=== PATIENT | female | born 1945 | race Caucasian/White ===

== ENCOUNTER 2024-08-15 11:44 | Inpatient (IN) ==
--- NOTE | 2024-08-15 12:00 | Emergency Department Note ---
Impression & Plan Acute confusion, Leukocytosis, Acute UTI ED Provider Note NAME: CORNELIO PABON AGE: 79 SEX: F : 1945 ARRIVES VIA: Ambulance INFORMANT: [Patient][ems] ED PROVIDER(S): [Rasta Kirby MD] CHIEF COMPLAINT: Confusion HISTORY OF PRESENT ILLNESS: The patient is an 79-year-old female who presents to the ER with about a week of confusion, some increased bilateral leg pain, weakness, some burning on urination, foul-smelling urine, and a reported episode of nausea and vomiting. The patient denies cough or congestion or shortness of breath. She denies any abdominal pain. She denies any recent fall. PMHx/PSHx/Social Hx: See Below PHYSICAL EXAM: GENERAL: Patient is in no acute distress. HEENT: No acute trauma, normocephalic atraumatic, mucous membranes somewhat dry, no nasal congestion. NECK: No stridor, no adenopathy, no meningismus, trachea is midline. LUNGS: Clear to auscultation bilaterally, no wheeze, no rhonchi, breath sounds equal. HEART: Without murmurs gallops or rubs, regular rate and rhythm. Heart tones are a bit distant. ABDOMEN: Soft, nontender, no peritonitis. EXTREMITIES: No cyanosis, full range of motion of all the joints without pain or difficulty. There is an older abrasion that is healing across the left anterior knee. No pain to move the left knee joint. NEUROLOGIC: Does move all extremities, is awake, seems confused. SKIN: No jaundice, no diaphoresis. DIFFERENTIAL DIAGNOSIS: UTI, intracranial bleeding, stroke, electrolyte imbalance, bacteremia or sepsis, among others. EMERGENCY DEPARTMENT PROCEDURES: MEDICAL DECISION MAKING: There was a significant leukocytosis at 19,000, this would be consistent with infection. There was a normal hemoglobin and platelet count. No renal failure or significant electrolyte abnormality. Lactic acid level was not elevated making severe sepsis less likely. There was no concerning liver enzyme elevation. Ammonia level was not elevated. Patient appeared to be in a euthyroid state. ECG shows a sinus rhythm, no ischemia. Cardiac enzyme testing x 1 is not consistent with acute cardiac injury. Urinalysis does show findings of infection. Respiratory bio fire was negative. Chest x-ray did not show any obvious pneumonia although the radiologist questioned a subtle lower lung infiltrate. Of note, the patient has no respiratory complaints. Brain CT was done, there was no acute bleed or mass effect. On exam, the patient was confused but there were no focal neurologic findings. Patient received IV saline, 1.5 L. She was given IV ceftriaxone as antibiotic therapy. The patient is in need of a hospital stay. She is confused, likely from the UTI. She will require further IV hydration and further IV antibiotic therapy. I did speak with the patient and her family, I spoke with case management. The on-call hospitalist was consulted. Prior/Outside records/notes reviewed: Today's EMS notes describing her presentation and transport to this hospital. ECG per my interpretation: Indication was confusion. The ECG shows a normal sinus rhythm with a rate of 93. There is no ST elevation, no PVCs. The QTc is 430. Continuous Cardiac Monitoring per my interpretation: An order was placed for continuous cardiac monitoring. The monitor shows a rate of 94 with normal sinus rhythm. Imaging/x-ray results per my interpretation: Chest x-ray does not show an obvious pneumonia or CHF. Chronic Medical/Social conditions affecting care: Advanced age. Care/Management discussed with: Case management, the on-call hospitalist. Level of care consideration(s): After review of the information above and other included data: --I believe the patient requires escalation of care to admission DISPOSITION: Admission Past Med/Surg History Problem List (Updated 08/15/24 @ 19:39 by Rasta Kirby MD) Acute UTI (Acute) Leukocytosis (Acute) Acute confusion (Acute) Generalized weakness UTI (urinary tract infection) Acute metabolic encephalopathy Medical History Tobacco use disorder Periodic limb movement disorder (PLMD) MCI (mild cognitive impairment) with memory loss Expressive aphasia IBS (irritable bowel syndrome) Dyslipidemia DM (diabetes mellitus), type 2 Lumbar stenosis Surgical History Hx of tonsillectomy Hx of appendectomy H/O: hysterectomy S/P lumbar spinal fusion Family History Other Alzheimer disease Cancer Social History Smoking Status: Current every day smoker Tobacco Type: Cigarettes Second Hand Exposure: No; Do You Dip or Chew Tobacco: No; Tobacco Cessation Education Requested by Patient: No Hx Alcohol Use: No Hx Substance Use: No Preferred Language: Czech Cold Meat Cook Required: No Beliefs That Will Affect Care: None Current Living Situation: Spouse Other Information That Helps Us Care for You: No Feels Safe at Home: Yes Safety Concerns: Feels Safe At This Time Assistive Devices: Cane, Denture - Upper, Denture - Lower, Glasses and Walker Assistive Devices Comment: Cane and Walker not at bedside Allergies Allergies Allergy/AdvReac Type Severity Reaction Status Date / Time No Known Drug Allergies Allergy Unknown NKDA Verified 06/13/16 09:23 pollen extracts Allergy Unknown HAYFEVER Verified 06/13/16 09:23 Dust Allergy Unknown HAYFEVER Uncoded 06/13/16 09:23 Home Meds Home Medications Medication Instructions Recorded Confirmed aspirin 81 mg capsule 81 mg PO DAILY 08/15/24 08/15/24 atorvastatin 40 mg tablet 40 mg PO DAILY 08/15/24 08/15/24 donepezil 10 mg tablet 10 mg PO DAILY 08/15/24 08/15/24 duloxetine 30 mg capsule,delayed 30 mg PO BID 08/15/24 08/15/24 release fexofenadine 180 mg tablet 180 mg PO DAILY 08/15/24 08/15/24 fluticasone propionate 50 2 spray intranasal HS 08/15/24 08/15/24 mcg/actuation nasal spray,suspension gabapentin 300 mg capsule 300 mg PO TID 08/15/24 08/15/24 meclizine 25 mg tablet 25 mg PO TID PRN Dizziness 08/15/24 08/15/24 multivitamin 1 tab PO DAILY 08/15/24 08/15/24 vitamin B complex 1 tab PO DAILY 08/15/24 08/15/24 Results & Data (ED) Vital Signs Vital Signs - 24 hr 08/15/24 12:02 08/15/24 12:02 08/15/24 12:02 Temperature 37 C Temperature Source Oral Pulse Rate 93 H Pulse Rate [Apical] Respiratory Rate 22 24 Respiratory Depth Normal Blood Pressure 137/68 Blood Pressure [Right Arm] Blood Pressure Mean 91 Blood Pressure Mean [Right Arm] Pulse Oximetry 92 Oxygen Delivery Method Room Air Room Air Sepsis Recent Fever Within 48 Hours No Sepsis New/Unexplained Change in Mental Status No Sepsis Action Taken by Nursing No Action Required 08/15/24 12:02 08/15/24 12:08 08/15/24 14:00 Temperature Temperature Source Pulse Rate 94 H Pulse Rate [Apical] 84 Respiratory Rate 18 Respiratory Depth Normal Blood Pressure Blood Pressure [Right Arm] 117/61 Blood Pressure Mean Blood Pressure Mean [Right Arm] 79 Pulse Oximetry Oxygen Delivery Method Room Air Sepsis Recent Fever Within 48 Hours Sepsis New/Unexplained Change in Mental Status Sepsis Action Taken by Nursing 08/15/24 15:12 Temperature 37.6 C H Temperature Source Axillary Pulse Rate Pulse Rate [Apical] Respiratory Rate Respiratory Depth Blood Pressure Blood Pressure [Right Arm] Blood Pressure Mean Blood Pressure Mean [Right Arm] Pulse Oximetry Oxygen Delivery Method Sepsis Recent Fever Within 48 Hours Sepsis New/Unexplained Change in Mental Status Sepsis Action Taken by [facility] Medications Current Medication List: was personally reviewed by me Laboratory Data Attestation: I reviewed the patient's lab results. 08/15/24 12:05 08/15/24 12:05 Lab Results 08/15/24 08/15/24 08/15/24 Range/Units 12:05 12:07 12:18 WBC 19.11 H (4.8-10.8) K/ul RBC 4.56 (4.20-5.40) M/uL Hgb 14.2 (12.0-16.0) g/dl Hct 42.1 (37.0-47.0) % MCV 92.3 (80.0-100.0) fL MCH 31.1 (25.0-34.0) pg MCHC 33.7 (32.0-36.0) g/dL RDW Std Deviation 42.2 (36.4-46.3) fL RDW Coeff of Sherif 12.3 (11.5-14.5) % Plt Count 258 (130-400) K/uL MPV 9.8 (9.4-12.4) fL Immature Gran % (Auto) 0.5 % Neut % (Auto) 81.7 % Lymph % (Auto) 10.8 % [place] % (Auto) 6.6 % Eos % (Auto) 0.1 % Baso % (Auto) 0.3 % Neut # (Auto) 15.61 H (1.40-6.50) K/uL Lymph # (Auto) 2.07 (1.20-3.40) K/uL [place] # (Auto) 1.27 H (0.11-0.59) K/uL Eos # (Auto) 0.02 (0.00-0.50) K/uL Baso # (Auto) 0.05 (0.00-0.20) K/uL Immature Gran # (Auto) 0.09 (0.01-0.20) K/uL Sodium 134 L (136-145) mmol/L Potassium 3.9 (3.5-5.1) mmol/L Chloride 102 (98-107) mmol/L Carbon Dioxide 23 (21-32) mmol/L Anion Gap 9 (3-11) BUN 14 (6-23) mg/dl Creatinine 0.77 (0.6-1.2) mg/dl Est Cr Clr Drug Dosing 69.7 ml/min eGFR 77.45 BUN/Creatinine Ratio 18.2 (10-20) Glucose 181 H (70-99(Fasting)) mg/dl Lactate 1.8 (0.4-2.0) mmol/L Calcium 10.0 (8.6-10.3) mg/dl Magnesium 1.8 (1.7-2.4) mg/dl Total Bilirubin 0.6 (0.2-1.0) mg/dl AST 14 (13-39) U/L ALT 13 (7-52) U/L Alkaline Phosphatase 75 (34-104) U/L Ammonia 24.0 (18-72) umol/L Troponin I High Sens 7.5 (0-14) pg/ml Total Protein 7.1 (6.0-8.3) gm/dl Albumin 4.3 (3.4-5.0) gm/dl Globulin 2.8 (2.5-4.0) gm/dl Albumin/Globulin Ratio 1.5 (0.9-2) Procalcitonin 0.06 (0-0.5) ng/ml TSH 0.942 (0.300-4.500) uIu/ml Urine Color Dark Yellow Urine Appearance Clear (Clear) Urine pH 6.0 (4.5-7.5) Ur Specific [place] 1.017 (1.000-1.030) Urine Protein Negative (Negative) Urine Glucose (UA) Negative (Negative) Urine Ketones Negative (Negative) Urine Blood Negative (Negative) Urine Nitrite Positive A (Negative) Urine Bilirubin Negative (Negative) Urine Urobilinogen Negative (Negative) Ur Leukocyte Esterase Trace H (Negative) Urine WBC (Auto) 0-5 (0-5) /hpf Urine RBC (Auto) 0-2 (0-2) /hpf U Hyaline Cast (Auto) 0-2 (0-2) /lpf U Epithel Cells (Auto) 0-2 (0-2) /hpf Urine Bacteria (Auto) 4+ H (None Seen) Administered Medications Insulin Aspart (Insulin Aspart Per Unit Charge) 0 units SC ACHS JUHI Stop: 09/14/24 17:40 Last Admin: 08/15/24 18:37 Dose: 2 units Documented By: HOLLIE Co-signed By: KS Discontinued Medications Acetaminophen (Acetaminophen 500 Mg Tab) 1,000 mg PO NOW STA Stop: 08/15/24 16:07 Last Admin: 08/15/24 16:16 Dose: 1,000 mg Documented By: ALIX Sodium Chloride (Nss) 500 mls @ 999 mls/hr IV .Q31M ONE Stop: 08/15/24 12:24 Last Infusion: 08/15/24 13:22 Dose: Infused Documented By: Admin: 08/15/24 12:34 Dose: 999 mls/hr Documented By: ALIX Ceftriaxone Sodium (Rocephin) 2,000 mg in 50 mls @ 100 mls/hr IV NOW STA Stop: 08/15/24 13:26 Last Infusion: 08/15/24 14:36 Dose: Infused Documented By: Admin: 08/15/24 13:39 Dose: 100 mls/hr Documented By: ALIX Sodium Chloride (Nss) 1,000 mls @ 999 mls/hr IV .Q1H1M ONE Stop: 08/15/24 15:37 Last Infusion: 08/15/24 18:33 Dose: Infused Documented By: Admin: 08/15/24 15:13 Dose: 999 mls/hr Documented By: ALIX Imaging Data Radiologist's Impression: Chest X-Ray 08/15/24 11:55 XR chest 1V portable CLINICAL HISTORY: weakness COMPARISON STUDY: Chest radiograph June 07, 2016. FINDINGS: There is no pneumothorax or pleural effusion. Mild right lower lung opacity is present. There is no evidence for pulmonary edema. Left lung is clear. The heart is mildly enlarged. No evidence for pulmonary edema. IMPRESSION: Mild right lower lung opacity suggestive of pneumonia. Radiographic follow-up to ensure resolution is recommended. ACT 112: Negative or not required by law. Electronically signed by: Jarrod Montelongo M.D. 08/15/2024 12:[address] 08/15/24 11:55 CT OF THE HEAD WITHOUT CONTRAST CLINICAL HISTORY: Confusion. COMPARISON STUDY: MRI of the brain November 19, 2018. CT DOSE: 625.8 mGy.cm TECHNIQUE: Helical axial images of the head were obtained without IV contrast. Automated exposure control was utilized for the study. A dose lowering technique was utilized adhering to the principles of ALARA. FINDINGS: No acute intracranial hemorrhage, midline shift or mass effect is present. White matter hypodensities are suggestive of small vessel disease. The ventricular system is unremarkable. The basal cisterns are patent. No extra- axial collections are present. There are no findings to suggest acute dural sinus thrombosis or acute territorial infarct. No significant calvarial abnormalities are present. Visualized portions of the sinuses and mastoid air cells are clear. IMPRESSION: No acute intracranial findings. ACT 112: Negative or not required by law. Electronically signed by: Jarrod Montelongo M.D. 08/15/2024 12:57 PM Discharge Plan Visit Data Chief Complaint: Confusion ED Provider: Rasta Kirby Discharge Problem: Acute confusion, Leukocytosis, Acute UTI Patient Disposition: Admitted As Inpatient Condition: Fair Discharge Instructions Interventions: ED Discharge Assessment Last Done: 08/15/24 16:37 Discharge Problem: Leukocytosis Qualifiers: Leukocytosis type: unspecified Qualified Code(s): D72.829 - Elevated white blood cell count, unspecified
[2024-08-15] MEDS: SODIUM CHLORIDE 0.9% 500 ML IV ONE (12:34)
[2024-08-15 12:46] LABS: Basophils # (auto) 0.05 K/uL (0.00-0.20); Basophils % (auto) 0.3 %; Eosinophils # (auto) 0.02 K/uL (0.00-0.50); Eosinophils % (auto) 0.1 %; Hematocrit (blood only) 42.1 % (37.0-47.0); Hemoglobin 14.2 g/dl (12.0-16.0); Immature Granulocytes # (auto) 0.09 K/uL (0.01-0.20); Immature Granulocytes % (auto) 0.5 %; Lymphocytes # (auto) 2.07 K/uL (1.20-3.40); Lymphocytes % (auto) 10.8 %; Mean Corpuscular Hemoglobin 31.1 pg (25.0-34.0); Mean Corpuscular Hgb Conc 33.7 g/dL (32.0-36.0); Mean Corpuscular Volume 92.3 fL (80.0-100.0); Mean Platelet Volume 9.8 fL (9.4-12.4); Monocytes # (auto) 1.27 K/uL (0.11-0.59); Monocytes % (auto) 6.6 %; Neutrophils # (auto) 15.61 K/uL (1.40-6.50); Neutrophils % (auto) 81.7 %; Platelet Count 258 K/uL (130-400); RDW Coefficient of Variation 12.3 % (11.5-14.5); RDW Standard Deviation 42.2 fL (36.4-46.3); Red Blood Count 4.56 M/uL (4.20-5.40); White Blood Count 19.11 K/ul (4.8-10.8)
--- NOTE | 2024-08-15 12:46 | XRay Report ---
XR chest 1V portable CLINICAL HISTORY: weakness COMPARISON STUDY: Chest radiograph June 07, 2016. FINDINGS: There is no pneumothorax or pleural effusion. Mild right lower lung opacity is present. The re is no evidence for pulmonary edema. Left lung is clear. The heart is mildly enlarged. No evidence for pulmonary edema. IMPRESSION: Mild right lower lung opacity suggestive of pneumonia. Radiographic follow-up to ensure resolution is recommended. ACT 112: Negative or not required by law. Electronically signed by: Jarrod Montelongo M.D. 08/15/2024 12:45 PM
[2024-08-15 12:58] LABS: Albumin Globulin Ratio 1.5 (0.9-2); Albumin Level 4.3 gm/dl (3.4-5.0); BUN Creatinine Ratio 18.2 (10-20); Bilirubin,Total 0.6 mg/dl (0.2-1.0); Creatinine Clr Calc Pharmacy 69.7 ml/min; Globulin 2.8 gm/dl (2.5-4.0); Magnesium 1.8 mg/dl (1.7-2.4); Potassium 3.9 mmol/L (3.5-5.1); Total Protein 7.1 gm/dl (6.0-8.3)
--- NOTE | 2024-08-15 12:58 | CT Scan Report ---
CT OF THE HEAD WITHOUT CONTRAST CLINICAL HISTORY: Confusion. COMPARISON STUDY: MRI of the brain November 19, 2018. CT DOSE: 625.8 mGy.cm TECHNIQUE: Helical axial images of the head were obtained without IV contrast. Automated exposure con trol was utilized for the study. A dose lowering technique was utilized adhering to the principles o f ALARA. FINDINGS: No acute intracranial hemorrhage, midline shift or mass effect is present. White matter hyp odensities are suggestive of small vessel disease. The ventricular system is unremarkable. The basal cisterns are patent. No extra-axial collections are present. There are no findings to suggest acute d ural sinus thrombosis or acute territorial infarct. No significant calvarial abnormalities are presen t. Visualized portions of the sinuses and mastoid air cells are clear. IMPRESSION: No acute intracranial findings. ACT 112: Negative or not required by law. Electronically signed by: Jarrod Montelongo M.D. 08/15/2024 12:57 PM
[2024-08-15 13:04] LABS: Troponin I High Sensitivity 7.5 pg/ml (0-14)
[2024-08-15 13:11] LABS: Thyroid Stimulating Hormone 0.942 uIu/ml (0.300-4.500)
[2024-08-15] MEDS: cefTRIAXone SODIUM 2,000 MG/50 ML BAG IV STA (13:39)
[2024-08-15 13:42] LABS: Appearance Urine Clear (Clear); Bacteria Urine Automated 4+ (None Seen); Bilirubin Urine Negative (Negative); Blood Urine Negative (Negative); Cast Urine Automated 0-2 /lpf (0-2); Color Urine Dark Yellow; Epithelial Cell Urine Auto 0-2 /hpf (0-2); Glucose Urine UA Negative (Negative); Ketones Urine Negative (Negative); Leukocyte Esterase Urine Trace (Negative); Nitrite Urine Positive (Negative); Protein Urine Negative (Negative); RBC Urine Automated 0-2 /hpf (0-2); Specific Gravity Urine 1.017 (1.000-1.030); Urobilinogen Urine Negative (Negative); WBC Urine Automated 0-5 /hpf (0-5)
[2024-08-15 14:43] LABS: Adenovirus PCR Not Detected (NotDetected); Bordetella parapertussis PCR Not Detected (NotDetected); Bordetella pertussis PCR Not Detected (NotDetected); Chlamydia pneumoniae PCR Not Detected (NotDetected); Coronavirus 229E PCR Not Detected (NotDetected); Coronavirus CoV-2 (COVID19)PCR Not Detected (NotDetected); Coronavirus HKU1 PCR Not Detected (NotDetected); Coronavirus NL63 PCR Not Detected (NotDetected); Coronavirus OC43PCR Not Detected (NotDetected); Human Metapneumovirus PCR Not Detected (NotDetected); Influenza A PCR Not Detected (NotDetected); Influenza B PCR Not Detected (NotDetected); Mycoplasma pneumoniae PCR Not Detected (NotDetected); Parainfluenza Virus 1 PCR Not Detected (NotDetected); Parainfluenza Virus 2 PCR Not Detected (NotDetected); Parainfluenza Virus 3 PCR Not Detected (NotDetected); Parainfluenza Virus 4 PCR Not Detected (NotDetected); Respiratory Syncytial VirusPCR Not Detected (NotDetected); Rhinovirus/Enterovirus PCR Not Detected (NotDetected)
--- NOTE | 2024-08-15 14:59 | History & Physical Report ---
Date of Service August 15, 2024 Assessment & Plan (1) Acute metabolic encephalopathy: (2) UTI (urinary tract infection): (3) Generalized weakness: (4) DM (diabetes mellitus), type 2: (5) Tobacco use disorder: (6) MCI (mild cognitive impairment) with memory loss: (7) Expressive aphasia: (8) IBS (irritable bowel syndrome): (9) Dyslipidemia: Plan This is an 79yo F with PMH of DM II, expressive aphasia, mild cognitive impairment, tobacco use, periodic limb movement disorder, IBS and other medical problems listed below who presents via EMS with confusion and was found to have acute metabolic encephalopathy 2/2 UTI and possible CAP. Acute metabolic encephalopathy Acute UTI Generalized weakness AMS likely 2/2 infection - CT head without intracranial abnormality, does have baseline dementia but is usually able to complete ADLs more independently Urinary sx x 1 week, WBC 19k, abnormal UA consistent with UTI Continue empiric Rocephin PT/OT evals, fall precautions Possible CAP Afebrile, leukocytosis as above, resp viral panel negative CXR with mild right lower lung opacity suggestive of pneumonia. Radiographic follow-up to ensure resolution is recommended Covering with Rocephin above, add doxycycline for atypical coverage Incentive spirometry, PRN Nebs DM II Stable, diet controlled A1c 6.6 in Jul 2024 Loose correctional SSI while admitted 2/2 age BSG AC HS Tobacco use disorder Smoking 0.5 ppd Declined nicotine patch Smoking cessation Asymptomatic carotid stenosis HLD Continue aspirin, statin Dementia Expressive aphasia at baseline Oriented to person and place, not to time or situation Lives at home with , ambulates independently Continue donepezil IBS Chronic constipation Bowel regimen with daily Miralax DVT Ppx: SQ lovenox Code status: FULL PCP: Dalia Dispo:Admitted to med/surg Patient seen in collaboration with Dr. Magdaleno. Please see addendum. I spent a total of 75 minutes coordinating, documenting, and providing care for this patient excluding time spent in the performance of separately billed services or time spent by another provider/QHP. History of Present Illness Chief Complaint: confusion Primary Care Provider: Clayton Gómez, This is an 79yo F with PMH of DM II, expressive aphasia, mild cognitive impairment, tobacco use, periodic limb movement disorder, IBS and other medical problems listed below who presents via EMS with confusion and urinary symptoms. Family is at bedside who help augment history with her baseline dementia. Patien t endorses dysuria, increased frequency and incomplete voiding over the past week. Denies any fever or chills at home. No N/V or abdominal pain. + Generalized weakness noted over past few days but no falls. Also has noted increased cough over the past week. Has baseline dementia but was more confused today, requiring help to take medications and needing multiple reminders to complete tasks. Is typically able to ambulate independently at home, where she lives with . Was brought to ED for further evaluation. No lightheadedness, headche, CP, SOB, diarrhea or constipation. Allergies Allergy/AdvReac Type Severity Reaction Status Date / Time No Known Drug Allergies Allergy Unknown NKDA Verified 06/13/16 09:23 pollen extracts Allergy Unknown HAYFEVER Verified 06/13/16:23 Dust Allergy Unknown HAYFEVER Uncoded 06/13/16:23 Home Medications Medication Instructions Recorded Confirmed Type aspirin 81 mg capsule 81 mg PO DAILY 08/15/24 08/15/24 History atorvastatin 40 mg tablet 40 mg PO DAILY 08/15/24 08/15/24 History donepezil 10 mg tablet 10 mg PO DAILY 08/15/24 08/15/24 History duloxetine 30 mg capsule,delayed 30 mg PO BID 08/15/24 08/15/24 History release fexofenadine 180 mg tablet 180 mg PO DAILY 08/15/24 08/15/24 History fluticasone propionate 50 2 spray intranasal HS 08/15/24 08/15/24 History mcg/actuation nasal spray,suspension gabapentin 300 mg capsule 300 mg PO TID 08/15/24 08/15/24 History meclizine 25 mg tablet 25 mg PO TID PRN Dizziness 08/15/24 08/15/24 History multivitamin 1 tab PO DAILY 08/15/24 08/15/24 History vitamin B complex 1 tab PO DAILY 08/15/24 08/15/24 History Past Med/Surg History Problem List Generalized weakness UTI (urinary tract infection) Acute metabolic encephalopathy Medical History Tobacco use disorder Periodic limb movement disorder (PLMD) MCI (mild cognitive impairment) with memory loss Expressive aphasia IBS (irritable bowel syndrome) Dyslipidemia DM (diabetes mellitus), type 2 Lumbar stenosis Surgical History Hx of tonsillectomy Hx of appendectomy H/O: hysterectomy S/P lumbar spinal fusion Family History Other Alzheimer disease Cancer Social History Smoking Status: Never smoker Preferred Language: Burmese Feels Safe at Home: Yes Review of Systems Review of Systems: At least ten systems reviewed and negative except as noted in the HPI. Physical Exam Physical Exam: General Appearance: WD/WN, vitals as above, NAD, sitting up in bed, pleasantly confused, appears comfortable, mild expressive aphasia (baseline) Head: normocephalic, atraumatic Eyes: normal inspection, PERRL, conjunctivae normal, anicteric sclerae ENT: external ear and nose normal, oropharynx normal Neck: normal visual inspection, trachea midline, no thyromegaly Respiratory: normal respiratory effort, diffuse rhonchi. No accessory muscle use Cardiovascular: regular rate, rhythm, normal peripheral pulses, trace BLE edema. Vessels: no JVD Chest: normal inspection of chest Abdomen/GI: normal bowel sounds, soft, nontender, no hepatosplenomegaly Extremities/Musculoskeletal: no cyanosis or clubbing, extremities motor strength 5/5 Neurologic: PERRL, EOMI, accommodation nl, no face palsy, no dysarthria, CN's II-XI intact bilaterally and moves all extremities Psychiatric: A+Ox person and place, not time or situation Skin: no rashes, normal color, warm/dry Results & Data Results & Data Vital Signs (Past 12 Hours) Vital Signs Temp Pulse Pulse Resp BP BP Pulse Ox 08/15/24 14:00 84 18 117/61 08/15/24 12:08 94 H 08/15/24 12:02 08/15/24 12:02 08/15/24 12:02 24 08/15/24 12:02 37 C 93 H 22 137/68 92 O2 Del Method 08/15/24 14:00 08/15/24 12:08 08/15/24 12:02 Room Air 08/15/24 12:02 Room Air 08/15/24 12:02 08/15/24 12:02 Room Air Laboratory Results Short CBC 08/15/24 Range/Units 12:05 WBC 19.11 H (4.8-10.8) K/ul Hgb 14.2 (12.0-16.0) g/dl Hct 42.1 (37.0-47.0) % Plt Count 258 (130-400) K/uL BMP 08/15/24 12:05 Sodium 134 L Potassium 3.9 Chloride 102 Carbon Dioxide 23 BUN 14 Creatinine 0.77 Glucose 181 H Calcium 10.0 Liver Function 08/15/24 Range/Units 12:05 Total Bilirubin 0.6 (0.2-1.0) mg/dl AST 14 (13-39) U/L ALT 13 (7-52) U/L Alkaline Phosphatase 75 (34-104) U/L Albumin 4.3 (3.4-5.0) gm/dl Urine 08/15/24 Range/Units 12:18 Urine Color Dark Yellow Urine Appearance Clear (Clear) Urine pH 6.0 (4.5-7.5) Ur Specific [place] 1.017 (1.000-1.030) Urine Protein Negative (Negative) Urine Glucose (UA) Negative (Negative) Diagnostic Findings Chest X-Ray 08/15/24 11:55 XR chest 1V portable CLINICAL HISTORY: weakness COMPARISON STUDY: Chest radiograph June 07, 2016. FINDINGS: There is no pneumothorax or pleural effusion. Mild right lower lung opacity is present. There is no evidence for pulmonary edema. Left lung is clear. The heart is mildly enlarged. No evidence for pulmonary edema. IMPRESSION: Mild right lower lung opacity suggestive of pneumonia. Radiographic follow-up to ensure resolution is recommended. ACT 112: Negative or not required by law. Electronically signed by: Jarrod Montelongo M.D. 08/15/2024 12:[address] 08/15/24 11:55 CT OF THE HEAD WITHOUT CONTRAST CLINICAL HISTORY: Confusion. COMPARISON STUDY: MRI of the brain November 19, 2018. CT DOSE: 625.8 mGy.cm TECHNIQUE: Helical axial images of the head were obtained without IV contrast. Automated exposure control was utilized for the study. A dose lowering technique was utilized adhering to the principles of ALARA. FINDINGS: No acute intracranial hemorrhage, midline shift or mass effect is present. White matter hypodensities are suggestive of small vessel disease. The ventricular system is unremarkable. The basal cisterns are patent. No extra- axial collections are present. There are no findings to suggest acute dural sinus thrombosis or acute territorial infarct. No significant calvarial abnormalities are present. Visualized portions of the sinuses and mastoid air cells are clear. IMPRESSION: No acute intracranial findings. ACT 112: Negative or not required by law. Electronically signed by: Jarrod Montelongo M.D. 08/15/2024 12:57 PM Supervising Physician Co-Signing Physician Notes 79-year-old female with PMH of T2DM, expressive aphasia, mild cognitive impairment, tobacco use, periodic limb disorder, IBS presented to the ED with complaint of urinary symptoms and confusion for about a week. patient's daughter at bedside patient also noted to have cough since last 1 week. Patient has baseline dementia. Labs reviewed, WBC elevated at 19.11K, sodium at 134, rest of the renal function fairly WNL, LFT WNL, ammonia normal. Urinalysis positive for UTI. Respiratory pathogen panel negative. CXR with RLL pneumonia. CT head with no acute finding. Acute UTI, acute metabolic encephalopathy, generalized weakness and possible pneumonia: Continue with Rocephin and doxycycline, follow blood and urine culture. Repeat chest x-ray in 2 to 3 months to document resolution of pneumonia. PT/OT eval. Exam: GENERAL: Alert and awake. NAD, on RA. Appears ill/weak/frail. HEENT: No pallor, no icterus. Pupils equal, round and reactive to light. Oral mucosa moist. NECK: No JVD, no neck masses. HEART: S1 and S2 heard. Regular rate and rhythm. No murmur, no gallop. RESPIRATORY SYSTEM: Normal AP diameter. No accessory muscle use. No wheezing, RLL crackles. ABDOMEN: Soft, bowel sounds present, nontender, no distention. CENTRAL NERVOUS SYSTEM: No facial droop. Speech is clear. Obeys simple commands. Moves extremities. EXTREMITIES: No edema, no erythema seen. I have seen and examined the patient and have discussed the case with the provider above. I agree with the assessment and plan as stated. Time spent: 25 min.
[2024-08-15] MEDS: SODIUM CHLORIDE 0.9% 1,000 ML IV ONE (15:13)
--- NOTE | 2024-08-15 15:30 | Electrocardiogram Report ---
Test Reason : Blood Pressure : */* mmHG Vent. Rate : 93 BPM Atrial Rate : 93 BPM P-R Int : 172 ms QRS Dur : 72 ms QT Int : 346 ms P-R-T Axes : 47 59 68 degrees QTcB Int : 430 ms Normal sinus rhythm Normal ECG When compared with ECG of 07-Jun-2016 09:06, No significant change was found Confirmed by Solitario Frederick ([id number]) on 08/15/2024 3:30:27 PM Referred By: Confirmed By: Solitario Frederick
[2024-08-15] MEDS: ACETAMINOPHEN 500 MG TAB PO STA (16:16)
[2024-08-15] MEDS ORDERED: ALBUT/IPRATROP 3MG/0.5MG NEB 3 ML VIAL NEB PRN (16:47)
--- OUTSIDE RECORDS SUMMARY | 2024-08-15 17:05 | External Medical Summary ---
Author Name Unknown Address Unknown Organization [id number]:[facility] [place] - [address] [place] [address] Laboratory Report Ordering Provider Test Date Status EDNA STORMMELI 08/13/2024 12:33:57 Final Observation Date Value Abnormality Reference (Units ) Status Erythrocyte sedimentation rate by Photometric method 08/13/2024 12:33:57 20 <30 (mm/hour) Final Performing Location [facility] - [address] [place] [id number]
--- OUTSIDE RECORDS SUMMARY | 2024-08-15 17:05 | External Medical Summary ---
Author Name Unknown Address Unknown Organization [id number]:[facility] [place] [address] Laboratory Report Ordering Provider Test Date Status SARI STORM 08/13/2024 12:33:57 Final Observation Date Value Abnormality Reference (Units ) Status BUN 08/13/2024 12:33:57 20 6-20 (mg/dL) Final Creatinine 08/13/2024 12:33:57 0.7 0.5-1.0 (mg/dL) Final Glomerular filtration rate/1.73 sq M.predicted [Volume Rate/Area] in Serum, Plasma or Blood by Creatinine-based formula (CKD-EPI) 08/13/2024 12:33:57 88 >=60 (mL/min) Final eGFR is calculated based on the CKD-EPI 2020 equation. Sodium 08/13/2024 12:33:57 141 135-146 (m mol/L) Final Potassium 08/13/2024 12:33:57 4.7 3.5-5.1 (m mol/L) Final Cl 08/13/2024 12:33:57 105 98-107 (mm ol/L) Final CO2 08/13/2024 12:33:57 23 22-32 (mmo l/L) Final Anion gap 08/13/2024 12:33:57 13 7-15 (mmol /L) Final Glucose 08/13/2024 12:33:57 114 70-120 (mg /dL) Final Albumin 08/13/2024 12:33:57 4.8 3.8-5.0 (g /dL) Final AST (Aspartate aminotransferase) 08/13/2024 12:33:57 19 10-35 (U/L) Fin al Alk Phos 08/13/2024 12:33:57 94 35-130 (U/ L) Final Bilirubin, Total 08/13/2024 12:33:57 0.2 <=1 .2 (mg/dL) Final Calcium 08/13/2024 12:33:57 10.6 Above high normal 8. 4-10.2 (mg/dL) Final Protein 08/13/2024 12:33:57 7.2 6.0-8.3 (g /dL) Final ALT (Alanine aminotransferase) 08/13/2024 12:33:57 17 10-35 (U/L) Maldonado beaulieu Performing Location [facility] [address] [place] [address]
--- OUTSIDE RECORDS SUMMARY | 2024-08-15 17:05 | External Medical Summary ---
Author Name Unknown Address Unknown Organization K01:[facility] [place] - [address] [place] [id number] Laboratory Report Ordering Provider Test Date Status DOTTYSARI 08/13/2024 12:33:57 Final Observation Date Value Abnormality Reference (Units ) Status Vitamin B12 08/13/2024 12:33:57 [phone] (pg/mL) Final Performing Location [facility] [place] - [address] [place] [address]
--- OUTSIDE RECORDS SUMMARY | 2024-08-15 17:05 | External Medical Summary | Summary of Care ---
Author Name Unknown Organization [facility] Address [address] [place] [address] Phone [phone] Care Team Providers Care Choir Accompanist Name Role Phone Clayton Gómez DO Primary Care Provider Reason for Visit * Reason Onset Date Comments Test Results 08/09/202408/09 Encounter Details Date Type Department Care Team (Late st Contact Info) Description 08/09/2024 Telephone Family Practice [address] [facility] [place] [address] [place] [address] Clayton Gómez DO [address] [place] [address] Test Results (08/09) Allergies Active Allergy Reactions Criticality Noted Date Comments Environmental 07/15/2003 pollen documented as of this encounter (statuses as of 08/13/2024) Medications ASPIRIN 81 MG PO TABSIndications :Screening for malignant neoplasm of breast one tab by mouth daily 90 5 8 Active B-COMPLEX W/C & IRON PO CAPSIndications :Menopause daily 90 6 8 Active Acetaminophen ER 650 MG Oral Tablet Extended Release every 8 hours as needed. Active fluticasone (FLONASE) 50 MCG/ACT nasal sprayIndication s:at bedtime SQUIRT 2 SPRAYS INTO EACH NOSTRIL ONCE A DAY. Indications: at bedtime 48 g 2 5 Active Fexofenadine HCl 180 MG Oral Tablet One pill by mouth once a day for allergies 30 Tab 11 5 Active Multiple Vitamins-Minera ls (OCUVITE ADULT 50+) Capsule Take 1 Capsule by mouth in the morning. Active DULoxetine HCl 30 MG Oral Capsule Delayed Release Particles (Cymbalta)Indic ations:Heredita ry and idiopathic peripheral neuropathy TAKE ONE CAPSULE BY MOUTH TWICE A DAY 200 Capsule 3 08/01/2024 2:54 PM EST 4 11/14/19 25 Active Atorvastatin Calcium 40 MG Oral Tablet (Lipitor)Indica tions:Dyslipide dallin, goal LDL below 160 TAKE ONE TABLET BY MOUTH EVERY DAY 90 Tablet 3 08/10/2024 8:14 AM EST 4 11/15/19 25 Active Gabapentin 300 MG Oral Capsule (Neurontin)Amaris cations:S/P lumbar spinal fusion Take 1 Capsule by mouth in the morning and 1 Capsule at noon and 1 Capsule before bedtime. 300 Capsule 5 07/06/2024 1:33 PM EST 4 Active Meclizine HCl 25 MG Oral Tablet (Antivert)Indic ations:Vertigo TAKE ONE TABLET BY MOUTH THREE TIMES A DAY NEEDED FOR DIZZINESS 270 Tablet 1 08/10/2024 8:14 AM EST 4 05/10/20 25 Active Donepezil HCl 10 MG Oral Tablet (Aricept) Take 1 Tablet by mouth in the morning. 90 Tablet 3 08/02/2024 4:38 PM EST 5 Active documented as of this encounter (statuses as of 08/13/2024) Active Problems Problem Noted Date Diagnosed Date DM type 2, goal HbA1c < 8% 04/02/2024 Expressive aphasia 07/15/2022 MCI (mild cognitive impairment) with memory loss 07/15/2022 Asymptomatic stenosis of right carotid artery Chronic constipation 02/27/2020 Hiatal hernia 10/09/2019 S/P lumbar spinal fusion 08/25/2016 History of melanoma in situ 08/13/2015 Allergic rhinitis 12/09/2014 Dyslipidemia, goal LDL below 70 09/13/2010 IDIO PERIPH NEURPTHY NOS(aka NEUROPATHY) 003 Irritable bowel syndrome 06/30/2003 Periodic limb movement disorder (PLMD) 3 Tobacco use disorder 06/30/2003 documented as of this encounter (statuses as of 08/13/2024) Resolved Problems Problem Noted Date Diagnosed Date Resolved Date Unspecified dementia, mild, without behavioral disturbance, psychotic disturbance, mood disturbance, and anxiety 11/14/2022 11/14/2022 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 Dyslipidemia, goal to be determined 06/30/2003 09/13/2010 BENIGN NEOPLASM LG BOWEL 06/30/200301/2019 Overview (06/16/2006): Colonoscopy 06/07: Impression: - One 3 mm polyp in the cecum. Resected and retrieved. - The examination was otherwise normal. Recommendation: - Await pathology results. - Discontinue NSAIDS for 10 days. - Repeat colonoscopy in 3 years for surveillance given the prep quality. Other voice and resonance disorders 06/30/2003 02/23/2017 Overview (06/22/2005): Direct Laryngosocopy 10/04: Mrs. Andino consented to the laryngoscopic exam. We subsequently sprayed the back of the throat with two sprays of Lidocaine with good success. We cannulated her nose without any significant difficulty and then visualized her vocal cords. There was no obvious lesions. No significant erythema or other mucosal interruptions. Her vocal cords did not have any polyps or other lesions noted. There was no subglottic narrowing or other tracheal abnormalities noted. Her swallowing was intact and appropriate. The vocal cords moved symmetrically and appropriately with voice and inhalation. SCREEN FOR COND NEC 06/30/200302/23 CARDIOVAS SYS SYMP NEC 06/30/200302/23 documented as of this encounter (statuses as of 08/13/2024) Immunizations Name Administration Dates Next Due COVID-19 mRNA, LNP-s, No Pre serve, 2-Dose Series ([employer]) 09/22/2020,09/01/2020 COVID-19, LNP-s, No Preserve , Chad-sucrose, Ages 12+ ([employer]) 12/28/2021 COVID-19, MRNA-LNP, PF, 30 M CG/0.3 mL, 12 YRS AND ABOVE, IM ([facility]) 04/01/2024 Covid-19, Mrna, Lnp-s, Pf, B ivalent, 30 Mcg, IM, 12 yrs and above ([employer]) 07/19/2022 Pneumococcal Conjugate Vacc, 13 Valent (Prevnar) 12/09/2014 Pneumococcal Conjugate Vacci ne, 20-valent ([id number]) 04/01/2024 Pneumococcal Polysaccharide PPV23 (Pneumovax) 03/21/2008 RSV Vac., Bivalent, Perfusio n F, Pf,0.5 Ml (Abrysvo) 04/01/2024 Season Influenza, Quad, PF, Adjuvanted, 65+ Yrs, IM (FLUAD) 04/23/2020 Seasonal Influenza Vac., MDV , IM, 0.5 mL (Fluzone) 05/05/2014,04/17/2013,04/16/2012,03/04,04/21/2010,03/12/2009,05/06/20 08,04/19/2007,05/23/2006 03/31/2012 Seasonal Influenza, High Dos e, Trivalent, PF, IM (Fluzone HD) 04/01/2024 Seasonal Influenza, PF, 6 M & above, IM , (FluLaval or Fluzone) 03/14/2018,06/02/2017 Seasonal Influenza, Quadriva lent Hd (Fluzone Hd) 03/22/2023,05/13/2022,05/03/2021 Seasonal Influenza, Quadriva lent, No Preserve, IM 05/09/2016,05/07/2015 Seasonal Influenza, Trivalen t, Adjuvanted, 65+ YRS, PF, (Fluad) 03/25/2019 TDAP (age 10 and older)(Boostrix) 10/11/2022, Varicella Zoster Vaccine (Adult) 04/16/2012 Zoster Vaccine Recombinant (Shingrix) 12/27/2021 ,08/26/2021 documented as of this encounter Social History Tobacco Use Types Packs/Day Years Used Date Smoking Tobacco: Every Day Cigarettes 0.5 60 Passive Smoke Exposure: Current Smokeless Tobacco: Never Alcohol Use Standard Drinks/Week Comments Not Currently 0 (1 standard drink = 0.6 oz pur e alcohol) AUDIT-C Answer Date Recorded Frequency of Alcohol Consumption Not on file 02/18/2019 Average Number of Drinks Not on file 019 Frequency of Binge Drinking Less than monthly PHQ-2 Answer Date Recorded PHQ Adult Total Score 0 10/17/2023 Hunger Vital Sign Answer Date Recorded Within the past 12 months, y ou worried that your food would run out before you got the money to buy more. Never true 07/24/19 24 Within the past 12 months, t he food you bought just didn't last and you didn't have money to get more. Never true 07/24/2023 Childcare Answer Date Recorded Do you feel overwhelmed with taking care of a child, family member or friend? No 07/24/2023 Does your family need help f inding childcare? (Household - for ages 0-17 years) Not on file 07/24/2023 Clothing Answer Date Recorded Have you been unable to get clothing when it was really needed? No 07/24/2023 Is your family able to get c lothes or diapers when needed? (Household - for ages 0-17 years) Not on file 07/24/2023 Personal Safety Answer Date Recorded Do you feel unsafe or have concerns for your saf ety? No 07/24/2023 Do you have concerns for you r family's safety? (Household - for ages 0-17 years) Not on file 07/24/2023 Utilities Answer Date Recorded Do you have trouble paying y our heating, water, or electric bill? No 07/24/2023 Is your family able to pay t he heat, water, or electric bill? (Household - for ages 0-17 years) Not on file 07/24/2023 Does your family have access to good internet? (Household - for ages 0-17 years) Not on file 07/24/2023 Employment Status Answer Date Recorded Are you unemployed or without regular income? No 07/24/2023 Does the household have a re gular source of income? (Household - for ages 0-17 years) Not on file 07/24/2023 Social Connections Answer Date Recorded How often do you feel lonely or isolated from th ose around you? Never 07/24/2023 Financial Resource Strain Answer Date R ecorded Do you have any trouble payi ng for your medications, or do you think you might in the future? No 07/24/2023 Does your family have troubl e paying for medicine? (Household - for ages 0-17 years) Not on file 07/24/2023 Transportation Needs Answer Date Record ed READ ONLY Do you have troubl e getting a ride to medical visits or work? Never True 07/24/2023 Does your family have a hard time getting a ride to doctors visits? (Household - for ages 0-17 years) Not on file 07/24/2023 Has lack of transportation k ept you from medical appointments, meetings, work, or from getting things needed for daily living? Check all that apply. (Adult - for ages 18 years and over) Not on file 07/24/2023 Do you (or your family) have trouble finding or paying for a ride (transportation)? (Household - for ages 0-17 years) Not on file 07/24/2023 Housing Stability Answer Date Recorded Do you currently live in a s helter or have no steady place to sleep at night? No 07/24/2023 READ ONLY Do you think you a re at risk of becoming homeless? No 07/24/2023 Does your family worry about paying for your home or becoming homeless? (Household - for ages 0-17 years) Not on file 0 07/24/2023 Are you homeless or worried that you might be in the future? (Adult - for ages 18 years and over) Not on file Are you (or your family) armin eless or worried that you might be in the future? (Household - for ages 0-17 years) Not on file Food Insecurity Answer Date Recorded Do you need food for this week? No 07/24/2023 Are you able to get enough f ood for your family? (Household - for ages 0-17 years) Not on file 07/24/2023 Does your family need food t his week? (Household - for ages 0-17 years) Not on file 07/24/2023 Do you always have enough fo od for your family? (Household - for ages 0-17 years) Not on file 07/24/2023 Comments No Sex and Gender Information Value Date Recorded Sex Assigned at Female 11/07/2018 10:12 AM EDT Legal Sex Female 6:05 AM EST Gender Identity Female 11/07/2018 10:12 AM EDT Sexual Orientation Straight 11/07/2018 10 :12 AM EDT Occupation Industry Job Start Date Job End Date retired Not on file Not on file Not on file documented as of this encounter Miscellaneous Notes * Telephone Encounter - Rachel Ortega OSA - 08/13/2024 9:01 AM EST Appt scheduled for 08/01/25 at 10am * Telephone Encounter - Ambar Curiel LPN - 08/09/2024 10:46 AM EST Call placed to patient and relayed information from Dr. Gómez. Pt acknowledged understanding. Agreeable to repeat Carotid Doppler in 1 year. Order pended manager service desk - please assist with scheduling after order is signed. * Telephone Encounter - Ambar Curiel LPN - 08/09/2024 10:41 AM EST ----- Message from Clayton Gómez DO sent at 08/09/2024 10:34 AM EST ----- Carotid doppler is stable Repeat Carotid doppler in 1 year documented in this encounter Plan of Treatment Upcoming Encounters Date Type Department Care Team (Late st Contact Info) Description 08/13/2024 11:20 AM EST Office Visit Neurology [facility] [address] [place] [address] Jaymie King MD [address] [place] [address] 08/21/2024 10:00 AM EST Nutrition Services Nutrition Services [address] [facility] [address] [place] [address] Nikole Frank RDN [address] [place] [address] 11/29/2024 9:20 AM EDT Office Visit Family Practice [address] [facility] [address] [place] [address] Clayton Gómez DO [address] [place] [address] 01/21/2025 10:40 AM EDT Office Visit Dermatology [facility] [address] [place] [address] Candace Washington PA-C [address] [place] [address] 08/01/2025 10:15 AM EST Imaging Radiology, [place] [address] [place] [id number] Scheduled Orders Name Type Priority Associated Diagnoses Orde r Schedule VASC DUPLEX CAROTID BILAT Medical Imaging Routine Asymptomatic stenosis of right carotid artery Expected: 08/01/2025 (Approximate), Expires: 09/06/2025 Health Maintenance Due Date Last Done Comments DISCUSS TOBACCO CESSATION (REFER TO SMARTSET #8031) 1945 Adult Wellness Visit 10/16/2024 10/17/2023, 10/12/19 23 Depression Screening 10/16/2024 10/17/2023 HbA1c 01/29/2025 08/01/2024, 03/05, 11/29/2023, Additional history exists Albumin/Creatinine Ratio 04/17/2025 04/17/2024 Diabetic Eye Exam 04/17/2025 04/17/2024, 10/31/2012 Diabetic Foot Exam 04/17/2025 04/17/2024 GFR 08/01/2025 08/01/2024, 07/04, 06/20/2022, Additional history exists DXA Scan 09/28/2026 09/28/2021, 09/01, 08/31/2016, Additional history exists DTap/Tdap Vaccines (3 - Td or Tdap) 10/11/2032 10/11/2022, 08/28/2012, 09/23/2004 Zoster Vaccines Completed 12/27/2021, 08/04, 04/16/2012 COVID-19 Vaccine Completed 04/01/2024, , 12/28/2021, Additional history exists Influenza Vaccine (FLU shot) Completed , 03/22/2023, 05/13/2022, Additional history exists Pneumococcal Vaccine: 50+ Years Completed 04/01/2024, 12/09/2014, 03/21/2008 HPV (Gardasil) Vaccine Aged Out No lo nger eligible based on patient's age to complete this topic Hepatitis B Vaccine Aged Out No longe r eligible based on patient's age to complete this topic MENINGOCOCCAL (MENACTRA/MENVEO) Aged Out No longer eligible based on patient's age to complete this topic documented as of this encounter Medical Devices Implanted Type Area Lieutenant General Device Identifier Shelf Expiration Date Model / Serial / Lot Clip Quick 2.8mm 230cm - [id number] Implanted:Qty: 3 on 01/02/2020 by Mike Beasley MD at ENDOSCOPY [facility] 06/01/2022 [id number]-[id number] / [id number] Description:Quick clip pro x 3 placed at rectal polypectomy site documented as of this encounter Visit Diagnoses Diagnosis Asymptomatic stenosis of right carotid artery- Primary documented in this encounter Care Teams Choir Accompanist Relationship Specialty Start Date End Date Clayton Gómez DO [address] [place] [address] PCP - General Internal Medicine 04/01/24 documented as of this encounter
--- OUTSIDE RECORDS SUMMARY | 2024-08-15 17:05 | External Medical Summary ---
Author Name Unknown Address Unknown Organization K01:[facility] [place] [address] [facility] [address] Laboratory Report Ordering Provider Test Date Status SARI STORM 08/13/2024 12:33:57 Final Observation Date Value Abnormality Reference (Units ) Status Nuclear IgG Ab [Ratio] in Serum by Immunoassay 08/13/2024 12:33:57 Negative Negative Final DNA double strand Ab [Presence] in Serum 08/13/2024 12:33:57 Negative Negative Final DOUBLE STRANDED DNA VALUE - [facility] 08/13/2024 12:33:57 <0.6 <20 (IU/mL) Final Extractable nuclear Ab [Presence] in Serum 08/13/2024 12:33:57 Negative Negative Final Nuclear IgG Ab [Ratio] in Serum by Immunoassay 08/13/2024 12:33:57 0.2 <0.7 (Ratio) Final Screening is based on detect ion of the following antibodies: dsDNA, U1-PATTERN PAINTER (RNP70, A, C), SS-A/Ro, SS-B / La, Asia-1, Scl-70, Centromere B proteins and Sm proteins. In conjunction with clinical findings, this can aid in the diagnosis of systemic lupus erythematosous (SLE), mixed connective tissue disease (MCTD), Sjogren's syndrome, scleroderma and polymyositis/dermatomyositis.
However, a negative result does not rule out systemic rheumatic or other autoimmune disease. If clinically suspected, further evaluation and testing may be necessary. Please consult with Rheumatology Department.
Methodology: Fluorescent Enzyme Immunoassay. Performing Location [facility] [place] [address] [facility] [address]
--- OUTSIDE RECORDS SUMMARY | 2024-08-15 17:05 | External Medical Summary ---
Author Name Unknown Address Unknown Organization [id number]:[facility] - [address] [place] [address] Laboratory Report Ordering Provider Test Date Status EDNA STORMMELI 08/13/2024 12:33:57 Final Observation Date Value Abnormality Reference (Units ) Status TSH 08/13/2024 12:33:57 1.16 0.27-4.20 (uIU/mL) Final Performing Location [facility] - [address] [place] [address]
--- OUTSIDE RECORDS SUMMARY | 2024-08-15 17:05 | External Medical Summary | Summary of Care ---
Author Name Unknown Organization [facility] Address [address] [facility] [place] [address] Phone [phone] Care Team Providers Care Chief Investment Officer Name Role Phone Clayton Gómez DO Primary Care Provider [phone] Reason for Visit * Reason Comments Outpatient Testing Encounter Details Date Type Department Care Team (Late st Contact Info) Description 08/13/2024 12:40 PM EST Laboratory Laboratory [facility] [address] [place] [id number] [facility] [address] [place] [address] Arrived Allergies Active Allergy Reactions Criticality Noted Date [...] mRNA, LNP-s, No Pre serve, 2-Dose Series ([employer]) 09/22/2020,09/01/2020 COVID-19, LNP-s, No Preserve , Chad-sucrose, Ages 12+ ([employer]) 12/28/2021 COVID-19, MRNA-LNP, PF, 30 M CG/0.3 mL, 12 YRS AND ABOVE, IM ([facility]) 04/01/2024 Covid-19, Mrna, Lnp-s, Pf, B ivalent, 30 Mcg, IM, 12 yrs and above ([employer]) 07/19/2022 Pneumococcal Conjugate Vacc, 13 Valent (Prevnar) 12/09/2014 Pneumococcal Conjugate Vacci ne, 20-valent ([id number]) 04/01/2024 Pneumococcal Polysaccharide PPV23 (Pneumovax) 03/21/2008 RSV [...] ages 0-17 years) Not on file 07/24/2023 Education Answer Date Recorded What is the highest level of school you have completed or the highest degree you have received? 12th grade 08/13/2024 Comments No Sex and Gender Information Value Date Recorded Sex Assigned at Female 11/07/2018 10:12 AM EDT Legal Sex Female 6:05 AM EST Gender Identity Female 11/07/2018 10:12 AM EDT Sexual Orientation Straight 11/07/2018 10 :12 AM EDT Occupation Industry Job Start Date Job End Date retired Not on file Not on file Not on file documented as of this encounter Plan of Treatment Upcoming Encounters Date Type Department Care Team (Late st Contact Info) Description 08/21/2024 10:00 AM EST Nutrition Services Nutrition Services [address] [facility] [address] [place] [address] Nikole Frank RDN [address] [place] [address] 08/22/2024 10:30 AM EST NeuroDiagnostic Study Neurophysiology [facility] [address] [place] [address] Sp, Neurophys Tech [address] [place] [address] 09/12/2024 11:15 AM EDT Imaging Radiology [facility] [address] [facility] [address] [place] [phone] 11/29/2024 9:20 AM EDT Office Visit Family Practice [address] [facility] [address] [place] [address] Clayton Gómez, DO [address] [place] [address] 01/21/2025 10:40 AM EDT Office Visit Dermatology [facility] [place] [address] [place] [address] Candace Washington PA-C [address] [place] [address] 08/01/2025 10:15 AM EST Imaging Radiology, [place] [address] [place] [address] Health Maintenance Due Date Last Done Comments DISCUSS TOBACCO CESSATION (REFER TO SMARTSET #9963) 1945 Adult Wellness Visit 10/16/2024 10/17/2023, 10/12/19 23 Depression Screening 10/16/2024 10/17/2023 HbA1c 01/29/2025 08/01/2024, 03/05, 11/29/2023, Additional history exists Albumin/Creatinine Ratio 04/17/2025 04/17/2024 Diabetic Eye Exam 04/17/2025 04/17/2024, 10/31/2012 Diabetic Foot Exam 04/17/2025 04/17/2024 GFR 08/13/2025 08/13/2024, 07/05, 07/24/2023, Additional history exists DXA Scan 09/28/2026 09/28/2021, [...] this encounter Medical Devices Implanted Type Area Admissions Dean Device Identifier Shelf Expiration Date Model / Serial / Lot Clip Quick 2.8mm 230cm - [id number] Implanted:Qty: 3 on 01/02/2020 by Mike Beasley MD at ENDOSCOPY [facility] [employer] 06/01/2022 [id number] Description:Quick clip pro x 3 placed at rectal polypectomy site documented as of this encounter Care Teams Chief Investment Officer Relationship Specialty Start Date End Date Clayton Gómez DO [address] [place] [address] PCP - General Internal Medicine 04/01/24 documented as of this encounter
--- OUTSIDE RECORDS SUMMARY | 2024-08-15 17:05 | External Medical Summary | Summary of Care ---
Author Name Unknown Organization [facility] Address [address] [facility] [place] [address] Phone [phone] Care Team Providers Care Produce Team Member Name Role Phone Clayton Gómez DO Primary Care Provider [phone] Reason for Referral * Precert (Within 10 days (routine)) - Authorized Specialty Diagnoses / Procedures Referred By Alyssa t Referred To Contact Radiology Diagnoses MCI (mild cognitive impairment) Expressive aphasia Procedures MRI BRAIN W WO CONTRAST Jayime King MD [address] [place] [address] Phone: tel: fax: Referral ID Status Reason Start Date Expiration Date V isits Requested Visits Authorized [id number] Authorized 08/13/2024 999 999 Reason for Visit * Reason Comments NEW PATIENT Memory Loss New patient referral from Dr Clayton Gómez for memory loss cognitive impairment Carotiod Duplex done 08/08/24 * Evaluate & Treat - Unlimited Visits (Within 10 days (routine)) - Authorized Specialty Diagnoses / Procedures Referred By Contsonia t Referred To Contact Neurology Diagnoses MCI (mild cognitive impairment) with memory loss Clayton Gómez DO [address] [place] [address] Phone: tel: fax: Referral ID Status Reason Start Date Expiration Date Visits Requested Visits Authorized [id number] Authorized Specialty Services Required 08/01/2024 999 [id number] Encounter Details Date Type Department Care Team (Late st Contact Info) Description 08/13/2024 11:20 AM EST Office Visit Neurology Tatyana Jewell [place] [address] [facility] [place] [address] Jaymie King MD [address] [facility] [place] [address] MCI (mild cognitive impairment)*; Expressive aphasia Allergies Active Allergy Reactions Criticality Noted Date [...] mRNA, LNP-s, No Pre serve, 2-Dose Series (Operatix) 09/22/2020,09/01/2020 COVID-19, LNP-s, No Preserve , Chad-sucrose, Ages 12+ (Operatix) 12/28/2021 COVID-19, MRNA-LNP, PF, 30 M CG/0.3 mL, 12 YRS AND ABOVE, IM (Action Engine-Comirnat) 04/01/2024 Covid-19, Mrna, Lnp-s, Pf, B ivalent, 30 Mcg, IM, 12 yrs and above (Operatix) 07/19/2022 Pneumococcal Conjugate Vacc, 13 Valent (Prevnar) 12/09/2014 Pneumococcal Conjugate Vacci ne, 20-valent ([id number]) 04/01/2024 Pneumococcal Polysaccharide PPV23 (Pneumovax) 03/21/2008 RSV [...] Passive Smoke Exposure: Current Smokeless Tobacco: Never Tobacco Cessation:Ready to Q uit: No; Counseling Given: No Alcohol Use Standard Drinks/Week Comments Not Currently [...] on file documented as of this encounter Last Filed Vital Signs Vital Sign Reading Time Taken Comments Blood Pressure 120/72 08/13/2024 11:41 AM EST Pulse 83 08/13/2024 11:41 AM EST Temperature 37.1 C (98.7 F) 08/13/2024 11:[address] Respiratory Rate 18 08/13/2024 11:41 AM EST Oxygen Saturation 96% 08/13/2024 11:41 AM EST Inhaled Oxygen Concentration - - Weight 88.9 kg (196 lb) 08/13/2024 11:41 AM EST Height - - Body Mass Index 32.87 08/01/2024 8:51 AM EST documented in this encounter Progress Notes * Jaymie King MD - 08/13/2024 11:55 AM EST HISTORY AND PHYSICAL EXAM[place] [address] NAME: Sheila Andino Date of : 1945 Date of Visit: 08/13/24 Chief Complaint: Chief Complaint Patient presents with NEW PATIENT Memory Loss New patient referral from Dr Clayton Gómez for memory loss cognitive impairment Carotiod Duplex done08/08/24 HPI: Sheila Andino is a 79 year old female presenting with memory loss. Duration has been for at least a year and location is obviously intracranial. This is now being modified by the use of donepezil. There was a distinct of aphasic flare to this as reported in previous chart notes. At present this is rare rated [id number]. HOME MEDICATIONS : Current Outpatient Medications Medication Sig Dispense Refill ASPIRIN 81 MG PO TABS one tab by mouth daily 90 5 B-COMPLEX W/C & IRON PO CAPS daily 90 6 Acetaminophen ER 650 MG Oral Tablet Extended Release every 8 hours as needed. fluticasone (FLONASE) 50 MCG/ACT nasal spray SQUIRT 2 SPRAYS INTO EACH NOSTRIL ONCE A DAY. Indications: at bedtime 48 g 2 Fexofenadine HCl 180 MG Oral Tablet One pill by mouth once a day for allergies 30 Tab 11 Multiple Vitamins-Minerals (OCUVITE ADULT 50+) Capsule Take 1 Capsule by mouth in the morning. DULoxetine HCl 30 MG Oral Capsule Delayed Release Particles (Cymbalta) TAKE ONE CAPSULE BY MOUTH TWICE A DAY 200 Capsule 3 Atorvastatin Calcium 40 MG Oral Tablet (Lipitor) TAKE ONE TABLET BY MOUTH EVERY DAY 90 Tablet 3 Gabapentin 300 MG Oral Capsule (Neurontin) Take 1 Capsule by mouth in the morning and 1 Capsule at noon and 1 Capsule before bedtime. 300 Capsule 5 Meclizine HCl 25 MG Oral Tablet (Antivert) TAKE ONE TABLET BY MOUTH THREE TIMES A DAY NEEDED FORDIZZINESS 270 Tablet 1 Donepezil HCl 10 MG Oral Tablet (Aricept) Take 1 Tablet by mouth in the morning. 90 Tablet 3 No current facility-administered medications for this visit. Review of patient's allergies indicates: Allergen Reactions Environmental pollen Past Medical History: Diagnosis Date Alzheimer disease (HCC) Amyloidosis (HCC) On colon bx 2019 BENIGN NEOPLASM LG BOWEL 06/30/2003 Colonoscopy 06/07: Impression: - One 3 mm polyp in the cecum. Resected and retrieved. - The examination was otherwise normal. Recommendation: - Await pathology results. - Discontinue NSAIDS for 10 days. - Repeat colonoscopy in 3 years for surveillance given the prep quality. 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 COLONOSCOPY, GI REFERRAL OP 06/16/2006 adenomatous polyps--repeat 3 years EGD, FLEXIBLE, DIAGNOSTIC 04/09/2019 Tortuous esophagus, hiatal hernia/ESOPHAGOGASTRODUODENOSCOPY (EGD), FLEXIBLE, TRANSORAL, DIAGNOSTICperformed by Mike Beasley MD at ENDOSCOPY [facility] INFORMATION Thoracic oulet with bial rib removals REMOVAL OF APPENDIX Appendectomy REMOVAL OF OVARY/OVIDUCT(S) Ovary/Tube(S) Removal R removed due to tubal REMOVE TONSILS & ADENOIDS, UNDER 12 Tonsillectomy/Adenoids,<12 Y/O SPINAL FUSION, LUMBAR, COMBINED N/A 06/13/2016 Dr. Lynch TOTAL HYSTERECTOMY LAY (Total Abdominal Hysterectomy) Family History Problem Relation Name Age of Onset Cancer Mother Breast Cancer Heart Disorder Father ascvd, chf Memory Loss Father Cancer Sister Breast- age 48 Cancer Brother lung cancer Cancer Brother colon cancer Social History Socioeconomic History Marital status: Spouse name: Not on file Number of children: Not on file Years of education: Not on file Highest education level: Not on file Occupational History Occupation: retired Tobacco Use Smoking status: Every Day Current packs/day: 0.50 Average packs/day: 0.5 packs/day for 60.0 years (30.0 ttl pk-yrs) Types: Cigarettes Passive exposure: Current Smokeless tobacco: Never Vaping Use Vaping status: Never Used Substance and Sexual Activity Alcohol use: Not Currently Drug use: No Sexual activity: Not Currently Partners: Male control/protection: Surgical Comment: LAY Other Topics Concern Service Not Asked Blood Transfusions Not Asked Caffeine Concern Not Asked Occupational Exposure Not Asked Hobby Hazards Not Asked Sleep Concern Not Asked Stress Concern Not Asked Weight Concern Not Asked Special Diet Not Asked Back Care Not Asked Exercise Not Asked Bike Helmet Not Asked Seat Belt Not Asked Self-Exams Not Asked Social History Narrative Not on file Social Needs Financial Resource Strain: Low Risk (07/24/2023) Financial Resource Strain Do you have any trouble paying for your medications, or do you think you might in the future? (Adult - for ages 18 years and over): No Does your family have trouble paying for medicine? (Household - for ages 0-17 years): Not on file Food Insecurity: No Food Insecurity (07/24/2023) Food Insecurity Do you need food for this week? (Adult - for ages 18 years and over): No Are you able to get enough food for your family? (Household - for ages 0-17 years): Not on file Does your family need food this week? (Household - for ages 0-17 years): Not on file Do you always have enough food for your family? (Household - for ages 0-17 years): Not on file Transportation Needs: No Transportation Needs (07/24/2023) Transportation Needs Do you have trouble getting a ride to medical visits or work? (Adult - for ages 18 years and over):Never True Does your family have a hard time getting a ride to doctors visits? (Household - for ages 0-17 years): Not on file Has lack of transportation kept you from medical appointments, meetings, work, or from getting things needed for daily living? Check all that apply. (Adult - for ages 18 years and over): Not on file Do you (or your family) have trouble finding or paying for a ride (transportation)? (Household - for ages 0-17 years): Not on file Social Connections: Socially Integrated (07/24/2023) Social Connections How often do you feel lonely or isolated from those around you? (Adult - for ages 18 years and over): Never Housing Stability: Low Risk (07/24/2023) Housing Stability Do you currently live in a fdc or have no steady place to sleep at night? (Adult - for ages 18 years and over): No Do you think you are at risk of becoming homeless? (Adult - for ages 18 years and over): No Does your family worry about paying for your home or becoming homeless? (Household - for ages 0-17 years): Not on file Are you homeless or worried that you might be in the future? (Adult - for ages 18 years and over): Not on file Are you (or your family) homeless or worried that you might be in the future? (Household - for ages0-17 years): Not on file ROS: Review of Systems Constitutional: Negative. HENT: Negative. Eyes: Negative. Respiratory: Negative. Cardiovascular: Negative. Gastrointestinal: Negative. Endocrine: Negative. Genitourinary: Negative. Musculoskeletal: Negative. Allergic/Immunologic: Negative. Neurological: Negative. Hematological: Negative. Psychiatric/Behavioral: Negative. All other systems reviewed and are negative. PHYSICAL EXAMINATION: Vital Signs: BP 120/72 | Pulse 83 | Temp 37.1 C (98.7 F) (Tympanic) | Resp 18 | Wt 88.9 kg (196 lb) | SpO2 96% | BMI 32.87 kg/m | BSA 2.02 m EXAM: Constitutional: appearance normally developed, with no deformities Heart sounds are normal Examination of the peripheral vascular system by observation does not reveal varicosity or edema. Palpation reveals normal pulses and temperature Carotid arteries reveal no bruit. NEUROLOGIC EXAMINATION: Appearance: no acute distress Opthalmoscopic: disc flat, normal fundus The patient has obviously intact higher integrative to attention to the examiner. 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 She is unable to remember 3 words at 10 seconds, but unable to say bed instead of paper. Her fund of knowledge is that she could describe the president but not name him, can tell me some of the details of Princess Medina's and JFKs assassination but could not remember the name maureen or his assassination name.She does abstract concretely. Speech: no dysarthria Cranial Nerves: CN 2 - no visual defect on confrontation. CN 3, 4, 6 - extra-ocular movements intact and no nystagmus; with round pupils appropriately reactive to light and accomodation CN 5 - facial sensation intact CN 7 - no facial asymmetry CN 8 - intact hearing CN 9, 10 - palate symmetric CN 11 - good shoulder shrug CN 12 - tongue midline Gait and station: uses a cane Coordination: normal finger to nose testing and rapid alternating movements of the lower extremities. No tremor is seen. Sensory: intact to light touch and pain; could not remove stockings Muscle Tone: normal Muscle exam:Nl in all extremities without pronator drift. Reflexes: Absent with downgoing toes IMPRESSION / PLAN: I am not certain if this patient has a primarily aphasia or Alzheimer's disease with a significant aphasic component. I am tending towards the former but this remains to be seen intesting in follow-up. I am proceeding with MRI of the brain EEG and blood studies for medical disorders that can produce memory loss. I will see her back in follow-up. I did inform her, in lay terms, that the polycythemia is indicating that the cigarette smoking is affecting her body and she should stop smoking. She should continue the present dose of donepezil. Depending on the above workup and her follow-up I may be adding Namenda as well. Jaymie King MD documented in this encounter Nursing Notes * Feli Escobedo LPN - 08/13/2024 11:30 AM EST Patient verified identity by spelling of last name and date. Chief Complaint Patient presents with NEW PATIENT Memory Loss New patient referral from Dr Clayton Gómez for memory loss cognitive impairment Carotiod Duplex done08/08/24 documented in this encounter Plan of Treatment Upcoming Encounters Date Type Department Care Team (Late st Contact Info) Description 08/21/2024 10:00 AM EST Nutrition Services Nutrition Services [address] [place] [address] [address] [place] [address] Nikole Frank RDN [address] [place] [address] 08/22/2024 10:30 AM EST NeuroDiagnostic Study Neurophysiology [facility] [address] [place] [address] Sp, Neurophys Tech [address] [place] [address] 09/12/2024 11:15 AM EDT Imaging Radiology [address] [place] [id number] 11/29/2024 9:20 AM EDT Office Visit Family Practice [address] [facility] [address] [place] [address] Clayton Gómez, [address] [place] [address] 01/21/2025 10:40 AM EDT Office Visit Dermatology [facility] [place] [address] [facility] [place] [address] Candace Washington PA-C [address] [facility] [place] [address] 08/01/2025 10:15 AM EST Imaging Radiology, [place] [address] [place] [address] Pending Results Name Type Priority Associated Diagnoses Date /Time TSH Lab Routine MCI (mild cognitive impairment) Expressive aphasia 08/13/2024 12:33 PM EST VITAMIN B12 Lab Routine MCI (mild cognitive impairment) Expressive aphasia 08/13/2024 12:33 PM EST ERYTHROCYTE SEDIMENTATION RATE (ESR) Lab Routine MCI (mild cognitive impairment) Expressive aphasia 08/13/2024 12:33 PM EST ANTINUCLEAR ANTIBODY (JULIET) EIA SCREEN WITH REFLEX AB QUANT Lab Routine MCI (mild cognitive impairment) Expressive aphasia 08/13/2024 12:33 PM EST LYME DISEASE ANTIBODY SCREEN WITH REFLEX TO CONFIRMATION Lab Routine MCI (mild cognitive impairment) Expressive aphasia 08/13/2024 12:33 PM EST ANTINUCLEAR ANTIBODY (JULIET) SCREEN, LOUISA Lab Routine MCI (mild cognitive impairment) Expressive aphasia 08/13/2024 12:33 PM EST LYME DISEASE ANTIBODY SCREEN Lab Routine MCI (mild cognitive impairment) Expressive aphasia 08/13/2024 12:33 PM EST Scheduled Orders Name Type Priority Associated Diagnoses Orde r Schedule MRI BRAIN W WO CONTRAST Medical Imaging Routine MCI (mild cognitive impairment) Expressive aphasia Expected: 08/13/2024, Expires: 09/10/2025 EEG ROUTINE Procedures Routine MCI (mild cognitive impairment) Expressive aphasia Ordered: 08/13/2024 Health Maintenance Due Date Last Done Comments DISCUSS TOBACCO CESSATION (REFER TO SMARTSET #[id number]) 1945 Adult Wellness Visit 10/16/2024 10/17/2023, 10/12/19 [...] this encounter Medical Devices Implanted Type Area Web Methods Developer Device Identifier Shelf Expiration Date Model / Serial / Lot Clip Quick 2.8mm 230cm - [id number] Implanted:Qty: 3 on 01/02/2020 by Mike Beasley MD at ENDOSCOPY [facility] MTX Connect [facility] 06/01/2022 [id number] / [id number] Description:Quick clip pro x 3 placed at rectal polypectomy site documented as of this encounter Procedures Procedure Name Priority Date/Time Associated Diagnosis Comments COMPREHENSIVE METABOLIC PANEL Routine 08/13/2024 12:33 PM EST MCI (mild cognitive impairment) Expressive aphasia documented in this encounter Results * (ABNORMAL) COMPREHENSIVE METABOLIC PANEL (08/13/2024 12:33 PM EST) BUN 20 6 - 20 mg/dL 08/13/2024 2:15 PM EST [facility]02 CREATININE 0.7 0.5 - 1.0 mg/dL 08/13/2024 2:15 PM EST [facility]02 EGFR 88 >=60 mL/min 08/13/2024 2:15 PM EST [facility] Comment:eGFR is calculated b ased on the CKD-EPI 2020 equation. SODIUM 141 135 - 146 mmol/L 08/13/2024 2:15 PM EST [facility]-02 POTASSIUM 4.7 3.5 - 5.1 mmol/L 08/13/2024 2:15 PM [facility] 56- CHLORIDE 105 98 - 107 mmol/L 08/13/2024 2:15 PM [facility] 56- CO2 23 22 - 32 mmol/L 08/13/2024 2:15 PM [facility] 56-02 ANION GAP 13 7 - 15 mmol/L 08/13/2024 2:15 PM [facility] 56-02 GLUCOSE 114 70 - 120 mg/dL 08/13/2024 2:15 PM [facility] 56-02 Albumin 4.8 3.8 - 5.0 g/dL 08/13/2024 2:15 PM [facility] 56- AST 19 10 - 35 U/L 08/13/2024 2:15 PM [facility] 56-02 Alkaline Phosphatase 94 35 - 130 U/L 08/13/2024 2:15 PM [facility] 56- Bilirubin, Total 0.2 <=1.2 mg/dL 08/13/2024 2:15 PM [facility] 56- CALCIUM 10.6(H) 8.4 - 10.2 mg/dL 08/13/2024 2:15 PM [facility] 56- Protein 7.2 6.0 - 8.3 g/dL 08/13/2024 2:15 PM [facility] 56-02 ALT 17 10 - 35 U/L 08/13/2024 2:15 PM [facility] 56-02 Blood Venous blood specimen / Unknown Venipuncture / Unknown 08/13/2024 12:33 PM EST 08/13/2024 12:34 PM EST us Jaymie King MD LAB BLOOD ORDERABLES Fi nal Result [facility] [address]- [address] [place] [address] documented in this encounter Visit Diagnoses Diagnosis MCI (mild cognitive impairment)- Primary Mild cognitive impairment, so stated Expressive aphasia Aphasia documented in this encounter Care Teams Produce Team Member Relationship Specialty Start Date End Date Clayton Gómez DO [address] [facility] [address] PCP - General Internal Medicine 04/01/24 documented as of this encounter"
--- OUTSIDE RECORDS SUMMARY | 2024-08-15 17:05 | External Medical Summary ---
Author Name Unknown Address Unknown Organization [id number][place] [place] [facility] [address] [address] Laboratory Report Ordering Provider Test Date Status SARI STORM 08/13/2024 12:33:57 Final Observation Date Value Abnormality Reference (Units ) Status Borrelia burgdorferi IgG and IgM [Interpretation] in Serum by Immunoassay 08/13/2024 12:33:57 Negative Negative Final Performing Location [facility] [place] [address] [place] [address]
--- OUTSIDE RECORDS SUMMARY | 2024-08-15 17:06 | External Medical Summary ---
Author Name Unknown Address Unknown Organization [id number]:[facility] [place] [address] [place] [id number] Laboratory Report Ordering Provider Test Date Status VANESA CHAPMAN 08/01/2024 09:46:34 Final Observation Date Value Abnormality Reference (Units ) Status BUN 08/01/2024 09:46:34 15 6-20 (mg/dL) Final Creatinine 08/01/2024 09:46:34 0.7 0.5-1.0 (mg/dL) Final Glomerular filtration rate/1.73 sq M.predicted [Volume Rate/Area] in Serum, Plasma or Blood by Creatinine-based formula (CKD-EPI) 08/01/2024 09:46:34 84 >=60 (mL/min) Final eGFR is calculated based on the CKD-EPI 2020 equation. Sodium 08/01/2024 09:46:34 143 135-146 (m mol/L) Final Potassium 08/01/2024 09:46:34 4.7 3.5-5.1 (m mol/L) Final Cl 08/01/2024 09:46:34 105 98-107 (mm ol/L) Final CO2 08/01/2024 09:46:34 28 22-32 (mmo l/L) Final Anion gap 08/01/2024 09:46:34 10 7-15 (mmol /L) Final Glucose 08/01/2024 09:46:34 133 Above high normal 70 -120 (mg/dL) Final Albumin 08/01/2024 09:46:34 4.6 3.8-5.0 (g /dL) Final AST (Aspartate aminotransferase) 08/01/2024 09:46:34 26 10-35 (U/L) Fin al Alk Phos 08/01/2024 09:46:34 83 35-130 (U/ L) Final Bilirubin, Total 08/01/2024 09:46:34 0.3 <=1 .2 (mg/dL) Final Calcium 08/01/2024 09:46:34 10.3 Above high normal 8. 4-10.2 (mg/dL) Final Protein 08/01/2024 09:46:34 6.9 6.0-8.3 (g /dL) Final ALT (Alanine aminotransferase) 08/01/2024 09:46:34 27 10-35 (U/L) Maldonado beaulieu Performing Location [facility] [place] [address] [facility] [address]
--- OUTSIDE RECORDS SUMMARY | 2024-08-15 17:06 | External Medical Summary ---
Author Name Unknown Address Unknown Organization [id number]:[facility] [place] [address] [place] [address] Laboratory Report Ordering Provider Test Date Status VANESA CHAPMAN 08/01/2024 09:46:34 Final Observation Date Value Abnormality Reference (Units ) Status WBC, Total 08/01/2024 09:46:34 8.91 4.00-10.80 (K/uL) Final RBC 08/01/2024 09:46:34 4.96 3.85-5.15 (M/uL) Final Hemoglobin 08/01/2024 09:46:34 15.6 Above high normal 12.0-15.3 (g/dL) Final HCT 08/01/2024 09:46:34 48.6 Above high normal 36.0-45.2 (%) Final MCV 08/01/2024 09:46:34 98.0 81.5-97.5 (fL) Final MCH 08/01/2024 09:46:34 31.5 27.0-34.0 (pg) Final MCHC 08/01/2024 09:46:34 32.1 32.0-36.0 (g/dL) Final RDW 08/01/2024 09:46:34 12.5 11.5-15.5 (%) Final Platelets 08/01/2024 09:46:34 291 140-400 (K/uL) Final MPV 08/01/2024 09:46:34 11.3 6.6-11.1 (fL) Final Nucleated erythrocytes/100 leukocytes [Ratio] in Blood by Automated count 08/01/2024 09:46:34 0 <=0 (/100 WBCs) Final Performing Location [facility] [place] - [address] [place] [address]
--- OUTSIDE RECORDS SUMMARY | 2024-08-15 17:06 | External Medical Summary ---
Author Name Unknown Address Unknown Organization [id number]:[facility] [place] - [place] [address] [facility] [address] Laboratory Report Ordering Provider Test Date Status ADELAVANSEA 08/01/2024 09:46:34 Final Observation Date Value Abnormality Reference (Units ) Status HbA1C 08/01/2024 09:46:34 6.6 Above high normal 4. 0-5.6 (%) Final The use of HbA1c to monitor glycemic status is based on normal hemoglobin and HbA composition. This test should not be used in patients with abnormal hemoglobin that affects the half life of the red blood cell or the in vivo glycation rates. Glucose, estimated average 08/01/2024 09:46:34 143 Above high normal <126 (mg/dL) Fin al Performing Location [facility] [place] - [address] [facility] [address]
--- OUTSIDE RECORDS SUMMARY | 2024-08-15 17:06 | External Medical Summary | Summary of Care ---
Author Name Unknown Organization [facility] Address [address] [facility] [place] [address] Phone [phone] Care Team Providers Care Poultry Scalder Name Role Phone Clayton Gómez DO Primary Care Provider [phone] Encounter Details Date Type Department Care Team (Late st Contact Info) Description 07/25/2024 Population Health External Data Unspecified Department Allergies Active Allergy Reactions Criticality Noted Date Comments Environmental 07/15/2003 pollen documented as of this encounter (statuses as of 07/25/2024) Medications ASPIRIN 81 MG PO TABSIndications :Screening [...] Capsule by mouth in the morning. Active Donepezil HCl 10 MG Oral Tablet (Aricept) TAKE ONE TABLET EVERYDAY WITH BREAKFAST. 90 Tablet 3 04/29/2024 9:33 AM EDT 4 08/06/19 25 Active DULoxetine HCl 30 MG Oral Capsule Delayed Release Particles (Cymbalta)Indic ations:Heredita ry and idiopathic peripheral neuropathy TAKE ONE CAPSULE BY MOUTH TWICE A DAY 200 Capsule 3 04/23/2024 6:39 PM EDT 4 10/06/19 25 Active Atorvastatin Calcium 40 MG Oral Tablet (Lipitor)Indica tions:Dyslipide dallin, goal LDL below 160 TAKE ONE TABLET BY MOUTH EVERY DAY 90 Tablet 3 05/14/2024 6:23 AM EST 4 11/15/19 25 Active Gabapentin [...] DAY NEEDED FOR DIZZINESS 270 Tablet 1 05/14/2024 6:23 AM EST 4 05/10/20 25 Active documented as of this encounter (statuses as of 07/25/2024) Active Problems Problem Noted Date Diagnosed Date [...] as of this encounter (statuses as of 07/25/2024) Resolved Problems Problem Noted Date Diagnosed Date [...] as of this encounter (statuses as of 07/25/2024) Immunizations Name Administration Dates Next Due COVID-19 mRNA, LNP-s, No Pre serve, 2-Dose Series (FlexGen) 09/22/2020,09/01/2020 COVID-19, LNP-s, No Preserve , Chad-sucrose, Ages 12+ (Pfizer) 12/28/2021 COVID-19, MRNA-LNP, PF, 30 M CG/0.3 mL, 12 YRS AND ABOVE, IM ([facility]) 04/01/2024 Covid-19, Mrna, Lnp-s, Pf, B ivalent, 30 Mcg, IM, 12 yrs and above (FlexGen) 07/19/2022 Pneumococcal Conjugate Vacc, 13 Valent (Prevnar) 12/09/2014 Pneumococcal Conjugate Vacci ne, 20-valent ([id number]) 04/01/2024 Pneumococcal Polysaccharide PPV23 (Pneumovax) 03/21/2008 RSV [...] Care Team (Late st Contact Info) Description 08/01/2024 8:40 AM EST Office Visit Family Practice [address] [facility] [address] [place] [address] Clayton Gómez, [address] [place] [address] 08/21/2024 10:00 AM EST Nutrition Services Nutrition Services [address] [facility] [address] [place] [address] Nikole Frank RDN [address] [place] [address] 01/21/2025 10:40 AM EDT Office Visit Dermatology [facility] [address] [place] [address] Candace Washington PA-C [address] [place] [address] Health Maintenance Due Date Last Done Comments DISCUSS TOBACCO CESSATION (REFER TO SMARTSET #3291) 1943 GFR 07/24/2024 07/24/2023, 06/02, 10/25/2021, Additional history exists HbA1c 09/29/2024 04/01/2024, 11/01, 07/24/2023, Additional history exists Adult Wellness Visit 10/16/2024 10/17/2023, 10/12/19 23 Depression Screening 10/16/2024 10/17/2023 Albumin/Creatinine Ratio 04/17/2025 04/17/2024 Diabetic Eye Exam 04/17/2025 04/17/2024, 10/31/2012 Diabetic Foot Exam 04/17/2025 04/17/2024 DXA Scan 09/28/2026 09/28/2021, 09/01, 08/31/2016, Additional [...] this encounter Medical Devices Implanted Type Area Milk Of Lime Slaker Device Identifier Shelf Expiration Date Model / Serial / Lot Clip Quick 2.8mm 230cm - [id number] Implanted:Qty: 3 on 01/02/2020 by Mike Beasley MD at ENDOSCOPY [facility] [employer] 06/01/2022 [id number]-202UR.A / / [id number] Description:Quick clip pro x 3 placed at rectal polypectomy site documented as of this encounter Care Teams Poultry Scalder Relationship Specialty Start Date End Date Clayton Gómez DO [address] [place] [address] PCP - General Internal Medicine 04/01/24 documented as of this encounter
--- OUTSIDE RECORDS SUMMARY | 2024-08-15 17:06 | External Medical Summary | Summary of Care ---
Author Name Unknown Organization [facility] Address [address] [place] [address] Phone [phone] Care Team Providers Care Tunnel Elastic Operator Chainstitch Name Role Phone Clayton Gómez DO Primary Care Provider Reason for Visit * Reason Comments Medication Refill Encounter Details Date Type Department Care Team (Late st Contact Info) Description 07/25/2024 Refill Neuropsychology [facility] [address] [place] [address] Luis Solano MD [address] [place] [address] Allergies Active Allergy Reactions Criticality Noted Date Comments Environmental 07/15/2003 pollen documented as of this encounter (statuses as of 08/01/2024) Medications ASPIRIN 81 MG PO TABSIndications :Screening [...] Capsule 3 04/23/2024 6:39 PM EDT 4 11/14/19 25 Active Atorvastatin Calcium 40 [...] as of this encounter (statuses as of 08/01/2024) Active Problems Problem Noted Date Diagnosed Date [...] as of this encounter (statuses as of 08/01/2024) Resolved Problems Problem Noted Date Diagnosed Date [...] as of this encounter (statuses as of 08/01/2024) Immunizations Name Administration Dates Next Due COVID-19 mRNA, LNP-s, No Pre serve, 2-Dose Series (navabi) 09/22/2020,09/01/2020 COVID-19, LNP-s, No Preserve , Chad-sucrose, Ages 12+ (navabi) 12/28/2021 COVID-19, MRNA-LNP, PF, 30 M CG/0.3 mL, 12 YRS AND ABOVE, IM ([facility]) 04/01/2024 Covid-19, Mrna, Lnp-s, Pf, B ivalent, 30 Mcg, IM, 12 yrs and above (navabi) 07/19/2022 Pneumococcal Conjugate Vacc, 13 Valent (Prevnar) 12/09/2014 Pneumococcal Conjugate Vacci ne, 20-valent ([id number]) 04/01/2024 Pneumococcal Polysaccharide PPV23 (Pneumovax) 03/21/2008 RSV [...] t, Adjuvanted, 65+ YRS, PF, (Fluad) 03/25/2019 TD - Tetanus/Diptheria (ADULT) 09/23/2004 TDAP (age 10 and older)(Boostrix) 10/11/2022, Varicella [...] as of this encounter Miscellaneous Notes * Addendum Note - Malika Khan CPhT - 08/01/2024 9:45 AM ESTAddended by: MALIKA KHAN on: 08/01/2024 09:45 AM Modules accepted: Orders * Telephone Encounter - Malika Khan CPhT - 08/01/2024 9:41 AM EST Did you pend patient's preferred pharmacy and medication before forwarding?yes Pharmacy: [facility] Pending Prescriptions: Disp Refills Donepezil HCl 10 MG Oral Tablet (Aricept) 90 Tab*3 Sig: Take 1 Tablet by mouth in the morning. Last Visit: 08/19/2022 (in office), Visit date not found (telemedicine) Next Visit: Visit date not found If no future appointments scheduled, and last appointment is greater than a year ago, please schedule patient for a follow-up appointment Last date the medication was ordered: 08/07/23 Is this request for a controlled substance?No Urine Drug Screen:No results found for this or any previous visit. Patient Phone Numbers Labs: Lab Results Component Value Date/Time CREAT 0.7 07/24/2023 11:55 AM CREAT 0.8 06/30/2020 11:46 AM POTASSIUM 4.6 07/24/2023 11:55 AM POTASSIUM 4.5 06/30/2020 11:46 AM TSH 1.20 12/27/2021 09:17 AM TSH 1.72 03/14/2018 02:15 PM LDL 64 07/24/2023 11:55 AM LDL 70 07/19/2022 09:22 AM LDL 78 05/21/2020 08:48 AM LDL 98 03/25/2019 11:05 AM ALT 24 07/24/2023 11:55 AM ALT 23 06/30/2020 11:46 AM HGBA1C 6.5 (H) 04/01/2024 09:50 AM HGBA1C 6.5 (H) 02/11/2020 11:16 AM * Telephone Encounter - Malika Khan CPhT - 08/01/2024 9:40 AM ESTNo prescriptions requested or ordered in this encounter * Telephone Encounter - Malika Khan CPhT - 08/01/2024 9:40 AM ESTNo prescriptions requested or ordered in this encounter * Telephone Encounter - Martha Cruz CPhT - 07/30/2024 3:30 PM EST Did you pend patient's preferred pharmacy and medication before forwarding?yes Pharmacy: [facility] Pending Prescriptions: Disp Refills Donepezil HCl 10 MG Oral Tablet (Aricept) 90 Tab*3 Sig: TAKE ONE TABLET EVERYDAY WITH BREAKFAST. Last Visit: 08/19/2022 (in office), Visit date not found (telemedicine) Next Visit: Visit date not found If no future appointments scheduled, and last appointment is greater than a year ago, please schedule patient for a follow-up appointment Last date the medication was ordered: 08/07/23 Is this request for a controlled substance?No Urine Drug Screen:No results found for this or any previous visit. Patient Phone Numbers Labs: Lab Results Component Value Date/Time CREAT 0.7 07/24/2023 11:55 AM CREAT 0.8 06/30/2020 11:46 AM POTASSIUM 4.6 07/24/2023 11:55 AM POTASSIUM 4.5 06/30/2020 11:46 AM TSH 1.20 12/27/2021 09:17 AM TSH 1.72 03/14/2018 02:15 PM LDL 64 07/24/2023 11:55 AM LDL 70 07/19/2022 09:22 AM LDL 78 05/21/2020 08:48 AM LDL 98 03/25/2019 11:05 AM ALT 24 07/24/2023 11:55 AM ALT 23 06/30/2020 11:46 AM HGBA1C 6.5 (H) 04/01/2024 09:50 AM HGBA1C 6.5 (H) 02/11/2020 11:16 AM documented in this encounter Plan of Treatment Upcoming Encounters Date Type Department Care Team (Late st Contact Info) Description 08/08/2024 2:00 PM EST Imaging Vascular Lab, [facility] 2nd [facility] [place] [address] [facility] [place] [address] 08/13/2024 11:20 AM EST Office Visit Neurology [facility] [place] [address] [place] [address] Jaymie King MD [address] [place] [address] 08/21/2024 10:00 AM EST Nutrition Services Nutrition Services [address] [facility] [address] [place] [address] Nikole Frank, RDN [address] [place] [address] 11/29/2024 9:20 AM EDT Office Visit Family Practice [address] [facility] [address] [place] [address] Clayton Gómez, [address] [place] [address] 01/21/2025 10:40 AM EDT Office Visit Dermatology [facility], [place] [address] [place] [address] Candace Washington PA-C [address] [place] [address] Health Maintenance Due Date Last Done Comments DISCUSS TOBACCO CESSATION (REFER TO SMARTSET #9023) 1945 GFR 07/24/2024 07/24/2023, 06/02, 10/25/2021, Additional [...] this encounter Medical Devices Implanted Type Area Shop Tailor Apprentice Device Identifier Shelf Expiration Date Model / Serial / Lot Clip Quick 2.8mm 230cm - [id number] Implanted:Qty: 3 on 01/02/2020 by Mike Beasley MD at ENDOSCOPY [facility] [employer] [facility] 06/01/2022 [id number]-[id number] / / [id number] Description:Quick clip pro x 3 placed at rectal polypectomy site documented as of this encounter Care Teams Tunnel Elastic Operator Chainstitch Relationship Specialty Start Date End Date Clayton Gómez DO [address] [place] [address] PCP - General Internal Medicine 04/01/24 documented as of this encounter
--- OUTSIDE RECORDS SUMMARY | 2024-08-15 17:06 | External Medical Summary | Summary of Care ---
Author Name Unknown Organization [facility] Address [address] [place] [address] Phone [phone] Care Team Providers Care Bus Person Name Role Phone Clayton Gómez DO Primary Care Provider [phone] Reason for Referral * Evaluate & Treat - Unlimited Visits (Within 10 days (routine)) - Authorized Specialty Diagnoses / Procedures Referred By Alyssa peng Referred To Contact Neurology Diagnoses MCI (mild cognitive impairment) with memory loss Clayton Gómez DO [address] [place] [address] Phone: tel: fax: Referral ID Status Reason Start Date Expiration Date Visits Requested Visits Authorized [id number] Authorized Specialty Services Required 08/01/[phone] Question Answer Referral Priority Within 10 days (routine) Where should this appointment be scheduled? [facility] This patient already has care established with Neurology. Do not place this order. Please use Ask A Doc to expedite care. Acknowledge Is this referral being placed for insurance purposes ONLY No, patient needs appointment [facility] NEUROLOGY REFERRAL QUESTIONS Memory/Cognition Reason for Visit * Reason Comments Follow Up Encounter Details Date Type Department Care Team (Late st Contact Info) Description 08/01/2024 8:40 AM EST Office Visit Family Practice [address] [facility] [place] [address] [place] [address] Clayton Gómez DO [address] [place] [address] DM type 2, goal HbA1c < 8% ([facility])*; Dyslipidemia, goal LDL below 70; MCI (mild cognitive impairment) with memory loss; S/P lumbar spinal fusion; Asymptomatic stenosis of right carotid artery; Periodic limb movement disorder (PLMD); IDIO PERIPH NEURPTHY NOS(aka NEUROPATHY); Expressive aphasia; Chronic constipation Allergies Active Allergy Reactions Criticality Noted Date [...] mRNA, LNP-s, No Pre serve, 2-Dose Series ([email or web address]) 09/22/2020,09/01/2020 COVID-19, LNP-s, No Preserve , Chad-sucrose, Ages 12+ (Pfizer) 12/28/2021 COVID-19, MRNA-LNP, PF, 30 M CG/0.3 mL, 12 YRS AND ABOVE, IM ([employer]) 04/01/2024 Covid-19, Mrna, Lnp-s, Pf, B ivalent, 30 Mcg, IM, 12 yrs and above ([email or web address]) 07/19/2022 Pneumococcal Conjugate Vacc, 13 Valent (Prevnar) 12/09/2014 Pneumococcal Conjugate Vacci ne, 20-valent ([id number]) 04/01/2024 Pneumococcal Polysaccharide PPV23 (Pneumovax) 03/21/2008 RSV [...] Cessation:Ready to Q uit: No; Counseling Given: Yes Alcohol Use Standard Drinks/Week Comments Not Currently [...] Sign Reading Time Taken Comments Blood Pressure 124/76 08/01/2024 8:51 AM EST Pulse 76 08/01/2024 8:51 AM EST Temperature 36 C (96.8 F) 08/01/2024 8:51 AM EST Respiratory Rate 16 08/01/2024 8:51 AM EST Oxygen Saturation 97% 08/01/2024 8:51 AM EST Inhaled Oxygen Concentration - - Weight 89 kg (196 lb 1.6 oz) 08/01/2024 8:51 AM EST Height 164.5 cm (5' 4.75") 08/01/2024 8:51 AM ES T Body Mass Index 32.89 08/01/2024 8:51 AM EST documented in this encounter Progress Notes * Clayton Gómez, - 08/01/2024 9:33 AM EST SUBJECTIVE: Sheila Andino is a 79 year old female. Chief Complaint Patient presents with Follow Up HPI: Patient is an 79 year old female with a history of Hyperlipidemia, Melanoma of the face, PeripheralNeuropathy, MCI, Expressive Aphasia, Hiatal Hernia, Lumbar Spinal Fusion, Restless Leg Syndrome, Amyloid in colon polyp without systemic Amyloidosis, right Carotid Stenosis, and tobacco use that is seen for follow up. The patient is feeling well. No chest pain or shortness of breath are present. Weight is stable and appetite is good. Chronic back pain is stable. Memory loss has worsened per her who brought the patient to the visit today. She continues to smoke 1 ppd. Patient Active Problem List Diagnosis IDIO PERIPH NEURPTHY NOS(aka NEUROPATHY) Irritable bowel syndrome Periodic limb movement disorder (PLMD) Tobacco use disorder Dyslipidemia, goal LDL below 70 Allergic rhinitis History of melanoma in situ S/P lumbar spinal fusion Hiatal hernia Chronic constipation Asymptomatic stenosis of right carotid artery Expressive aphasia MCI (mild cognitive impairment) with memory loss DM type 2, goal HbA1c < 8% ([facility]) Current Outpatient Medications Medication Sig Dispense Refill [...] 1 Capsule by mouth in the morning. Donepezil HCl 10 MG Oral Tablet (Aricept) TAKE ONE TABLET EVERYDAY WITH BREAKFAST. 90 Tablet 3 DULoxetine HCl 30 MG Oral Capsule Delayed [...] A DAY NEEDED FORDIZZINESS 270 Tablet 1 No current facility-administered medications for this visit. The patient's medication list was reviewed and updated as needed. Past Medical History: Diagnosis Date Alzheimer disease [...] performed by Mike Beasley MD at ENDOSCOPY [facility] COLONOSCOPY, GI REFERRAL OP 06/16/2006 adenomatous polyps--repeat 3 years EGD, FLEXIBLE, DIAGNOSTIC 04/09/2019 Tortuous esophagus, hiatal hernia/ESOPHAGOGASTRODUODENOSCOPY (EGD), FLEXIBLE, TRANSORAL, DIAGNOSTICperformed by Mike Beasley MD at ENDOSCOPY [facility] INFORMATION Thoracic oulet with bial rib removals REMOVAL OF APPENDIX Appendectomy REMOVAL OF OVARY/OVIDUCT(S) Ovary/Tube(S) Removal R removed due to tubal REMOVE TONSILS & ADENOIDS, UNDER 12 Tonsillectomy/Adenoids,<12 Y/O SPINAL FUSION, LUMBAR, COMBINED N/A 06/13/2016 Dr. Lynch TOTAL HYSTERECTOMY LAY (Total Abdominal Hysterectomy) Review of patient's allergies indicates: Allergen Reactions Environmental pollen Review of Systems Constitutional: Negative for appetite change, fatigue and unexpected weight change. HENT: Negative for congestion, sore throat and trouble swallowing. Respiratory: Positive for cough (chronic). Negative for shortness of breath and wheezing. Cardiovascular: Negative for chest pain, palpitations and leg swelling. Gastrointestinal: Negative for abdominal pain, blood in stool, constipation, diarrhea, nausea and vomiting. Genitourinary: Negative for dysuria, frequency and hematuria. Musculoskeletal: Positive for back pain and gait problem. Neurological: Negative for dizziness, syncope and headaches. Psychiatric/Behavioral: Positive for confusion and decreased concentration. Negative for sleep disturbance. Memory loss OBJECTIVE: BP 124/76 | Pulse 76 | Temp 96.8 F (36 C) | Resp 16 | Ht 5' 4.75" (1.645 m) | Wt 196 lb 1.6 oz (89 kg) | SpO2 97% | BMI 32.89 kg/m | BSA 2.02 m Physical Exam Vitals and nursing note reviewed. Constitutional: General: She is not in acute distress. Appearance: Normal appearance. She is not toxic-appearing. HENT: Head: Normocephalic and atraumatic. Cardiovascular: Rate and Rhythm: Normal rate and regular rhythm. Heart sounds: Normal heart sounds. No murmur heard. No gallop. Pulmonary: Effort: Pulmonary effort is normal. Breath sounds: Normal breath sounds. No wheezing, rhonchi or rales. Abdominal: General: Bowel sounds are normal. There is no distension. Palpations: Abdomen is soft. Tenderness: There is no abdominal tenderness. Musculoskeletal: Right lower leg: No edema. Left lower leg: No edema. Neurological: Mental Status: She is alert. Motor: No weakness. Gait: Gait normal. Psychiatric: Mood and Affect: Mood is not anxious or depressed. Cognition and Memory: Cognition is impaired. Memory is impaired. Comments: MMSE PLAN AND ASSESSMENT: DM type 2, goal HbA1c < 8% ([facility]) (Primary) - HEMOGLOBIN A1C; Future; Expected date: 08/01/2024 - COMPREHENSIVE METABOLIC PANEL; Future; Expected date: 08/01/2024 - CBC WITH WBC DIFFERENTIAL; Future; Expected date: 08/01/2024 Diet controlled Dyslipidemia, goal LDL below 70 - COMPREHENSIVE METABOLIC PANEL; Future; Expected date: 08/01/2024 - LIPID PANEL WITH DIRECT LDL IF TG IS HIGH; Future; Expected date: 08/01/2024 Continue Atorvastatin MCI (mild cognitive impairment) with memory loss - ADULT NEUROLOGY REFERRAL OP - MINI-MENTAL QUESTIONNAIRE SCAN (MMSE) OP Continue Donepezil S/P lumbar spinal fusion Continue Duloxetine and Gabapentin Asymptomatic stenosis of right carotid artery - VASC DUPLEX CAROTID BILAT Periodic limb movement disorder (PLMD) IDIO PERIPH NEURPTHY NOS(aka NEUROPATHY) Continue Gabapentin Expressive aphasia Chronic constipation Follow-up: Return in about 4 months (around 11/29/2024), or if symptoms worsen or fail to improve. |Check-out note: Schedule Carotid Doppler. Schedule with Neurology. Clayton Gómez DO 9:33 AM 08/01/2024 documented in this encounter Nursing Notes * Christen Escoto LPN - 08/01/2024 8:51 AM EST Patient presents for follow up, voices no complaints. documented in this encounter Plan of Treatment Upcoming Encounters Date Type Department Care Team (Late st Contact Info) Description 08/08/2024 2:00 PM EST Imaging Vascular Lab, [facility] 2nd [facility], [place] [address] [facility] [place] [address] 08/13/2024 11:20 AM EST Office [facility] [address] [place] [address] Jaymie King MD [address] [place] [address] 08/21/2024 10:00 AM EST Nutrition Services Nutrition Services [address] [facility] 293 [place] [address] Nikole Frank, RDN [address] [place] [address] 11/29/2024 9:20 AM EDT Office Visit Family Practice [address] [facility] [address] [place] [address] Clayton Gómez, [address] [place] [address] 01/21/2025 10:40 AM EDT Office Visit Dermatology [facility], [place] [address] [place] [address] Candace Washington PA-C [address] [place] [address] Pending Results Name Type Priority Associated Diagnoses Date /Time HEMOGLOBIN A1C Lab Routine DM type 2, goal HbA1c < 8% ([facility]) 08/01/2024 9:46 AM EST COMPREHENSIVE METABOLIC PANEL Lab Routine DM type 2, goal HbA1c < 8% ([facility]) Dyslipidemia, goal LDL below 70 08/01/2024 9:46 AM EST LIPID PANEL WITH DIRECT LDL IF TG IS HIGH Lab Routine Dyslipidemia, goal LDL below 70 08/01/2024 9:46 AM EST CBC WITH WBC DIFFERENTIAL Lab Routine DM type 2, goal HbA1c < 8% ([facility]) 08/01/2024 9:46 AM EST CBC Lab Routine DM type 2, goal HbA1c < 8% ([facility]) 08/01/2024 9:46 AM EST DIFFERENTIAL, AUTOMATED Lab Routine DM type 2, goal HbA1c < 8% ([facility]) 08/01/2024 9:46 AM EST Scheduled Orders Name Type Priority Associated Diagnoses Orde r Schedule HEMOGLOBIN A1C Lab Routine DM type 2, goal HbA1c < 8% (HCC) Expected: 08/01/2024 (Approximate), Expires: 08/01/2025 COMPREHENSIVE METABOLIC PANEL Lab Routine DM type 2, goal HbA1c < 8% (HCC) Dyslipidemia, goal LDL below 70 Expected: 08/01/2024 (Approximate), Expires: 08/01/2025 LIPID PANEL WITH DIRECT LDL IF TG IS HIGH Lab Routine Dyslipidemia, goal LDL below 70 Expected: 08/01/2024, Expires: 08/01/2025 CBC WITH WBC DIFFERENTIAL Lab Routine DM type 2, goal HbA1c < 8% (HCC) Expected: 08/01/2024 (Approximate), Expires: 08/01/2025 VASC DUPLEX CAROTID BILAT Medical Imaging Routine Asymptomatic stenosis of right carotid artery Ordered: 08/01/2024 Scheduled Referrals Name Type Priority Associated Diagnoses Orde r Schedule ADULT NEUROLOGY REFERRAL OP Referral Within 10 days (routine) MCI (mild cognitive impairment) with memory loss Ordered: 08/01/2024 Health Maintenance Due Date Last Done Comments [...] this encounter Medical Devices Implanted Type Area Architectural Associate Device Identifier Shelf Expiration Date Model / Serial / Lot Clip Quick 2.8mm 230cm - [id number] Implanted:Qty: 3 on 01/02/2020 by Mike Beasley MD at ENDOSCOPY [facility] Virtual Call Center [facility] 06/01/2022 [id number]-202UR.A / / [id number] Description:Quick clip pro x 3 placed at rectal polypectomy site documented as of this encounter Visit Diagnoses Diagnosis DM type 2, goal HbA1c < 8% (HCC)- Primary Dyslipidemia, goal LDL below 70 Other and unspecified hyperlipidemia MCI (mild cognitive impairment) with memory loss Mild cognitive impairment, so stated S/P lumbar spinal fusion Arthrodesis status Asymptomatic stenosis of right carotid artery Periodic limb movement disorder (PLMD) Periodic limb movement disorder IDIO PERIPH NEURPTHY NOS(aka NEUROPATHY) Unspecified hereditary and idiopathic peripheral neuropathy Expressive aphasia Aphasia Chronic constipation Unspecified constipation documented in this encounter Care Teams Bus Person Relationship Specialty Start Date End Date Clayton Gómez DO [address] [place] [address] PCP - General Internal Medicine 04/01/24 documented as of this encounter
--- OUTSIDE RECORDS SUMMARY | 2024-08-15 17:06 | External Medical Summary ---
Author Name Unknown Address Unknown Organization [id number]:[facility]AT[facility] [place] - [address] [place] [address] Laboratory Report Ordering Provider Test Date Status VANESA CHAPMAN 08/01/2024 09:46:34 Final Observation Date Value Abnormality Reference (Units ) Status SYNC LEUKOCYTES IN BLOOD BY AUTOMATED COUNT 08/01/2024 09:46:34 8.91 4.00-10.80 (K/uL) Final Segs 08/01/2024 09:46:34 63.8 40.0-75.0 (%) Final Lymphs % 08/01/2024 09:46:34 27.8 18.0-42.0 (%) Final Monos 08/01/2024 09:46:34 6.3 1.0-11.0 (%) Final Eosinophils 08/01/2024 09:46:34 1.1 0.0-6.0 (%) Final Basos 08/01/2024 09:46:34 0.7 0.0-2.0 (%) Final Immature Granulocyte, Percent 08/01/2024 09:46:34 0.3 0.0-2.0 (%) Final Absolute Segs 08/01/2024 09:46:34 5.68 1.80-7.70 (K/uL) Final Lymphs, absolute 08/01/2024 09:46:34 2.48 1.00-4.80 (K/ul) Final Monos, Abs 08/01/2024 09:46:34 0.56 0.00-1.10 (K/uL) Final Eos, Abs 08/01/2024 09:46:34 0.10 0.00-0.70 (K/uL) Final Basos, Abs 08/01/2024 09:46:34 0.06 0.00-0.20 (K/uL) Final Immature Granulocytes, Number 08/01/2024 09:46:34 0.03 0.00-0.20 (K/uL) Final Performing Location [facility] [place] - [facility] [place] [address]
--- OUTSIDE RECORDS SUMMARY | 2024-08-15 17:06 | External Medical Summary | Summary of Care ---
Author Name Unknown Organization [facility] Address [address] [place] [address] Phone [phone] Care Team Providers Care Rn Field Case Manager Name Role Phone Clayton Gómez DO Primary Care Provider [phone] Reason for Referral * Evaluate & Treat - Unlimited Visits (Within 10 days (routine)) - Authorized Specialty Diagnoses / Procedures Referred By Alyssa peng Referred To Contact Neurology Diagnoses MCI (mild cognitive impairment) with memory loss Clayton Gómez DO [address] [place] [address] Phone: tel: fax: Referral ID Status Reason Start Date Expiration Date Visits Requested Visits Authorized [id number] Authorized Specialty Services Required 08/01/[phone] Question Answer Referral Priority Within 10 days (routine) Where should this appointment be scheduled? [facility] This patient already has care established with Neurology. Do not place this order. Please use Ask A Doc to expedite care. Acknowledge Is this referral being placed for insurance purposes ONLY No, patient needs appointment [facility] NEUROLOGY REFERRAL QUESTIONS Memory/Cognition Reason for Visit * Reason Comments Follow Up Encounter Details Date Type Department Care Team (Late st Contact Info) Description 08/01/2024 8:40 AM EST Office Visit Family Practice [address] [facility] [place] [address] [place] [address] Clayton Gómez DO [address] [place] [address] DM type 2, goal HbA1c < 8% ([facility])*; Dyslipidemia, goal LDL below 70; MCI (mild cognitive impairment) with memory loss; S/P lumbar spinal fusion; Asymptomatic stenosis of right carotid artery; Periodic limb movement disorder (PLMD); IDIO PERIPH NEURPTHY NOS(aka NEUROPATHY); Expressive aphasia; Chronic constipation Allergies Active Allergy Reactions Criticality Noted Date Comments Environmental 07/15/2003 pollen documented as of this encounter (statuses as of 08/02/2024) Medications ASPIRIN 81 MG PO TABSIndications :Screening [...] 6:23 AM EST 4 05/10/20 25 Active Donepezil HCl 10 MG Oral Tablet (Aricept) TAKE ONE TABLET EVERYDAY WITH BREAKFAST. 90 Tablet 3 04/29/2024 9:33 AM EDT 4 08/01/19 25 Discontinu ed(Refill) documented as of this encounter (statuses as of 08/02/2024) Active Problems Problem Noted Date Diagnosed Date [...] as of this encounter (statuses as of 08/02/2024) Resolved Problems Problem Noted Date Diagnosed Date [...] as of this encounter (statuses as of 08/02/2024) Immunizations Name Administration Dates Next Due COVID-19 mRNA, LNP-s, No Pre serve, 2-Dose Series (JCD) 09/22/2020,09/01/2020 COVID-19, LNP-s, No Preserve , Chad-sucrose, Ages 12+ (Pfizer) 12/28/2021 COVID-19, MRNA-LNP, PF, 30 M CG/0.3 mL, 12 YRS AND ABOVE, IM ([facility]) 04/01/2024 Covid-19, Mrna, Lnp-s, Pf, B ivalent, 30 Mcg, IM, 12 yrs and above (JCD) 07/19/2022 Pneumococcal Conjugate Vacc, 13 Valent (Prevnar) 12/09/2014 Pneumococcal Conjugate Vacci ne, 20-valent ([id number]) 04/01/2024 Pneumococcal Polysaccharide PPV23 (Pneumovax) 03/21/2008 RSV Vac., Bivalent, Perfusio n F, Pf,0.5 Ml (Abrysvo) 04/01/2024 Season Influenza, Quad, PF, Adjuvanted, 65+ Yrs, IM (FLUAD) 04/23/2020 Seasonal Influenza Vac., MDV , IM, 0.5 mL (Fluzone) 05/05/2014,04/17/2013,04/16/2012,03/04,04/21/2010,03/12/2009,05/06/20,04/19/2007,05/23/2006 03/31/2012 Seasonal Influenza, High Dos e, Trivalent, [...] DM type 2, goal HbA1c < 8% ([facility]) Current Outpatient Medications Medication Sig Dispense Refill [...] performed by Mike Beasley MD at [facility] COLONOSCOPY, GI REFERRAL OP 06/16/2006 adenomatous polyps--repeat 3 years EGD, FLEXIBLE, DIAGNOSTIC 04/09/2019 Tortuous esophagus, hiatal hernia/ESOPHAGOGASTRODUODENOSCOPY (EGD), FLEXIBLE, TRANSORAL, DIAGNOSTICperformed by Mike Beasley MD at [facility] INFORMATION Thoracic oulet with bial rib removals [...] DM type 2, goal HbA1c < 8% ([facility]) (Primary) - HEMOGLOBIN A1C; Future; Expected date: [...] voices no complaints. documented in this encounter Miscellaneous Notes * Result Encounter Note - Christen Escoto LPN - 08/02/2024 9:32 AM EST Sent my [employer] message. documented in this encounter Plan of Treatment Upcoming Encounters Date Type Department Care Team (Late st Contact Info) Description 08/08/2024 2:00 PM EST Imaging Vascular Lab, [facility] [place] 2nd Floor, [place] [address] [place] [address] 08/13/2024 11:20 AM EST Office Visit Neurology [facility] [address] [facility] [place], [place] [address] Jaymie King MD [address] [facility] [place] [address] 08/21/2024 10:00 AM EST Nutrition Services Nutrition Services [address] [facility] [address] [place] [address] Nikole Frank RDN [address] [place] [address] 11/29/2024 9:20 AM EDT Office Visit Family Practice [address] [facility] [address] [place] [address] Clayton Gómez DO [address] [facility] [place] [address] 01/21/2025 10:40 AM EDT Office Visit Dermatology [facility] [place] [address] [place] [address] Candace Washington PA-C [address] [place] [address] Scheduled Orders Name Type Priority Associated Diagnoses [...] Comments DISCUSS TOBACCO CESSATION (REFER TO SMARTSET #8451) 1945 Adult Wellness Visit 10/16/2024 10/17/2023, 10/12/19 Depression Screening 10/16/2024 10/17/2023 HbA1c 01/29/2025 08/01/2024, [...] this encounter Medical Devices Implanted Type Area Mobile Tester Device Identifier Shelf Expiration Date Model / Serial / Lot Clip Quick 2.8mm 230cm - [id number] Implanted:Qty: 3 on 01/02/2020 by Mike Beasley MD at [facility]COPY [facility] [employer] 06/01/2022 [id number]-[id number] / / [id number] Description:Quick clip pro x 3 placed at rectal polypectomy site documented as of this encounter Procedures Procedure Name Priority Date/Time Associated Diagnosis Comments DIFFERENTIAL, AUTOMATED Routine 08/01/2024 9:46 AM EST DM type 2, goal HbA1c < 8% (HCC) LIPID PANEL WITH DIRECT LDL IF TG IS HIGH Routine 08/01/2024 9:46 AM EST Dyslipidemia, goal LDL below 70 HEMOGLOBIN A1C Routine 08/01/2024 9:46 AM EST DM type 2, goal HbA1c < 8% (HCC) COMPREHENSIVE METABOLIC PANEL Routine 08/01/2024 9:46 AM EST DM type 2, goal HbA1c < 8% (HCC) Dyslipidemia, goal LDL below 70 CBC Routine 08/01/2024 9:46 AM EST DM type 2, goal HbA1c < 8% (HCC) CBC Routine 08/01/2024 9:46 AM EST DM type 2, goal HbA1c < 8% (HCC) documented in this encounter Results * DIFFERENTIAL, AUTOMATED (08/01/2024 9:46 AM EST) WBC 8.91 4.00 - 10.80 K/uL 08/01/2024 3:06 PM EST [facility] Neutrophils % 63.8 40.0 - 75.0 % 08/01/2024 3:06 PM EST [facility] Lymphocytes % 27.8 18.0 - 42.0 % 08/01/2024 3:06 PM EST [facility] Monocytes % 6.3 1.0 - 11.0 % 08/01/2024 3:06 PM EST [facility] Eosinophils % 1.1 0.0 - 6.0 % 08/01/2024 3:06 PM EST [facility] Basophils % 0.7 0.0 - 2.0 % 08/01/2024 3:06 PM EST [facility] Immature Granulocytes % 0.3 0.0 - 2.0 % 08/01/2024 3:06 PM EST [facility] Absolute Neutrophils 5.68 1.80 - 7.70 K/uL 08/01/2024 3:06 PM EST [facility] Absolute Lymphocytes 2.48 1.00 - 4.80 K/ul 08/01/2024 3:06 PM EST [facility] Absolute Monocytes 0.56 0.00 - 1.10 K/uL 08/01/2024 3:06 PM EST [facility] Absolute Eosinophils 0.10 0.00 - 0.70 K/uL 08/01/2024 3:06 PM EST [facility] Absolute Basophils 0.06 0.00 - 0.20 K/uL 08/01/2024 3:06 PM EST [facility] Absolute Immature Granulocytes 0.03 0.00 - 0.20 K/uL 08/01/2024 3:06 PM EST [facility] Blood Venous blood specimen / Unknown Venipuncture / Unknown 08/01/2024 9:46 AM EST 08/01/2024 9:46 AM EST us Clayton Gómez DO LAB BLOOD ORDERABLES Final Res ult [facility] [address] [place] [address] * (ABNORMAL) CBC (08/01/2024 9:46 AM EST) WBC 8.91 4.00 - 10.80 K/uL 08/01/2024 3:06 PM EST [facility] RBC 4.96 3.85 - 5.15 M/uL 08/01/2024 3:06 PM EST [facility] HGB 15.6(H) 12.0 - 15.3 g/dL 08/01/2024 3:06 PM EST [facility] HCT 48.6(H) 36.0 - 45.2 % 08/01/2024 3:06 PM EST [facility] MCV 98.0 81.5 - 97.5 fL 08/01/2024 3:06 PM EST [facility] MCH 31.5 27.0 - 34.0 pg 08/01/2024 3:06 PM EST [facility] MCHC 32.1 32.0 - 36.0 g/dL 08/01/2024 3:06 PM EST [facility] RDW 12.5 11.5 - 15.5 % 08/01/2024 3:06 PM EST [facility] PLT 291 140 - 400 K/uL 08/01/2024 3:06 PM EST [facility] MPV 11.3 6.6 - 11.1 fL 08/01/2024 3:06 PM EST [facility] nRBCs 0 <=0 /100 WBCs 08/01/2024 3:06 PM EST [facility] Blood Venous blood specimen / Unknown Venipuncture / Unknown 08/01/2024 9:46 AM EST 08/01/2024 9:46 AM EST us Clayton Gómez DO LAB BLOOD ORDERABLES Final Res ult [facility] [address] [place] [address] * (ABNORMAL) LIPID PANEL WITH DIRECT LDL IF TG IS HIGH (08/01/2024 9:46 AM EST) Triglycerides 124 <=174 mg/dL 08/01/2024 2:43 PM EST [facility] Comment: Triglyceride Reference Ranges (mg/dL): <150 Acceptable 150-174 Borderline high 175-499 High >=500 Very high Cholesterol 143 <200 mg/dL 08/01/2024 2:43 PM EST [facility] Comment: Total Cholesterol Reference Ranges (mg/dL): <200 Desirable 200-239 Borderline high >=240 High HDL Cholesterol 35(L) >49 mg/dL 2:43 PM EST [facility] Comment: HDL Cholesterol Reference Ranges (mg/dL): >=60 High (Desirable) <50 Low (Undesirable) For Females <40 Low (Undesirable) For Males Non-HDL Cholesterol 108 <=159 mg/dL 08/01/2024 2:43 PM EST [facility] Comment: Non-HDL Cholesterol Reference Range (mg/dL): <100 Target level for high risk ASCVD patient <130 Optimal for general population 130-159 Near optimal for general population 160-189 Borderline High 190-219 High >=220 Very High LDL Cholesterol 83 <=129 mg/dL 08/01/2024 2:43 PM EST [facility] Comment: LDL Cholesterol Reference Ranges (mg/dL): <70 Target level for high risk ASCVD patient <100 Optimal for general population 100-129 Near optimal for general population 130-159 Borderline high 160-189 High >=190 Very high Blood Venous blood specimen / Unknown Venipuncture / Unknown 08/01/2024 9:46 AM EST 08/01/2024 9:46 AM EST us Clayton Gómez DO LAB BLOOD ORDERABLES Final Res ult [facility] [address] [place] [address] * (ABNORMAL) COMPREHENSIVE METABOLIC PANEL (08/01/2024 9:46 AM EST) BUN 15 6 - 20 mg/dL 08/01/2024 2:43 PM EST [facility] CREATININE 0.7 0.5 - 1.0 mg/dL 08/01/2024 2:43 PM EST [facility] EGFR 84 >=60 mL/min 08/01/2024 2:43 PM EST [facility] Comment:eGFR is calculated b ased on the CKD-EPI 2020 equation. SODIUM 143 135 - 146 mmol/L 08/01/2024 2:43 PM EST [facility] POTASSIUM 4.7 3.5 - 5.1 mmol/L 08/01/2024 2:43 PM EST [facility] CHLORIDE 105 98 - 107 mmol/L 08/01/2024 2:43 PM EST [facility] CO2 28 22 - 32 mmol/L 08/01/2024 2:43 PM EST [facility] ANION GAP 10 7 - 15 mmol/L 08/01/2024 2:43 PM EST [facility] GLUCOSE 133(H) 70 - 120 mg/dL 08/01/2024 2:43 PM EST [facility] Albumin 4.6 3.8 - 5.0 g/dL 08/01/2024 2:43 PM EST [facility] AST 26 10 - 35 U/L 08/01/2024 2:43 PM EST [facility] Alkaline Phosphatase 83 35 - 130 U/L 08/01/2024 2:43 PM EST [facility] Bilirubin, Total 0.3 <=1.2 mg/dL 08/01/2024 2:43 PM EST [facility] CALCIUM 10.3(H) 8.4 - 10.2 mg/dL 08/01/2024 2:43 PM EST [facility] Protein 6.9 6.0 - 8.3 g/dL 08/01/2024 2:43 PM EST [facility] ALT 27 10 - 35 U/L 08/01/2024 2:43 PM EST [facility] Blood Venous blood specimen / Unknown Venipuncture / Unknown 08/01/2024 9:46 AM EST 08/01/2024 9:46 AM EST Clayton Gómez DO LAB BLOOD ORDERABLES Final Res ult Performing Organization Address [facility] de Phone Number LAB[facility]ATORY [facility] [address] [place] [address] * (ABNORMAL) HEMOGLOBIN A1C (08/01/2024 9:46 AM EST) Hemoglobin A1C 6.6(H) 4.0 - 5.6 % 08/01/2024 4:23 PM EST [facility] Comment:The use of HbA1c to monitor glycemic status is based on normal hemoglobin and HbA composition. This test should not be used in patients with abnormal hemoglobin that affects the half life of the red blood cell or the in vivo glycation rates. Estimated Average Glucose 143(H) <126 mg/dL 08/01/2024 4:23 PM EST [facility] Blood Venous blood specimen / Unknown Venipuncture / Unknown 08/01/2024 9:46 AM EST 08/01/2024 9:46 AM EST us Clayton Gómez DO LAB BLOOD ORDERABLES Final Res ult Performing Organization Address [facility] de Phone Number [facility] [address] [place] [address] documented in this encounter Visit Diagnoses Diagnosis DM type 2, goal HbA1c < 8% ([facility])- Primary Dyslipidemia, goal LDL below 70 Other [...] constipation documented in this encounter Care Teams Rn Field Case Manager Relationship Specialty Start Date End Date Clayton Gómez DO [address] [facility] [place] [address] PCP - General Internal Medicine 04/01/24 documented as of this encounter
--- OUTSIDE RECORDS SUMMARY | 2024-08-15 17:06 | External Medical Summary | Summary of Care ---
Author Name Unknown Organization [facility] Address [address] [place] [facility] [place] [address] Phone [phone] Care Team Providers Care Envelope Patternmaker Name Role Phone Adela Gómez DO Primary Care Provider Reason for Visit * Reason Comments Medication Refill Encounter Details Date Type Department Care Team (Late st Contact Info) Description 05/10/2024 Refill Family Practice [address] [facility] [place] [address] [place] [phone] Adela Gómez DO [address] [place] [address] Vertigo Allergies Active Allergy Reactions Criticality Noted Date Comments Environmental 07/15/2003 pollen documented as of this encounter (statuses as of 05/10/2024) Medications ASPIRIN 81 MG PO TABSIndications :Screening [...] BY MOUTH EVERY DAY 90 Tablet 3 02/12/2024 2:16 PM EDT 4 11/15/19 25 Active Gabapentin 300 MG Oral Capsule (Neurontin)Amaris cations:S/P lumbar spinal fusion Take 1 Capsule by mouth in the morning and 1 Capsule at noon and 1 Capsule before bedtime. 300 Capsule 5 04/02/2024 12:29 PM EDT 4 Active Meclizine HCl 25 MG Oral Tablet (Antivert)Indic ations:Vertigo TAKE ONE TABLET BY MOUTH THREE TIMES A DAY NEEDED FOR DIZZINESS 270 Tablet 1 4 05/10/20 25 Active Meclizine HCl 25 MG Oral Tablet (Antivert)Indic ations:Vertigo TAKE ONE TABLET BY MOUTH THREE TIMES A DAY NEEDED FOR DIZZINESS 270 Tablet 1 02/12/2024 2:16 PM EDT 4 05/10/20 24 Discontinu ed(Refill) documented as of this encounter (statuses as of 05/10/2024) Active Problems Problem Noted Date Diagnosed Date [...] as of this encounter (statuses as of 05/10/2024) Resolved Problems Problem Noted Date Diagnosed Date [...] as of this encounter (statuses as of 05/10/2024) Immunizations Name Administration Dates Next Due COVID-19 mRNA, LNP-s, No Pre serve, 2-Dose Series (MyFab) 09/22/2020,09/01/2020 COVID-19, LNP-s, No Preserve , Chad-sucrose, Ages 12+ (MyFab) 12/28/2021 COVID-19, MRNA-LNP, PF, 30 M CG/0.3 mL, 12 YRS AND ABOVE, IM ([facility]) 04/01/2024 Covid-19, Mrna, Lnp-s, Pf, B ivalent, 30 Mcg, IM, 12 yrs and above (MyFab) 07/19/2022 Pneumococcal Conjugate Vacc, 13 Valent (Prevnar) 12/09/2014 Pneumococcal Conjugate Vacci ne, 20-valent ([id number]) 04/01/2024 Pneumococcal Polysaccharide PPV23 (Pneumovax) 03/21/2008 RSV [...] encounter Miscellaneous Notes * Telephone Encounter - Suzy Byrnes RPh - 05/10/2024 7:22 PM ESTSigned Prescriptions: Disp Refills Meclizine HCl 25 MG Oral Tablet (Antivert) 270 Ta*1 Sig: TAKE ONE TABLET BY MOUTH THREE TIMES A DAY NEEDED FOR DIZZINESS Authorizing Provider: ADELA GÓMEZ Ordering User: SUZY BYRNES * Telephone Encounter - Darcy Mcgee CPhT - 05/10/2024 1:14 PM EST Did you pend patient's preferred pharmacy and medication before forwarding?yes Pharmacy: [facility] Pending Prescriptions: Disp Refills Meclizine HCl 25 MG Oral Tablet (Antivert)270 Ta*1 Sig: TAKE ONE TABLET BY MOUTH THREE TIMES A DAY NEEDED FOR DIZZINESS Last Visit: 04/01/2024 (in office), Visit date not found (telemedicine) Next Visit: 08/01/2024 If no future appointments scheduled, and last appointment is greater than a year ago, please schedule patient for a follow-up appointment Last date the medication was ordered: 11/15/23 Is this request for a controlled substance?No [...] AM EST Office Visit Family Practice 65 [facility] [address] [place] [address] Adela Gómez DO [address] [place] [address] 08/21/2024 10:00 AM EST Nutrition Services Nutrition Services 65 [facility] [address] [facility] [place] [address] Nikole Frank RDN [address] [place] [address] 10/21/2024 1:00 PM EDT Nurse Only Family Practice 65 [facility] [address] [place] [phone] Christen Zuluaga, SIOBHAN [address] [place] [phone] 01/21/2025 10:40 AM EDT Office Visit Dermatology [facility], [place] [address] [place] [address] Candace Washington PA-C [address] [place] [address] Health Maintenance Due Date Last Done Comments DISCUSS TOBACCO CESSATION (REFER TO SMARTSET #3291) 1945 GFR 07/24/2024 07/24/2023, 06/02, 10/25/2021, Additional history exists HbA1c 09/29/2024 04/01/2024, 11/01, 07/24/2023, Additional history exists Adult Wellness Visit 10/16/2024 10/17/2023, 10/12/19 Depression Screening 10/16/2024 10/17/2023 Albumin/Creatinine Ratio 04/17/2025 [...] 03/22/2023, 05/13/2022, Additional history exists Pneumococcal Vaccine: 65+ Years Completed 04/01/2024, 12/09/2014, 03/21/2008 HPV (Gardasil) [...] this encounter Medical Devices Implanted Type Area Layer Out Plate Glass Device Identifier Shelf Expiration Date Model / Serial / Lot Clip Quick 2.8mm 230cm - [id number] Implanted:Qty: 3 on 01/02/2020 by Mike Beasley MD at [facility]COPY [facility] [employer] [facility] 06/01/2022 [id number] / / [id number] Description:Quick clip pro x 3 placed at rectal polypectomy site documented as of this encounter Visit Diagnoses Diagnosis Vertigo Dizziness and giddiness documented in this encounter Care Teams Envelope Patternmaker Relationship Specialty Start Date End Date Adela Gómez DO [address] [place] [address] PCP - General Internal Medicine 04/01/24 documented as of this encounter
--- OUTSIDE RECORDS SUMMARY | 2024-08-15 17:06 | External Medical Summary | Summary of Care ---
Author Name Unknown Organization [facility] Address [address] [address] Phone [phone] Care Team Providers Care Nanotechnology Engineering Technician Name Role Phone Clayton Gómez DO Primary Care Provider [phone] Reason for Visit * Reason Onset Date Comments Information 05/06/2024 DM eye Encounter Details Date Type Department Care Team (Late st Contact Info) Description 05/06/2024 Telephone Family Practice [facility] [address] [place] [address] Clayton Gómez DO [address] [place] [address] Information (DM eye) Allergies Active Allergy Reactions Criticality Noted Date Comments Environmental 07/15/2003 pollen documented as of this encounter (statuses as of 05/06/2024) Medications Medication Sig Dispensed Refills Start Date End Date Status ASPIRIN 81 MG PO TABSIndications:Sc reening for malignant neoplasm of breast one tab by mouth daily 90 5 12/31/2007 Active B-COMPLEX W/C & IRON PO CAPSIndications:Me nopause daily 90 6 12/31/2007 Active Acetaminophen ER 650 MG Oral Tablet Extended Release every 8 hours as needed. Active fluticasone (FLONASE) 50 MCG/ACT nasal sprayIndications:a t bedtime SQUIRT 2 SPRAYS INTO EACH NOSTRIL ONCE A DAY. Indications: at bedtime 48 g 2 06/10/2015 Active Fexofenadine HCl 180 MG Oral Tablet One pill by mouth once a day for allergies 30 Tab 11 06/10/2015 Active Multiple Vitamins-Minerals (OCUVITE ADULT 50+) Capsule Take 1 Capsule by mouth in the morning. Active Donepezil HCl 10 MG Oral Tablet (Aricept) TAKE ONE TABLET EVERYDAY WITH BREAKFAST. 90 Tablet 3 08/07/2023 08/06/2024 Active DULoxetine HCl 30 MG Oral Capsule Delayed Release Particles (Cymbalta)Indicati ons:Hereditary and idiopathic peripheral neuropathy TAKE ONE CAPSULE BY MOUTH TWICE A DAY 200 Capsule 3 10/06/2023 10/05/2024 Active Atorvastatin Calcium 40 MG Oral Tablet (Lipitor)Indicatio ns:Dyslipidemia, goal LDL below 160 TAKE ONE TABLET BY MOUTH EVERY DAY 90 Tablet 3 11/15/2023 11/14/2024 Active Meclizine HCl 25 MG Oral Tablet (Antivert)Indicati ons:Vertigo TAKE ONE TABLET BY MOUTH THREE TIMES A DAY NEEDED FOR DIZZINESS 270 Tablet 1 11/15/2023 11/14/2024 Active Gabapentin 300 MG Oral Capsule (Neurontin)Indicat ions:S/P lumbar spinal fusion Take 1 Capsule by mouth in the morning and 1 Capsule at noon and 1 Capsule before bedtime. 300 Capsule 5 04/01/2024 Active documented as of this encounter (statuses as of 05/06/2024) Active Problems Problem Noted Date Diagnosed Date DM type 2, goal HbA1c < 8% 04/02/2024 Expressive aphasia 07/15/2022 MCI (mild cognitive impairment) with memory loss 07/15/2022 Asymptomatic stenosis of right carotid artery Chronic constipation 02/27/2020 Hiatal hernia 10/09/2019 S/P lumbar spinal fusion 08/25/2016 History of melanoma in situ 08/13/2015 Allergic rhinitis 12/09/2014 Dyslipidemia, goal LDL below 70 09/13/2010 ADVANCE DIRECTIVE INFORMATION 12/10/2004 Overview: No, Advance Directive brochure given to patient. IDIO PERIPH NEURPTHY NOS(aka NEUROPATHY) 003 Irritable bowel syndrome 06/30/2003 Periodic limb movement disorder (PLMD) 3 Tobacco use disorder 06/30/2003 documented as of this encounter (statuses as of 05/06/2024) Resolved Problems Problem Noted Date Diagnosed Date [...] 01/14/2014 02/23/2017 Carotid stenosis, non-symptomatic 10/22/2010 08/14/2020 Dyslipidemia, goal to be determined 06/30/2003 09/13/2010 BENIGN NEOPLASM LG BOWEL 06/30/200301/2019 Overview: Colonoscopy 06/07: Impression: - One 3 mm polyp in the cecum. Resected and retrieved. - The examination was otherwise normal. Recommendation: - Await pathology results. - Discontinue NSAIDS for 10 days. - Repeat colonoscopy in 3 years for surveillance given the prep quality. Other voice and resonance disorders 06/30/2003 02/23/2017 Overview: Direct Laryngosocopy 10/04: Mrs. Andino consented to [...] as of this encounter (statuses as of 05/06/2024) Immunizations Name Administration Dates Next Due COVID-19 mRNA, LNP-s, No Pre serve, 2-Dose Series ([facility]) 09/22/2020,09/01/2020 COVID-19, LNP-s, No Preserve , Chad-sucrose, Ages 12+ ([facility]) 12/28/2021 COVID-19, MRNA-LNP, PF, 30 M CG/0.3 mL, 12 YRS AND ABOVE, IM ([facility]) 04/01/2024 Covid-19, Mrna, Lnp-s, Pf, B ivalent, 30 Mcg, IM, 12 yrs and above ([facility]) 07/19/2022 Pneumococcal Conjugate Vacc, 13 Valent (Prevnar) 12/09/2014 Pneumococcal Conjugate Vacci ne, 20-valent ([id number]) 04/01/2024 Pneumococcal Polysaccharide PPV23 (Pneumovax) 03/21/2008 RSV [...] ages 0-17 years) Not on file 07/24/2023 Sex and Gender Information Value Date Recorded Sex Assigned at Female 11/07/2018 10:12 AM EDT Gender Identity Female 11/07/2018 10:12 AM EDT Sexual Orientation Straight 11/07/2018 10 :12 AM EDT Job Start Date Occupation Industry Not on file Not on file Not on file documented as of this encounter Miscellaneous Notes * Telephone Encounter - Mone Dela Cruz LPN - 05/06/2024 10:57 AM EST Patient with a positive Diabetic Retinopathy scan OR uninterpretable Diabetic Retinopathy exam. There is mild retinopathy in left eye Outreach action taken: Patient will Schedule with Outside Provider See encounter 04/17 Mone Dela Cruz LPN documented in this encounter Plan of Treatment Upcoming Encounters Date Type Department Care Team (Late st Contact Info) Description 08/01/2024 8:40 AM EST Office Visit Family Practice [address] [address] Clayton Gómez DO [address] [place] [address] 08/21/2024 10:00 AM EST Nutrition Services Nutrition Services [address] [address] Nikole Frank RDN [address] [place] [address] 10/21/2024 1:00 PM EDT Nurse Only Family Practice [address] [place] [phone] Christen Zuluaga, SIOBHAN [address] [place] [phone] 01/21/2025 10:40 AM EDT Office Visit Dermatology [facility], [place] [address] [place] [address] Candace Washington PA-C [address] [facility] [place] [address] Health Maintenance Due Date Last Done Comments [...] this encounter Medical Devices Implanted Type Area Process Design Engineer Device Identifier Shelf Expiration Date Model / Serial / Lot Clip Quick 2.8mm 230cm - [id number] Implanted:Qty: 3 on 01/02/2020 by Mike Beasley MD at ENDOSCOPY [facility] [employer] [facility] 06/01/2022 HX-202UR.A / / [id number] Description:Quick clip pro x 3 placed at rectal polypectomy site documented as of this encounter Care Teams Nanotechnology Engineering Technician Relationship Specialty Start Date End Date Clayton Gómez DO [address] [place] [address] PCP - General Internal Medicine 04/01/24 documented as of this encounter
--- OUTSIDE RECORDS SUMMARY | 2024-08-15 17:06 | External Medical Summary | Summary of Care ---
Author Name Unknown Organization [facility] Address [address] [place] [address] Phone [phone] Care Team Providers Care Cutter Aluminum Sheet Name Role Phone Clayton Gómez DO Primary Care Provider [phone] Reason for Visit * Reason Comments Medication Refill Encounter Details Date Type Department Care Team (Late st Contact Info) Description 07/25/[address] [facility] [address] [place] [address] Luis Solano MD [address] [place] [address] Allergies Active Allergy Reactions Criticality [...] mRNA, LNP-s, No Pre serve, 2-Dose Series ([facility]) 09/22/2020,09/01/2020 COVID-19, LNP-s, No Preserve , Chad-sucrose, Ages 12+ ([facility]) 12/28/2021 COVID-19, MRNA-LNP, PF, 30 M CG/0.3 mL, 12 YRS AND ABOVE, IM ([facility]) 04/01/2024 Covid-19, Mrna, Lnp-s, Pf, B ivalent, 30 Mcg, IM, 12 yrs and above ([facility]) 07/19/2022 Pneumococcal Conjugate Vacc, 13 Valent (Prevnar) 12/09/2014 Pneumococcal Conjugate Vacci ne, 20-valent ([id number]) 04/01/2024 Pneumococcal Polysaccharide PPV23 (Pneumovax) 03/21/2008 RSV [...] preferred pharmacy and medication before forwarding?yes Pharmacy: [facility] Pending Prescriptions: Disp Refills [...] 08/08/2024 2:00 PM EST Imaging Vascular Lab, [facility] 2nd [facility], [place] [address] [facility] [place] [address] 08/13/2024 11:20 AM EST Office Visit Neurology Tatyana Jewell [place] [address] [place] [address] Jaymie King MD 200 [place] [address] 08/21/2024 10:00 AM EST Nutrition Services Nutrition Services 65 [facility] 293 [place] [address] Nikole Frank, RDN 293 [place] [address] 11/29/2024 9:20 AM EDT Office Visit Family Practice 65 [facility] [address] [place] [address] Clayton Gómez, 293 [place] [address] 01/21/2025 10:40 AM EDT Office Visit Dermatology [facility], [place] [address] [place] [address] Candace Washington PA-C [address] [place] [address] Health Maintenance Due Date Last Done Comments DISCUSS TOBACCO CESSATION (REFER TO SMARTSET #6835) 1943 GFR 07/24/2024 07/24/2023, 06/02, 10/25/2021, Additional [...] this encounter Medical Devices Implanted Type Area History Card Clerk Device Identifier Shelf Expiration Date Model / Serial / Lot Clip Quick 2.8mm 230cm - [id number] Implanted:Qty: 3 on 01/02/2020 by Mike Beasley MD at ENDOSCOPY [facility] [employer] [facility] 06/01/2022 [id number]-202UR.A / / [id number] Description:Quick clip pro x 3 placed at rectal polypectomy site documented as of this encounter Care Teams Cutter Aluminum Sheet Relationship Specialty Start Date End Date Clayton Gómez DO [address] [place] [address] PCP - General Internal Medicine 04/01/24 documented as of this encounter
--- OUTSIDE RECORDS SUMMARY | 2024-08-15 17:06 | External Medical Summary | Summary of Care ---
Author Name Unknown Organization [facility] Address [address] [place] [address] Phone [phone] Care Team Providers Care Workflow Developer Name Role Phone Clayton Gómez DO Primary Care Provider [phone] Reason for Referral * Evaluate & Treat - Unlimited Visits (Within 10 days (routine)) - Authorized Specialty Diagnoses / Procedures Referred By Alyssa peng Referred To Contact Neurology Diagnoses MCI (mild cognitive impairment) with memory loss Clayton Gómez DO [address] [place] [address] Phone: tel: fax: Referral ID Status Reason Start Date Expiration Date Visits Requested Visits Authorized [id number] Authorized Specialty Services Required 08/01/[phone] Question Answer Referral Priority Within 10 days (routine) Where should this appointment be scheduled? [facility] This patient already has care established with Neurology. Do not place this order. Please use Ask A Doc to expedite care. Acknowledge Is this referral being placed for insurance purposes ONLY No, patient needs appointment [facility] NEUROLOGY REFERRAL QUESTIONS Memory/Cognition Reason for Visit * Reason Comments Follow Up Encounter Details Date Type Department Care Team (Late st Contact Info) Description 08/01/2024 8:40 AM EST Office Visit Family Practice 65 [facility] [place] [address] [place] [address] Clayton Gómez DO [address] [place] [address] DM type 2, goal HbA1c < 8% ([facility])*; Dyslipidemia, goal LDL below 70; MCI (mild [...] mRNA, LNP-s, No Pre serve, 2-Dose Series ([employer]) 09/22/2020,09/01/2020 COVID-19, LNP-s, No Preserve , Chad-sucrose, Ages 12+ ([facility]) 12/28/2021 COVID-19, MRNA-LNP, PF, 30 M CG/0.3 mL, 12 YRS AND ABOVE, IM ([employer]) 04/01/2024 Covid-19, Mrna, Lnp-s, Pf, B ivalent, 30 Mcg, IM, 12 yrs and above ([facility]) 07/19/2022 Pneumococcal Conjugate Vacc, 13 Valent (Prevnar) 12/09/2014 Pneumococcal Conjugate Vacci ne, 20-valent ([id number]) 04/01/2024 Pneumococcal Polysaccharide PPV23 (Pneumovax) 03/21/2008 RSV [...] DM type 2, goal HbA1c < 8% ([facility]) Current Outpatient Medications Medication Sig Dispense Refill [...] performed by Mike Beasley MD at ENDOSCOPY [facility] COLONOSCOPY, GI REFERRAL OP 06/16/2006 adenomatous polyps--repeat 3 years EGD, FLEXIBLE, DIAGNOSTIC 04/09/2019 Tortuous esophagus, hiatal hernia/ESOPHAGOGASTRODUODENOSCOPY (EGD), FLEXIBLE, TRANSORAL, DIAGNOSTICperformed by Mike Beasley MD at ENDOSCOPY [facility] INFORMATION Thoracic oulet with bial rib removals [...] DM type 2, goal HbA1c < 8% ([facility]) (Primary) - HEMOGLOBIN A1C; Future; Expected date: [...] 08/08/2024 2:00 PM EST Imaging Vascular Lab, [facility] 2nd [facility], [place] [address] [facility] [place] [address] 08/13/2024 11:20 AM EST Office Visit Neurology [facility] [address] [place] [address] Jaymie King MD 200 [place] [address] 08/21/2024 10:00 AM EST Nutrition Services Nutrition Services 65 [facility] 293 [place] [address] Nikole Frank, RDN 293 [place] [address] 11/29/2024 9:20 AM EDT Office Visit Family Practice 65 [facility] [address] [place] [address] Clayton Gómez, 293 [place] [address] 01/21/2025 10:40 AM EDT Office Visit Dermatology [facility] [place] [address] [place] [address] Candace Washington PA-C [address] [place] [address] Pending Results Name Type Priority Associated Diagnoses Date /Time HEMOGLOBIN A1C Lab Routine DM type 2, goal HbA1c < 8% ([facility]) 08/01/2024 9:46 AM EST COMPREHENSIVE METABOLIC PANEL Lab Routine DM type 2, goal HbA1c < 8% ([facility]) Dyslipidemia, goal LDL below 70 08/01/2024 9:46 AM EST LIPID PANEL WITH DIRECT LDL IF TG IS HIGH Lab Routine Dyslipidemia, goal LDL below 70 08/01/2024 9:46 AM EST CBC WITH WBC DIFFERENTIAL Lab Routine DM type 2, goal HbA1c < 8% ([facility]) 08/01/2024 9:46 AM EST CBC Lab Routine DM type 2, goal HbA1c < 8% ([facility]) 08/01/2024 9:46 AM EST DIFFERENTIAL, AUTOMATED Lab Routine DM type 2, goal HbA1c < 8% ([facility]) 08/01/2024 9:46 AM EST Scheduled Orders Name [...] this encounter Medical Devices Implanted Type Area Fiscal Services Manager Device Identifier Shelf Expiration Date Model / Serial / Lot Clip Quick 2.8mm 230cm - [id number] Implanted:Qty: 3 on 01/02/2020 by Mike Beasley MD at ENDOSCOPY [facility] [employer] [facility] 06/01/2022 HX-202UR.A / / [id number] Description:Quick [...] constipation documented in this encounter Care Teams Workflow Developer Relationship Specialty Start Date End Date Clayton Gómez DO [address] [place] [address] PCP - General Internal Medicine 04/01/24 documented as of this encounter
--- OUTSIDE RECORDS SUMMARY | 2024-08-15 17:06 | External Medical Summary ---
Author Name Unknown Address Unknown Organization K01:[place] [facility] [place] [address] [facility] [place] [address] Laboratory Report Ordering Provider Test Date Status VANESA CHAPMAN 08/01/2024 09:46:34 Final Observation Date Value Abnormality Reference (Units ) Status Triglyceride 08/01/2024 09:46:34 124 <=174 ( mg/dL) Final Triglyceride Reference Range s (mg/dL):
<150 Acceptable
150-174 Borderline high
175-499 High
>=500 Very high Cholesterol 08/01/2024 09:46:34 143 <200 (mg /dL) Final Total Cholesterol Reference Ranges (mg/dL):
<200 Desirable
200-239 Borderline high
>=240 High HDL 08/01/2024 09:46:34 35 Below low normal >49 (mg/dL) Final HDL Cholesterol Reference Ra nges (mg/dL):
>=60 High (Desirable)
<50 Low (Undesirable) For Females
<40 Low (Undesirable) For Males NON-HDL CHOLESTEROL 08/01/2024 09:46:34 108 <=159 (mg/dL) Final Non-HDL Cholesterol Referenc e Range (mg/dL):
<100 Target level for high risk ASCVD patient
<130 Optimal for general population
130-159 Near optimal for general population
160-189 Borderline High
190-219 High
>=220 Very High LDL, (calculated) 08/01/2024 09:46:34 83 <= 129 (mg/dL) Final LDL Cholesterol Reference Ra nges (mg/dL):
<70 Target level for high risk ASCVD patient
<100 Optimal for general population
100-129 Near optimal for general population
130-159 Borderline high
160-189 High
>=190 Very high Performing Location [facility] [facility] [place] [address] [facility] [address]
--- OUTSIDE RECORDS SUMMARY | 2024-08-15 17:07 | External Medical Summary | Summary of Care ---
Author Name Unknown Organization [facility] Address [address] [facility] [place] [address] Phone [phone] Care Team Providers Care Credit Collections Rep Name Role Phone Clayton Gómez DO Primary Care Provider [phone] Reason for Visit * Reason Onset Date Comments Scan To Read 04/17/2024 Encounter Details Date Type Department Care Team (Late st Contact Info) Description 04/17/2024 Telephone Family Practice 65 [facility] [address] [place] [address] Clayton Gómez DO [address] [place] [address] Scan To Read Allergies Active Allergy Reactions Criticality Noted Date Comments Environmental 07/15/2003 pollen documented as of this encounter (statuses as of 04/17/2024) Medications Medication Sig Dispensed Refills Start Date [...] as of this encounter (statuses as of 04/17/2024) Active Problems Problem Noted Date Diagnosed Date [...] as of this encounter (statuses as of 04/17/2024) Resolved Problems Problem Noted Date Diagnosed Date [...] as of this encounter (statuses as of 04/17/2024) Immunizations Name Administration Dates Next Due COVID-19 mRNA, LNP-s, No Pre serve, 2-Dose Series ([employer]) 09/22/2020,09/01/2020 COVID-19, LNP-s, No Preserve , Chad-sucrose, Ages 12+ ([facility]) 12/28/2021 COVID-19, MRNA-LNP, 24-25, P R, 30MCG/0.3ML, IM, 12YRS AND ABOVE ([facility]) 04/01/2024 Covid-19, Mrna, Lnp-s, Pf, B ivalent, 30 Mcg, IM, 12 yrs and above ([employer]) 07/19/2022 Pneumococcal Conjugate Vacc, 13 Valent (Prevnar) 12/09/2014 Pneumococcal Conjugate Vacci ne, 20-valent ([id number]) 04/01/2024 Pneumococcal Polysaccharide PPV23 (Pneumovax) 03/21/2008 RSV [...] encounter Miscellaneous Notes * Telephone Encounter - Celestino Aguirre MD - 04/17/2024 1:19 PM EDT Retinal Scan Imaging Sheila Andino [id number] Retinal Scan Interpretation: 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 I will forward thisencounter to the ordering provider. Patient prefers to be seen at [facility] for follow-up evaluation. This encounter will be sent to the ordering provider for them to arrange the patient to be scheduled within 3 months. Celestino Aguirre MD 04/17/2024 1:20 PM * Telephone Encounter - Sarah Beth Galicia RT (R) - 04/17/2024 10:58 AM EDT A Diabetic Telemed Eye image was taken and requires your interpretation for Dr Gómez. Please checkyour inbaet for image. Patient prefers to be seen at Non- [facility] if a follow-up appointment is needed. documented in this encounter Plan of Treatment Upcoming Encounters Date Type Department Care Team (Late st Contact Info) Description 08/01/2024 8:40 AM EST Office Visit Family Practice [address] [facility] [place] [address] [place] [phone] Clayton Gómez DO 293 [facility] [place] [address] 08/21/2024 10:00 AM EST Nutrition Services Nutrition Services 65 [facility] [address] [place] [address] Nikole Frank RDN [address] [place] [address] 10/21/2024 1:00 PM EDT Nurse Only Family Practice 65 [facility] [address] [place] [phone] Christen Zuluaga RN 293 [facility] [place] [address] 01/21/2025 10:40 AM EDT Office Visit Dermatology [facility] [place] [address] [place] [address] Candace Washington PA-C [address] [place] [address] Health Maintenance Due Date Last Done Comments DISCUSS TOBACCO CESSATION (REFER TO SMARTSET #6024) 1943 Albumin/Creatinine Ratio 1961 GFR 07/24/2024 07/24/2023, 06/02, 10/25/2021, Additional history exists HbA1c 09/29/2024 04/01/2024, 11/01, 07/24/2023, Additional history exists Adult Wellness Visit 10/16/2024 10/17/2023, 10/12/19 23 Depression Screening 10/16/2024 10/17/2023 Diabetic Eye Exam 04/17/2025 04/17/2024, 10/31/2012 Diabetic [...] this encounter Medical Devices Implanted Type Area Social Services Director Device Identifier Shelf Expiration Date Model / Serial / Lot Clip Quick 2.8mm 230cm - [id number] Implanted:Qty: 3 on 01/02/2020 by Mike Beasley MD at ENDOSCOPY [employer] [facility] 06/01/2022 HX-202UR.A / / [id number] Description:Quick clip pro x 3 placed at rectal polypectomy site documented as of this encounter Care Teams Credit Collections Rep Relationship Specialty Start Date End Date Clayton Gómez DO [address] [place] [address] PCP - General Internal Medicine 04/01/24 documented as of this encounter
--- OUTSIDE RECORDS SUMMARY | 2024-08-15 17:07 | External Medical Summary | Summary of Care ---
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 External Reason for Visit * Reason Onset Date Comments Scan To Read 04/17/2024 Encounter Details Date Type Department Care Team (Late st Contact Info) Description 04/17/2024 Telephone Family Practice [address] [place] [address] [place] [phone] Clayton Gómez DO [address] [place] [address] Scan To Read Allergies Active Allergy Reactions [...] mRNA, LNP-s, No Pre serve, 2-Dose Series ([facility]) 09/22/2020,09/01/2020 COVID-19, LNP-s, No Preserve , Chad-sucrose, Ages 12+ ([facility]anos) 12/28/2021 COVID-19, MRNA-LNP, 24-25, P R, 30MCG/0.3ML, IM, 12YRS AND ABOVE ([facility]) 04/01/2024 Covid-19, Mrna, Lnp-s, Pf, B ivalent, 30 Mcg, IM, 12 yrs and above (Ganos) 07/19/2022 Pneumococcal Conjugate Vacc, 13 Valent (Prevnar) 12/09/2014 Pneumococcal Conjugate Vacci ne, 20-valent ([id number]) 04/01/2024 Pneumococcal Polysaccharide PPV23 (Pneumovax) 03/21/2008 RSV [...] on file documented as of this encounter Patient Instructions * Patient Instructions* Christen Escoto, SATURNINO - 04/17/2024 3:32 PM EDT Images from the original note were not included. Diabetic Retinopathy: Evaluating Your Eyes Diabetic retinopathy is a condition that happens when diabetes damages blood vessels in the rear ofthe eye. It can lead to vision loss. To help catch it early, have a complete dilated eye exam at least once a year. During the exam, the eye healthcare provider will review your medical history, examine your eyes, and check your vision. Women who are and have pre-existing type 1 or type 2 diabetes have an increased risk of retinopathy. Women with diabetes should have an eye exam before or in the first trimester. They should continue to be monitored every trimester and for 1 year after delivery, depending on the severity of the retinopathy. The retina is the light-sensitive part of the eye that allows you to see. High blood sugar can damage blood vessels of the retina and cause them to leak or bleed. This damage can lead to abnormal blood vessel growth. This condition is called diabetic retinopathy. You may not have symptoms early in the disease. Later, there may be floaters, blurred vision, or poor night vision. There may also be partial or complete vision loss. Early cases of diabetic retinopathy can be treated by carefully controlling blood sugar, blood pressure, and cholesterol. Surgery or laser treatments may help restore lost vision. Laser surgery can shrink abnormal blood vessels or close ones that are leaking. Medicines injected in the eye can help decrease swelling of the retina. Home care Take all medicines, including insulin or oral diabetic medicine, exactly as prescribed. Follow the diet advised by your healthcare provider. If you have high cholesterol, follow a low-fat, low-cholesterol diet. Monitor blood sugars as advised. Try to achieve your ideal weight. If you smoke, quit smoking. Tobacco use worsens the effect of diabetes on your blood vessels. If you have high blood pressure, consider buying an automatic blood pressure machine. These are available at most pharmacies. Use this to monitor your blood pressure. Report your blood pressure readings to your healthcare provider. Exercise regularly. Follow-up care Follow up with your healthcare provider, or as advised. You must have a complete eye exam at least once a year, more often if needed. Untreated diabetic retinopathy can lead to complete loss of vision. Occupational therapists can help you adapt to any vision loss you have, including learning techniques to safely administer insulin. When to seek medical advice Call your healthcare provider right away if any of these occur. Increasing blurriness or any sudden changes in your vision Sudden flashes of light inside your eye New floaters (small dots or strings that seem to be moving across your field of vision) Eye pain, redness, or discharge from your eyelid New dark spots appearing in your field of vision Halos around lights Dimness of vision Partial or complete loss of vision Women with diabetes should have a complete eye exam before becoming , or as soon as possible when they find out they are . Retinopathy sometimes worsens during . Your eye exam Your eye healthcare provider uses an eye chart and other tools to check your vision. Then he or sheexamines your eyes for signs of disease. You are given eye drops to widen (dilate) your pupils. Youmay have one or more of the following tests: Tonometry to measure fluid pressure inside the eye. Slit lamp exam to allow the healthcare provider to view the structures of your eye. Ultrasound to create an image of the eye using sound waves. Ultrasound may be used if blood is found in the clear gel that fills the eye (vitreous). Ocular coherence tomography (OCT) to create an image of the retina using light waves. This shows ifthere is fluid leaking into certain parts of the eye. It can also measure the thickness of the retina. Fluorescein angiography This test may be done to check the health of the inside lining of the eye (retina). It also checks the tiny blood vessels (capillaries) that carry blood to the retina. During the test: Photographs are taken of the retina. A dye is then injected into the bloodstream through the arm or hand. The dye travels to the capillaries in the eye. More photographs are taken of the retina. The dye causes the capillaries to stand out on the photographs. You may feel brief nausea during the procedure. For a few hours after the test, your skin, eyes, and urine may appear yellow. Talk with your healthcare provider for more information about this test. Date Last Reviewed: 12/02/201519991569-[address] [employer] [place] [address]. All rights reserved. This information is not intended as a substitute for professional medical care. Always follow your healthcare professional's instructions. documented in this encounter Miscellaneous Notes * Addendum Note - Christen Escoto LPN - 04/17/2024 3:33 PM EDTAddended by: CHRISTEN ESCOTO on: 04/17/2024 03:33 PM Modules accepted: Orders * Telephone Encounter - Christen Escoto LPN - 04/17/2024 3:32 PM EDT Please call and schedule optometry--jord[facility]. Dm retinopathy * Telephone Encounter - Christen Escoto LPN - 04/17/2024 3:28 PM EDT Images from the original note were not included. Patient is aware and will comply. The importance of having a yearly diabetic eye exam has been discussed with patient. Order and/or Referral placed along with patient instructions. Provider made aware. Christen Escoto LPN The importance of having a yearly diabetic eye exam has been discussed with patient. Order and/or Referral placed along with patient instructions. Provider made aware. Christen Escoto LPN Diabetic Retinopathy: Evaluating Your Eyes Diabetic retinopathy is a condition that happens when diabetes damages blood vessels in the rear ofthe eye. It can lead to vision loss. To help catch it early, have a complete dilated eye exam at least once a year. During the exam, the eye healthcare provider will review your medical history, examine your eyes, and check your vision. Women who are and have pre-existing type 1 or type 2 diabetes have an increased risk of retinopathy. Women with diabetes should have an eye exam before or in the first trimester. They should continue to be monitored every trimester and for 1 year after delivery, depending on the severity of the retinopathy. The retina is the light-sensitive part of the eye that allows you to see. High blood sugar can damage blood vessels of the retina and cause them to leak or bleed. This damage can lead to abnormal blood vessel growth. This condition is called diabetic retinopathy. You may not have symptoms early in the disease. Later, there may be floaters, blurred vision, or poor night vision. There may also be partial or complete vision loss. Early cases of diabetic retinopathy can be treated by carefully controlling blood sugar, blood pressure, and cholesterol. Surgery or laser treatments may help restore lost vision. Laser surgery can shrink abnormal blood vessels or close ones that are leaking. Medicines injected in the eye can help decrease swelling of the retina. Home care Take all medicines, including insulin or oral diabetic medicine, exactly as prescribed. Follow the diet advised by your healthcare provider. If you have high cholesterol, follow a low-fat, low-cholesterol diet. Monitor blood sugars as advised. Try to achieve your ideal weight. If you smoke, quit smoking. Tobacco use worsens the effect of diabetes on your blood vessels. If you have high blood pressure, consider buying an automatic blood pressure machine. These are available at most pharmacies. Use this to monitor your blood pressure. Report your blood pressure readings to your healthcare provider. Exercise regularly. Follow-up care Follow up with your healthcare provider, or as advised. You must have a complete eye exam at least once a year, more often if needed. Untreated diabetic retinopathy can lead to complete loss of vision. Occupational therapists can help you adapt to any vision loss you have, including learning techniques to safely administer insulin. When to seek medical advice Call your healthcare provider right away if any of these occur. Increasing blurriness or any sudden changes in your vision Sudden flashes of light inside your eye New floaters (small dots or strings that seem to be moving across your field of vision) Eye pain, redness, or discharge from your eyelid New dark spots appearing in your field of vision Halos around lights Dimness of vision Partial or complete loss of vision Women with diabetes should have a complete eye exam before becoming , or as soon as possible when they find out they are . Retinopathy sometimes worsens during . Your eye exam Your eye healthcare provider uses an eye chart and other tools to check your vision. Then he or sheexamines your eyes for signs of disease. You are given eye drops to widen (dilate) your pupils. Youmay have one or more of the following tests: Tonometry to measure fluid pressure inside the eye. Slit lamp exam to allow the healthcare provider to view the structures of your eye. Ultrasound to create an image of the eye using sound waves. Ultrasound may be used if blood is found in the clear gel that fills the eye (vitreous). Ocular coherence tomography (OCT) to create an image of the retina using light waves. This shows ifthere is fluid leaking into certain parts of the eye. It can also measure the thickness of the retina. Fluorescein angiography This test may be done to check the health of the inside lining of the eye (retina). It also checks the tiny blood vessels (capillaries) that carry blood to the retina. During the test: Photographs are taken of the retina. A dye is then injected into the bloodstream through the arm or hand. The dye travels to the capillaries in the eye. More photographs are taken of the retina. The dye causes the capillaries to stand out on the photographs. You may feel brief nausea during the procedure. For a few hours after the test, your skin, eyes, and urine may appear yellow. Talk with your healthcare provider for more information about this test. Date Last Reviewed: 12/02/201519992895-3166 [employer]. [address] [place] [address], [place] [address]. All rights reserved. This information is not intended as a substitute for professional medical care. Always follow your healthcare professional's instructions. * Telephone Encounter - Clayton Gómez DO - 04/17/2024 1:41 PM EDT Mild retinopathy in left eye on retinal images. Refer to Optometry. * Telephone Encounter - Celestino Aguirre MD - 04/17/2024 1:19 PM EDT Retinal Scan [facility] [id number] Retinal Scan Interpretation: There is mild retinopathy in left eye Diabetes Retinal Imaging Care Plan: The retinal scan results are abnormal - I will forward this encounter to the Ophthalmology DM Letter Pool [[id number]], they will send an abnormal retinal scan letter to the patient. I will forward thisencounter to the ordering provider. [facility]. This encounter will be sent to the ordering provider for them to arrange the patient to be scheduled within 3 months. Celestino Aguirre MD 04/17/2024 1:20 PM * Telephone Encounter - Sarah Beth Galicia RT (R) - 04/17/2024 10:58 AM EDT A Diabetic Telemed Eye image was taken and requires your interpretation for Dr Gómez. Please checkmignon sepulveda for image. Patient prefers to be seen at [facility] if a follow-up appointment is needed. documented in this encounter Plan of Treatment Upcoming Encounters Date Type Department Care Team (Late st Contact Info) Description 08/01/2024 8:40 AM EST Office Visit Family Practice [facility] [address] [place] [phone] Clayton Gómez DO [address] [facility] [place] [address] 08/21/2024 10:00 AM EST Nutrition Services Nutrition Services [facility] [address] [place] [address] Nikole Frank, MICHAEL [address] [place] [address] 10/21/2024 1:00 PM EDT Nurse Only Family Practice [facility] [address] [place] [phone] Christen Zuluaga RN [address] [facility] [place] [phone] 01/21/2025 10:40 AM EDT Office Visit Dermatology [facility] [address] [place] [address] Candace Washington PA-C [address] [place] [address] Scheduled Referrals Name Type Priority Associated Diagnoses Orde r Schedule ADULT/PEDS OPHTHALMOLOGY/OPTOM ETRY REFERRAL OP Referral Within 30 days (routine) 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) Ordered: 04/17/2024 Health Maintenance Due Date Last Done Comments DISCUSS TOBACCO CESSATION (REFER TO SMARTSET #3643) 1945 Albumin/Creatinine Ratio 1961 GFR 07/24/2024 07/24/2023, 06/02, 10/25/2021, Additional history exists HbA1c 09/29/2024 04/01/2024, 05/03/2024, 07/24/2023, Additional history exists Adult Wellness Visit [...] this encounter Medical Devices Implanted Type Area Clean Room Operator Device Identifier Shelf Expiration Date Model / Serial / Lot Clip Quick 2.8mm 230cm - [id number] Implanted:Qty: 3 on 01/02/2020 by Mike Beasley MD at [facility] 06/01/2022 [id number] / / [id number] Description:Quick clip pro x 3 placed at rectal polypectomy site documented as of this encounter Visit Diagnoses Diagnosis 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
--- OUTSIDE RECORDS SUMMARY | 2024-08-15 17:07 | External Medical Summary ---
Author Name Unknown Address Unknown Organization K01:[facility] [place] [facility] [address] [place] [id number] Laboratory Report Ordering Provider Test Date Status VANESA CHAPMAN 04/17/2024 10:14:52 Final Normal: <30 mg/g creatinine< br/>High: 30-300 mg/g creatinine
Very High: >300 mg/g creatinine
Nephrotic: >2200 mg/g creatinine Observation Date Value Abnormality Reference (Units ) Status Albumin, Urine 04/17/2024 10:14:52 2.00 (mg/dL) Final Creatinine, Urine 04/17/2024 10:14:52 155 (mg/dL) Final Albumin/Creatinine [Mass Ratio] in Urine 04/17/2024 10:14:52 13 <30 (mg/g Creat) Final Performing Location [facility] [place] [address] [place] [address]
--- OUTSIDE RECORDS SUMMARY | 2024-08-15 17:07 | External Medical Summary | Summary of Care ---
Author Name Unknown Organization [facility] Address [address] [facility] [place] [address] Phone [phone] Care Team Providers Care Sql Analyst Name Role Phone Clayton Gómez DO Primary Care Provider [phone] Encounter Details Date Type Department Care Team (Late st Contact Info) Description 04/17/2024 11:00 AM EDT Nurse Only Family Practice [address] [address] College, Nurse [facility] Prac [address] [address] Allergies Active Allergy Reactions Criticality Noted Date [...] mRNA, LNP-s, No Pre serve, 2-Dose Series ([employer]) 09/22/2020,09/01/2020 COVID-19, LNP-s, No Preserve , Chad-sucrose, Ages 12+ (Pfizer) 12/28/2021 COVID-19, MRNA-LNP, 24-25, P R, 30MCG/0.3ML, IM, 12YRS AND ABOVE ([facility] 04/01/2024 Covid-19, Mrna, Lnp-s, Pf, B ivalent, 30 Mcg, IM, 12 yrs and above (Pfizer) 07/19/2022 Pneumococcal Conjugate Vacc, 13 Valent (Prevnar) 12/09/2014 Pneumococcal Conjugate Vacci ne, 20-valent ([id number]) 04/01/2024 Pneumococcal Polysaccharide PPV23 (Pneumovax) 03/21/2008 RSV [...] this encounter Patient Instructions * Patient Instructions* Jevon Niki, SATURNINO - 04/17/2024 10:43 AM EDT Diabetes: Keeping Feet Healthy Inspect your feet every day for signs of a problem. Diabetes can damage nerves in your feet and cause neuropathy. This condition makes it hard for you to feel injuries or sore spots. Diabetes can also change blood flow, making it harder for small problems, like a blister, to heal properly. In fact, minor injuries can quickly become serious infections that send you to the hospital. Practice self-care to protect your feet and keep them healthy. Take Special Care Inspect your feet daily for problems such as redness, blisters, cracks, dry skin, or numbness. Use a mirror to see the bottoms of your feet. Or, ask for help. Manage your diabetes. Monitor and control your blood sugar. Take all your medications as prescribed. Avoid walking barefoot, even indoors. Wash your feet with warm water and mild soap. Dry well, especially between toes. Dont treat corns or calluses yourself. Talk to your doctor or canvas repairer (a doctor who specializes in foot care) if you need assistance trimming your toenails. Use moisturizing cream or lotion if you have dry skin, but dont use it between toes. Dont use heating pads on your feet. If you have neuropathy, you could get a burn and not feel it. Stop smoking. Smoking restricts blood flow and can make it harder for wounds to heal. Have Regular Checkups Foot problems can develop quickly. So be sure to follow your healthcare teams schedule for regular checkups. During office visits, take off your shoes and socks as soon as you get in the exam room. Ask your healthcare provider to examine your feet for problems. This will make it easier to find and treat small skin irritations before they get worse. Regular checkups can also help keep track of the blood flow and feeling in your feet. If you have neuropathy, you may need to have checkups more often. Wear Proper Footwear Wearing proper footwear is very important. If areas of your feet have been damaged by too much pressure, your healthcare provider may recommend changing your footwear. In some cases, avoiding high heels or tight work boots may be all thats needed. Or, your healthcare provider may recommend special shoes or custom inserts. These help protect your feet and keep existing irritations from getting worse. If you need special footwear, ask your healthcare provider if you qualify for [employer] diabetic shoe program. Make Sure Shoes and Socks Fit Any pair of shoes--new or old--should feel comfortable as soon as you put them on. There shouldnt be any rubbing when you walk. Wear the right shoe for any activity. For instance, a running shoe is designed to keep your feet injury-free while jogging. Buy shoes at the end of the day, when your feet are larger. Make sure they provide support without feeling too loose. Make sure your socks fit, t oo. Wear soft, seamless, well-padded socks for activity. Cotton or microfiber socks are best to help to absorb sweat. To protect your feet, avoid shoes that are open-toed or open-heeled. If you have questions about what kinds of shoes and socks are best, talk to your healthcare team. Get Regular Exercise Regular exercise improves blood flow in your feet. It also increases foot strength and flexibility.Gentle exercises, like walking or riding a stationary bicycle, are best. You can also do special foot exercises. Just be sure to talk with your healthcare provider before starting any exercise program. Also mention if any exercise causes pain, redness, or other signs of foot problems. Note: If you have any kind of break in the skin of your foot or ankle, keep the area clean. Then call your doctor--especially if the area doesnt appear to be healing. 2119-7902 [employer], [address] [place] [address], [place] [address]. All rights reserved. This information is not intended as a substitute for professional medical care. Always follow your healthcare professional's instructions. documented in this encounter Progress Notes * Christen Escoto LPN - 04/17/2024 10:42 AM EDT Socks and Shoes Removed for Annual Diabetic Foot Screening RIGHT FOOT: No Reddened, Cracking, Or Open Areas Noted. RIGHT Dorsalis Pedis Pulse: Palpable RIGHT Posterior Tibial Pulse: Palpable RIGHT Monofilament:Patient reports feeling monofilament pressure on plantar surface of foot LEFT FOOT: No Reddened, Cracking or Open Areas Noted. LEFT Dorsalis Pedis Pulse: Palpable LEFT Posterior Tibial Pulse: Palpable LEFT Monofilament:Patient reports feeling monofilament pressure on plantar surface of foot Do you need diabetic shoes: No documented in this encounter Plan of Treatment Upcoming Encounters Date Type Department Care Team (Late st Contact Info) Description 08/01/2024 8:40 AM EST Office Visit Family Practice 65 [facility] [address] [place] [address] Clayton Gómez, [address] [place] [address] 08/21/2024 10:00 AM EST Nutrition Services Nutrition Services [address] [address] Nikole Frank RDN [address] [place], [place] [address] [address] 10/21/2024 1:00 PM EDT Nurse Only Family Practice [address], [place] 293 [facility], [place] [address] Christen Zuluaga, RN 293 [place] [address] 01/21/2025 10:40 AM EDT Office Visit Dermatology [facility], [place] [address] [place] [address] Candace Washington PA-C [address] [facility] [address] Pending Results Name Type Priority Associated Diagnoses Date /Time ALBUMIN / CREATININE RATIO, URINE Lab Routine DM type 2, goal HbA1c < 8% ([facility]) 04/17/2024 10:14 AM EDT Scheduled Orders Name Type Priority Associated Diagnoses Orde r Schedule ALBUMIN / CREATININE RATIO, URINE Lab Routine DM type 2, goal HbA1c < 8% ([facility]) Expected: 04/17/2024, Expires: 04/17/2025 Health Maintenance Due Date Last Done Comments DISCUSS TOBACCO CESSATION (REFER TO SMARTSET #0188) 1945 Albumin/Creatinine Ratio 1961 GFR 07/24/2024 07/24/2023, 06/02, 10/25/2021, Additional history exists HbA1c 09/29/2024 04/01/2024, 11/01, 07/24/2023, Additional history exists Adult Wellness Visit 10/16/2024 10/17/2023, 10/12/19 Depression Screening 10/16/2024 10/17/2023 Diabetic Eye Exam [...] this encounter Medical Devices Implanted Type Area Senior Cyber Intelligence Analyst Device Identifier Shelf Expiration Date Model / Serial / Lot Clip Quick 2.8mm 230cm - [id number] Implanted:Qty: 3 on 01/02/2020 by Mike Beasley MD at ENDOSCOPY [facility] [employer] [facility] 06/01/2022 HX-202UR.A / / [id number] Description:Quick clip pro x 3 placed at rectal polypectomy site documented as of this encounter Procedures Procedure Name Priority Date/Time Associated Diagnosis Comments TELEMEDICINE DIABETIC EYE Routine 04/17/2024 DM type 2, goal HbA1c < 8% (HCC) documented in this encounter Results * TELEMEDICINE DIABETIC EYE (04/17/2024) 04/17/2024 Clayton Gómez DO DIGITAL PHOTOGRAPHY documented in this encounter Visit Diagnoses Diagnosis DM type 2, goal HbA1c < 8% (HCC)- Primary documented in this encounter Care Teams Sql Analyst Relationship Specialty Start Date End Date Clayton Gómez DO [address] [place] [address] PCP - General Internal Medicine 04/01/24 documented as of this encounter
--- OUTSIDE RECORDS SUMMARY | 2024-08-15 17:07 | External Medical Summary | Summary of Care ---
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 External Reason for Visit * Reason Onset Date Comments Scan To Read 04/17/2024 Encounter Details Date Type Department Care Team (Late st Contact Info) Description 04/17/2024 Telephone Family Practice [address], [place] [address] [place] [address] Clayton Gómez DO [address] [place] [address] Scan To Read Allergies Active Allergy Reactions Criticality Noted Date Comments Environmental 07/15/2003 pollen documented as of this encounter (statuses as of 04/18/2024) Medications Medication Sig Dispensed Refills Start Date [...] as of this encounter (statuses as of 04/18/2024) Active Problems Problem Noted Date Diagnosed Date [...] as of this encounter (statuses as of 04/18/2024) Resolved Problems Problem Noted Date Diagnosed Date [...] as of this encounter (statuses as of 04/18/2024) Immunizations Name Administration Dates Next Due COVID-19 mRNA, LNP-s, No Pre serve, 2-Dose Series ([employer]) 09/22/2020,09/01/2020 COVID-19, LNP-s, No Preserve , Chad-sucrose, Ages 12+ ([employer]) 12/28/2021 COVID-19, MRNA-LNP, 24-25, P R, 30MCG/0.3ML, IM, 12YRS AND ABOVE ([employer]) 04/01/2024 Covid-19, Mrna, Lnp-s, Pf, B ivalent, 30 Mcg, IM, 12 yrs and above ([employer]) 07/19/2022 Pneumococcal Conjugate Vacc, 13 Valent (Prevnar) 12/09/2014 Pneumococcal Conjugate Vacci ne, 20-valent ([id number]) 04/01/2024 Pneumococcal Polysaccharide PPV23 (Pneumovax) 03/21/2008 RSV [...] information about this test. Date Last Reviewed: 12/02/201519990949-2041 [employer]. [address] [place] [address]. All rights reserved. This information is not intended as a substitute for professional medical care. Always follow your healthcare professional's instructions. documented in this encounter Miscellaneous Notes * Telephone Encounter - Kathy Morse OSA - 04/18/2024 10:48 AM EDT Scheduled and pt aware 06/12/2024 11:45 * Addendum Note - Christen Escoto LPN - 04/17/2024 3:33 PM EDTAddended by: CHRISTEN ESCOTO on: 04/17/2024 03:33 PM Modules accepted: Orders * Telephone Encounter - Christen Escoto LPN - 04/17/2024 3:32 PM EDT Please call and schedule optometry--jordyn go dilciaelsay eye. Dm retinopathy * Telephone Encounter - [...] information about this test. Date Last Reviewed: 12/02/201519996938-6475 [employer]. [address] [place] [address], [place] [address]. All rights reserved. This information is not intended as a substitute for professional medical care. Always follow your healthcare professional's instructions. * Telephone Encounter - Clayton Gómez DO - 04/17/2024 1:41 PM EDT Mild retinopathy in left eye on retinal images. Refer to Optometry. * Telephone Encounter - Celestino Aguirre MD - 04/17/2024 1:19 PM EDT Retinal Scan Imaging Sheila Andino [id number] Retinal Scan Interpretation: There is mild retinopathy in left eye Diabetes Retinal Imaging Care Plan: The retinal scan results are abnormal - I will forward this encounter to the Ophthalmology DM Letter Pool [[id number]], they will send an abnormal retinal scan letter to the patient. I will forward thisencounter to the ordering provider. Patient prefers to be seen at [facility] for follow-up evaluation. This encounter will be sent to the ordering provider for them to arrange the patient to be scheduled within 3 months. Celestino Aguirre MD 04/17/2024 1:20 PM * Telephone Encounter - Sarah Beth Galicia RT (R) - 04/17/2024 10:58 AM EDT A Diabetic Telemed Eye image was taken and requires your interpretation for Dr Gómez. Please checkyour inmoesket for image. [facility]. documented in this encounter Plan of Treatment Upcoming Encounters Date Type Department Care Team (Late st Contact Info) Description 08/01/2024 8:40 AM EST Office Visit Family Practice [address] [place] [address] [address] [place] [phone] Clayton Gómez DO [address] [place] [address] 08/21/2024 10:00 AM EST Nutrition Services Nutrition Services [address] [address] Nikole Frank RDN [address] [place] [address] 10/21/2024 1:00 PM EDT Nurse Only [facility] Practice [address] [place] [address] [address] [place] [phone] Christen Zuluaga, SIOBHAN [address] [place] [phone] 01/21/2025 10:40 AM EDT Office Visit Dermatology [facility] [address] [facility] [place] [address] Candace Washington PA-C [address] [place] [address] Scheduled Referrals Name Type Priority Associated Diagnoses [...] this encounter Medical Devices Implanted Type Area Comptroller Device Identifier Shelf Expiration Date Model / Serial / Lot Clip Quick 2.8mm 230cm - [id number] Implanted:Qty: 3 on 01/02/2020 by Mike Beasley MD at ENDOSCOPY [facility] [email or web address] 06/01/2022 HX-202UR.A / / [id number] Description:Quick clip pro x 3 placed at rectal polypectomy site documented as of this encounter Visit Diagnoses Diagnosis 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
--- OUTSIDE RECORDS SUMMARY | 2024-08-15 17:07 | External Medical Summary | Summary of Care ---
Author Name Unknown Organization [facility] Address [address] [facility] [place] [address] Phone [phone] Care Team Providers Care Vamp Marker Name Role Phone Clayton Gómez DO Primary Care Provider [phone] Reason for Visit * Reason Onset Date Comments Scan To Read 04/17/2024 Encounter Details Date Type Department Care Team (Late st Contact Info) Description 04/17/2024 Telephone Family Practice 65 [facility] [address] [place] [address] Clayton Gómez DO [address] [place] [address] Scan To Read Allergies Active [...] mRNA, LNP-s, No Pre serve, 2-Dose Series ([employer]T) 09/22/2020,09/01/2020 COVID-19, LNP-s, No Preserve , Chad-sucrose, Ages 12+ (Pfizer) 12/28/2021 COVID-19, MRNA-LNP, 24-25, P R, 30MCG/0.3ML, IM, 12YRS AND ABOVE ([place]) 04/01/2024 Covid-19, Mrna, Lnp-s, Pf, B ivalent, 30 Mcg, IM, 12 yrs and above (CASTT) 07/19/2022 Pneumococcal Conjugate Vacc, 13 Valent (Prevnar) 12/09/2014 Pneumococcal Conjugate Vacci ne, 20-valent ([id number]) 04/01/2024 Pneumococcal Polysaccharide PPV23 (Pneumovax) 03/21/2008 RSV [...] encounter Miscellaneous Notes * Telephone Encounter - Clayton Gómez DO - 04/17/2024 1:41 PM EDT Mild retinopathy in left eye on retinal images. Refer to Optometry. * Telephone Encounter - Celestino Aguirre MD - 04/17/2024 1:19 PM EDT Retinal Scan Imaging Sheila A [place] [id number] Retinal Scan Interpretation: There is mild retinopathy in left eye Diabetes Retinal Imaging Care Plan: The retinal scan results are abnormal - I will forward this encounter to the Ophthalmology DM Letter Pool [[id number]], they will send an abnormal retinal scan letter to the patient. I will forward thisencounter to the ordering provider. Patient [facility]up [facility]. This encounter will be sent to the ordering provider for them to arrange the patient to be scheduled within 3 months. Celestino Aguirre MD 04/17/2024 1:20 PM * Telephone Encounter - Sarah Beth Galicia RT (R) - 04/17/2024 10:58 AM EDT A Diabetic Telemed Eye image was taken and requires your interpretation for Dr Gómez. Please checkyour coco for image. Patient prefers to be seen at [facility] if a follow-up appointment is needed. documented in this encounter Plan of Treatment Upcoming Encounters Date Type Department Care Team (Late st Contact Info) Description 08/01/2024 8:40 AM EST Office Visit Family Practice [address] [place] [phone] Clayton Gómez DO [address] [place] [address] 08/21/2024 10:00 AM EST Nutrition Services Nutrition Services [address] [address] Nikole Frank RDN [address] [place] [address] 10/21/2024 1:00 PM EDT Nurse Only Family Practice 65 [facility] 293 [facility] [place] [phone] Christen Zuluaga, SIOBHAN [address] [place] [address] 01/21/2025 10:40 AM EDT Office Visit Dermatology [facility] [address] [place] [address] Candace Washington PA-C [address] [place] [address] Health Maintenance Due Date Last Done Comments DISCUSS TOBACCO CESSATION (REFER TO SMARTSET #2353) 1945 Albumin/Creatinine Ratio 1961 GFR 07/24/2024 07/24/2023, 06/02, 10/25/2021, Additional history exists HbA1c 09/29/2024 04/01/2024, 0503/2024, 07/24/2023, Additional history exists Adult Wellness Visit [...] this encounter Medical Devices Implanted Type Area Art Educator Device Identifier Shelf Expiration Date Model / Serial / Lot Clip Quick 2.8mm 230cm - [id number] Implanted:Qty: 3 on 01/02/2020 by Mike Beasley MD at ENDOSCOPY [facility] [employer] 06/01/2022 HX-202UR.A / / [id number] Description:Quick clip pro x 3 placed at rectal polypectomy site documented as of this encounter Care Teams Vamp Marker Relationship Specialty Start Date End Date Clayton Gómez DO [address] [place] [address] PCP - General Internal Medicine 04/01/24 documented as of this encounter
--- OUTSIDE RECORDS SUMMARY | 2024-08-15 17:07 | External Medical Summary | Summary of Care ---
Author Name Unknown Organization [facility] Address [address] [facility] [place] [address] Phone [phone] Care Team Providers Care Unbundler Name Role Phone Clayton Gómez DO Primary Care Provider [phone] Reason for Visit * Reason Onset Date Comments Scan To Read 04/17/2024 Encounter Details Date Type Department Care Team (Late st Contact Info) Description 04/17/2024 Telephone Family Practice 65 [facility] [address] [place] [address] Clayton Gómez DO [address] [place] [address] Scan To Read Allergies Active [...] mRNA, LNP-s, No Pre serve, 2-Dose Series ([employer]) 09/22/2020,09/01/2020 COVID-19, LNP-s, No Preserve , Chad-sucrose, Ages 12+ (Pfizer) 12/28/2021 COVID-19, MRNA-LNP, 24-25, P R, 30MCG/0.3ML, IM, 12YRS AND ABOVE ([facility]) 04/01/2024 Covid-19, Mrna, Lnp-s, Pf, B ivalent, 30 Mcg, IM, 12 yrs and above ([employer]) 07/19/2022 Pneumococcal Conjugate Vacc, 13 Valent (Prevnar) 12/09/2014 Pneumococcal Conjugate Vacci ne, 20-valent ([id number]) 04/01/2024 Pneumococcal Polysaccharide PPV23 (Pneumovax) 03/21/2008 RSV [...] encounter Miscellaneous Notes * Telephone Encounter - Sarah Beth Galicia RT (R) - 04/17/2024 10:58 AM EDT A Diabetic Telemed Eye image was taken and requires your interpretation for Dr Gómez. Please [facility]your [facility] for image. Patient prefers to be seen at [facility] if a follow-up appointment is needed. documented in this encounter Plan of Treatment Upcoming Encounters Date Type Department Care Team (Late st Contact Info) Description 08/01/2024 8:40 AM EST Office Visit Family Practice [address] [address] Clayton Gómez DO [address] [place] [address] 08/21/2024 10:00 AM EST Nutrition Services Nutrition Services [address] [address] Nikole Frank RDN [address] [place], [place] [address] [address] 10/21/2024 1:00 PM EDT Nurse Only Family Practice [address] [phone] Christen Zuluaga RN [address] [place] [phone] 01/21/2025 10:40 AM EDT Office Visit Dermatology [address], [place] [address] [place] [address] Candace Washington PA-C [address] [facility] [place] [address] Health Maintenance Due Date Last Done Comments DISCUSS TOBACCO CESSATION (REFER TO SMARTSET #3294) 1945 Albumin/Creatinine Ratio 1961 GFR 07/24/2024 07/24/2023, [...] this encounter Medical Devices Implanted Type Area Real Estate Sales Supervisor Device Identifier Shelf Expiration Date Model / Serial / Lot Clip Quick 2.8mm 230cm - [id number] Implanted:Qty: 3 on 01/02/2020 by Mike Beasley MD at ENDOSCOPY [facility] [employer] [facility] 06/01/2022 HX-202UR.A / / [id number] Description:Quick clip pro x 3 placed at rectal polypectomy site documented as of this encounter Care Teams Unbundler Relationship Specialty Start Date End Date Clayton Gómez DO [address] [place] [address] PCP - General Internal Medicine 04/01/24 documented as of this encounter
--- OUTSIDE RECORDS SUMMARY | 2024-08-15 17:07 | External Medical Summary | Summary of Care ---
Author Name Unknown Organization [facility] Address [address] [place] [address] Phone [phone] Care Team Providers Care Industrial Millwright Name Role Phone Clayton Gómez DO Primary Care Provider [phone] Reason for Visit * Reason Comments Medical Nutrition Therapy * Evaluate & Treat - Unlimited Visits (Within 30 days (routine)) - Authorized Specialty Diagnoses / Procedures Referred By Alyssa peng Referred To Contact Dietitian / Nutrition Services Diagnoses DM type 2, goal HbA1c < 8% (HCC) Clayton Gómez DO [address] [place] [address] Referral ID Status Reason Start Date Expiration Date Visits Requested Visits Authorized [id number] Authorized Specialty Services Required 04/03/[id number] Encounter Details Date Type Department Care Team (Latest Contact Info) Description 04/17/2024 9:00 AM EDT Nutrition Services Nutrition Services 65 [facility] [address] [place] [address] Nikole Frank RDN [address] [place], [place] [id number] DM type 2, goal HbA1c < 8% ([facility])*; Dyslipidemia, goal LDL below 70 Allergies Active Allergy Reactions Criticality Noted Date [...] mRNA, LNP-s, No Pre serve, 2-Dose Series ([employer]) 09/22/2020,09/01/2020 COVID-19, LNP-s, No Preserve , Chad-sucrose, Ages 12+ ([employer]) 12/28/2021 COVID-19, MRNA-LNP, 24-25, P R, 30MCG/0.3ML, IM, 12YRS AND ABOVE ([facility]) 04/01/2024 Covid-19, Mrna, Lnp-s, Pf, B ivalent, 30 Mcg, IM, 12 yrs and above ([employer]) 07/19/2022 Pneumococcal Conjugate Vacc, 13 Valent (Prevnar) 12/09/2014 Pneumococcal Conjugate Vacci ne, 20-valent ([id number]) 04/01/2024 Pneumococcal Polysaccharide PPV23 (Pneumovax) 03/21/2008 RSV [...] Sign Reading Time Taken Comments Blood Pressure - - Pulse - - Temperature - - Respiratory Rate - - Oxygen Saturation - - Inhaled Oxygen Concentration - - Weight 90.7 kg (199 lb 14.4 oz) 04/17/2024 9:14 AM EDT Height 164.5 cm (5' 4.75") 04/17/2024 9:14 AM ED T Body Mass Index 33.52 04/17/2024 9:14 AM EDT documented in this encounter Patient Instructions * Patient Instructions* Nikole Frank RDN - 04/17/2024 10:02 AM EDT Goals: Discussed the following goals with patient who agrees to the following: Choose to follow the plate method for dinner meal at least 5 days/week documented in this encounter Progress Notes * Nikole Frank RDN - 04/17/2024 8:55 AM EDT NUTRITION CONSULT - [address] [place] [address] [facility] Name: Sheila Andino Location: NUTRITION SERVICES [address] [place] [address] Date: 04/17/2024 Time: 8:55 AM Patient location: [address] [place] [address] Clinic. Patient was seen [id number] in the clinic. Patient was verified with two unique identifiers. Reason for Referral: Type 2 Diabetes NUTRITION ASSESSMENT: Client History 79 year old female who is scheduled for [address] [place] [address] initial nutrition visit. Past medical history includes: Patient Active Problem List Diagnosis IDIO PERIPH NEURPTHY NOS(aka NEUROPATHY) Irritable bowel syndrome Periodic limb movement disorder (PLMD) Tobacco use disorder ADVANCE DIRECTIVE INFORMATION Dyslipidemia, goal LDL below 70 Allergic rhinitis History of melanoma in situ S/P lumbar spinal fusion Hiatal hernia Chronic constipation Asymptomatic stenosis of right carotid artery Expressive aphasia MCI (mild cognitive impairment) with memory loss DM type 2, goal HbA1c < 8% ([facility]) Patient accompanied by spouse. She reports she does not want to develop diabetes. She does not wantto take additional medications for diabetes. Prior Nutrition Counseling: Other Dietitian Support System: Spouse Barriers To Learning: Expressive aphasia Special Education Needs: None Food/Nutrition-Related History Describes typical diet history/24 hr recall Breakfast: rice pudding; coffee with half and half Snacks: none Lunch: sandwich (ham and cheese with ketchup); 2% milk Snacks: none Dinner: chicken noodle soup and hamburger with ketchup; decaf coffee Snacks: sometimes ice cream Drinks: coffee, water milk Restaurant meals: several times a week Alcohol: None Diet Recall/Food Logs Indicate: AREAS FOR IMPROVEMENT: High calorie, high fat and/or high sugar selections Inconsistent carbohydrate intake Frequent restaurant meals Inadequate fruit and vegetable intake Significant sodium intake POSITIVE: Adequate calorie intake Food and Nutrient Intake and other pertinent information: Patient and spouse frequent restaurant meals; patient prepares most meals at home Food allergies and/or food intolerances: none reported Physical Activity: Sedentary, walk around in the house Pertinent Medications (Current): Current Outpatient Medications Medication Sig Dispense Refill [...] BY MOUTH EVERY DAY 90 Tablet 3 Meclizine HCl 25 MG Oral Tablet (Antivert) TAKE ONE TABLET BY MOUTH THREE TIMES A DAY NEEDED FORDIZZINESS 270 Tablet 1 Gabapentin 300 MG Oral Capsule (Neurontin) Take 1 Capsule by mouth in the morning and 1 Capsule at noon and 1 Capsule before bedtime. 300 Capsule 5 No current facility-administered medications for this visit. Supplements: as above Anthropometric Measurements Ht 1.645 m (5' 4.75") | Wt 90.7 kg (199 lb 14.4 oz) | BMI 33.52 kg/m | BSA 2.04 m Wt Readings from Last 5 Encounters: 04/17/24 90.7 kg (199 lb 14.4 oz) 04/01/24 89.3 kg (196 lb 12.8 oz) 11/29/23 89.1 kg (196 lb 8 oz) 10/17/23 89.2 kg (196 lb 11.2 oz) 07/24/23 89 kg (196 lb 3.2 oz) Usual Body Weight: current weight Highest Weight: 199 Lowest Weight: 191 Weight Change: stable Interpretation of weight change: no significant loss Weight Goal: loss BMI: BMI Readings from Last 1 Encounters: 04/17/24 33.52 kg/m Nutrition-Focused Physical Findings Overall appearance: overweight/obese Digestive system: No issues, Appetite: good Nerves and cognition: Awake, alert and Oriented; expressive aphasia Hand Electrolytic Etcher Strength Assessment: Dynamometer used 04/17/2024 with pt to assess senior it project manager strength. Handle was adjusted to second ridge away from the gauge. Pt had arm at 90 degree angle as recommended. Hand 3 measures (lbs) Average (lbs) Normative Electrolytic Etcher Strength HGS Classification Right 15, 10, 10 11.67 Female Right Hand: Age 75+: 42.6 (11.0 SD); Alert level 20.6 Greater than 2 SD below the mean (At Alert Level) Left 15, 15, 15 15 Female Left Hand: Age 75+: 37.6 (8.9 SD); Alert level 19.8 Greater than 2 SD below the mean (At Alert Level) Right hand mean is more than minus 2 Standard Deviations from the mean and measurably reduced. Patient Position: Seated straight up in chair with arms bent at 90 degrees. Patient agreed to exam. Patient tolerated exam. Also present for exam spouse Biochemical Data, Medical Tests, and Procedures As below; A1C at target LDL at target Self-Monitoring Blood Glucose Source of Information: Participant does not monitor blood glucoses Hemoglobin AIC Results: Lab Results Component Value Date/Time HEMOGLOBIN A1C - [facility] 6.5 (H) 04/01/2024 09:50 AM HEMOGLOBIN A1C - [facility] 6.6 (H) 11/29/2023 09:28 AM HEMOGLOBIN A1C - [facility] 6.4 (H) 07/24/2023 11:55 AM HEMOGLOBIN A1C - [facility] 6.5 (H) 02/11/2020 11:16 AM HEMOGLOBIN A1C - [facility] 6.3 (H) 09/23/2019 10:05 AM HEMOGLOBIN A1C - [facility] 6.0 (H) 02/19/2019 10:59 AM Lipid Panel Results: Results for orders placed or performed in visit on 03/16/11 LIPID PANEL Result Value Ref Range HOURS FASTING 12 hours Triglycerides 258 (H) <200 mg/dL Cholesterol 169 <200 mg/dL HDL Cholesterol 31 (L) 40 - 59 mg/dL Cholesterol-HDL Ratio 5.5 LDL Cholesterol 86 0 - 129 mg/dL Results for orders placed or performed in visit on 07/24/23 LIPID PANEL WITH DIRECT LDL IF TG IS HIGH Result Value Ref Range Triglycerides 202 (H) <=174 mg/dL Cholesterol 128 <200 mg/dL HDL Cholesterol 33 (L) >49 mg/dL Non-HDL Cholesterol 95 <=159 mg/dL NUTRITION DIAGNOSIS Food and nutrition-related knowledge deficit related to High calorie, high fat and/or high sugar selections, Inconsistent carbohydrate intake, Frequent restaurant meals, Inadequate fruit and vegetable intake, Significant sodium intake as evidenced by Reported diet and/or activity recall NUTRITION INTERVENTION: Meals Snacks Initial/brief nutrition education Theoretical basis/approach Provided ADA MyPlate placemat Diabetes Standards of Care: Care Gaps have been addressed with other members of [address] [place] [address] Care Team Nutrition Prescription: Diet: 2000 mg Sodium Consistent Carbohydrate Heart Healthy Low Fat/Low Cholesterol Power St. Jeor: Domi Harding Jesebastián (Female): 1642.37 (04/17/24 0914) Daily Calorie Needs: 1400 Kcals Daily Protein Needs: 55-73 Grams protein Goals: Discussed the following goals with patient who agrees to the following: Choose to follow the plate method for dinner meal at least 5 days/week Dietitian Action: Taught Plate method for meal planning - make 1/2 plate non-starchy vegetables, 1/4 plate carbohydrate containing foods, 1/4 plate protein foods Educated on importance of protein at meals and snacks Discussed healthy options when dining out Reviewed ways to decrease sodium and fat in diet Reviewed examples of healthy snacking options Recommendations to Ordering Provider: Continue current plan of nutrition care. NUTRITION MONITORING AND EVALUATION: The following will be monitored and evaluated at the next visit: Monitor weight. Monitor labs. Monitor goals and progress. Plan: Patient scheduled to return in 4 months; dietitian phone # given for future reference. 60 minutes Medical Nutrition Therapy Time In: 0858 (04/17/24 1035) Time Out: 1004 (04/17/24 1035) 15 min (8-22 min) 30 min (23-37 min) 45 min (38-52 min) 60 min (53-67 min) 75 min (68-82 min) 90 min (83-97 min) 105 min (98-113 min) Nikole Frank RDN 04/17/2024 8:55 AM NUTRITION SERVICES [address] [place] [address] documented in this encounter Plan of Treatment Upcoming Encounters Date Type Department Care Team (Late st Contact Info) Description 08/01/2024 8:40 AM EST Office Visit Family Practice 65 [facility] 293 [facility] [place] [phone] Clayton Gómez DO 293 [place] [address] 08/21/2024 10:00 AM EST Nutrition Services Nutrition Services [facility] [address] [facility] [place] [address] Nikole Frank, MICHAEL [address] [place] [address] 10/21/2024 1:00 PM EDT Nurse Only Family Practice [facility] 293 [facility] [place] [phone] Christen Zuluaga RN 293 [place] [address] 01/21/2025 10:40 AM EDT Office Visit Dermatology [facility] [address] [place] [address] Candace [place] PA-C [address] [place] [address] Scheduled Referrals Name Type Priority Associated Diagnoses Orde r Schedule NUTRITION-CLINICAL DIETITIAN REFERRAL OP Referral Within 30 days (routine) DM type 2, goal HbA1c < 8% (HCC) Ordered: 04/03/2024 Health Maintenance Due Date Last Done Comments DISCUSS TOBACCO CESSATION (REFER TO SMARTSET #3291) 1943 Albumin/Creatinine Ratio 1961 GFR 07/24/2024 07/24/2023, [...] this encounter Medical Devices Implanted Type Area Hand I Cutter Device Identifier Shelf Expiration Date Model / Serial / Lot Clip Quick 2.8mm 230cm - [id number] Implanted:Qty: 3 on 01/02/2020 by Mike Beasley MD at ENDOSCOPY [facility] [employer] 06/01/2022 [id number]-202UR.A / / [id number] Description:Quick clip pro x 3 placed at rectal polypectomy site documented as of this encounter Visit Diagnoses Diagnosis DM type 2, goal HbA1c < 8% (HCC)- Primary Dyslipidemia, goal LDL below 70 Other and unspecified hyperlipidemia documented in this encounter Care Teams Industrial Millwright Relationship Specialty Start Date End Date Clayton Gómez DO [address] [place] [address] PCP - General Internal Medicine 04/01/24 documented as of this encounter
--- OUTSIDE RECORDS SUMMARY | 2024-08-15 17:07 | External Medical Summary | Summary of Care ---
Author Name Unknown Organization [facility] Address [address] [place] [address] Phone [phone] Care Team Providers Care Market Editor Name Role Phone Clayton Gómez DO Primary Care Provider Reason for Visit * Reason Onset Date Comments Appointment 04/01/2024 Follow up w neur o Encounter Details Date Type Department Care Team (Late st Contact Info) Description 04/01/2024 Telephone Family Practice 65 [facility] [address] [place] [address] Clayton Gómez DO [address] [place] [address] Appointment (Follow up w neuro) Allergies Active Allergy Reactions Criticality Noted Date Comments Environmental 07/15/2003 pollen documented as of this encounter (statuses as of 04/10/2024) Medications Medication Sig Dispensed Refills Start Date End Date Status ASPIRIN 81 MG PO TABSIndications:Scr eening for malignant neoplasm of breast one tab by mouth daily 90 5 12/31/2007 Active B-COMPLEX W/C & IRON PO CAPSIndications:Men opause daily 90 6 12/31/2007 Active Acetaminophen ER 650 MG Oral Tablet Extended Release every 8 hours as needed. Active fluticasone (FLONASE) 50 MCG/ACT nasal sprayIndications:at bedtime SQUIRT 2 SPRAYS INTO EACH NOSTRIL [...] 30 MG Oral Capsule Delayed Release Particles (Cymbalta)Indicatio ns:Hereditary and idiopathic peripheral neuropathy TAKE ONE CAPSULE BY MOUTH TWICE A DAY 200 Capsule 3 10/06/2023 10/05/2024 Active Atorvastatin Calcium 40 MG Oral Tablet (Lipitor)Indication s:Dyslipidemia, goal LDL below 160 TAKE ONE TABLET BY MOUTH EVERY DAY 90 Tablet 3 11/15/2023 11/14/2024 Active Meclizine HCl 25 MG Oral Tablet (Antivert)Indicatio ns:Vertigo TAKE ONE TABLET BY MOUTH THREE TIMES A DAY NEEDED FOR DIZZINESS 270 Tablet 1 11/15/2023 11/14/2024 Active Gabapentin 300 MG Oral Capsule (Neurontin)Indicati ons:S/P lumbar spinal fusion Take 1 Capsule by mouth in the morning and 1 Capsule at noon and 1 Capsule before bedtime. 300 Capsule 5 04/01/2024 Active RSV Pre-Fusion F A&B Vac Rcmb 120 MCG/0.5ML Intramuscular Solution Reconstituted (Abrysvo)Indication s:Need for RSV immunization Inject 0.5 mL into a large muscle once for 1 dose. 1 Each 04/01/2024 04/02/2024 documented as of this encounter (statuses as of 04/10/2024) Active Problems Problem Noted Date Diagnosed Date [...] as of this encounter (statuses as of 04/10/2024) Resolved Problems Problem Noted Date Diagnosed Date [...] as of this encounter (statuses as of 04/10/2024) Immunizations Name Administration Dates Next Due COVID-19 mRNA, LNP-s, No Pre serve, 2-Dose Series ([employer]) 09/22/2020,09/01/2020 COVID-19, LNP-s, No Preserve , Chad-sucrose, Ages 12+ ([employer]) 12/28/2021 COVID-19, MRNA-LNP, 24-25, P R, 30MCG/0.3ML, IM, 12YRS AND ABOVE ([employer]) 04/01/2024 Covid-19, Mrna, Lnp-s, Pf, B ivalent, 30 Mcg, IM, 12 yrs and above ([employer]) 07/19/2022 Pneumococcal Conjugate Vacc, 13 Valent (Prevnar) 12/09/2014 Pneumococcal Conjugate Vacci ne, 20-valent ([id number]) 04/01/2024 Pneumococcal Polysaccharide PPV23 (Pneumovax) 03/21/2008 RSV [...] encounter Miscellaneous Notes * Telephone Encounter - Liv Bolanos OSA - 04/10/2024 1:47 PM EDT Letter sent * Telephone Encounter - Liv Bolanos OSA - 04/02/2024 1:46 PM EDT Called and no answer and no machine. Please offer tele-memory clinic ret with Bethany Espinoza * Telephone Encounter - Kathy Quintero OSA - 04/01/2024 10:41 AM EDT Pt needs to follow up with Dr Hernandez, however; nothing available to schedule. Please contact her to set up documented in this encounter Plan of Treatment Upcoming Encounters Date Type Department Care Team (Late st Contact Info) Description 04/17/2024 9:00 AM EDT Nutrition Services Nutrition Services 65 [facility], [address] [place] [address] Nikole Frank, FREDYN [address] [facility] [place] [address] 04/17/2024 11:00 AM EDT Nurse Only Family Practice 65 [facility] 293 [place] [phone] College, Nurse Fam Prac [address] [place] [address] 08/01/2024 8:40 AM EST Office Visit Family Practice 65 [facility] 293 [place] [phone] Clayton Gómez, 293 [place] [address] 10/21/2024 1:00 PM EDT Nurse Only Family Practice 65 [facility] 293 [place] [phone] Christen Zuluaga RN 293 [place] [phone] 01/21/2025 10:40 AM EDT Office Visit Dermatology [facility] [place] [address] [place] [address] Candace Washington PA-C [address] [place] [address] Health Maintenance Due Date Last Done Comments DISCUSS TOBACCO CESSATION (REFER TO SMARTSET #2171) 1945 Albumin/Creatinine Ratio 1961 Diabetic Foot Exam 1961 Diabetic Eye Exam 10/31/2013 10/31/2012 GFR 07/24/2024 07/24/2023, 06/02, 10/25/2021, Additional history exists HbA1c 09/29/2024 04/01/2024, 11/01, 07/24/2023, Additional history exists Adult Wellness Visit 10/16/2024 10/17/2023, 10/12/19 Depression Screening 10/16/2024 10/17/2023 DXA Scan 09/28/2026 09/28/2021, 09/01, 08/31/2016, Additional [...] this encounter Medical Devices Implanted Type Area Sonogram Technician Device Identifier Shelf Expiration Date Model / Serial / Lot Clip Quick 2.8mm 230cm - [id number] Implanted:Qty: 3 on 01/02/2020 by Mike Beasley MD at ENDOSCOPY [facility] [employer] 06/01/2022 [id number]-202UR.A / / [id number] Description:Quick clip pro x 3 placed at rectal polypectomy site documented as of this encounter Care Teams Market Editor Relationship Specialty Start Date End Date Clayton Gómez DO [address] [facility] [place] [address] PCP - General Internal Medicine 04/01/24 documented as of this encounter
--- OUTSIDE RECORDS SUMMARY | 2024-08-15 17:07 | External Medical Summary | Summary of Care ---
Author Name Unknown Organization [facility] Address [address] [facility] [place] [address] Phone [phone] Care Team Providers Care Ocular Pathologist Name Role Phone Clayton Gómez DO Primary Care Provider [phone] Reason for Visit * Reason Onset Date Comments Test Results 04/18/202404/18 Encounter Details Date Type Department Care Team (Late st Contact Info) Description 04/18/2024 Telephone Family Practice 65 [facility] [place] [address] [place] [address] Clayton Gómez DO [address] [place] [address] Test Results (04/18) Allergies Active Allergy Reactions Criticality Noted Date [...] mRNA, LNP-s, No Pre serve, 2-Dose Series ([employer]) 09/22/2020,09/01/2020 COVID-19, LNP-s, No Preserve , Chad-sucrose, Ages 12+ ([employer]) 12/28/2021 COVID-19, MRNA-LNP, 24-25, P R, 30MCG/0.3ML, IM, 12YRS AND ABOVE ([facility]) 04/01/2024 Covid-19, Mrna, Lnp-s, Pf, B ivalent, 30 Mcg, IM, 12 yrs and above ([employer]) 07/19/2022 Pneumococcal Conjugate Vacc, 13 Valent (Prevnar) 12/09/2014 Pneumococcal Conjugate Vacci ne, 20-valent ([id number]) 04/01/2024 Pneumococcal Polysaccharide PPV23 (Pneumovax) 03/21/2008 RSV [...] encounter Miscellaneous Notes * Telephone Encounter - Christen Escoto LPN - 04/18/2024 3:47 PM EDT Letter has been sent * Telephone Encounter - Ambar Curiel LPN - 04/18/2024 12:49 PM EDT Attempted to call pt - no answer. No voice mail. * Telephone Encounter - Ambar Curiel LPN - 04/18/2024 12:47 PM EDT ----- Message from Clayton Gómez DO sent at 04/18/2024 7:46 AM EDT ----- Urine Microalbumin is normal. documented in this encounter Plan of Treatment Upcoming Encounters Date Type Department Care Team (Late st Contact Info) Description 08/01/2024 8:40 AM EST Office Visit Family Practice 65 [facility] 293 [place] [address] Clayton Gómez DO 293 [facility] [place] [address] 08/21/2024 10:00 AM EST Nutrition Services Nutrition Services [address] [place] [address] Nikole Frank RDN 106 [facility] [place] [address] 10/21/2024 1:00 PM EDT Nurse Only Family Practice 65 [facility] 293 [place] [phone] Christen Zuluaga, SIOBHAN 293 [facility] [place] [phone] 01/21/2025 10:40 AM EDT Office Visit Dermatology [facility] [address] [place] [address] Candace Washington PA-C [address] [place] [address] Health Maintenance Due Date Last Done Comments DISCUSS TOBACCO CESSATION (REFER TO SMARTSET #4200) 1945 GFR 07/24/2024 07/24/2023, 06/02, 10/25/2021, Additional [...] this encounter Medical Devices Implanted Type Area Test Deck Supervisor Device Identifier Shelf Expiration Date Model / Serial / Lot Clip Quick 2.8mm 230cm - [id number] Implanted:Qty: 3 on 01/02/2020 by Mike Beasley MD at ENDOSCOPY [facility] [employer] [facility] 06/01/2022 [id number]-[id number].A / / [id number] Description:Quick clip pro x 3 placed at rectal polypectomy site documented as of this encounter Care Teams Ocular Pathologist Relationship Specialty Start Date End Date Clayton Gómez DO [address] [place] [address] PCP - General Internal Medicine 04/01/24 documented as of this encounter
--- OUTSIDE RECORDS SUMMARY | 2024-08-15 17:07 | External Medical Summary | Summary of Care ---
Author Name Unknown Organization [facility] Address [address] [facility] [place] [address] Phone [phone] Care Team Providers Care Narrow Fabric Loom Fixer Name Role Phone Clayton Gómez DO Primary Care Provider Encounter Details Date Type Department Care Team (Late st Contact Info) Description 04/17/2024 11:00 AM EDT Nurse Only Family Practice [address] [address] College, Nurse [facility] Prac [address] [address] Allergies Active Allergy Reactions Criticality [...] mRNA, LNP-s, No Pre serve, 2-Dose Series ([employer]) 09/22/2020,09/01/2020 COVID-19, LNP-s, No Preserve , Chad-sucrose, Ages 12+ (Pfizer) 12/28/2021 COVID-19, MRNA-LNP, 24-25, P R, 30MCG/0.3ML, IM, 12YRS AND ABOVE ([facility] 04/01/2024 Covid-19, Mrna, Lnp-s, Pf, B ivalent, 30 Mcg, IM, 12 yrs and above (Pfizer) 07/19/2022 Pneumococcal Conjugate Vacc, 13 Valent (Prevnar) 12/09/2014 Pneumococcal Conjugate Vacci ne, 20-valent ([id number]) 04/01/2024 Pneumococcal Polysaccharide PPV23 (Pneumovax) 03/21/2008 RSV [...] calluses yourself. Talk to your doctor or plastic joint maker (a doctor who specializes in foot care) [...] the area doesnt appear to be healing. [phone] [employer], [address] [place] [address], [place] [address]. All rights reserved. This information is not [...] AM EST Office Visit Family Practice 65 [facility] 293 [place] [address] Clayton Gómez, 293 [place] [address] 08/21/2024 10:00 AM EST Nutrition Services Nutrition Services [address] [address] Nikole Frank RDN [address] [place], [place] [address] [address] 10/21/2024 1:00 PM EDT Nurse Only Family Practice [address] [facility], [place] 293 [facility], [place] [address] Christen Zuluaga, RN 293 [place] [address] 01/21/2025 10:40 AM EDT Office Visit Dermatology [facility] [place] [address] [place] [address] Candace Washington PA-C [address] [facility] [address] Pending Results Name Type Priority Associated Diagnoses Date /Time ALBUMIN / CREATININE RATIO, URINE Lab Routine DM type 2, goal HbA1c < 8% ([facility]) 04/17/2024 10:14 AM EDT Scheduled Orders Name Type Priority Associated Diagnoses Orde r Schedule ALBUMIN / CREATININE RATIO, URINE Lab Routine DM type 2, goal HbA1c < 8% ([facility]) Expected: 04/17/2024, Expires: 04/17/2025 Health Maintenance Due Date Last Done Comments DISCUSS TOBACCO CESSATION (REFER TO SMARTSET #7820) 1945 Albumin/Creatinine Ratio 1961 GFR 07/24/2024 07/24/2023, [...] this encounter Medical Devices Implanted Type Area Channeler Insole Device Identifier Shelf Expiration Date Model / Serial / Lot Clip Quick 2.8mm 230cm - [id number] Implanted:Qty: 3 on 01/02/2020 by Mike Beasley MD at ENDOSCOPY [facility] [employer] [facility] 06/01/2022 [id number]-202UR.A / / [id number] [...] Primary documented in this encounter Care Teams Narrow Fabric Loom Fixer Relationship Specialty Start Date End Date Clayton Gómez DO 293 [place] [address] PCP - General Internal Medicine 04/01/24 documented as of this encounter
--- OUTSIDE RECORDS SUMMARY | 2024-08-15 17:07 | External Medical Summary | Summary of Care ---
Author Name Unknown Organization [facility] Address [address] [place] [place] [address] Phone [phone] Care Team Providers Care Career And Technology Education Teacher Name Role Phone Clayton Gómez DO Primary Care Provider [phone] Reason for Visit * Reason Onset Date Comments Test Results 04/18/202404/18 Encounter Details Date Type Department Care Team (Late st Contact Info) Description 04/18/2024 Telephone Family Practice 65 [facility] [place] [address] [place] [address] Clayton Gómez DO 293 [place] [address] Test Results (04/18) Allergies Active Allergy Reactions Criticality Noted Date Comments Environmental 07/15/2003 pollen documented as of this encounter (statuses as of 04/24/2024) Medications Medication Sig Dispensed Refills Start Date [...] as of this encounter (statuses as of 04/24/2024) Active Problems Problem Noted Date Diagnosed Date [...] as of this encounter (statuses as of 04/24/2024) Resolved Problems Problem Noted Date Diagnosed Date [...] as of this encounter (statuses as of 04/24/2024) Immunizations Name Administration Dates Next Due COVID-19 mRNA, LNP-s, No Pre serve, 2-Dose Series ([employer]) 09/22/2020,09/01/2020 COVID-19, LNP-s, No Preserve , Chad-sucrose, Ages 12+ (Pfizer) 12/28/2021 COVID-19, MRNA-LNP, 24-25, P R, 30MCG/0.3ML, IM, 12YRS AND ABOVE ([facility]) 04/01/2024 Covid-19, Mrna, Lnp-s, Pf, B ivalent, 30 Mcg, IM, 12 yrs and above ([employer]) 07/19/2022 Pneumococcal Conjugate Vacc, 13 Valent (Prevnar) 12/09/2014 Pneumococcal Conjugate Vacci ne, 20-valent ([id number]) 04/01/2024 Pneumococcal Polysaccharide PPV23 (Pneumovax) 03/21/2008 RSV [...] encounter Miscellaneous Notes * Telephone Encounter - Ambar Curiel LPN - 04/24/2024 2:40 PM EDT Patient called in to office. Relayed information from Dr. Gómez. Pt acknowledged understanding. Noquestions at this time. States she is very pleased with the care here and is staying with [facility] and Dr. Gómez. * Telephone Encounter - Christen Escoto LPN [...] AM EST Office Visit Family Practice 65 [facility] 293 [place] [phone] Clayton Gómez DO 293 [place] [address] 08/21/2024 10:00 AM EST Nutrition Services Nutrition Services 65 [facility] 293 [place] [address] Nikole Frank RDN 293 [place] [address] 10/21/2024 1:00 PM EDT Nurse Only Family Practice 65 [facility] 293 [place] [phone] Christen Zuluaga, SIOBHAN 293 [place] [phone] 01/21/2025 10:40 AM EDT Office Visit Dermatology [facility] [address] [place] [address] Candace Washington PA-C [address] [place] [address] Health Maintenance Due Date Last Done Comments [...] this encounter Medical Devices Implanted Type Area Telephone Answering Service Operator Device Identifier Shelf Expiration Date Model / Serial / Lot Clip Quick 2.8mm 230cm - [id number] Implanted:Qty: 3 on 01/02/2020 by Mike Beasley MD at ENDOSCOPY [facility] [employer] 06/01/2022 HX-202UR.A / / [id number] Description:Quick clip pro x 3 placed at rectal polypectomy site documented as of this encounter Care Teams Career And Technology Education Teacher Relationship Specialty Start Date End Date Clayton Gómez DO [address] [place] [address] PCP - General Internal Medicine 04/01/24 documented as of this encounter
--- OUTSIDE RECORDS SUMMARY | 2024-08-15 17:08 | External Medical Summary | Summary of Care ---
Author Name Unknown Organization [facility] Address [address] [facility] [place] [address] Phone [phone] Care Team Providers Care Security Operations Specialist Name Role Phone Clayton Gómez DO Primary Care Provider [phone] Reason for Referral * Evaluate & Treat - Unlimited Visits (Within 30 days (routine)) - Authorized Specialty Diagnoses / Procedures Referred By Alyssa peng Referred To Contact Dietitian / Nutrition Services Diagnoses DM type 2, goal HbA1c < 8% ([facility]) Clayton Gómez DO [address] [place] [address] Referral ID Status Reason Start Date Expiration Date Visits Requested Visits Authorized [id number] Authorized Specialty Services Required 04/03/[phone] Question Answer Referral Priority Within 30 days (routine) Where should this appointment be scheduled? [facility] What condition is the patient being seen for? Diabetes Do not place this order. Place Diabetes Management ADA referral [[id number]]. Acknowledge Is this for [facility]? Yes Comments Medical Nutrition Therapy Reason for Visit * Reason Onset Date Comments Test Results 04/02/202404/02 Encounter Details Date Type Department Care Team ([facility] st Contact Info) Description 04/02/2024 Telephone Family Practice [facility], [place] [address] [place] [phone] Clayton Gómez DO [address] [place], [place] [id number] Test Results (04/02) Allergies Active Allergy Reactions Criticality Noted Date Comments Environmental 07/15/2003 pollen documented as of this encounter (statuses as of 04/04/2024) Medications Medication Sig Dispensed Refills Start Date [...] as of this encounter (statuses as of 04/04/2024) Active Problems Problem Noted Date Diagnosed Date [...] as of this encounter (statuses as of 04/04/2024) Resolved Problems Problem Noted Date Diagnosed Date [...] as of this encounter (statuses as of 04/04/2024) Immunizations Name Administration Dates Next Due COVID-19 mRNA, LNP-s, No Pre serve, 2-Dose Series ([employer]) 09/22/2020,09/01/2020 COVID-19, LNP-s, No Preserve , Chad-sucrose, Ages 12+ ([employer]) 12/28/2021 COVID-19, MRNA-LNP, 24-25, P R, 30MCG/0.3ML, IM, 12YRS AND ABOVE ([facility]) 04/01/2024 Covid-19, Mrna, Lnp-s, Pf, B ivalent, 30 Mcg, IM, 12 yrs and above ([employer]) 07/19/2022 Pneumococcal Conjugate Vacc, 13 Valent (Prevnar) 12/09/2014 Pneumococcal Conjugate Vacci ne, 20-valent ([id number]) 04/01/2024 Pneumococcal Polysaccharide PPV23 (Pneumovax) 03/21/2008 RSV [...] 07/24/2023 Does the household have a re lar source of income? (Household - for ages [...] Miscellaneous Notes * Telephone Encounter - Kathy Quintero OSA - 04/03/2024 3:08 PM EDT Appt scheduled, pt aware * Telephone Encounter - Christen Escoto LPN - 04/03/2024 2:46 PM EDT Patient is aware and will comply. Please call and schedule nurse visit for urine, dm eye and foot edu hunt * Telephone Encounter - Christen Escoto LPN - 04/02/2024 2:31 PM EDT Called, line busy--will continue to call. Thank you * Telephone Encounter - Christen Escoto LPN - 04/02/2024 2:16 PM EDT ----- Message from Clayton Gómez DO sent at 04/02/2024 8:12 AM EDT ----- Hgba1c is 6.5 Patient is now a diet controlled diabetic Refer to Nikole Check urine microalbumin Foot exam and retinal images. documented in this encounter Plan of Treatment Upcoming Encounters Date Type Department Care Team (Late st Contact Info) Description 04/17/2024 9:00 AM EDT Nutrition Services Nutrition Services [address] [address] Nikole Frank RDN [address] [place] [address] 04/17/2024 11:00 AM EDT Nurse Only Family Practice [address] [phone] College, Nurse Fam Prac [address] [address] 08/01/2024 8:40 AM EST Office Visit Family Practice [address] [phone] Clayton Gómez DO [address] [place] [address] 10/21/2024 1:00 PM EDT Nurse Only Family Practice [address] [address] Christen Luz, SIOBHAN 293 [place] [address] 01/21/2025 10:40 AM EDT Office Visit Dermatology [facility] [place] [address] [place] [address] Candace Washington PA-C [address] [place] [address] Scheduled Referrals Name Type Priority Associated Diagnoses Orde r Schedule NUTRITION-CLINICAL DIETITIAN REFERRAL OP Referral Within 30 days (routine) DM type 2, goal HbA1c < 8% (HCC) Ordered: 04/03/2024 Health Maintenance Due Date Last Done Comments DISCUSS TOBACCO CESSATION (REFER TO SMARTSET #8155) 1945 Albumin/Creatinine Ratio 1961 Diabetic Foot Exam 1961 Diabetic Eye Exam 10/31/2013 10/31/2012 GFR 07/24/2024 07/24/2023, 06/02, 10/25/2021, Additional history exists HbA1c 09/29/2024 04/01/2024, 11/01, 07/24/2023, Additional history exists Adult Wellness Visit 10/16/2024 10/17/2023, 10/12/19 23 Depression Screening 10/16/2024 10/17/2023 DXA Scan 09/28/2026 [...] this encounter Medical Devices Implanted Type Area Circular Head Saw Operator Device Identifier Shelf Expiration Date Model / Serial / Lot Clip Quick 2.8mm 230cm - [id number] Implanted:Qty: 3 on 01/02/2020 by Mike Beasley MD at ENDOSCOPY [facility] [employer] 06/01/2022 HX-202UR.A / / [id number] Description:Quick clip pro x 3 placed at rectal polypectomy site documented as of this encounter Visit Diagnoses Diagnosis DM type 2, goal HbA1c < 8% (HCC)- Primary documented in this encounter Care Teams Security Operations Specialist Relationship Specialty Start Date End Date Clayton Gómez DO [address] [place] [address] PCP - General Internal Medicine 04/01/24 documented as of this encounter
--- OUTSIDE RECORDS SUMMARY | 2024-08-15 17:08 | External Medical Summary ---
Author Name Unknown Address Unknown Organization K01:[facility] [place] [facility] [place] [address] [facility] [address] [facility] [address] Laboratory Report Ordering Provider Test Date Status VANESA CHAPMAN 04/01/2024 09:50:22 Final Observation Date Value Abnormality Reference (Units ) Status HbA1C 04/01/2024 09:50:22 6.5 Above high normal 4. 0-5.6 (%) Final The use of HbA1c to monitor glycemic status is based on normal hemoglobin and HbA composition. This test should not be used in patients with abnormal hemoglobin that affects the half life of the red blood cell or the in vivo glycation rates. Glucose, estimated average 04/01/2024 09:50:22 140 Above high normal <126 (mg/dL) Fin al Performing Location [facility] [place] [address] [facility] [address]
--- OUTSIDE RECORDS SUMMARY | 2024-08-15 17:08 | External Medical Summary | Summary of Care ---
Author Name Unknown Organization [facility] Address [address] [place] [place] [place] [address] Phone [phone] Care Team Providers Care Plastics Patternmaker Name Role Phone Clayton Gómez DO Primary Care Provider [phone] Reason for Visit * Reason Onset Date Comments Appointment 04/01/2024 Follow up w neur o Encounter Details Date Type Department Care Team (Late st Contact Info) Description 04/01/2024 Telephone Family Practice 65 [facility] [place] [address] [place] [address] Clayton Gómez DO [address] [place] [address] Appointment (Follow up w neuro) Allergies Active Allergy Reactions Criticality Noted Date Comments Environmental 07/15/2003 pollen documented as of this encounter (statuses as of 04/02/2024) Medications Medication Sig Dispensed Refills Start Date End Date Status ASPIRIN 81 MG PO TABSIndications:Scre ening for malignant neoplasm of breast one tab by mouth daily 90 5 12/31/2007 Active B-COMPLEX W/C & IRON PO CAPSIndications:Lucinda pause daily 90 6 12/31/2007 Active Acetaminophen ER [...] 30 MG Oral Capsule Delayed Release Particles (Cymbalta)Indication s:Hereditary and idiopathic peripheral neuropathy TAKE ONE CAPSULE BY MOUTH TWICE A DAY 200 Capsule 3 10/06/2023 10/05/2024 Active Atorvastatin Calcium 40 MG Oral Tablet (Lipitor)Indications :Dyslipidemia, goal LDL below 160 TAKE ONE TABLET BY MOUTH EVERY DAY 90 Tablet 3 11/15/2023 11/14/2024 Active Meclizine HCl 25 MG Oral Tablet (Antivert)Indication s:Vertigo TAKE ONE TABLET BY MOUTH THREE TIMES A DAY NEEDED FOR DIZZINESS 270 Tablet 1 11/15/2023 11/14/2024 Active RSV Pre-Fusion F A&B Vac Rcmb 120 MCG/0.5ML Intramuscular Solution Reconstituted (Abrysvo)Indications :Need for RSV immunization Inject 0.5 mL into a large muscle once for 1 dose. 1 Each 04/01/2024 04/02/2024 Active Gabapentin 300 MG Oral Capsule (Neurontin)Indicatio ns:S/P lumbar spinal fusion Take 1 Capsule by mouth in the morning and 1 Capsule at noon and 1 Capsule before bedtime. 300 Capsule 5 04/01/2024 Active documented as of this encounter (statuses as of 04/02/2024) Active Problems Problem Noted Date Diagnosed Date [...] as of this encounter (statuses as of 04/02/2024) Resolved Problems Problem Noted Date Diagnosed Date [...] as of this encounter (statuses as of 04/02/2024) Immunizations Name Administration Dates Next Due COVID-19 mRNA, LNP-s, No Pre serve, 2-Dose Series ([employer]) 09/22/2020,09/01/2020 COVID-19, LNP-s, No Preserve , Chad-sucrose, Ages 12+ ([employer]) 12/28/2021 COVID-19, MRNA-LNP, 24-25, P R, 30MCG/0.3ML, IM, 12YRS AND ABOVE ([facility]) 04/01/2024 Covid-19, Mrna, Lnp-s, Pf, B ivalent, 30 Mcg, IM, 12 yrs and above ([employer]) 07/19/2022 Pneumococcal Conjugate Vacc, 13 Valent (Prevnar) 12/09/2014 Pneumococcal Conjugate Vacci ne, 20-valent ([id number]) 04/01/2024 Pneumococcal Polysaccharide PPV23 (Pneumovax) 03/21/2008 RSV [...] AM EST Office Visit Family Practice 65 [facility] 293 [place] [phone] Clayton Gómez, [address] [facility] [address] 10/21/2024 1:00 PM EDT Nurse Only Family Practice 65 [facility] [address] [facility] [phone] Christen Zuluaga, SIOBHAN 293 [place] [address] 01/21/2025 10:40 AM EDT Office Visit Dermatology [facility] [place] [address] [place] [address] Candace Washington PA-C [address] [place] [address] Health Maintenance Due Date Last Done Comments DISCUSS TOBACCO CESSATION (REFER TO SMARTSET #3295) 1945 Albumin/Creatinine Ratio 1961 Diabetic Foot Exam [...] this encounter Medical Devices Implanted Type Area Push Connector Assembler Device Identifier Shelf Expiration Date Model / Serial / Lot Clip Quick 2.8mm 230cm - [id number] Implanted:Qty: 3 on 01/02/2020 by Mike Beasley MD at ENDOSCOPY [facility] [employer] [facility] 06/01/2022 [id number]-202UR.A / / [id number] Description:Quick clip pro x 3 placed at rectal polypectomy site documented as of this encounter Care Teams Plastics Patternmaker Relationship Specialty Start Date End Date Clayton Gómez DO [address] [place] [address] PCP - General Internal Medicine 04/01/24 documented as of this encounter
--- OUTSIDE RECORDS SUMMARY | 2024-08-15 17:08 | External Medical Summary | Summary of Care ---
Author Name Unknown Organization [facility] Address [address] [place] [address] Phone [phone] Care Team Providers Care Security Strategist Name Role Phone Clayton Gómez DO Primary Care Provider [phone] Reason for Referral * Evaluate & Treat - Unlimited Visits (Within 10 days (routine)) - Authorized Specialty Diagnoses / Procedures Referred By Alyssa peng Referred To Contact Neurology Diagnoses MCI (mild cognitive impairment) with memory loss Clayton Gómez DO [address] [place] [address] Referral ID Status Reason Start Date Expiration Date Visits Requested Visits Authorized [id number] Authorized Specialty Services Required 04/01/[phone] Question Answer Referral Priority Within 10 days (routine) Where should this appointment be scheduled? [facility] This patient already has care established with Neurology. Do not place this order. Please use Ask A Doc to expedite care. Acknowledge Is this referral being placed for insurance purposes ONLY No, patient needs appointment [facility] NEUROLOGY REFERRAL QUESTIONS Memory/Cognition Reason for Visit * Reason Comments Follow Up Encounter Details Date Type Department Care Team (Late st Contact Info) Description 04/01/2024 8:40 AM EDT Office Visit Family Practice [address], [place] [address] [place] [phone] Clayton Gómez DO [address] [place] [address] Hyperglycemia*; Dyslipidemia, goal LDL below 70; S/P lumbar spinal fusion; Asymptomatic stenosis of right carotid artery; MCI (mild cognitive impairment) with memory loss; Chronic constipation; Periodic limb movement disorder (PLMD); IDIO PERIPH NEURPTHY NOS(aka NEUROPATHY); Need for RSV immunization; Need for pneumococcal vaccination; Tobacco use disorder Allergies Active Allergy Reactions Criticality Noted Date Comments Environmental 07/15/2003 pollen documented as of this encounter (statuses as of 04/01/2024) Medications Medication Sig Dispensed Refills Start Date [...] EVERYDAY WITH BREAKFAST. 90 Tablet 3 08/07/2023 5 Active DULoxetine HCl 30 MG Oral Capsule Delayed Release Particles (Cymbalta)Indicatio ns:Hereditary and idiopathic peripheral neuropathy TAKE ONE CAPSULE BY MOUTH TWICE A DAY 200 Capsule 3 10/06/2023 5 Active Atorvastatin Calcium 40 MG Oral Tablet (Lipitor)Indication s:Dyslipidemia, goal LDL below 160 TAKE ONE TABLET BY MOUTH EVERY DAY 90 Tablet 3 11/15/2023 5 Active Meclizine HCl 25 MG Oral Tablet (Antivert)Indicatio ns:Vertigo TAKE ONE TABLET BY MOUTH THREE TIMES A DAY NEEDED FOR DIZZINESS 270 Tablet 1 11/15/2023 5 Active RSV Pre-Fusion F A&B Vac Rcmb 120 MCG/0.5ML Intramuscular Solution Reconstituted (Abrysvo)Indication s:Need for RSV immunization Inject 0.5 mL into a large muscle once for 1 dose. 1 Each 04/01/2024 4 Active Gabapentin 300 MG Oral Capsule (Neurontin)Indicati ons:S/P lumbar spinal fusion Take 1 Capsule by mouth in the morning and 1 Capsule at noon and 1 Capsule before bedtime. 300 Capsule 5 04/01/2024 Active Gabapentin 100 MG Oral Capsule (Neurontin)Indicati ons:Hereditary and idiopathic peripheral neuropathy,Periodic limb movement disorder (PLMD) TAKE TWO CAPSULES BY MOUTH THREE TIMES A DAY EVERY MORNING , AT NOON AND BEFORE BEDTIME 600 Capsule 3 02/08/2024 4 Discontinue d(Medicatio n/Dose Changed) documented as of this encounter (statuses as of 04/01/2024) Active Problems Problem Noted Date Diagnosed Date Expressive aphasia 07/15/2022 MCI (mild cognitive impairment) [...] as of this encounter (statuses as of 04/01/2024) Resolved Problems Problem Noted Date Diagnosed Date [...] as of this encounter (statuses as of 04/01/2024) Immunizations Name Administration Dates Next Due COVID-19 mRNA, LNP-s, No Pre serve, 2-Dose Series ([employer]) 09/22/2020,09/01/2020 COVID-19, LNP-s, No Preserve , Chad-sucrose, Ages 12+ ([employer]) 12/28/2021 COVID-19, MRNA-LNP, 24-25, P R, 30MCG/0.3ML, IM, 12YRS AND ABOVE ([facility]) 04/01/2024 Covid-19, Mrna, Lnp-s, Pf, B ivalent, 30 Mcg, IM, 12 yrs and above (Pfizer) 07/19/2022 Pneumococcal Conjugate Vacc, 13 Valent (Prevnar) 12/09/2014 Pneumococcal Conjugate Vacci ne, 20-valent ([id number]) 04/01/2024 Pneumococcal Polysaccharide PPV23 (Pneumovax) 03/21/2008 RSV Vac., Bivalent, Perfusio n F, Pf,0.5 Ml (Abrysvo) 04/01/2024 Season Influenza, Quad, PF, Adjuvanted, 65+ Yrs, IM (FLUAD) 04/23/2020 Seasonal Influenza, High Dos e, Trivalent, PF, IM (Fluzone HD) 04/01/2024 Seasonal Influenza, PF, 6 M & above, IM , (FluLaval or Fluzone) 03/14/2018,06/02/2017 Seasonal Influenza, Quadriva lent Hd (Fluzone Hd) 03/22/2023,05/13/2022,05/03/2021 Seasonal Influenza, Quadriva lent, No Preserve, IM 05/09/2016,05/07/2015 Seasonal Influenza, Trivalen t, (IIV3), with Preserv, (Fluzone) 05/05/2014,04/17/2013,04/16/2012,03/04,04/21/2010,03/12/2009,05/06/20 08,04/19/2007,05/23/2006 03/31/2012 Seasonal Influenza, Trivalen t, Adjuvanted, 65+ YRS, [...] Sign Reading Time Taken Comments Blood Pressure 118/60 04/01/2024 8:49 AM EDT Pulse 82 04/01/2024 8:49 AM EDT Temperature 35.3 C (95.6 F) 04/01/2024 8:49 AM ED T Respiratory Rate 16 04/01/2024 8:49 AM EDT Oxygen Saturation 94% 04/01/2024 8:49 AM EDT Inhaled Oxygen Concentration - - Weight 89.3 kg (196 lb 12.8 oz) 04/01/2024 8:49 AM EDT Height 164.5 cm (5' 4.75") 04/01/2024 8:49 AM ED T Body Mass Index 33 04/01/2024 8:49 AM EDT documented in this encounter Progress Notes * Clayton Gómez, DO - 04/01/2024 9:32 AM EDT SUBJECTIVE: Sheila Andino is a 79 year old female. Chief Complaint Patient presents with Follow Up HPI: Patient is an 78 year old female with a history of Hyperlipidemia, Melanoma of the face, PeripheralNeuropathy, MCI, Expressive Aphasia, Hiatal Hernia, Lumbar Spinal Fusion, Restless Leg Syndrome, Amyloid in colon polyp without systemic Amyloidosis, right Carotid Stenosis, and tobacco use that is seen for follow up. Chronic back pain that does not radiate to the legs has worsened. Memory loss hasworsened. No chest pain or shortness of breath are present. She is using a cane at all times and continues to smoke. No recent falls. Patient Active Problem List Diagnosis IDIO PERIPH NEURPTHY NOS(aka NEUROPATHY) Irritable bowel syndrome Periodic limb movement disorder (PLMD) Tobacco use disorder ADVANCE DIRECTIVE INFORMATION Dyslipidemia, goal LDL below 70 Allergic rhinitis History of melanoma in situ S/P lumbar spinal fusion Hiatal hernia Chronic constipation Asymptomatic stenosis of right carotid artery Expressive aphasia MCI (mild cognitive impairment) with memory loss Current Outpatient Medications Medication Sig Dispense Refill [...] A DAY NEEDED FORDIZZINESS 270 Tablet 1 RSV Pre-Fusion F A&B Vac Rcmb 120 MCG/0.5ML Intramuscular Solution Reconstituted (Abrysvo) Inject 0.5 mL into a large muscle once for 1 dose. 1 Each 0 Gabapentin 300 MG Oral Capsule (Neurontin) Take [...] years for surveillance given the prep quality. HYPERLIPIDEMIA NEC/NOS 06/30/2003 IDIO PERIPH NEURPTHY NOS(aka [...] performed by Mike Beasley MD at ENDOSCOPY [facility] COLONOSCOPY, GI REFERRAL OP 06/16/2006 adenomatous polyps--repeat 3 years EGD, FLEXIBLE, DIAGNOSTIC 04/09/2019 Tortuous esophagus, hiatal hernia/ESOPHAGOGASTRODUODENOSCOPY (EGD), FLEXIBLE, TRANSORAL, DIAGNOSTICperformed by Mike Beasley MD at ENDOSCOPY [facility] INFORMATION Thoracic oulet with bial [...] appetite change, fatigue and unexpected weight change. Respiratory: Positive for cough (chronic). Negative for [...] for sleep disturbance. Memory loss OBJECTIVE: BP 118/60 | Pulse 82 | Temp 35.3 C (95.6 F) | Resp 16 | Ht 1.645 m (5' 4.75") | Wt 89.3 kg (196lb 12.8 oz) | SpO2 94% | BMI 33.00 kg/m | BSA 2.02 m Physical Exam [...] edema. Neurological: Mental Status: She is alert. Mental status is at baseline. Motor: No weakness. Gait: Gait abnormal. Psychiatric: Mood and Affect: Mood normal. Behavior: Behavior normal. Thought Content: Thought content normal. Cognition and Memory: Cognition is impaired. Memory is impaired. Results for orders placed or performed in visit on 11/29/23 HEMOGLOBIN A1C Result Value Ref Range Hemoglobin A1C 6.6 (H) 4.0 - 5.6 % Estimated Average Glucose 143 (H) <126 mg/dL PLAN AND ASSESSMENT: Hyperglycemia (Primary) - HEMOGLOBIN A1C; Future; Expected date: 04/01/2024 Dyslipidemia, goal LDL below 70 Continue Atorvastatin S/P lumbar spinal fusion - Increase Gabapentin 300 MG Oral Capsule (Neurontin); Take 1 Capsule by mouth in the morning and 1Capsule at noon and 1 Capsule before bedtime. Asymptomatic stenosis of right carotid artery MCI (mild cognitive impairment) with memory loss Continue Donepezil per Neurology Chronic constipation Periodic limb movement disorder (PLMD) - Increase Gabapentin 300 MG Oral Capsule (Neurontin); Take 1 Capsule by mouth in the morning and 1Capsule at noon and 1 Capsule before bedtime. IDIO PERIPH NEURPTHY NOS(aka NEUROPATHY) Need for RSV immunization - RSV Pre-Fusion F A&B Vac Rcmb 120 MCG/0.5ML Intramuscular Solution Reconstituted (Abrysvo); Inject 0.5 mL into a large muscle once for 1 dose. - RSV VAC, BIVALENT, PERF, PF, 0.5 ML, 60YRS AND ABOVE Need for pneumococcal vaccination - PNEUMOCOCCAL VACC, PCV20, IM ([id number]) Tobacco use disorder Other orders - INFLUENZA VAC., TRIVALENT, HD, PF, 65 AND ABOVE, 0.5 ML IM (FLUZONE HD) - COVID-19, MRNA-LNP, PF, 24-25, 30MCG/0.3ML, IM, 12YRS AND ABOVE (PFIZER) Follow Up: Return in about 4 months (around 08/01/2024), or if symptoms worsen or fail to improve. Clayton Gómez DO 9:32 AM 04/01/2024 documented in this encounter Nursing Notes * Christen Escoto LPN - 04/01/2024 8:47 AM EDT Patient presents for follow up, voices no complaints. documented in this encounter Plan of Treatment Upcoming Encounters Date Type Department Care Team (Late st Contact Info) Description 08/01/2024 8:40 AM EST Office Visit Family Practice [address] [place] [address] 293 [facility] [place] [phone] Clayton Gómez DO 293 [place] [address] 10/21/2024 1:00 PM EDT Nurse Only [facility] [address] [place] [address] 293 [facility] [place] [phone] Christen Zuluaga, SIOBHAN [address] [place] [address] 01/21/2025 10:40 AM EDT Office Visit Dermatology [facility] [address] [place] [address] Candace Washington PA-C [address] [place] [address] Pending Results Name Type Priority Associated Diagnoses Date /Time HEMOGLOBIN A1C Lab Routine Hyperglycemia 04/01/2024 9:50 AM EDT Scheduled Orders Name Type Priority Associated Diagnoses Orde r Schedule HEMOGLOBIN A1C Lab Routine Hyperglycemia Expected: 04/01/2024 (Approximate), Expires: 04/01/2025 Scheduled Referrals Name Type Priority Associated Diagnoses Orde r Schedule ADULT NEUROLOGY REFERRAL OP Referral Within 10 days (routine) MCI (mild cognitive impairment) with memory loss Ordered: 04/01/2024 Health Maintenance Due Date Last Done Comments Adult Wellness Visit 10/16/2024 10/17/2023, 10/12/19 23 [...] this encounter Medical Devices Implanted Type Area Program Lead Device Identifier Shelf Expiration Date Model / Serial / Lot Clip Quick 2.8mm 230cm - [id number] Implanted:Qty: 3 on 01/02/2020 by Mike Beasley MD at ENDOSCOPY [facility] [employer] [facility] 06/01/2022 [id number]-202UR.A / / [id number] Description:Quick clip pro x 3 placed at rectal polypectomy site documented as of this encounter Visit Diagnoses Diagnosis Hyperglycemia- Primary Other abnormal glucose Dyslipidemia, goal LDL below 70 Other and unspecified hyperlipidemia S/P lumbar spinal fusion Arthrodesis status Asymptomatic stenosis of right carotid artery MCI (mild cognitive impairment) with memory loss Mild cognitive impairment, so stated Chronic constipation Unspecified constipation Periodic limb movement disorder (PLMD) Periodic limb movement disorder IDIO PERIPH NEURPTHY NOS(aka NEUROPATHY) Unspecified hereditary and idiopathic peripheral neuropathy Need for RSV immunization Need for prophylactic vaccination and inoculation against respiratory syncytial virus Need for pneumococcal vaccination Need for prophylactic vaccination against streptococcus pneumoniae (pneumococcus) Tobacco use disorder documented in this encounter Care Teams Security Strategist Relationship Specialty Start Date End Date Clayton Gómez DO [address] [place] [address] PCP - General Internal Medicine 04/01/24 documented as of this encounter
[2024-08-15] MEDS ORDERED: ACETAMINOPHEN 325 MG TAB PO PRN (17:41)
[2024-08-15] MEDS ORDERED: DEXTROSE 50% 50 ML SYRINGE IV PRN (17:41)
[2024-08-15] MEDS ORDERED: GLUCOSE 40% GEL 15 GM TUBE PO PRN (17:41)
[2024-08-15] MEDS ORDERED: MECLIZINE HCL 25 MG TAB PO PRN (17:41)
[2024-08-15] MEDS ORDERED: GLUCAGON FOR INJ 1 MG VIAL SQ PRN (17:41)
[2024-08-15] MEDS ORDERED: GLUCOSE 10 TAB/TUBE PO PRN (17:41)
[2024-08-15] MEDS ORDERED: ALUMINUM/MAGNESIUM SUSP 30 ML UDC PO PRN (17:41)
[2024-08-15] MEDS ORDERED: ONDANSETRON INJ 2 MG/ML 2 ML VIAL IV PRN (17:41)
[2024-08-15] MEDS ORDERED: CARBOHYDRATES FOR HYPOGLYCEMIA PO PRN (17:41)
[2024-08-15] MEDS: INSULIN ASPART PER UNIT CHARGE SC SCH (18:37)
[2024-08-15] MEDS ORDERED: DOXYCYCLINE HYCLATE 100 MG CAP PO SCH (21:00)
[2024-08-15] MEDS: DULoxetine HCL 30 MG CAP PO SCH (21:19)
[2024-08-15] MEDS: DOXYCYCLINE HYCLATE 100 MG CAP PO STA (21:19)
[2024-08-15] MEDS: GABAPENTIN 300 MG CAP PO SCH (21:19)
[2024-08-15] MEDS: FLUTICASONE PROPIONATE NA SPR 16 GM BTL NAE SCH (22:38)
[2024-08-15] MEDS: MELATONIN 3 MG TAB PO PRN (22:39)
--- OUTSIDE RECORDS SUMMARY | 2024-08-15 23:20 | External Medical Summary | Summary of Care ---
Author Name Unknown Organization [facility] Address [address] [facility] [place] [address] Phone [phone] Care Team Providers Care Driller Brake Lining Name Role Phone Clayton Gómez DO Primary Care Provider Reason for Visit * Reason [place] Date Comments Test Results 08/15/2024 Encounter Details Date Type Department Care Team (Late st Contact Info) Description 08/15/2024 Telephone Neurology [facility] [address] [place] [facility] [place] [address] Jaymie King MD [address] [place] [facility] [place] [address] Test Results Allergies Active Allergy Reactions Criticality Noted Date Comments Environmental 07/15/2003 pollen documented as of this encounter (statuses as of 08/15/2024) Medications ASPIRIN 81 MG PO TABSIndications :Screening [...] as of this encounter (statuses as of 08/15/2024) Active Problems Problem Noted Date Diagnosed Date [...] as of this encounter (statuses as of 08/15/2024) Resolved Problems Problem Noted Date Diagnosed Date [...] as of this encounter (statuses as of 08/15/2024) Immunizations Name Administration Dates Next Due COVID-19 mRNA, LNP-s, No Pre serve, 2-Dose Series ([employer]) 09/22/2020,09/01/2020 COVID-19, LNP-s, No Preserve , Chad-sucrose, Ages 12+ (23press) 12/28/2021 COVID-19, MRNA-LNP, PF, 30 M CG/0.3 mL, 12 YRS AND ABOVE, IM ([facility]) 04/01/2024 Covid-19, Mrna, Lnp-s, Pf, B ivalent, 30 Mcg, IM, 12 yrs and above ([employer]press) 07/19/2022 Pneumococcal Conjugate Vacc, 13 Valent (Prevnar) 12/09/2014 Pneumococcal Conjugate Vacci ne, 20-valent ([id number]) 04/01/2024 Pneumococcal Polysaccharide PPV23 (Pneumovax) 03/21/2008 RSV [...] encounter Miscellaneous Notes * Telephone Encounter - Feli Escobedo LPN - 08/15/2024 1:19 PM EST Attempted to contact No answer * Telephone Encounter - Linnette Gore MED ASSIST - 08/15/2024 11:19 AM EST Called pt. Message said call could not be completed at this time * Telephone Encounter - Jaymie King MD - 08/15/2024 10:24 AM EST Call pt/; blood work is normal documented in this encounter Plan of Treatment Upcoming Encounters Date Type Department Care Team (Late st Contact Info) Description 08/21/2024 10:00 AM EST Nutrition Services Nutrition Services 65 [facility] 293 [place] [address] Nikole Frank RDN [address] [place] [address] 08/22/2024 10:30 AM EST NeuroDiagnostic Study Neurophysiology [facility] [address] [place], [place] [address] Sp, Neurophys Tech 200 [facility] [place] [address] 09/12/2024 11:15 AM EDT Imaging Radiology [address] [place] [phone] 11/29/2024 9:20 AM EDT Office Visit Family Practice [address] [facility] 293 [place] [address] Clayton Gómez DO 293 [place] [address] 01/21/2025 10:40 AM EDT Office Visit Dermatology [facility] [address] [place] [address] Candace Washington PA-C [address] [place] [address] 08/01/2025 10:15 AM EST Imaging Radiology, [place] [address] [place] [address] Health Maintenance Due Date Last Done Comments DISCUSS TOBACCO CESSATION (REFER TO SMARTSET #4136) 1945 Adult Wellness Visit 10/16/2024 10/17/2023, 10/12/19 [...] this encounter Medical Devices Implanted Type Area Fish Cutting Machine Operator Device Identifier Shelf Expiration Date Model / Serial / Lot Clip Quick 2.8mm 230cm - [id number] Implanted:Qty: 3 on 01/02/2020 by Mike Beasley MD at ENDOSCOPY [facility] [employer] 06/01/2022 HX-202UR.A / / [id number] Description:Quick clip pro x 3 placed at rectal polypectomy site documented as of this encounter Care Teams Driller Brake Lining Relationship Specialty Start Date End Date Clayton Gómez DO [address] [place] [address] PCP - General Internal Medicine 04/01/24 documented as of this encounter
--- OUTSIDE RECORDS SUMMARY | 2024-08-15 23:20 | External Medical Summary | Summary of Care ---
Author Name Unknown Organization [facility] Address [address] [facility] [address] Phone [phone] Care Team Providers Care Color Blender Name Role Phone Clayton Gómez DO Primary Care Provider Reason for Visit * Reason [place] Date Comments Other 08/15/2024 Encounter Details Date Type Department Care Team (Late st Contact Info) Description 08/15/2024 Telephone Family Practice 65 [facility] [place] [address] [place] [address] Clayton Gómez DO [address] [place] [address] Other Allergies Active Allergy Reactions Criticality Noted Date [...] mRNA, LNP-s, No Pre serve, 2-Dose Series ([employer]) 09/22/2020,09/01/2020 COVID-19, LNP-s, No Preserve , Chad-sucrose, Ages 12+ ([employer]) 12/28/2021 COVID-19, MRNA-LNP, PF, 30 M CG/0.3 mL, 12 YRS AND ABOVE, IM ([facility]) 04/01/2024 Covid-19, Mrna, Lnp-s, Pf, B ivalent, 30 Mcg, IM, 12 yrs and above ([employer]) 07/19/2022 Pneumococcal Conjugate Vacc, 13 Valent (Prevnar) 12/09/2014 Pneumococcal Conjugate Vacci ne, 20-valent ([id number]) 04/01/2024 Pneumococcal Polysaccharide PPV23 (Pneumovax) 03/21/2008 RSV [...] Telephone Encounter - Christen Escoto LPN - 08/15/2024 10:36 AM EST See other encounter. Patient was sent to ER. Thank you * Telephone Encounter - Debra Herman OSA - 08/15/2024 10:20 AM EST Pt's niece calling regarding patient. States that she is unable to walk and just seems off. Please advise. documented in this encounter Plan of Treatment Upcoming Encounters Date Type Department Care Team (Late st Contact Info) Description 08/21/2024 10:00 AM EST Nutrition Services Nutrition Services 65 [facility] [address] [place] [address] Nikole Frank RDN [address] [place] [address] 08/22/2024 10:30 AM EST [facility] [address] [place], [place] [address] Sp, Neurophys Tech [address] [place] [address] 09/12/2024 11:15 AM EDT Imaging Radiology [facility] [address]st [facility] [place] [address] [place] [address] 11/29/2024 9:20 AM EDT Office Visit Family Practice [address], [place] 293 [facility], [place] [address] Clayton Gómez, 293 [facility], [place] [address] 01/21/2025 10:40 AM EDT Office Visit Dermatology [facility] [place] [address] [facility] [address] Candace Washington PA-C [address] [place] [address] 08/01/2025 10:15 AM EST Imaging Radiology, [place] [address] [place] [id number] Health Maintenance Due Date Last Done Comments DISCUSS TOBACCO CESSATION (REFER TO SMARTSET #3291) 1945 Adult Wellness Visit 10/16/2024 10/17/2023, 10/12/19 [...] this encounter Medical Devices Implanted Type Area Top Hat Body Maker Device Identifier Shelf Expiration Date Model / Serial / Lot Clip Quick 2.8mm 230cm - [id number] Implanted:Qty: 3 on 01/02/2020 by Mike Beasley MD at ENDOSCOPY [employer] [facility] 06/01/2022 HX-202UR.A / / [id number] Description:Quick clip pro x 3 placed at rectal polypectomy site documented as of this encounter Care Teams Color Blender Relationship Specialty Start Date End Date Clayton Gómez DO [address] [place] [address] PCP - General Internal Medicine 04/01/24 documented as of this encounter
--- OUTSIDE RECORDS SUMMARY | 2024-08-15 23:20 | External Medical Summary | Summary of Care ---
Author Name Unknown Organization [facility] Address [address] [facility] [place] [address] Phone [phone] Care Team Providers Care Community Service Organization Director Name Role Phone Clayton Gómez DO Primary Care Provider [phone] Reason for Visit * Reason [place] Date Comments Test Results 08/15/2024 Encounter Details Date Type Department Care Team (Late st Contact Info) Description 08/15/2024 Telephone Neurology [facility] [address] [place] [facility] [place] [address] Jaymie King MD [address] [place] [address] Test Results Allergies Active Allergy Reactions Criticality [...] mRNA, LNP-s, No Pre serve, 2-Dose Series ([employer]) 09/22/2020,09/01/2020 COVID-19, LNP-s, No Preserve , Chad-sucrose, Ages 12+ ([employer]) 12/28/2021 COVID-19, MRNA-LNP, PF, 30 M CG/0.3 mL, 12 YRS AND ABOVE, IM ([facility]) 04/01/2024 Covid-19, Mrna, Lnp-s, Pf, B ivalent, 30 Mcg, IM, 12 yrs and above ([employer]) 07/19/2022 Pneumococcal Conjugate Vacc, 13 Valent (Prevnar) 12/09/2014 Pneumococcal Conjugate Vacci ne, 20-valent ([id number]) 04/01/2024 Pneumococcal Polysaccharide PPV23 (Pneumovax) 03/21/2008 RSV [...] encounter Miscellaneous Notes * Telephone Encounter - Linnette Gore MED [...] AM EST Nutrition Services Nutrition Services 65 [facility] [place] [address] [place] [address] Nikole Frank RDN [address] [place] [address] 08/22/2024 10:30 AM EST NeuroDiagnostic Study Neurophysiology [address] [facility] [address] [place], [place] [address] Sp, Neurophys Tech [address] [place], [place] [address] 09/12/2024 11:15 AM EDT Imaging Radiology [facility] 1st [facility] [place] [address] [place] [address] 11/29/2024 9:20 AM EDT Office Visit Family Practice [address], [place] 293 [facility] [address] Clayton Gómez, 293 [facility], [place] [address] 01/21/2025 10:40 AM EDT Office Visit Dermatology [facility] [address] [place] [address] Candace Washington PA-C [address] [place] [address] 08/01/2025 10:15 AM EST Imaging Radiology, [place] [address] [place] [id number] Health Maintenance Due Date Last Done Comments [...] this encounter Medical Devices Implanted Type Area Taxation Agent Device Identifier Shelf Expiration Date Model / Serial / Lot Clip Quick 2.8mm 230cm - [id number] Implanted:Qty: 3 on 01/02/2020 by Mike Beasley MD at [facility]COPY [facility] [employer] [facility] 06/01/2022 HX-202UR.A / / [id number] Description:Quick clip pro x 3 placed at rectal polypectomy site documented as of this encounter Care Teams Community Service Organization Director Relationship Specialty Start Date End Date Clayton Gómez DO [address] [place] [place] [address] PCP - General Internal Medicine 04/01/24 documented as of this encounter
--- OUTSIDE RECORDS SUMMARY | 2024-08-15 23:20 | External Medical Summary | Summary of Care ---
Author Name Unknown Organization [facility] Address [address] [facility] [place] [address] Phone [phone] Care Team Providers Care Lithographic General Worker Name Role Phone Clayton Gómez DO Primary Care Provider Reason for Visit * Reason Onset Date Comments Encounter Created in Error 08/14/2024 Encounter Details Date Type Department Care Team (Late st Contact Info) Description 08/14/2024 Telephone Neurology [facility] [address] [place] [address] Jaymie King MD [address] [place] [address] Encounter Created in Error Allergies Active Allergy Reactions Criticality Noted Date [...] mRNA, LNP-s, No Pre serve, 2-Dose Series (abusix) 09/22/2020,09/01/2020 COVID-19, LNP-s, No Preserve , Chad-sucrose, Ages 12+ (abusix) 12/28/2021 COVID-19, MRNA-LNP, PF, 30 M CG/0.3 mL, 12 YRS AND ABOVE, IM ([facility]) 04/01/2024 Covid-19, Mrna, Lnp-s, Pf, B ivalent, 30 Mcg, IM, 12 yrs and above (abusix) 07/19/2022 Pneumococcal Conjugate Vacc, 13 Valent (Prevnar) 12/09/2014 Pneumococcal Conjugate Vacci ne, 20-valent ([id number]) 04/01/2024 Pneumococcal Polysaccharide PPV23 (Pneumovax) 03/21/2008 RSV [...] AM EST Nutrition Services Nutrition Services [address] [facility] [address] [facility], [place] [address] Nikole Frank RDN [address] [place] [address] 08/22/2024 10:30 AM EST NeuroDiagnostic Study Neurophysiology [facility] [address] [place] [address] Sp, Neurophys Tech [address] [place] [address] 09/12/2024 11:15 AM EDT Imaging Radiology [facility] [address] [facility] [address] [place] [id number] 11/29/2024 9:20 AM EDT Office Visit Family Practice [address] [facility] [address] [place] [address] Clayton Gómez, DO [address] [place] [address] 01/21/2025 10:40 AM EDT Office Visit Dermatology [facility] [place] [address] [place] [address] Candace Washington PA-C [address] [place] [address] 08/01/2025 10:15 AM EST Imaging Radiology, [place] [address] [place] [address] Health Maintenance Due Date Last Done Comments DISCUSS TOBACCO CESSATION (REFER TO SMARTSET #0146) 1945 Adult Wellness Visit 10/16/2024 10/17/2023, 10/12/19 [...] this encounter Medical Devices Implanted Type Area Gear Lapping Machine Operator Device Identifier Shelf Expiration Date Model / Serial / Lot Clip Quick 2.8mm 230cm - [id number] Implanted:Qty: 3 on 01/02/2020 by Mike Beasley MD at ENDOSCOPY [facility] [employer] [facility] 06/01/2022 [id number] / / [id number] Description:Quick clip pro x 3 placed at rectal polypectomy site documented as of this encounter Care Teams Lithographic General Worker Relationship Specialty Start Date End Date Clayton Gómez DO [address] [place] [address] PCP - General Internal Medicine 04/01/24 documented as of this encounter
--- NOTE | 2024-08-16 06:53 | Hospitalist Progress Note ---
Date of Service August 16, 2024 Assessment & Plan (1) Acute metabolic encephalopathy: (2) UTI (urinary tract infection): (3) Generalized weakness: (4) DM (diabetes mellitus), type 2: (5) Tobacco use disorder: (6) MCI (mild cognitive impairment) with memory loss: (7) Expressive aphasia: (8) IBS (irritable bowel syndrome): (9) Dyslipidemia: Plan This is an 79yo F with PMH of DM II, expressive aphasia, mild cognitive impairment, tobacco use, periodic limb movement disorder, IBS and other medical problems listed below who presents via EMS with confusion and was found to have acute metabolic encephalopathy 2/2 UTI and possible CAP. Acute metabolic encephalopathy Acute UTI Generalized weakness AMS likely 2/2 infection - CT head without intracranial abnormality, does have baseline dementia but is usually able to complete ADLs more independently Urinary sx x 1 week, WBC 19k, abnormal UA consistent with UTI WBC downtrending appropriately Prelim urine cultures growing E coli, sensitivities pending Blood cx negative to date Continue empiric Rocephin PT/OT evals, fall precautions Possible CAP Afebrile, leukocytosis as above, resp viral panel negative CXR with mild right lower lung opacity suggestive of pneumonia. Radiographic follow-up to ensure resolution is recommended Covering with Rocephin above, add doxycycline for atypical coverage Incentive spirometry, PRN Nebs DM II Stable, diet controlled A1c 6.6 in Jul 2024 Loose correctional SSI while admitted 2/2 age BSG AC HS Tobacco use disorder Smoking 0.5 ppd Declined nicotine patch Smoking cessation Asymptomatic carotid stenosis HLD Continue aspirin, statin Dementia Expressive aphasia at baseline Oriented to person and place, not to time or situation Lives at home with , ambulates independently Continue donepezil IBS Chronic constipation Bowel regimen with daily Miralax DVT Ppx: SQ lovenox Code status: FULL PCP: Dr. Gómez Dispo:Admitted to med/surg I spent a total of 40 minutes coordinating, documenting, and providing care for this patient excluding time spent in the performance of separately billed services or time spent by another provider/QHP. Admission and Anticipated Discharge Date Admission Date: August 15, 2024 Supervising Physician Co-Signing Physician Notes Pt seen and examined by me, care coordinated w/ Yuki Montejo PA-C, pls refer to her note above for further detail. Pt is feeling much improved. WBC down. Currently sitting up in chair in NAD. Does not remember much of yesterday. Continues to have a cough and rhonchi on physical exam. U cultx posit. for E. coli. Cont. antibiotics as above. Continue to closely monitor. Possible DC tmrw. MD Leigh I spent a total of 20 minutes coordinating, documenting, and providing care for this patient excluding time spend in the performance of separately billed services or time spent by another provider / QHP. Subjective Seen in follow up for AMS 2/2 UTI and possible PNA. Feeling better today- abdominal TTP is gone and less dysuria and urinary frequency. Has not been coughing as much either. Still fatigued. No F/C, lightheadedness, CP, SOB, N/V, abd pain, dysuria, diarrhea or constipation. Review of Systems Review of Systems: At least ten systems reviewed and negative except as noted in the HPI. Physical Exam Physical Exam: Gen: WD/WN, NAD, resting in bed, pleasantly confused, mild expressive aphasia (baseline), A&Ox person HEENT: Normocephalic, atraumatic, conjunctivae moist, sclerae anicteric, mucous membranes moist Lung: Clear to Auscultation bilaterally Heart: Regular rate, regular rhythm Abdomen: Soft, NT, ND +BS x 4 Extremities: no edema Skin: Warm, no rash Results & Data Results & Data Vital Signs (Past 12 Hours) Vital Signs Temp Pulse Resp BP Pulse Ox O2 Del Method 08/15/24 20:28 36.6 C 76 16 147/77 H 91 Room Air Laboratory Results Short CBC 08/16/24 Range/Units 08:27 WBC 14.92 H (4.8-10.8) K/ul Hgb 14.0 (12.0-16.0) g/dl Hct 41.6 (37.0-47.0) % Plt Count 236 (130-400) K/uL BMP 08/16/24 08:27 Sodium 139 Potassium 4.0 Chloride 104 Carbon Dioxide 25 BUN 12 Creatinine 0.64 Glucose 142 H Calcium 9.8 Diagnostic Findings Chest X-Ray 08/15/24 11:55 XR chest 1V portable CLINICAL HISTORY: weakness COMPARISON STUDY: Chest radiograph June 07, 2016. FINDINGS: There is no pneumothorax or pleural effusion. Mild right lower lung opacity is present. There is no evidence for pulmonary edema. Left lung is clear. The heart is mildly enlarged. No evidence for pulmonary edema. IMPRESSION: Mild right lower lung opacity suggestive of pneumonia. Radiographic follow-up to ensure resolution is recommended. ACT 112: Negative or not required by law. Electronically signed by: Jarrod Montelongo M.D. 08/15/2024 12:[address] 08/15/24 11:55 CT OF THE HEAD WITHOUT CONTRAST CLINICAL HISTORY: Confusion. COMPARISON STUDY: MRI of the brain November 19, 2018. CT DOSE: 625.8 mGy.cm TECHNIQUE: Helical axial images of the head were obtained without IV contrast. Automated exposure control was utilized for the study. A dose lowering technique was utilized adhering to the principles of ALARA. FINDINGS: No acute intracranial hemorrhage, midline shift or mass effect is present. White matter hypodensities are suggestive of small vessel disease. The ventricular system is unremarkable. The basal cisterns are patent. No extra- axial collections are present. There are no findings to suggest acute dural sinus thrombosis or acute territorial infarct. No significant calvarial abnormalities are present. Visualized portions of the sinuses and mastoid air cells are clear. IMPRESSION: No acute intracranial findings. ACT 112: Negative or not required by law. Electronically signed by: Jarrod Montelongo M.D. 08/15/2024 12:57 PM Medications Administered Current Inpatient Medications Acetaminophen (Acetaminophen 325 Mg Tab) 650 mg PO Q4H PRN PRN Reason: pain/fever Stop: 09/14/24 17:40 Al Hydrox/Mg Hydrox/Simethicone (Aluminum/Magnesium Susp 30 Ml Udc) 30 ml PO Q6H PRN PRN Reason: Dyspepsia Stop: 09/14/24 17:40 Albuterol (Albut/Ipratrop 3mg/0.5mg Neb 3 Ml Vial) 3 ml NEB QIDR PRN; Protocol PRN Reason: Shortness Of Breath Or Wheezing Stop: 09/14/24 16:46 Aspirin (Aspirin 81 Mg Ectab) 81 mg PO DAILY JUHI Stop: 09/15/24 08:59 Atorvastatin Calcium (Atorvastatin 40 Mg Tab) 40 mg PO DAILY JUHI Stop: 09/15/24 08:59 Dextrose (Dextrose 50% 50 Ml Syringe) 25 - 50 ml IV UD PRN; Protocol PRN Reason: Hypoglycemia Protocol Stop: 09/14/24 17:40 Donepezil HCl (Donepezil Hcl 10 Mg Tab) 10 mg PO DAILY [facility] Stop: 09/15/24 08:59 Duloxetine HCl (Duloxetine Hcl 30 Mg Cap) 30 mg PO BID JUHI Stop: 09/14/24 20:59 Last Admin: 08/15/24 21:19 Dose: 30 mg Fexofenadine HCl (Fexofenadine Hcl 180 Mg Tab) 180 mg PO DAILY JUHI Stop: 09/15/24 08:59 Fluticasone Propionate (Fluticasone Propionate Na Spr 16 Gm Btl) 2 sprays ALEJA HS JUHI Stop: 09/14/24 20:59 Last Admin: 08/15/24 22:38 Dose: 2 sprays Gabapentin (Gabapentin 300 Mg Cap) 300 mg PO TID JUHI Stop: 09/14/24 20:59 Last Admin: 08/15/24 21:19 Dose: 300 mg Glucagon (Glucagon For Inj 1 Mg Vial) 1 mg SQ UD PRN; Protocol PRN Reason: Hypoglycemia Protocol Stop: 09/14/24 17:40 Glucose (Glucose 40% Gel 15 Gm Tube) 15 - 30 gm PO UD PRN; Protocol PRN Reason: Hypoglycemia Protocol Stop: 09/14/24 17:40 Glucose (Glucose 10 Tab/Tube) 4 - 8 tab PO UD PRN; Protocol PRN Reason: Hypoglycemia Protocol Stop: 09/14/24 17:40 Ceftriaxone Sodium (Rocephin) 2,000 mg in 50 mls @ 100 mls/hr IV Q24H [facility] Stop: 08/21/24 13:59 Insulin Aspart (Insulin Aspart Per Unit Charge) 0 units SC ACHS JUHI Stop: 09/14/24 17:40 Last Admin: 08/15/24 21:19 Dose: Not Given Meclizine HCl (Meclizine Hcl 25 Mg Tab) 25 mg PO TID PRN PRN Reason: Dizziness Stop: 09/14/24 17:40 Melatonin (Melatonin 3 Mg Tab) 3 mg PO HS PRN PRN Reason: Insomnia Stop: 09/14/24 17:40 Last Admin: 08/15/24 22:39 Dose: 3 mg Miscellaneous (Carbohydrates For Hypoglycemia ) 15 - 30 gm PO UD PRN PRN Reason: Hypoglycemia Protocol Stop: 09/14/24 17:40 Multivitamins (Multivitamin Tab) 1 tab PO DAILY JUHI Stop: 09/15/24 08:59 Ondansetron HCl (Ondansetron Inj 2 Mg/Ml 2 Ml Vial) 4 mg IV Q6H PRN PRN Reason: Nausea Stop: 09/14/24 17:40 Polyethylene Glycol (Polyethylene (Miralax) 17 Gm Pack) 17 gm PO DAILY JUHI Stop: 09/15/24 08:59 Vitamin B Complex (Vitamin B Complex Tab) 1 tab PO DAILY JUHI Stop: 09/15/24 08:59
[2024-08-16] MEDS: ASPIRIN 81 MG ECTAB PO SCH (08:00)
[2024-08-16] MEDS: DONEPEZIL HCL 10 MG TAB PO SCH (08:00)
[2024-08-16] MEDS: FEXOFENADINE HCL 180 MG TAB PO SCH (08:00)
[2024-08-16] MEDS: VITAMIN B COMPLEX TAB PO SCH (08:00)
[2024-08-16] MEDS: ATORVASTATIN 40 MG TAB PO SCH (08:00)
[2024-08-16 09:15] LABS: Hematocrit (blood only) 41.6 % (37.0-47.0); Mean Corpuscular Hemoglobin 31.3 pg (25.0-34.0); Mean Corpuscular Hgb Conc 33.7 g/dL (32.0-36.0); Mean Corpuscular Volume 92.9 fL (80.0-100.0); Platelet Count 236 K/uL (130-400); RDW Coefficient of Variation 12.4 % (11.5-14.5); RDW Standard Deviation 42.4 fL (36.4-46.3); Red Blood Count 4.48 M/uL (4.20-5.40); White Blood Count 14.92 K/ul (4.8-10.8)
[2024-08-16 09:33] LABS: BUN Creatinine Ratio 18.8 (10-20); Calcium 9.8 mg/dl (8.6-10.3); Creatinine Clr Calc Pharmacy 81.8 ml/min
[2024-08-16] MEDS: POLYETHYLENE (MIRALAX) 17 GM PACK PO SCH (09:38)
[2024-08-16] MEDS: MULTIVITAMIN TAB PO SCH (09:38)
--- NOTE | 2024-08-16 12:07 | Hospitalist Progress Note ---
Date of Service August 16, 2024 Assessment & Plan Admission and Anticipated Discharge Date Admission Date: August 15, 2024 Results & Data Results & Data Vital Signs (Past 12 Hours) Vital Signs Temp Pulse Resp BP Pulse Ox O2 Del Method 08/16/24 07:06 36.6 C 89 17 159/80 H 92 Room Air
[2024-08-16] MEDS: cefTRIAXone SODIUM 2,000 MG/50 ML BAG IV SCH (13:54)
[2024-08-16 20:00] VITALS: O2SAT 91
[2024-08-17] MEDS: ENOXAPARIN INJ 40 MG/0.4 ML SYR SQ SCH (02:16)
[2024-08-17 07:26] LABS: Hematocrit (blood only) 41.9 % (37.0-47.0); Hemoglobin 13.7 g/dl (12.0-16.0); Mean Corpuscular Hgb Conc 32.7 g/dL (32.0-36.0); Mean Corpuscular Volume 91.7 fL (80.0-100.0); Mean Platelet Volume 9.6 fL (9.4-12.4); Platelet Count 231 K/uL (130-400); RDW Coefficient of Variation 12.4 % (11.5-14.5); RDW Standard Deviation 42.4 fL (36.4-46.3); Red Blood Count 4.57 M/uL (4.20-5.40)
[2024-08-17 07:52] LABS: BUN Creatinine Ratio 23.2 (10-20); Creatinine Clr Calc Pharmacy 75.9 ml/min; Magnesium 2.2 mg/dl (1.7-2.4); Phosphorus 3.2 mg/dl (2.5-4.9); Potassium 4.2 mmol/L (3.5-5.1)
[2024-08-17 07:53] VITALS: BP 138/84; PULSE 94; RESP 20; TEMP 97.5
--- NOTE | 2024-08-17 10:39 | Discharge Summary ---
Discharge Summary Date of Service August 17, 2024 Principal Dx & Hospital Course #1 = Principal Diagnosis (1) Acute metabolic encephalopathy: (2) UTI (urinary tract infection): (3) Generalized weakness: (4) DM (diabetes mellitus), type 2: (5) Tobacco use disorder: (6) MCI (mild cognitive impairment) with memory loss: (7) Expressive aphasia: (8) IBS (irritable bowel syndrome): (9) Dyslipidemia: Plan This is an 79yo F with PMH of DM II, expressive aphasia, mild cognitive impairment, tobacco use, periodic limb movement disorder, IBS and other medical problems listed below who presents via EMS with confusion and was found to have acute metabolic encephalopathy 2/2 UTI and possible CAP. Acute metabolic encephalopathy -> resolved Acute UTI Generalized weakness AMS 2/[address] head without intracranial abnormality, does have baseline dementia but is usually able to complete ADLs more independently Urinary sx x 1 week, WBC 19k, abnormal UA consistent with UTI WBC downtrending appropriately Urine culture growing E coli, pansensitive Blood cx negative to date Transitioning to Cefuroxime at discharge to complete 7 day course PT recommending return home with 24/7 supervision given patient's baseline dementia, ambulates with walker Possible CAP Afebrile, leukocytosis downtrending, resp viral panel negative CXR with mild right lower lung opacity suggestive of pneumonia. Radiographic follow-up to ensure resolution is recommended Discharging on Cefuroxime, doxy for 7 day course Continue incentive spirometry, flutter valve, PRN Mucinex at home Counselled on importance of smoking cessation DM II Stable, diet controlled A1c 6.6 in Jul 2024 Tobacco use disorder Smoking 0.5 ppd Declined nicotine patch Smoking cessation Asymptomatic carotid stenosis HLD Continue aspirin, statin Dementia Expressive aphasia at baseline Oriented to person and place, not to time or situation Lives at home with , ambulates independently Continue donepezil IBS Chronic constipation Bowel regimen with daily Miralax Care coordinated with Dr. Abraham. Discussed instructions over the phone with prior to discharge. Notes For Next Care Provider ABX for UTI and possible PNA vs complicated bronchitis Medication Changes From Visit 45 Admission HPI Per Admitting Provider This is an 79yo F with PMH of DM II, expressive aphasia, mild cognitive impairment, tobacco use, periodic limb movement disorder, IBS and other medical problems listed below who presents via EMS with confusion and urinary symptoms. Family is at bedside who help augment history with her baseline dementia. Patient endorses dysuria, increased frequency and incomplete voiding over the past week. Denies any fever or chills at home. No N/V or abdominal pain. + Generalized weakness noted over past few days but no falls. Also has noted increased cough over the past week. Has baseline dementia but was more confused today, requiring help to take medications and needing multiple reminders to complete tasks. Is typically able to ambulate independently at home, where she lives with . Was brought to ED for further evaluation. No lightheadedness, headche, CP, SOB, diarrhea or constipation. Admission Exam Per Admitting Provider General Appearance: WD/WN, vitals as above, NAD, sitting up in bed, pleasantly confused, appears comfortable, mild expressive aphasia (baseline) Head: normocephalic, atraumatic Eyes: normal inspection, PERRL, conjunctivae normal, anicteric sclerae ENT: external ear and nose normal, oropharynx normal Neck: normal visual inspection, trachea midline, no thyromegaly Respiratory: normal respiratory effort, diffuse rhonchi. No accessory muscle use Cardiovascular: regular rate, rhythm, normal peripheral pulses, trace BLE edema. Vessels: no JVD Chest: normal inspection of chest Abdomen/GI: normal bowel sounds, soft, nontender, no hepatosplenomegaly Extremities/Musculoskeletal: no cyanosis or clubbing, extremities motor strength 5/5 Neurologic: PERRL, EOMI, accommodation nl, no face palsy, no dysarthria, CN's II-XI intact bilaterally and moves all extremities Psychiatric: A+Ox person and place, not time or situation Skin: no rashes, normal color, warm/dry Discharge Exam Gen: WD/WN, NAD, resting in bed, pleasantly confused, mild expressive aphasia (baseline), A&Ox person & place HEENT: Normocephalic, atraumatic, conjunctivae moist, sclerae anicteric, mucous membranes moist Lung: diffuse rhonchi but improved overall air movement Heart: Regular rate, regular rhythm Abdomen: Soft, NT, ND +BS x 4 Extremities: no edema Skin: Warm, no rash Updated Medication List Medication Instructions Recorded Confirmed Type aspirin 81 mg capsule 81 mg PO DAILY 08/15/24 08/15/24 History atorvastatin 40 mg tablet 40 mg PO DAILY 08/15/24 08/15/24 History donepezil 10 mg tablet 10 mg PO DAILY 08/15/24 08/15/24 History duloxetine 30 mg capsule,delayed 30 mg PO BID 08/15/24 08/15/24 History release fexofenadine 180 mg tablet 180 mg PO DAILY 08/15/24 08/15/24 History fluticasone propionate 50 2 spray intranasal HS 08/15/24 08/15/24 History mcg/actuation nasal spray,suspension gabapentin 300 mg capsule 300 mg PO TID 08/15/24 08/15/24 History meclizine 25 mg tablet 25 mg PO TID PRN Dizziness 08/15/24 08/15/24 History multivitamin 1 tab PO DAILY 08/15/24 08/15/24 History vitamin B complex 1 tab PO DAILY 08/15/24 08/15/24 History cefuroxime axetil 500 mg tablet 500 mg PO BID 5 days #10 tabs 08/17/24 Rx doxycycline hyclate 100 mg tablet 100 mg PO BID #13 tabs 08/17/24 Rx guaifenesin 600 mg tablet, 600 mg PO BID PRN cough #14 tabs 08/17/24 Rx extended release 12 hr (Mucinex) Hospital Stay Data Consultations 08/15/24 14:59 ED Decision to Admit Stat Diagnostic Imagining Performed 08/15/24 11:55 CT head/brain wo con Stat Pending Results Patient Have Any Pending Studies at Discharge: No Discharge Instructions Given to Patient (Per Discharging Provider) MEDICATION CHANGES: Cefuroxime 500mg twice a day and Doxycycline 100mg twice a day to complete 7 day course Mucinex twice a day as needed for congestion SUMMARY OF TEST RESULTS: You were admitted to hospital secondary to confusion in setting of infection. Urine culture is growing E coli bacteria. CXR with possible pneumonia of R lower lung. PENDING TEST RESULTS: None RECOMMENDATIONS FOR FOLLOW-UP: Follow up with PCP as scheduled. Complete antibiotic in its entirety. Please use incentive spirometry and flutter valve to help with breathing. PCP to repeat CXR to ensure resolution of RLL opacity, per radiology. As discussed, it is very important for your health to stop smoking. Continue medication regimen as scheduled aside from changes noted above. OTHER INSTRUCTIONS: Seek medical attention if you have: * temperature above 101 * chest pain or trouble breathing * abdominal pain, nausea, vomiting * diarrhea, dark stools or bloody stools * any unanswered questions or concerns Call [phone] if symptoms are severe. Please take good care of yourself. Call if you have any questions or problems. You can reach a [facility] hospitalist on duty at [facility] 24 hours a day by calling [phone]. Total Time Total Time Spent Total Time Spent (In Minutes): 45 Supervising Physician Co-Signing Physician Notes Pt seen and examined by me, care coordinated w/ Yuki Montejo PA-C, pls refer to her note above for further detail. Pt is feeling much improved overall. Continues to have a cough and rhonchi on physical exam. Will need to finish antibiotic course for UTI and poss. pna. Will need close follow up with her primary care physician. MD Leigh
[2024-08-17] MEDS: DOXYCYCLINE HYCLATE 100 MG CAP PO STA (11:40)
== END 2024-08-17 13:19 | disposition home or self-care (01) | DRG 689 ==
LOC: ED 11:44 → 3N 15:13 → SUATTDRO 15:13 → 3N 16:37

== ENCOUNTER 2024-08-19 11:09 | Inpatient (IN) ==
[2024-08-19 11:44] LABS: Basophils # (auto) 0.04 K/uL (0.00-0.20); Basophils % (auto) 0.5 %; Eosinophils # (auto) 0.02 K/uL (0.00-0.50); Eosinophils % (auto) 0.2 %; Hematocrit (blood only) 41.7 % (37.0-47.0); Hemoglobin 13.7 g/dl (12.0-16.0); Immature Granulocytes # (auto) 0.04 K/uL (0.01-0.20); Immature Granulocytes % (auto) 0.5 %; Lymphocytes # (auto) 0.71 K/uL (1.20-3.40); Lymphocytes % (auto) 8.8 %; Mean Corpuscular Hemoglobin 30.5 pg (25.0-34.0); Mean Corpuscular Hgb Conc 32.9 g/dL (32.0-36.0); Mean Corpuscular Volume 92.9 fL (80.0-100.0); Mean Platelet Volume 9.3 fL (9.4-12.4); Monocytes # (auto) 1.03 K/uL (0.11-0.59); Monocytes % (auto) 12.7 %; Neutrophils # (auto) 6.27 K/uL (1.40-6.50); Neutrophils % (auto) 77.3 %; Platelet Count 241 K/uL (130-400); RDW Coefficient of Variation 12.4 % (11.5-14.5); RDW Standard Deviation 42.5 fL (36.4-46.3); Red Blood Count 4.49 M/uL (4.20-5.40); White Blood Count 8.11 K/ul (4.8-10.8)
[2024-08-19] MEDS: SODIUM CHLORIDE 0.9% 1,000 ML IV ONE ×2 (11:57→14:12)
[2024-08-19 12:03] LABS: Albumin Globulin Ratio 1.3 (0.9-2); Albumin Level 4.3 gm/dl (3.4-5.0); BUN Creatinine Ratio 16.9 (10-20); Bilirubin,Total 0.4 mg/dl (0.2-1.0); C Reactive Protein 1.37 mg/dl (0-0.5); Calcium 10.1 mg/dl (8.6-10.3); Creatinine Clr Calc Pharmacy 49.5 ml/min; Globulin 3.2 gm/dl (2.5-4.0); Potassium 4.3 mmol/L (3.5-5.1); Total Protein 7.5 gm/dl (6.0-8.3)
[2024-08-19 12:07] LABS: Base Excess VBG 0.1 mEq/L; HCO3 VBG 26 mmol/L; Oxygen Saturation VBG < 60.0 %; PCO2 VBG 46 mmHg (38-50); PO2 VBG 28 mmHg; pH VBG 7.36 (7.36-7.41)
[2024-08-19 12:08] LABS: Troponin I High Sensitivity 9.1 pg/ml (0-14)
[2024-08-19 12:11] LABS: Prothrombin Time 10.9 Seconds (9.0-12.0)
[2024-08-19 12:17] LABS: iSTAT Creatinine 0.9 mg/dl (0.6-1.3); iSTAT Hemoglobin 12.9 g/dl (12.0-16.0); iSTAT Ionized Calcium 1.21 mmol/l (1.12-1.32); iSTAT Potassium 4.3 mmol/L (3.3-5.0)
[2024-08-19] MEDS: OPTIRAY 320 125ml IV ONE (12:17)
--- NOTE | 2024-08-19 12:24 | XRay Report ---
XR chest 1V portable CLINICAL HISTORY: Fever COMPARISON STUDY: Chest radiograph August 15, 2024. FINDINGS: Lung volumes are normal. There is possible mild right lower lung opacity. There is no pneum othorax or pleural effusion. The heart is mildly enlarged. Mediastinal contours are normal. There is no evidence for pulmonary edema. IMPRESSION: Possible mild right lower lung opacity. This could represent pneumonia. Radiographic fol low-up to ensure resolution is recommended. ACT 112: Negative or not required by law. Electronically signed by: Jarrod Montelongo M.D. 08/19/2024 12:23 PM
--- NOTE | 2024-08-19 12:34 | Emergency Department Note ---
Impression & Plan Generalized weakness, Acute confusion, RLL pneumonia ED Provider Note Provider: Jl Bustos MD CHIEF COMPLAINT: Confusion, fever HISTORY OF PRESENT ILLNESS: Patient is a 79-year-old female history of recent hospitalization for pneumonia as well as UTI with a history of dementia presenting here with and niece today. Patient evidently was hospitalized here last several days and discharged on Monday. Family reports she had a good day on Monday and was ambulatory out for breakfast. Overnight got weak and had to significantly assist to the bathroom. No falls. This morning more confused and not herself and generally weak. Seem to be worse than when they brought her to the hospital last week initially. Did take her morning antibiotics. Again no other falls reported. Patient reports maybe a little bit of right flank pain. No other significant nausea or vomiting reported. Patient answer some questions but seems to be a little slow in answering at times. Family provides most of her history. EMS states the patient was hypoxic for them but is about 90% on room air upon arrival here. PAST MEDICAL HISTORY: As noted abo MEDICATIONS: Reviewed home medications SOCIAL HISTORY: lives at home PHYSICAL EXAM: GENERAL: alert in no acute distress on stretcher Head: normocephalic and atraumatic EYES: No injection, discharge or icterus. PERRL, EOMI. NECK: Trachea midline. Supple. ENT: Mucous membranes pink and moist. LUNGS: Airway patent. No retractions. Breath sounds clear although bit coarse HEART: Regular rate and rhythm. No chest wall tenderness ABDOMEN: Soft and non-tender, without guarding or rebound. SKIN: Acyanotic, warm, dry, without rashes EXTREMITIES: Without swelling, tenderness or deformity NEUROLOGICAL: No focal deficits moving all extremities. No aphasia. No facial droop or slurred speech. Pretty decent symmetric bilateral hand international nurse strength. EK bpm normal sinus rhythm. No PVC or PAC. No acute ST segment elevation or depression with QTc 410. CONTINUOUS CARDIAC MONITORING: was ordered and showed a heart rate of 90s-100s bpm in normal sinus rhythm to sinus tachycardia Patient's laboratory studies and imaging results reviewed by myself Differential includes Infection, dehydration, metabolic abnormality, hypo/hyperglycemia, electrolyte disturbance, anemia, hypoxia, cardiac sources, intracerebral event, toxicologic, neurologic, as well as other pathologies. IMPRESSION/MEDICAL DECISION MAKING: Febrile upon arrival. There are unclear if she took Tylenol this morning or not. Given some Toradol as well as some IV fluid here. Will broaden her antibiotic some cefuroxime to cefepime at this time given the fever. Questions could be viral respiratory viral panel is sent. Initially mildly hypoxic on room air. Does not seem to have real focal deficits. Maybe some mild generalized confusion and generalized weakness. As such we will entertain a broad differential as she is already on antibiotics with CT imaging of the head, CTA of the chest and CT of the abdomen pelvis. Chest x-ray does question right lower lobe pneumonia still. Blood work here without significant leukocytosis or anemia. No significant acidosis and normal lactate. No severe electrolyte abnormality signs of renal dysfunction with only a mildly elevated CRP of 1.37. CT of the head without acute findings per radiology. CT angiogram without PE per radiology but evidence of a right lower lobe pneumonia. Again has been started on expanded coverage with cefepime at this time. CT abdomen pelvis per radiology report without acute pathology and small AAA noted. Respiratory viral panel negative. Given her weakness and confusion do believe that she requires a further care here in the hospital and is been unclear if this is truly from infection or some other occult process. No indication for TNK given her last known well was sometime last evening. Hospitalist team contacted. Patient and family updated. DIAGNOSIS: Weakness, confusion, right lower lobe pneumonia DISPOSITION: Hospitalist will evaluate Patient was agreeable with this plan. Past Med/Surg History Problem List (Updated 08/19/24 @ 12:48 by Azalea Max PA-C) CAP (community acquired pneumonia) Acute UTI (Acute) Leukocytosis (Acute) Acute confusion (Acute) Generalized weakness UTI (urinary tract infection) Acute metabolic encephalopathy Medical History Tobacco use disorder Periodic limb movement disorder (PLMD) MCI (mild cognitive impairment) with memory loss Expressive aphasia IBS (irritable bowel syndrome) Dyslipidemia DM (diabetes mellitus), type 2 Lumbar stenosis Surgical History Hx of tonsillectomy Hx of appendectomy H/O: hysterectomy S/P lumbar spinal fusion Family History Other Alzheimer disease Cancer Social History Smoking Status: Unknown if ever smoked Tobacco Type: Cigarettes Second Hand Exposure: No; Do You Dip or Chew Tobacco: No; Hx Alcohol Use: No Hx Substance Use: No Preferred Language: [place]alander Communication Ability: Effective 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 Beliefs That Will Affect Care: None Current Living Situation: Spouse Feels Safe at Home: Yes Assistive Devices: Cane Allergies Allergies Allergy/AdvReac Type Severity Reaction Status Date / Time No Known Drug Allergies Allergy Unknown NKDA Verified 06/13/16 09:23 pollen extracts Allergy Unknown HAYFEVER Verified 06/13/16 09:23 Dust Allergy Unknown HAYFEVER Uncoded 06/13/16 09:23 Home Meds Home Medications Medication Instructions Recorded Confirmed aspirin 81 mg capsule 81 mg PO DAILY 08/15/24 08/19/24 atorvastatin 40 mg tablet 40 mg PO DAILY 08/15/24 08/19/24 donepezil 10 mg tablet 10 mg PO DAILY 08/15/24 08/19/24 duloxetine 30 mg capsule,delayed 30 mg PO BID 08/15/24 08/19/24 release fexofenadine 180 mg tablet 180 mg PO DAILY 08/15/24 08/19/24 fluticasone propionate 50 2 spray intranasal HS 08/15/24 08/19/24 mcg/actuation nasal spray,suspension gabapentin 300 mg capsule 300 mg PO TID 08/15/24 08/19/24 meclizine 25 mg tablet 25 mg PO TID PRN Dizziness 08/15/24 08/19/24 multivitamin 1 tab PO DAILY 08/15/24 08/19/24 vitamin B complex 1 tab PO DAILY 08/15/24 08/19/24 Previous Rx's Medication Instructions Recorded cefuroxime axetil 500 mg tablet 500 mg PO BID 5 days #10 tabs 08/17/24 doxycycline hyclate 100 mg tablet 100 mg PO BID #13 tabs 08/17/24 guaifenesin 600 mg tablet, 600 mg PO BID PRN cough #14 tabs 08/17/24 extended release 12 hr (Mucinex) Results & Data (ED) Vital Signs Vital Signs - 24 hr 08/19/24 11:17 08/19/24 11:23 08/19/24 11:24 Temperature 38.6 C H Temperature Source Oral Pulse Rate 105 H 102 H 101 H Pulse Rate from SpO2 Sensor 101 H Respiratory Rate 20 19 Blood Pressure 106/60 Blood Pressure Mean 75 Pulse Oximetry 93 90 Oxygen Delivery Method Room Air Room Air Oxygen Flow Rate Sepsis Recent Fever Within 48 Hours Yes Sepsis New/Unexplained Change in Mental Status Yes Sepsis Action Taken by Nursing No Action Required 08/19/24 11:30 08/19/24 11:48 08/19/24 12:00 Temperature Temperature Source Pulse Rate 98 H 97 H 93 H Pulse Rate from SpO2 Sensor 100 H 97 H 93 H Respiratory Rate 22 20 22 Blood Pressure Blood Pressure Mean Pulse Oximetry 95 94 96 Oxygen Delivery Method Oxygen Flow Rate 2 2 2 Sepsis Recent Fever Within 48 Hours Sepsis New/Unexplained Change in Mental Status Sepsis Action Taken by Nursing 08/19/24 12:30 08/19/24 12:36 08/19/24 12:36 Temperature Temperature Source Pulse Rate 94 H 93 H Pulse Rate from SpO2 Sensor Respiratory Rate 24 19 Blood Pressure 122/59 L Blood Pressure Mean 70 Pulse Oximetry Oxygen Delivery Method Oxygen Flow Rate Sepsis Recent Fever Within 48 Hours Sepsis New/Unexplained Change in Mental Status Sepsis Action Taken by Nursing 08/19/24 12:45 08/19/24 12:45 08/19/24 12:45 Temperature Temperature Source Pulse Rate 94 H Pulse Rate from SpO2 Sensor 94 H Respiratory Rate 22 Blood Pressure 113/73 113/73 Blood Pressure Mean 94 94 Pulse Oximetry 97 Oxygen Delivery Method Oxygen Flow Rate 2 Sepsis Recent Fever Within 48 Hours Sepsis New/Unexplained Change in Mental Status Sepsis Action Taken by Nursing 08/19/24 13:00 08/19/24 13:00 08/19/24 13:03 Temperature Temperature Source Pulse Rate 92 H 92 H Pulse Rate from SpO2 Sensor 92 H 92 H Respiratory Rate 21 22 Blood Pressure 100/54 L Blood Pressure Mean 73 Pulse Oximetry 96 96 Oxygen Delivery Method Oxygen Flow Rate 2 2 Sepsis Recent Fever Within 48 Hours Sepsis New/Unexplained Change in Mental Status Sepsis Action Taken by Nursing 08/19/24 13:15 08/19/24 13:23 08/19/24 13:30 Temperature Temperature Source Pulse Rate Pulse Rate from SpO2 Sensor Respiratory Rate Blood Pressure 93/49 L 106/55 L 99/54 L Blood Pressure Mean 68 68 64 Pulse Oximetry Oxygen Delivery Method Oxygen Flow Rate Sepsis Recent Fever Within 48 Hours Sepsis New/Unexplained Change in Mental Status Sepsis Action Taken by Nursing 08/19/24 13:30 08/19/24 13:45 08/19/24 13:45 Temperature Temperature Source Pulse Rate 90 Pulse Rate from SpO2 Sensor 90 Respiratory Rate 21 Blood Pressure 99/54 L 85/61 L Blood Pressure Mean 64 70 Pulse Oximetry 97 Oxygen Delivery Method Oxygen Flow Rate 2 Sepsis Recent Fever Within 48 Hours Sepsis New/Unexplained Change in Mental Status Sepsis Action Taken by Nursing Laboratory Data 08/19/24 11:27 08/19/24 11:27 Lab Results 08/19/24 08/19/24 08/19/24 Range/Units 11:27 11: 11:30 WBC 8.11 (4.8-10.8) K/ul RBC 4.49 (4.20-5.40) M/uL Hgb 13.7 (12.0-16.0) g/dl POC Hgb (12.0-16.0) g/dl Hct 41.7 (37.0-47.0) % POC Hct (37-47) % MCV 92.9 (80.0-100.0) fL MCH 30.5 (25.0-34.0) pg MCHC 32.9 (32.0-36.0) g/dL RDW Std Deviation 42.5 (36.4-46.3) fL RDW Coeff of Sherif 12.4 (11.5-14.5) % Plt Count 241 (130-400) K/uL MPV 9.3 L (9.4-12.4) fL Immature Gran % (Auto) 0.5 % Neut % (Auto) 77.3 % Lymph % (Auto) 8.8 % [place] % (Auto) 12.7 % Eos % (Auto) 0.2 % Baso % (Auto) 0.5 % Neut # (Auto) 6.27 (1.40-6.50) K/uL Lymph # (Auto) 0.71 L (1.20-3.40) K/uL [place] # (Auto) 1.03 H (0.11-0.59) K/uL Eos # (Auto) 0.02 (0.00-0.50) K/uL Baso # (Auto) 0.04 (0.00-0.20) K/uL Immature Gran # (Auto) 0.04 (0.01-0.20) K/uL PT 10.9 (9.0-12.0) Seconds INR 1.0 (0.9-1.1) VBG pH (7.36-7.41) VBG pCO2 (38-50) mmHg VBG pO2 mmHg VBG HCO3 mmol/L VBG O2 Saturation % VBG Base Excess mEq/L POC Sodium (135-144) mmol/L Sodium 137 (136-145) mmol/L POC Potassium (3.3-5.0) mmol/L Potassium 4.3 (3.5-5.1) mmol/L POC Chloride (101-112) mmol/L Chloride 101 (98-107) mmol/L Carbon Dioxide 29 (21-32) mmol/L POC Total CO2 (24-31) mmol/L Anion Gap 7 (3-11) POC Anion Gap (16-25) mmol/L POC BUN (7-18) mg/dl BUN 15 (6-23) mg/dl Creatinine 0.89 (0.6-1.2) mg/dl POC Creatinine (0.6-1.3) mg/dl Est Cr Clr Drug Dosing 49.5 ml/min eGFR 65.09 BUN/Creatinine Ratio 16.9 (10-20) Glucose 140 H (70-99(Fasting)) mg/dl POC Glucose (other) (70-99) mg/dl Lactate 1.6 (0.4-2.0) mmol/L Calcium 10.1 (8.6-10.3) mg/dl POC Ioniz Calcium Keily (1.12-1.32) mmol/l Total Bilirubin 0.4 (0.2-1.0) mg/dl AST 20 (13-39) U/L ALT 19 (7-52) U/L Alkaline Phosphatase 63 (34-104) U/L Troponin I High Sens 9.1 (0-14) pg/ml C-Reactive Protein 1.37 H (0-0.5) mg/dl Total Protein 7.5 (6.0-8.3) gm/dl Albumin 4.3 (3.4-5.0) gm/dl Globulin 3.2 (2.5-4.0) gm/dl Albumin/Globulin Ratio 1.3 (0.9-2) Lipase 10 L Cancelled (11-82) U/L Procalcitonin Cancelled Adenovirus (PCR) Not Detected (NotDetected) B. pertussis DNA (PCR) Not Detected (NotDetected) B.parapertussis DNA PCR Not Detected (NotDetected) C. pneumoniae DNA (PCR) Not Detected (NotDetected) Coronavirus OC43 (PCR) Not Detected (NotDetected) Coronavirus HKU1 (PCR) Not Detected (NotDetected) Coronavirus 229E (PCR) Not Detected (NotDetected) SARS-CoV-2 (PCR) Not Detected (NotDetected) Coronavirus NL63 (PCR) Not Detected (NotDetected) Human Metapneumovir PCR Not Detected (NotDetected) Influenza Type A (PCR) Not Detected (NotDetected) Influenza Type B (PCR) Not Detected (NotDetected) M. pneumoniae (PCR) Not Detected (NotDetected) Parainfluenza 1 (PCR) Not Detected (NotDetected) Parainfluenza 2 (PCR) Not Detected (NotDetected) Parainfluenza 3 (PCR) Not Detected (NotDetected) Parainfluenza 4 (PCR) Not Detected (NotDetected) RSV (PCR) Not Detected (NotDetected) Entero/Rhino (PCR) Not Detected (NotDetected) 08/19/24 08/19/24 Range/Units 11:55 12:02 WBC (4.8-10.8) K/ul RBC (4.20-5.40) M/uL Hgb (12.0-16.0) g/dl POC Hgb 12.9 (12.0-16.0) g/dl Hct (37.0-47.0) % POC Hct 38 (37-47) % MCV (80.0-100.0) fL MCH (25.0-34.0) pg MCHC (32.0-36.0) g/dL RDW Std Deviation (36.4-46.3) fL RDW Coeff of Sherif (11.5-14.5) % Plt Count (130-400) K/uL MPV (9.4-12.4) fL Immature Gran % (Auto) % Neut % (Auto) % Lymph % (Auto) % [place] % (Auto) % Eos % (Auto) % Baso % (Auto) % Neut # (Auto) (1.40-6.50) K/uL Lymph # (Auto) (1.20-3.40) K/uL [place] # (Auto) (0.11-0.59) K/uL Eos # (Auto) (0.00-0.50) K/uL Baso # (Auto) (0.00-0.20) K/uL Immature Gran # (Auto) (0.01-0.20) K/uL PT (9.0-12.0) Seconds INR (0.9-1.1) VBG pH 7.36 (7.36-7.41) VBG pCO2 46 (38-50) mmHg VBG pO2 28 mmHg VBG HCO3 26 mmol/L VBG O2 Saturation < 60.0 % VBG Base Excess 0.1 mEq/L POC Sodium 136 (135-144) mmol/L Sodium (136-145) mmol/L POC Potassium 4.3 (3.3-5.0) mmol/L Potassium (3.5-5.1) mmol/L POC Chloride 102 (101-112) mmol/L Chloride (98-107) mmol/L Carbon Dioxide (21-32) mmol/L POC Total CO2 27 (24-31) mmol/L Anion Gap (3-11) POC Anion Gap 13.0 L (16-25) mmol/L POC BUN 16 (7-18) mg/dl BUN (6-23) mg/dl Creatinine (0.6-1.2) mg/dl POC Creatinine 0.9 (0.6-1.3) mg/dl Est Cr Clr Drug Dosing ml/min eGFR BUN/Creatinine Ratio (10-20) Glucose (70-99(Fasting)) mg/dl POC Glucose (other) 135 H (70-99) mg/dl Lactate (0.4-2.0) mmol/L Calcium (8.6-10.3) mg/dl POC Ioniz Calcium Keily 1.21 (1.12-1.32) mmol/l Total Bilirubin (0.2-1.0) mg/dl AST (13-39) U/L ALT (7-52) U/L Alkaline Phosphatase (34-104) U/L Troponin I High Sens (0-14) pg/ml C-Reactive Protein (0-0.5) mg/dl Total Protein (6.0-8.3) gm/dl Albumin (3.4-5.0) gm/dl Globulin (2.5-4.0) gm/dl Albumin/Globulin Ratio (0.9-2) Lipase (11-82) U/L Procalcitonin Adenovirus (PCR) (NotDetected) B. pertussis DNA (PCR) (NotDetected) B.parapertussis DNA PCR (NotDetected) C. pneumoniae DNA (PCR) (NotDetected) Coronavirus OC43 (PCR) (NotDetected) Coronavirus HKU1 (PCR) (NotDetected) Coronavirus 229E (PCR) (NotDetected) SARS-CoV-2 (PCR) (NotDetected) Coronavirus NL63 (PCR) (NotDetected) Human Metapneumovir PCR (NotDetected) Influenza Type A (PCR) (NotDetected) Influenza Type B (PCR) (NotDetected) M. pneumoniae (PCR) (NotDetected) Parainfluenza 1 (PCR) (NotDetected) Parainfluenza 2 (PCR) (NotDetected) Parainfluenza 3 (PCR) (NotDetected) Parainfluenza 4 (PCR) (NotDetected) RSV (PCR) (NotDetected) Entero/Rhino (PCR) (NotDetected) Administered Medications Discontinued Medications Acetaminophen (Acetaminophen 1000 Mg/100 Ml Iv) Confirm Administered Dose 1,000 mg IV .STK-MED ONE Stop: 08/19/24 13:41 Last Admin: 08/19/24 13:43 Dose: Not Given Documented By: JOSE Sodium Chloride (Nss) 1,000 mls @ 999 mls/hr IV .Q1H1M ONE Stop: 08/19/24 12:49 Last Infusion: 08/19/24 13:14 Dose: Infused Documented By: Admin: 08/19/24 11:57 Dose: 999 mls/hr Documented By: JOSE Cefepime HCl (Maxipime 2000mg) 2,000 mg in 20 mls @ 5 mls/min IV NOW STA; Protocol Stop: 08/19/24 11:53 Last Admin: 08/19/24 12:37 Dose: 5 mls/min Documented By: JOSE Acetaminophen (Ofirmev) 1,000 mg in 100 mls @ 400 mls/hr IV NOW STA Stop: 08/19/24 13:54 Last Admin: 08/19/24 13:43 Dose: 400 mls/hr Documented By: JOSE Ioversol (Optiray 320 125ml) 120 ml IV ONCE ONE Stop: 08/19/24 12:18 Last Admin: 08/19/24 12:17 Dose: 120 ml Documented By: ARNOLD Ketorolac Tromethamine (Ketorolac Tromethamine 15 Mg/Ml Vial) 10 mg IV NOW STA Stop: 08/19/24 11:50 Last Admin: 08/19/24 12:37 Dose: 10 mg Documented By: JOSE Imaging Data Radiologist's Impression: Chest X-Ray 08/19/24 11:30 XR chest 1V portable CLINICAL HISTORY: Fever COMPARISON STUDY: Chest radiograph August 15, 2024. FINDINGS: Lung volumes are normal. There is possible mild right lower lung opacity. There is no pneumothorax or pleural effusion. The heart is mildly enlarged. Mediastinal contours are normal. There is no evidence for pulmonary edema. IMPRESSION: Possible mild right lower lung opacity. This could represent pneumonia. Radiographic follow-up to ensure resolution is recommended. ACT 112: Negative or not required by law. Electronically signed by: Jarrod Montelongo M.D. 08/19/2024 12:[address] 08/19/24 11:48 CT OF THE HEAD WITHOUT CONTRAST CLINICAL HISTORY: Altered mental status. Fevers. COMPARISON STUDY: MRI of the brain November 19, 2018. Head CT August 15, 2024. CT DOSE: 2837.71 mGy.cm TECHNIQUE: Helical axial images of the head were obtained without IV contrast. Automated exposure control was utilized for the study. A dose lowering technique was utilized adhering to the principles of ALARA. FINDINGS: No acute intracranial hemorrhage, midline shift or mass effect is present. White matter hypodensities are unchanged and favor small vessel disease. The ventricular system is unremarkable. The basal cisterns are patent. No extra-axial collections are present. There are no findings to suggest acute dural sinus thrombosis or acute territorial infarct. No significant calvarial abnormalities are present. Visualized portions of the sinuses and mastoid air cells are clear. IMPRESSION: No acute intracranial findings. No change in appearance of the brain. ACT 112: Negative or not required by law. Electronically signed by: Jarrod Montelongo M.D. 08/19/2024 12:41 PM Abdomen/Pelvis CT 08/19/24 11:[address] WITH IV CONTRAST CT DOSE: 2837.71mGy*cm HISTORY: fever, ams, back pain TECHNIQUE: Multiaxial CT images of the abdomen and pelvis were performed following the IV administration of 120 cc of Optiray, sagittal and coronal reconstructions were done. A dose lowering technique was utilized adhering to the principles of ALARA. COMPARISON STUDY: None FINDINGS: The patient is status post L4-5 laminectomy and fusion with pedicle screws and posterior metal rods. No malalignment identified. There is a saccular 2.5 cm infrarenal abdominal aortic aneurysm at the level of the L3 vertebral body. There is no evidence of extravasation or retroperitoneal extension. There is no periaortic adenopathy. The lung bases demonstrate a trace right pleural effusion and minor bibasilar discoid atelectasis. There is a hiatal hernia present. There is hepatic steatosis. There are small stones within the gallbladder with no evidence of biliary distention or inflammation. There are no pancreatic lesions identified. The adrenal glands and spleen are unremarkable. There is no obstructive uropathy. There are no renal calculi identified. In the pelvis, there is no evidence of diverticulitis. There is no free fluid in the cul-de-sac. The unopacified urinary bladder is negative. The appendix is not identified. IMPRESSION: No acute process identified. L4-5 laminectomy and fusion noted. 2.5 cm infrarenal saccular abdominal aortic aneurysm. Small hiatal hernia. Hepatic steatosis. Cholelithiasis. ACT 112: Negative or not required by law. The above report was generated using voice recognition software. It may contain grammatical, syntax or spelling errors. Electronically signed by: Carmina Castellanos M.D. 08/19/2024 1:01 PM Chest CTA 08/19/24 11:49 CT ANGIOGRAPHY OF THE CHEST, PULMONARY EMBOLUS PROTOCOL CLINICAL HISTORY: Fever. Hypoxia. Evaluate for pulmonary embolus. COMPARISON STUDY: Chest radiograph performed earlier today. Chest radiograph August 15, 2024. TECHNIQUE: Following IV administration of 120 mL of Optiray, helical axial images of the chest were obtained utilizing the pulmonary embolus protocol. Maximal intensity projections and sagittal and coronal reformats were viewed on an independent 3D workstation. IV contrast was administered without complication. Automated exposure control was utilized for the study. A dose lowering technique was utilized adhering to the principles of ALARA. FINDINGS: No pulmonary emboli are identified. There is no thoracic aortic dissection. There is mild dilatation of the central pulmonary arteries. The heart is mildly enlarged. There is moderate to extensive coronary artery calcification. There is moderate atherosclerotic plaque within the thoracic aorta. No pneumothorax or pleural effusion is present. Mild right lower lobe alveolar opacities are present. Additional subpleural enhancing opacity within the right lower lobe favors atelectasis. Central airways are patent. A few mildly enlarged right hilar lymph nodes measure up to 1.6 x 1.6 cm. The abdomen and pelvis CT will be reported separately. There is a small hiatal hernia. IMPRESSION: 1. No pulmonary emboli identified. 2. Mild right lower lobe alveolar opacities suggestive of an infectious process. 3. Mildly enlarged right hilar lymph nodes. These are likely benign. A chest CT in 3 months is recommended to ensure resolution. 4. Mild cardiomegaly. Moderate to extensive coronary artery calcification. ACT 112: Negative or not required by law. Electronically signed by: Jarrod Montelongo M.D. 08/19/2024 12:38 PM Discharge Plan Visit Data Chief Complaint: Illness ED Provider: Jl Bustos Discharge Problem: Generalized weakness, Acute confusion, RLL pneumonia Patient Disposition: Being Evaluated by Hospitalist Forms Stand Alone Forms: My [facility] Prescriptions Prescriptions: No Action multivitamin Tablet 1 tab PO DAILY atorvastatin 40 mg tablet 40 mg PO DAILY vitamin B complex Tablet Extended Release 1 tab PO DAILY donepezil 10 mg tablet 10 mg PO DAILY fexofenadine 180 mg Tablet 180 mg PO DAILY meclizine 25 mg tablet 25 mg PO TID PRN (Reason: Dizziness) gabapentin 300 mg capsule 300 mg PO TID fluticasone propionate 50 mcg/actuation Elfrida,Suspension 2 spray INTRANASAL HS duloxetine 30 mg capsule,delayed release(DR/EC) 30 mg PO BID aspirin 81 mg Capsule 81 mg PO DAILY cefuroxime axetil 500 mg tablet 500 mg PO BID 5 Days Qty: 10 0RF Rx Instructions: Take twice a day until course complete doxycycline hyclate 100 mg tablet 100 mg PO BID Qty: 13 0RF Rx Instructions: Take twice a day until course complete guaifenesin [Mucinex] 600 mg tablet extended release 12hr 600 mg PO BID PRN (Reason: cough) Qty: 14 0RF Rx Instructions: Take twice a day as needed for cough Referrals Referrals: Clayton Gómez DO [Primary Care Provider] -
[2024-08-19] MEDS: CEFEPIME 2000MG 2,000 MG/20 ML SYR IV STA (12:37)
[2024-08-19] MEDS: KETOROLAC TROMETHAMINE 15 MG/ML VIAL IV STA (12:37)
--- NOTE | 2024-08-19 12:41 | CT Scan Report ---
CT ANGIOGRAPHY OF THE CHEST, PULMONARY EMBOLUS PROTOCOL CLINICAL HISTORY: Fever. Hypoxia. Evaluate for pulmonary embolus. COMPARISON STUDY: Chest radiograph performed earlier today. Chest radiograph August 15, 2024. TECHNIQUE: Following IV administration of 120 mL of Optiray, helical axial images of the chest were o btained utilizing the pulmonary embolus protocol. Maximal intensity projections and sagittal and cor onal reformats were viewed on an independent 3D workstation. IV contrast was administered without co mplication. Automated exposure control was utilized for the study. A dose lowering technique was ut ilized adhering to the principles of ALARA. FINDINGS: No pulmonary emboli are identified. There is no thoracic aortic dissection. There is mild dilatation of the central pulmonary arteries. The heart is mildly enlarged. There is moderate to exte nsive coronary artery calcification. There is moderate atherosclerotic plaque within the thoracic aor ta. No pneumothorax or pleural effusion is present. Mild right lower lobe alveolar opacities are pres ent. Additional subpleural enhancing opacity within the right lower lobe favors atelectasis. Central airways are patent. A few mildly enlarged right hilar lymph nodes measure up to 1.6 x 1.6 cm. The abd omen and pelvis CT will be reported separately. There is a small hiatal hernia. IMPRESSION: 1. No pulmonary emboli identified. 2. Mild right lower lobe alveolar opacities suggestive of an infectious process. 3. Mildly enlarged right hilar lymph nodes. These are likely benign. A chest CT in 3 months is recomm ended to ensure resolution. 4. Mild cardiomegaly. Moderate to extensive coronary artery calcification. ACT 112: Negative or not required by law. Electronically signed by: Jarrod Montelongo M.D. 08/19/2024 12:38 PM
--- NOTE | 2024-08-19 12:42 | CT Scan Report ---
CT OF THE HEAD WITHOUT CONTRAST CLINICAL HISTORY: Altered mental status. Fevers. COMPARISON STUDY: MRI of the brain November 19, 2018. Head CT August 15, 2024. CT DOSE: 2837.71 mGy.cm TECHNIQUE: Helical axial images of the head were obtained without IV contrast. Automated exposure con trol was utilized for the study. A dose lowering technique was utilized adhering to the principles o f ALARA. FINDINGS: No acute intracranial hemorrhage, midline shift or mass effect is present. White matter hyp odensities are unchanged and favor small vessel disease. The ventricular system is unremarkable. The basal cisterns are patent. No extra-axial collections are present. There are no findings to suggest a cute dural sinus thrombosis or acute territorial infarct. No significant calvarial abnormalities are present. Visualized portions of the sinuses and mastoid air cells are clear. IMPRESSION: No acute intracranial findings. No change in appearance of the brain. ACT 112: Negative or not required by law. Electronically signed by: Jarrod Montelongo M.D. 08/19/2024 12:41 PM
--- NOTE | 2024-08-19 12:53 | History & Physical Report ---
<Statement entered by Marvin Garnett, DO - 08/19/24 14:26> I have seen and examined the patient and have discussed the case with the advance practice provider. I have reviewed the advanced practitioner's documentation, and I agree with, and take responsibility for that plan of care. Patient seen and evaluated while still in the ED. Awake but confused. She was able to answer simple questions. She has no real recollection however of last night or how she got to the emergency department. She denies any pain. On specific questioning she does state that she does have some coughing when eating and wakes up at night coughing sometimes. On exam, patient awake, moderately ill in appearance but nontoxic. Lungs decreased, coarse upper airway rhonchi Personally reviewed chest x-ray, right lower lobe infiltrate actually looks improved when compared to previous chest x-ray last week. Reviewed sensitivities, E. coli UTI was pansensitive. Patient returns to ED with recurrent metabolic encephalopathy, fever and tachycardia in the setting of underlying dementia. Patient was on appropriate antibiotics based on cultures for her urinary tract infection as well as chest x-ray seems to be improving. This raises a question of possible aspiration overnight as a source of her fever and encephalopathy. Adjusting antibiotics as outlined below Speech evaluation Continue to monitor for recurrent/new symptoms Sepsis fluids, monitor blood pressure for response. May need to consider repeat respiratory viral panel in 24 to 48 hours if patient continues to have fevers on antibiotics Further plan of care as outlined below I spent a total of 23 minutes coordinating, documenting, and providing care for this patient excluding time spent by another provider/QHP. Date of Service August 19, 2024 Assessment & Plan (1) CAP (community acquired pneumonia): (2) Acute metabolic encephalopathy: (3) Acute UTI: (4) Generalized weakness: (5) UTI (urinary tract infection): Plan This is an 79yo F with PMH of DM II, expressive aphasia, mild cognitive impairment, tobacco use, periodic limb movement disorder, IBS and other medical problems listed below who presents via EMS with confusion and was found to have acute metabolic encephalopathy 2/2 UTI and possible CAP. Acute metabolic encephalopathy Sepsis criteria - fever, hypotension, tachycardia RLL PNA E.coli UTI pansensitive Generalized weakness - AMS 2/2 infection - CXR with RLL noted but appears improved compared to previous imaging on 08/15. - WBC 8K(improved). previous Bcx negative, repeat pending - Treated previously with ceftriaxone/doxy, then Cefuroxime + doxycycline at discharge to complete 7 day course -Transition to levaquin IV, Repeated Blood cultures are pending, febrile with tmax 38.6. Tylenol ordered now IV as concern with confusion with ability to swallow. Speech therapy consult. Keep NPO for now, nursing to do bedside swallow eval. -Give 1 L bolus now, BP 85/61, then consider 250 additional bolus for Sepsis fluids - Continue incentive spirometry, flutter valve, PRN Mucinex at home - Resp Biofire negative DM II - Stable, diet controlled - A1c 6.6 in Jul 2024 Tobacco use disorder - Smoking 0.5 ppd, Smoking cessation once mentation improves Asymptomatic carotid stenosis HLD - Continue aspirin, statin Dementia Expressive aphasia at baseline -Baseline is oriented to person and place, not to time or situation - currently is not oriented to place and cannot answer what her birthday is -Lives at home with , walker prescribed on dc on 08/17 -Continue donepezil IBS Chronic constipation -Bowel regimen with daily Miralax DVT ppx: teds, scds Lines: Obtain 2 PIV FEN/GI: N.p.o. CODE: Full code Dispo: From home, likely to remain in the hospital x 1-2 days A total of 75 minutes were spent with greater than 50% of that time face to face with the patient, personally reviewing all current laboratories, imaging studies, past medication reconciliation, outpatient chart review, and discussion with specialists to collaborate care for the patient with attending. Please see attending documentation for corrections and/or additions. History of Present Illness Chief Complaint: Confusion Primary Care Provider: Clayton Gómez DO This is an 79yo F with PMH of DM II, expressive aphasia, mild cognitive impairment, tobacco use, periodic limb movement disorder, IBS, dementia, chronic constipation, who was recently hospitalized here from 08/15- with suspected acute metabolic encephalopathy due to acute UTI as well as possible right lower lobe pneumonia. During hospital stay was treated with Rocephin and doxycycline for atypical coverage. She had a white count of 19K, at that time and prior to that hospital stay was independent and able to complete all ADLs. She lives at home with . She was discharged home on cefuroxime as well as 7 days total course of doxycycline. She was also given a walker due to PTs recommendations upon discharge. Today the patient presents due to acute onset confusion which started early this morning per family. They are not present at bedside during the time of my evaluation but this is reported by ER staff as well as nursing. States that she had been doing very well at home since discharge. Last evening she went out with friends to dinner. This morning was unable to answer basic questions, does not know where she is, cannot answer what year it is or what her birthday is. Patient denies any acute focal pain. Does not think she took any medication. In the ER patient is found to have low blood pressures at 90 over 50s, temp of 38.6, CXR reveals a right lower lobe opacity which appears slightly improved compared to previous imaging on 08/15/2024. Concern for pneumonia not fully treated at this time. Urinalysis showed E. coli which was pansensitive so antibiotic therapy should be improving this. She was given 2 g cefepime in the ER, will switch over to IV Levaquin now, already received 1 L in the ER. At the time my visit her BP is 85/61, MAP 63. Ordered additional 1 L NSS bolus. Allergies Allergy/AdvReac Type Severity Reaction Status Date / Time No Known Drug Allergies Allergy Unknown NKDA Verified 06/13/16 09:23 pollen extracts Allergy Unknown HAYFEVER Verified 06/13/16 09:23 Dust Allergy Unknown HAYFEVER Uncoded 06/13/16 09:23 Home Medications Medication Instructions Recorded Confirmed Type aspirin 81 mg capsule 81 mg PO DAILY 08/15/24 08/19/24 History atorvastatin 40 mg tablet 40 mg PO DAILY 08/15/24 08/19/24 History donepezil 10 mg tablet 10 mg PO DAILY 08/15/24 08/19/24 History duloxetine 30 mg capsule,delayed 30 mg PO BID 08/15/24 08/19/24 History release fexofenadine 180 mg tablet 180 mg PO DAILY 08/15/24 08/19/24 History fluticasone propionate 50 2 spray intranasal HS 08/15/24 08/19/24 History mcg/actuation nasal spray,suspension gabapentin 300 mg capsule 300 mg PO TID 08/15/24 08/19/24 History meclizine 25 mg tablet 25 mg PO TID PRN Dizziness 08/15/24 08/19/24 History multivitamin 1 tab PO DAILY 08/15/24 08/19/24 History vitamin B complex 1 tab PO DAILY 08/15/24 08/19/24 History cefuroxime axetil 500 mg tablet 500 mg PO BID 5 days #10 tabs 08/17/24 08/19/24 Rx doxycycline hyclate 100 mg tablet 100 mg PO BID #13 tabs 08/17/24 08/19/24 Rx guaifenesin 600 mg tablet, 600 mg PO BID PRN cough #14 tabs 08/17/24 08/19/24 Rx extended release 12 hr (Mucinex) Past Med/Surg History Problem List (Updated 08/19/24 @ 12:48 by Azalea Max PA-C) CAP (community acquired pneumonia) Acute UTI (Acute) Leukocytosis (Acute) Acute confusion (Acute) Generalized weakness UTI (urinary tract infection) Acute metabolic encephalopathy Medical History Tobacco use disorder Periodic limb movement disorder (PLMD) MCI (mild cognitive impairment) with memory loss Expressive aphasia IBS (irritable bowel syndrome) Dyslipidemia DM (diabetes mellitus), type 2 Lumbar stenosis Surgical History Hx of tonsillectomy Hx of appendectomy H/O: hysterectomy S/P lumbar spinal fusion Family History Other Alzheimer disease Cancer Social History Smoking Status: Unknown if ever smoked Tobacco Type: Cigarettes Second Hand Exposure: No; Do You Dip or Chew Tobacco: No; Hx Alcohol Use: No Hx Substance Use: No Preferred Language: Nigerien Communication Ability: Effective 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 No wheeze or rhonchi., Cardiac: Sinus tachycardic with HR mid 90s, no murmur, no JVD, normal peripheral pulses, good capillary refill Abdominal: NABS x 4 quadrants, soft, nondistended, nontender to palpation, no rebound or guarding Extremities: Normal inspection, no peripheral edema or erythema, calfs nontender to palpation Psych: Normal mood and affect Neuro: AA, not oriented to time/place/or birthday. 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, strength intact bilaterally and rated 5/5 in BLE, no motor deficits, speech is clear, no peripheral sensory deficits Results & Data Results & Data Vital Signs (Past 12 Hours) Vital Signs Temp Pulse Resp BP Pulse Ox O2 Del Method 08/19/24 11:23 102 H 08/19/24 11:17 38.6 C H 105 H 20 106/60 93 Room Air Laboratory Results 08/19/24 12:04 Aerobic Blood Culture - Pending Blood Anaerobic Blood Culture - Pending 08/19/24 11:30 Aerobic Blood Culture - Pending Blood Anaerobic Blood Culture - Pending 08/19/24 08/19/24 08/19/24 12:02 11:55 11:30 WBC RBC Hgb POC Hgb 12.9 Hct POC Hct 38 MCV MCH MCHC RDW Std Deviation RDW Coeff of Sherif Plt Count MPV Immature Gran % (Auto) Neut % (Auto) Lymph % (Auto) Davidson % (Auto) Eos % (Auto) Baso % (Auto) Neut # (Auto) Lymph # (Auto) Davidson # (Auto) Eos # (Auto) Baso # (Auto) Immature Gran # (Auto) PT INR VBG pH 7.36 VBG pCO2 46 VBG pO2 28 VBG HCO3 26 VBG O2 Saturation < 60.0 VBG Base Excess 0.1 POC Sodium 136 Sodium POC Potassium 4.3 Potassium POC Chloride 102 Chloride Carbon Dioxide POC Total CO2 27 Anion Gap POC Anion Gap 13.0 L POC BUN 16 BUN Creatinine POC Creatinine 0.9 Est Cr Clr Drug Dosing eGFR BUN/Creatinine Ratio Glucose POC Glucose (other) 135 H Lactate 1.6 Calcium POC Ioniz Calcium Keily 1.21 Total Bilirubin AST ALT Alkaline Phosphatase Troponin I High Sens C-Reactive Protein Total Protein Albumin Globulin Albumin/Globulin Ratio Lipase Procalcitonin Adenovirus (PCR) Not Detected B. pertussis DNA (PCR) Not Detected B.parapertussis DNA PCR Not Detected C. pneumoniae DNA (PCR) Not Detected Coronavirus OC43 (PCR) Not Detected Coronavirus HKU1 (PCR) Not Detected Coronavirus 229E (PCR) Not Detected SARS-CoV-2 (PCR) Not Detected Coronavirus NL63 (PCR) Not Detected Human Metapneumovir PCR Not Detected Influenza Type A (PCR) Not Detected Influenza Type B (PCR) Not Detected M. pneumoniae (PCR) Not Detected Parainfluenza 1 (PCR) Not Detected Parainfluenza 2 (PCR) Not Detected Parainfluenza 3 (PCR) Not Detected Parainfluenza 4 (PCR) Not Detected RSV (PCR) Not Detected Entero/Rhino (PCR) Not Detected 08/19/24 08/19/24 11:27 11:27 WBC 8.11 RBC 4.49 Hgb 13.7 POC Hgb Hct 41.7 POC Hct MCV 92.9 MCH 30.5 MCHC 32.9 RDW Std Deviation 42.5 RDW Coeff of Sherif 12.4 Plt Count 241 MPV 9.3 L Immature Gran % (Auto) 0.5 Neut % (Auto) 77.3 Lymph % (Auto) 8.8 Davidson % (Auto) 12.7 Eos % (Auto) 0.2 Baso % (Auto) 0.5 Neut # (Auto) 6.27 Lymph # (Auto) 0.71 L Davidson # (Auto) 1.03 H Eos # (Auto) 0.02 Baso # (Auto) 0.04 Immature Gran # (Auto) 0.04 PT 10.9 INR 1.0 VBG pH VBG pCO2 VBG pO2 VBG HCO3 VBG O2 Saturation VBG Base Excess POC Sodium Sodium 137 POC Potassium Potassium 4.3 POC Chloride Chloride 101 Carbon Dioxide 29 POC Total CO2 Anion Gap 7 POC Anion Gap POC BUN BUN 15 Creatinine 0.89 POC Creatinine Est Cr Clr Drug Dosing 49.5 eGFR 65.09 BUN/Creatinine Ratio 16.9 Glucose 140 H POC Glucose (other) Lactate Calcium 10.1 POC Ioniz Calcium Keily Total Bilirubin 0.4 AST 20 ALT 19 Alkaline Phosphatase 63 Troponin I High Sens 9.1 C-Reactive Protein 1.37 H Total Protein 7.5 Albumin 4.3 Globulin 3.2 Albumin/Globulin Ratio 1.3 Lipase Cancelled 10 L Procalcitonin Cancelled Adenovirus (PCR) B. pertussis DNA (PCR) B.parapertussis DNA PCR C. pneumoniae DNA (PCR) Coronavirus OC43 (PCR) Coronavirus HKU1 (PCR) Coronavirus 229E (PCR) SARS-CoV-2 (PCR) Coronavirus NL63 (PCR) Human Metapneumovir PCR Influenza Type A (PCR) Influenza Type B (PCR) M. pneumoniae (PCR) Parainfluenza 1 (PCR) Parainfluenza 2 (PCR) Parainfluenza 3 (PCR) Parainfluenza 4 (PCR) RSV (PCR) Entero/Rhino (PCR) Diagnostic Findings Chest X-Ray 08/19/24 11:30 XR chest 1V portable CLINICAL HISTORY: Fever COMPARISON STUDY: Chest radiograph August 15, 2024. FINDINGS: Lung volumes are normal. There is possible mild right lower lung opacity. There is no pneumothorax or pleural effusion. The heart is mildly enlarged. Mediastinal contours are normal. There is no evidence for pulmonary edema. IMPRESSION: Possible mild right lower lung opacity. This could represent pneumonia. Radiographic follow-up to ensure resolution is recommended. ACT 112: Negative or not required by law. Electronically signed by: Jarrod Montelongo M.D. 08/19/2024 12:[address] 08/19/24 11:48 CT OF THE HEAD WITHOUT CONTRAST CLINICAL HISTORY: Altered mental status. Fevers. COMPARISON STUDY: MRI of the brain November 19, 2018. Head CT August 15, 2024. CT DOSE: 2837.71 mGy.cm TECHNIQUE: Helical axial images of the head were obtained without IV contrast. Automated exposure control was utilized for the study. A dose lowering technique was utilized adhering to the principles of ALARA. FINDINGS: No acute intracranial hemorrhage, midline shift or mass effect is present. White matter hypodensities are unchanged and favor small vessel disease. The ventricular system is unremarkable. The basal cisterns are patent. No extra-axial collections are present. There are no findings to suggest acute dural sinus thrombosis or acute territorial infarct. No significant calvarial abnormalities are present. Visualized portions of the sinuses and mastoid air cells are clear. IMPRESSION: No acute intracranial findings. No change in appearance of the brain. ACT 112: Negative or not required by law. Electronically signed by: Jarrod Montelongo M.D. 08/19/2024 12:41 PM Abdomen/Pelvis CT 08/19/24 11:[address] WITH IV CONTRAST CT DOSE: 2837.71mGy*cm HISTORY: fever, ams, back pain TECHNIQUE: Multiaxial CT images of the abdomen and pelvis were performed following the IV administration of 120 cc of Optiray, sagittal and coronal reconstructions were done. A dose lowering technique was utilized adhering to the principles of ALARA. COMPARISON STUDY: None FINDINGS: The patient is status post L4-5 laminectomy and fusion with pedicle screws and posterior metal rods. No malalignment identified. There is a saccular 2.5 cm infrarenal abdominal aortic aneurysm at the level of the L3 vertebral body. There is no evidence of extravasation or retroperitoneal extension. There is no periaortic adenopathy. The lung bases demonstrate a trace right pleural effusion and minor bibasilar discoid atelectasis. There is a hiatal hernia present. There is hepatic steatosis. There are small stones within the gallbladder with no evidence of biliary distention or inflammation. There are no pancreatic lesions identified. The adrenal glands and spleen are unremarkable. There is no obstructive uropathy. There are no renal calculi identified. In the pelvis, there is no evidence of diverticulitis. There is no free fluid in the cul-de-sac. The unopacified urinary bladder is negative. The appendix is not identified. IMPRESSION: No acute process identified. L4-5 laminectomy and fusion noted. 2.5 cm infrarenal saccular abdominal aortic aneurysm. Small hiatal hernia. Hepatic steatosis. Cholelithiasis. ACT 112: Negative or not required by law. The above report was generated using voice recognition software. It may contain grammatical, syntax or spelling errors. Electronically signed by: Carmina Castellanos M.D. 08/19/2024 1:01 PM Chest CTA 08/19/24 11:49 CT ANGIOGRAPHY OF THE CHEST, PULMONARY EMBOLUS PROTOCOL CLINICAL HISTORY: Fever. Hypoxia. Evaluate for pulmonary embolus. COMPARISON STUDY: Chest radiograph performed earlier today. Chest radiograph August 15, 2024. TECHNIQUE: Following IV administration of 120 mL of Optiray, helical axial images of the chest were obtained utilizing the pulmonary embolus protocol. Maximal intensity projections and sagittal and coronal reformats were viewed on an independent 3D workstation. IV contrast was administered without compl ication. Automated exposure control was utilized for the study. A dose lowering technique was utilized adhering to the principles of ALARA. FINDINGS: No pulmonary emboli are identified. There is no thoracic aortic dissection. There is mild dilatation of the central pulmonary arteries. The heart is mildly enlarged. There is moderate to extensive coronary artery calcification. There is moderate atherosclerotic plaque within the thoracic aorta. No pneumothorax or pleural effusion is present. Mild right lower lobe alveolar opacities are present. Additional subpleural enhancing opacity within the right lower lobe favors atelectasis. Central airways are patent. A few mildly enlarged right hilar lymph nodes measure up to 1.6 x 1.6 cm. The abdomen and pelvis CT will be reported separately. There is a small hiatal hernia. IMPRESSION: 1. No pulmonary emboli identified. 2. Mild right lower lobe alveolar opacities suggestive of an infectious process. 3. Mildly enlarged right hilar lymph nodes. These are likely benign. A chest CT in 3 months is recommended to ensure resolution. 4. Mild cardiomegaly. Moderate to extensive coronary artery calcification. ACT 112: Negative or not required by law. Electronically signed by: Jarrod Montelongo M.D. 08/19/2024 12:38 PM ECG Additional Comments: NSR. No acute ST wave changes or signs of ischemia. Code Status & VTE Plan Code Status Full code
--- NOTE | 2024-08-19 13:02 | CT Scan Report ---
ABDOMEN AND PELVIS CT WITH IV CONTRAST CT DOSE: 2837.71mGy*cm HISTORY: fever, ams, back pain TECHNIQUE: Multiaxial CT images of the abdomen and pelvis were performed following the IV administrat ion of 120 cc of Optiray, sagittal and coronal reconstructions were done. A dose lowering technique was utilized adhering to the principles of ALARA. COMPARISON STUDY: None FINDINGS: The patient is status post L4-5 laminectomy and fusion with pedicle screws and posterior me robyn rods. No malalignment identified. There is a saccular 2.5 cm infrarenal abdominal aortic aneurysm at the level of the L3 vertebral body . There is no evidence of extravasation or retroperitoneal extension. There is no periaortic adenopat hy. The lung bases demonstrate a trace right pleural effusion and minor bibasilar discoid atelectasis. Th ere is a hiatal hernia present. There is hepatic steatosis. There are small stones within the gallbladder with no evidence of biliary distention or inflammation. There are no pancreatic lesions identified. The adrenal glands and splee n are unremarkable. There is no obstructive uropathy. There are no renal calculi identified. In the pelvis, there is no evidence of diverticulitis. There is no free fluid in the cul-de-sac. The unopacified urinary bladder is negative. The appendix is not identified. IMPRESSION: No acute process identified. L4-5 laminectomy and fusion noted. 2.5 cm infrarenal saccular abdominal aortic aneurysm. Small hiatal hernia. Hepatic steatosis. Cholelithiasis. ACT 112: Negative or not required by law. The above report was generated using voice recognition software. It may contain grammatical, syntax o r spelling errors. Electronically signed by: Carmina Castellanos M.D. 08/19/2024 1:01 PM
[2024-08-19 13:03] LABS: Adenovirus PCR Not Detected (NotDetected); Bordetella parapertussis PCR Not Detected (NotDetected); Bordetella pertussis PCR Not Detected (NotDetected); Chlamydia pneumoniae PCR Not Detected (NotDetected); Coronavirus 229E PCR Not Detected (NotDetected); Coronavirus CoV-2 (COVID19)PCR Not Detected (NotDetected); Coronavirus HKU1 PCR Not Detected (NotDetected); Coronavirus NL63 PCR Not Detected (NotDetected); Coronavirus OC43PCR Not Detected (NotDetected); Human Metapneumovirus PCR Not Detected (NotDetected); Influenza A PCR Not Detected (NotDetected); Influenza B PCR Not Detected (NotDetected); Mycoplasma pneumoniae PCR Not Detected (NotDetected); Parainfluenza Virus 1 PCR Not Detected (NotDetected); Parainfluenza Virus 2 PCR Not Detected (NotDetected); Parainfluenza Virus 3 PCR Not Detected (NotDetected); Parainfluenza Virus 4 PCR Not Detected (NotDetected); Respiratory Syncytial VirusPCR Not Detected (NotDetected); Rhinovirus/Enterovirus PCR Not Detected (NotDetected)
[2024-08-19] MEDS: ACETAMINOPHEN 1000 MG/100 ML IV IV ONE (13:43)
[2024-08-19] MEDS: ACETAMINOPHEN 1,000 MG/100 ML VIAL IV STA (13:43)
[2024-08-19] MEDS: SODIUM CHLORIDE 0.9% 500 ML IV ONE (15:09)
[2024-08-19] MEDS: levoFLOXacin/D5W 750 MG/150 ML BAG IV ONE (15:13)
[2024-08-19 15:30] LABS: Appearance Urine Clear (Clear); Bacteria Urine Automated None Seen (None Seen); Bilirubin Urine Negative (Negative); Blood Urine Negative (Negative); Cast Urine Automated 0-2 /lpf (0-2); Color Urine Dark Yellow; Epithelial Cell Urine Auto 0-2 /hpf (0-2); Glucose Urine UA Negative (Negative); Ketones Urine Trace (Negative); Leukocyte Esterase Urine Negative (Negative); Nitrite Urine Negative (Negative); Protein Urine Trace (Negative); RBC Urine Automated 0-2 /hpf (0-2); Specific Gravity Urine > 1.045 (1.000-1.030); Urobilinogen Urine Negative (Negative); WBC Urine Automated 0-5 /hpf (0-5); pH Urine 5.5 (4.5-7.5)
[2024-08-19] MEDS: SODIUM CHLORIDE 0.9% 1,000 ML IV SCH (15:39)
--- NOTE | 2024-08-19 16:09 | Electrocardiogram Report ---
Test Reason : Blood Pressure : */* mmHG Vent. Rate : 93 BPM Atrial Rate : 93 BPM P-R Int : 186 ms QRS Dur : 78 ms QT Int : 330 ms P-R-T Axes : 61 76 90 degrees QTcB Int : 410 ms Normal sinus rhythm Normal ECG When compared with ECG of 15-Aug-2024 12:07, No significant change was found Confirmed by Jose D Bell ([id number]) on 08/19/2024 4:09:11 PM Referred By: REFERRED SELF Confirmed By: Jose D Bell
[2024-08-19] MEDS ORDERED: ONDANSETRON INJ 2 MG/ML 2 ML VIAL IV PRN (16:53)
[2024-08-19] MEDS: GABAPENTIN 300 MG CAP PO SCH (17:45)
--- OUTSIDE RECORDS SUMMARY | 2024-08-19 18:10 | External Medical Summary | Summary of Care ---
Author Name Unknown Organization [facility] Address [address] [facility] [place] [address] Phone [phone] Care Team Providers Care Operator Control Room Name Role Phone Clayton Gómez DO Primary Care Provider Reason for Visit * Reason Onset Date Comments Test Results 08/15/2024 Encounter Details Date Type Department Care Team (Late st Contact Info) Description 08/15/2024 Telephone Neurology [facility] [address] [place] [address] Jaymie King MD [address] [place] [address] Test Results Allergies Active Allergy Reactions Criticality [...] mRNA, LNP-s, No Pre serve, 2-Dose Series (Taggo) 09/22/2020,09/01/2020 COVID-19, LNP-s, No Preserve , Chad-sucrose, Ages 12+ (Taggo) 12/28/2021 COVID-19, MRNA-LNP, PF, 30 M CG/0.3 mL, 12 YRS AND ABOVE, IM ([facility]) 04/01/2024 Covid-19, Mrna, Lnp-s, Pf, B ivalent, 30 Mcg, IM, 12 yrs and above (Taggo) 07/19/2022 Pneumococcal Conjugate Vacc, 13 Valent (Prevnar) 12/09/2014 Pneumococcal Conjugate Vacci ne, 20-valent ([id number]) 04/01/2024 Pneumococcal Polysaccharide PPV23 (Pneumovax) 03/21/2008 RSV [...] - Linnette Gore MED ASSIST - 08/15/2024 2:55 PM EST Letter sent * Telephone Encounter - Feli Escobedo LPN [...] AM EST Nutrition Services Nutrition Services [address] [facility] [address] [place] [address] Nikole Frank RDN [address] [place] [address] 08/22/2024 10:30 AM EST NeuroDiagnostic Study Neurophysiology [facility] [address] [place] [address] Sp, Neurophys Tech 200 [place] [address] 09/12/2024 11:15 AM EDT Imaging Radiology [facility] 1st [facility] [address] [place] [phone] 11/29/2024 9:20 AM EDT Office Visit Family Practice [address] [facility] [address] [place] [address] Clayton Gómez, [address] [place] [address] 01/21/2025 10:40 AM EDT Office Visit Dermatology [facility] [address] [facility] [place] [address] Candace Washington PA-C [address] [facility] [place] [address] 08/01/2025 10:15 AM EST Imaging Radiology, [place] [address] [place] [address] Health Maintenance Due Date Last Done Comments DISCUSS TOBACCO CESSATION (REFER TO SMARTSET #329) 1945 Adult Wellness Visit 10/16/2024 10/17/2023, 10/12/19 [...] this encounter Medical Devices Implanted Type Area Cat Swamper Device Identifier Shelf Expiration Date Model / Serial / Lot Clip Quick 2.8mm 230cm - [id number] Implanted:Qty: 3 on 01/02/2020 by Mike Beasley MD at ENDOSCOPY [facility] [employer] 06/01/2022 [id number]-202UR.A / / [id number] Description:Quick clip pro x 3 placed at rectal polypectomy site documented as of this encounter Care Teams Operator Control Room Relationship Specialty Start Date End Date Clayton Gómez DO [address] [place] [address] PCP - General Internal Medicine 04/01/24 documented as of this encounter
--- OUTSIDE RECORDS SUMMARY | 2024-08-19 18:10 | External Medical Summary | Summary of Care ---
Author Name Unknown Organization [facility] Address [address] [facility] [place] [address] Phone [phone] Care Team Providers Care Director River Restoration Name Role Phone Clayton Gómez DO Primary Care Provider Reason for Visit * Reason Onset Date Comments Neuorological Problem 08/15/2024 Encounter Details Date Type Department Care Team (Late st Contact Info) Description 08/15/2024 Telephone Family Practice [address] [place] [address] [address] [place] [address] Clayton Gómez DO [address] [place] [address] Neuorological Problem Allergies Active Allergy Reactions Criticality Noted Date [...] mRNA, LNP-s, No Pre serve, 2-Dose Series (mytrax) 09/22/2020,09/01/2020 COVID-19, LNP-s, No Preserve , Chad-sucrose, Ages 12+ (mytrax) 12/28/2021 COVID-19, MRNA-LNP, PF, 30 M CG/0.3 mL, 12 YRS AND ABOVE, IM [facility] 04/01/2024 Covid-19, Mrna, Lnp-s, Pf, B ivalent, 30 Mcg, IM, 12 yrs and above (mytrax) 07/19/2022 Pneumococcal Conjugate Vacc, 13 Valent (Prevnar) 12/09/2014 Pneumococcal Conjugate Vacci ne, 20-valent ([id number]) 04/01/2024 Pneumococcal Polysaccharide PPV23 (Pneumovax) 03/21/2008 RSV [...] Telephone Encounter - Clayton Gómez DO - 08/15/2024 1:41 PM EST Possible CVA Agree with ED evaluation * Telephone Encounter - Christen Zuluaga RN - 08/15/2024 10:21 AM EST Patient's niece, Nelda is calling. States pt had an urinary accident trying to get to the bathroom-not totally uncommon for her. But she is unable to walk-no strength in her legs. She does have good strength in both hands, no facial drooping noted. She is having difficulty talking-can't get the words out/find the words. She had difficulty taking her meds this morning-would try to get up to mouth but would let them fall-had to take one by one. This is out of character for her. Discussed possiblestroke symptoms and recommended ER evaluation-recommended EMS to transport. Family agreeable. documented in this encounter Plan of Treatment Upcoming Encounters Date Type Department Care Team (Late st Contact Info) Description 08/21/2024 10:00 AM EST Nutrition Services Nutrition Services 65 [facility] 293 [place] [address] Nikole Frank RDN [address] [place] [address] 08/22/2024 10:30 AM EST NeuroDiagnostic Study Neurophysiology [facility] [address] [place] [address] Sp, Neurophys Tech 200 [facility] [place] [address] 09/12/2024 11:15 AM EDT Imaging Radiology [address] [place] [phone] 11/29/2024 9:20 AM EDT Office Visit Family Practice 65 [facility] [address] [place] [address] Clayton Gómez, [address] [place] [address] 01/21/2025 10:40 AM EDT Office Visit Dermatology [facility] [address] [facility] [place] [address] Candace Washington PA-C [address] [facility] [place] [address] 08/01/2025 10:15 AM EST Imaging Radiology, [place] [address] [place] [address] Health Maintenance Due Date Last Done Comments DISCUSS TOBACCO CESSATION (REFER TO SMARTSET #7861) 1945 Adult Wellness Visit 10/16/2024 10/17/2023, 10/12/19 [...] this encounter Medical Devices Implanted Type Area Digital Marketing Officer Device Identifier Shelf Expiration Date Model / Serial / Lot Clip Quick 2.8mm 230cm - [id number] Implanted:Qty: 3 on 01/02/2020 by Mike Beasley MD at ENDOSCOPY [facility] [employer] 06/01/2022 [id number]-202UR.A / / [id number] Description:Quick clip pro x 3 placed at rectal polypectomy site documented as of this encounter Care Teams Director River Restoration Relationship Specialty Start Date End Date Clayton Gómez DO 293 [place] [address] PCP - General Internal Medicine 04/01/24 documented as of this encounter
--- OUTSIDE RECORDS SUMMARY | 2024-08-19 18:10 | External Medical Summary | Summary of Care ---
Author Name Unknown Organization [facility] Address [address] [facility] [place] [address] Phone [phone] Care Team Providers Care Teachers Assistant Name Role Phone Clayton Gómez DO Primary Care Provider Reason for Visit * Reason Onset Date Comments Test Results 08/15/2024 Encounter Details Date Type Department Care Team (Late st Contact Info) Description 08/15/2024 Telephone Neurology [facility] [address] [facility] [place] [address] Jaymie King MD [address] [place] [facility] [place] [address] Test Results Allergies Active Allergy Reactions Criticality [...] mRNA, LNP-s, No Pre serve, 2-Dose Series (Electronic Brailler) 09/22/2020,09/01/2020 COVID-19, LNP-s, No Preserve , Chad-sucrose, Ages 12+ (Electronic Brailler) 12/28/2021 COVID-19, MRNA-LNP, PF, 30 M CG/0.3 mL, 12 YRS AND ABOVE, IM ([facility]) 04/01/2024 Covid-19, Mrna, Lnp-s, Pf, B ivalent, 30 Mcg, IM, 12 yrs and above (Electronic Brailler) 07/19/2022 Pneumococcal Conjugate Vacc, 13 Valent (Prevnar) 12/09/2014 Pneumococcal Conjugate Vacci ne, 20-valent ([id number]) 04/01/2024 Pneumococcal Polysaccharide PPV23 (Pneumovax) 03/21/2008 RSV [...] AM EST Nutrition Services Nutrition Services 65 [facility] [address] [place] [address] Nikole Frank RDN [address] [place] [address] 08/22/2024 10:30 AM EST NeuroDiagnostic Study Neurophysiology [facility] [address] [facility] [place] [address] Sp, Neurophys Tech 200 [facility] [place] [address] 09/12/2024 11:15 AM EDT Imaging Radiology [facility] 1st [facility] [address] [place] [phone] 11/29/2024 9:20 AM EDT Office Visit Family Practice [address] [facility] [address] [place] [address] Clayton Gómez, [address] [place] [address] 01/21/2025 10:40 AM EDT Office Visit Dermatology [facility] [address] [facility] [place] [address] Candace Washington PA-C [address] [facility] [place] [address] 08/01/2025 10:15 AM EST Imaging Radiology, [place] [address] [place] [address] Health Maintenance Due Date Last Done Comments DISCUSS TOBACCO CESSATION (REFER TO SMARTSET #3292) 1945 Adult Wellness Visit 10/16/2024 10/17/2023, 10/12/19 [...] this encounter Medical Devices Implanted Type Area Chimney Mechanic Device Identifier Shelf Expiration Date Model / Serial / Lot Clip Quick 2.8mm 230cm - [id number] Implanted:Qty: 3 on 01/02/2020 by Mike Beasley MD at ENDOSCOPY [facility] [place] 06/01/2022 HX-202UR.A / / [id number] Description:Quick clip pro x 3 placed at rectal polypectomy site documented as of this encounter Care Teams Teachers Assistant Relationship Specialty Start Date End Date Clayton Gómez DO [address] [place] [address] PCP - General Internal Medicine 04/01/24 documented as of this encounter
[2024-08-19] MEDS: ACETAMINOPHEN 325 MG TAB PO PRN (23:11)
[2024-08-20] MEDS: KETOROLAC TROMETHAMINE 15 MG/ML VIAL IV ONE ×2 (04:22→05:36)
[2024-08-20] MEDS: PIPERACILLIN/TAZOBACTAM 4.5 GM/100 ML BAG IV ONE (05:57)
[2024-08-20 06:54] LABS: Hematocrit (blood only) 37.4 % (37.0-47.0); Hemoglobin 11.9 g/dl (12.0-16.0); Mean Corpuscular Hemoglobin 30.2 pg (25.0-34.0); Mean Corpuscular Hgb Conc 31.8 g/dL (32.0-36.0); Mean Corpuscular Volume 94.9 fL (80.0-100.0); Mean Platelet Volume 9.2 fL (9.4-12.4); Platelet Count 190 K/uL (130-400); RDW Standard Deviation 44.9 fL (36.4-46.3); Red Blood Count 3.94 M/uL (4.20-5.40); White Blood Count 5.04 K/ul (4.8-10.8)
[2024-08-20 07:18] LABS: Anion Gap 5 (3-11); BUN Creatinine Ratio 17.8 (10-20); Blood Urea Nitrogen 13 mg/dl (6-23); Calcium 8.1 mg/dl (8.6-10.3); Carbon Dioxide 23 mmol/L (21-32); Chloride 109 mmol/L (98-107); Creatinine Clr Calc Pharmacy 60.4 ml/min; Glucose 142 mg/dl (70-99(Fasting)); Sodium 137 mmol/L (136-145)
[2024-08-20] MEDS: VITAMIN B COMPLEX TAB PO SCH (07:59)
[2024-08-20] MEDS: MULTIVITAMIN TAB PO SCH (07:59)
[2024-08-20] MEDS: DONEPEZIL HCL 10 MG TAB PO SCH (08:00)
[2024-08-20] MEDS: ATORVASTATIN 40 MG TAB PO SCH (08:00)
[2024-08-20] MEDS: guaiFENesin 600 MG TABCR PO PRN (08:00)
[2024-08-20] MEDS: FEXOFENADINE HCL 180 MG TAB PO SCH (09:36)
[2024-08-20] MEDS: ASPIRIN 81 MG ECTAB PO SCH (09:36)
[2024-08-20] MEDS: PIPERACILLIN/TAZOBACTAM 4.5 GM/100 ML BAG IV SCH (12:33)
--- NOTE | 2024-08-20 12:54 | Hospitalist Progress Note ---
Date of Service August 20, 2024 Assessment & Plan (1) CAP (community acquired pneumonia): (2) Acute metabolic encephalopathy: (3) Acute UTI: (4) Generalized weakness: (5) UTI (urinary tract infection): Plan Patient is an 79yr F with PMH of DM II, expressive aphasia, mild cognitive impairment, tobacco use, periodic limb movement disorder, IBS and other medical problems listed below who presents via EMS with confusion and was found to have acute metabolic encephalopathy 2/2 UTI and possible CAP. Sepsis Right lower lobe pneumonia Acute metabolic encephalopathy secondary to above E.coli UTI Generalized weakness --CT Head:No acute intracranial findings. No change in appearance of the brain. --CT ABD:No acute process identified. --Chest CTA:No pulmonary emboli identified. Mild right lower lobe alveolar opacities suggestive of an infectious process. Mildly enlarged right hilar lymph nodes. These are likely benign. A chest CT in 3 months is recommended to ensure resolution. Mild cardiomegaly. Moderate to extensive coronary artery calcification. 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 Asymptomatic carotid stenosis HLD - Continue aspirin, statin Dementia Expressive aphasia at baseline -Baseline is oriented to person and place only -Lives at home with , walker prescribed on dc on 08/17 -Continue donepezil IBS Chronic constipation -Continue Bowel regimen DVT Px: Heparin SQ CODE STATUS: Full code Disposition PT OT prior to discharge Admission and Anticipated Discharge Date Admission Date: August 19, 2024 Subjective Patient is seen and examined at bedside Pleasantly confused, poor historian Reports minimal dry cough but otherwise no complaints Denies any chest pain, dyspnea, nausea, vomiting, abdominal pain Saturating well on room air Review of Systems Review of Systems: All systems reviewed & are unremarkable except as noted in Subjective Physical Exam Physical Exam: Physical Exam: Vitals signs as noted above General Appearance:Moderately built and nourished, no apparent distress Head: normocephalic, Atraumatic Eyes: normal inspection, EOMI Neck: supple, Trachea midline Respiratory/Chest: Decreased breath sounds, CTA, No accessory muscle use Cardiovascular: S1, S2, No murmur Abdomen/GI:Soft, Non tender, Bowel sounds present Extremities/Musculoskeletal:normal inspection, Trace edema Neurologic/Psych:AAOX1, grossly no focal neurological deficits Skin: normal color, warm Results & Data Results & Data Vital Signs (Past 12 Hours) Vital Signs Temp Pulse Pulse Resp BP Pulse Ox O2 Del Method 08/20/24 11:10 36.9 C 62 16 110/70 95 Room Air 08/20/24 10:41 Nasal Cannula 08/20/24 07:17 74 08/20/24 07:05 36.3 C L 70 16 105/65 94 Nasal Cannula 08/20/24 06:02 36.5 C 08/20/24 05:23 38.2 C H 08/20/24 04:26 37.2 C 08/20/24 03:08 38.3 C H 80 16 121/69 98 Nasal Cannula O2 Flow Rate 08/20/24 11:10 08/20/24 10:41 2 08/20/24 07:17 08/20/24 07:05 2 08/20/24 06:02 08/20/24 05:23 08/20/24 04:26 08/20/24 03:08 2 Laboratory Results Short CBC 08/20/24 Range/Units 06:31 WBC 5.04 (4.8-10.8) K/ul Hgb 11.9 L (12.0-16.0) g/dl Hct 37.4 (37.0-47.0) % Plt Count 190 (130-400) K/uL BMP 08/20/24 08/20/24 06:31 08:12 Sodium 137 Potassium TNP 3.7 Chloride 109 H Carbon Dioxide 23 BUN 13 Creatinine 0.73 Glucose 142 H Calcium 8.1 L D Urine 08/19/24 Range/Units 14:38 Urine Color Dark Yellow Urine Appearance Clear (Clear) Urine pH 5.5 (4.5-7.5) Ur Specific [place] > 1.045 H (1.000-1.030) Urine Protein Trace H (Negative) Urine Glucose (UA) Negative (Negative)
[2024-08-20] MEDS: levoFLOXacin/D5W 750 MG/150 ML BAG IV SCH (14:59)
[2024-08-20] MEDS: SODIUM CHLORIDE 0.9% 1,000 ML IV ONE (15:00)
[2024-08-20] MEDS ORDERED: levoFLOXacin/D5W 750 MG/150 ML BAG IV SCH (15:00)
[2024-08-20] MEDS: HEPARIN SOD 5,000 UNIT/0.5 ML VIAL SQ SCH (21:13)
[2024-08-20] MEDS: FLUTICASONE PROPIONATE NA SPR 16 GM BTL SCH (21:13)
[2024-08-21 01:15] LABS: Adenovirus F 40/41 PCR Not Detected (NotDetected); Astrovirus PCR Not Detected (NotDetected); Campylobacter PCR Not Detected (NotDetected); Cryptosporidium PCR Not Detected (NotDetected); Cyclospora cayetanensis PCR Not Detected (NotDetected); Entamoeba histolytica PCR Not Detected (NotDetected); Enteroaggregative E.coli(EAEC) Not Detected (NotDetected); Enteropathogenic E.coli (EPEC) Not Detected (NotDetected); Enterotoxigenic E.coli (ETEC) Not Detected (NotDetected); Giardia lamblia PCR Not Detected (NotDetected); Norovirus GI/GII PCR Not Detected (NotDetected); Plesiomonas shigelloides PCR Not Detected (NotDetected); Rotavirus A PCR Not Detected (NotDetected); Salmonella PCR Not Detected (NotDetected); Sapovirus PCR Not Detected (NotDetected); Shiga-like Toxin E.coli (STEC) Not Detected (NotDetected); Shigella/Enteroinvasive E.coli Not Detected (NotDetected); Vibrio cholerae PCR Not Detected (NotDetected); Vibrio species PCR Not Detected (NotDetected); Yersinia enterocolitica PCR Not Detected (NotDetected)
[2024-08-21] MEDS: LOPERAMIDE HCL 2 MG CAP PO PRN (09:26)
[2024-08-21 10:01] LABS: Hematocrit (blood only) 38.6 % (37.0-47.0); Hemoglobin 12.6 g/dl (12.0-16.0); Mean Corpuscular Hemoglobin 29.9 pg (25.0-34.0); Mean Corpuscular Hgb Conc 32.6 g/dL (32.0-36.0); Mean Corpuscular Volume 91.7 fL (80.0-100.0); Mean Platelet Volume 9.7 fL (9.4-12.4); Platelet Count 229 K/uL (130-400); RDW Coefficient of Variation 12.9 % (11.5-14.5); RDW Standard Deviation 43.3 fL (36.4-46.3); Red Blood Count 4.21 M/uL (4.20-5.40); White Blood Count 8.28 K/ul (4.8-10.8)
[2024-08-21 10:22] LABS: BUN Creatinine Ratio 11.3 (10-20); Calcium 8.9 mg/dl (8.6-10.3); Creatinine Clr Calc Pharmacy 55.1 ml/min; Magnesium 1.8 mg/dl (1.7-2.4); Potassium 3.6 mmol/L (3.5-5.1)
[2024-08-21] MEDS: LACTOBACILLUS ACIDOPHILUS 1 GM PACK PO SCH (11:16)
[2024-08-21] MEDS: DOXYCYCLINE HYCLATE 100 MG CAP PO SCH (11:16)
--- NOTE | 2024-08-21 15:13 | Hospitalist Progress Note ---
Date of Service August 21, 2024 Assessment & Plan (1) CAP (community acquired pneumonia): (2) Acute metabolic encephalopathy: (3) Acute UTI: (4) Generalized weakness: (5) UTI (urinary tract infection): Plan Patient is an 79yr F with PMH of DM II, expressive aphasia, mild cognitive impairment, tobacco use, periodic limb movement disorder, IBS and other medical problems listed below who presents via EMS with confusion and was found to have acute metabolic encephalopathy 2/2 UTI and possible CAP. Sepsis Right lower lobe pneumonia Acute metabolic encephalopathy secondary to above E.coli UTI Generalized weakness --CT Head:No acute intracranial findings. No change in appearance of the brain. --CT ABD:No acute process identified. --Chest CTA:No pulmonary emboli identified. Mild right lower lobe alveolar opacities suggestive of an infectious process. Mildly enlarged right hilar lymph nodes. These are likely benign. A chest CT in 3 months is recommended to ensure resolution. Mild cardiomegaly. Moderate to extensive coronary artery calcification. -- BioFire negative --Normal procalcitonin -- Blood cultures: negative to date -- Continue IV Zosyn, doxycycline -- Received IV fluids -- Saturating well on room air -- Aspiration precautions, pulmonary hygiene Slowly improving Plan for video swallow study Diarrhea Stool PCR, stool for C. 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 smoking cessation Asymptomatic carotid stenosis HLD - Continue aspirin, statin Dementia Expressive aphasia at baseline -Baseline is oriented to person and place only -Lives at home with , walker prescribed on dc on 08/17 -Continue donepezil Reorient frequently to minimize delirium IBS Chronic constipation Currently having diarrhea as above DVT Px: Heparin SQ CODE STATUS: Full code Disposition Acute rehab as able Admission and Anticipated Discharge Date Admission Date: August 19, 2024 Subjective Patient is seen and examined at bedside Reports having diarrhea today Less confused today Discussed with patient's family at bedside Still has intermittent cough Denies any chest pain, dyspnea, nausea, vomiting, abdominal pain Review of Systems Review of Systems: All systems reviewed & are unremarkable except as noted in Subjective Physical Exam Physical Exam: Physical Exam: Vitals signs as noted above General Appearance:Moderately built and nourished, no apparent distress Head: normocephalic, Atraumatic Eyes: normal inspection, EOMI Neck: supple, Trachea midline Respiratory/Chest: Decreased breath sounds, CTA, No accessory muscle use Cardiovascular: S1, S2, No murmur Abdomen/GI:Soft, Non tender, Bowel sounds present Extremities/Musculoskeletal:normal inspection, Trace edema Neurologic/Psych:AAOX1, grossly no focal neurological deficits Skin: normal color, warm Results & Data Results & Data Vital Signs (Past 12 Hours) Vital Signs Temp Pulse Pulse Resp BP BP Pulse Ox 08/21/24 13:48 72 08/21/24 11:51 36.9 C 73 18 119/74 93 08/21/24 07:43 36.3 C L 76 19 162/82 H 92 08/21/24 07:05 77 08/21/24 03:33 37.3 C 81 20 153/83 H 92 O2 Del Method 08/21/24 13:48 08/21/24 11:51 Room Air 08/21/24 07:43 Room Air 08/21/24 07:05 08/21/24 03:33 Room Air Laboratory Results Short CBC 08/21/24 Range/Units 09:29 WBC 8.28 (4.8-10.8) K/ul Hgb 12.6 (12.0-16.0) g/dl Hct 38.6 (37.0-47.0) % Plt Count 229 (130-400) K/uL BMP 08/21/24 09:29 Sodium 137 Potassium 3.6 Chloride 107 Carbon Dioxide 24 BUN 9 Creatinine 0.80 Glucose 164 H Calcium 8.9
[2024-08-21] MEDS: MELATONIN 3 MG TAB PO PRN (20:26)
[2024-08-21] MEDS: OLANZapine 10 MG/2.1 ML SDV IM PRN (21:58)
[2024-08-21] MEDS: OLANZAPINE 2.5 MG TAB PO STA (22:09)
[2024-08-22 07:43] LABS: Hematocrit (blood only) 37.9 % (37.0-47.0); Hemoglobin 12.6 g/dl (12.0-16.0); Mean Corpuscular Hemoglobin 30.1 pg (25.0-34.0); Mean Corpuscular Hgb Conc 33.2 g/dL (32.0-36.0); Mean Corpuscular Volume 90.7 fL (80.0-100.0); Mean Platelet Volume 9.4 fL (9.4-12.4); Platelet Count 229 K/uL (130-400); RDW Coefficient of Variation 12.7 % (11.5-14.5); RDW Standard Deviation 42.1 fL (36.4-46.3); Red Blood Count 4.18 M/uL (4.20-5.40); White Blood Count 7.68 K/ul (4.8-10.8)
[2024-08-22 08:18] LABS: BUN Creatinine Ratio 11.3 (10-20); Calcium 9.4 mg/dl (8.6-10.3); Potassium 3.5 mmol/L (3.5-5.1)
[2024-08-22] MEDS: OLANZapine 10 MG/2.1 ML SDV IM ONE (12:59)
--- NOTE | 2024-08-22 15:11 | Hospitalist Progress Note ---
Date of Service August 22, 2024 Assessment & Plan (1) CAP (community acquired pneumonia): (2) Acute metabolic encephalopathy: (3) Acute UTI: (4) Generalized weakness: (5) UTI (urinary tract infection): Plan Patient is an 79yr F with PMH of DM II, expressive aphasia, mild cognitive impairment, tobacco use, periodic limb movement disorder, IBS and other medical problems listed below who presents via EMS with confusion and was found to have acute metabolic encephalopathy 2/2 UTI and possible CAP. Sepsis Right lower lobe pneumonia Acute metabolic encephalopathy secondary to above E.coli UTI Generalized weakness --CT Head:No acute intracranial findings. No change in appearance of the brain. --CT ABD:No acute process identified. --Chest CTA:No pulmonary emboli identified. Mild right lower lobe alveolar opacities suggestive of an infectious process. Mildly enlarged right hilar lymph nodes. These are likely benign. A chest CT in 3 months is recommended to ensure resolution. Mild cardiomegaly. Moderate to extensive coronary artery calcification. -- BioFire negative --Normal procalcitonin -- Blood cultures: negative to date -- Continue IV Zosyn, doxycycline -- Received IV fluids -- Saturating well on room air -- Aspiration precautions, pulmonary hygiene Slowly improving Plan for video swallow study tomorrow Continue current management for now Diarrhea Stool PCR, stool for C. 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 Asymptomatic carotid stenosis HLD - Continue aspirin, statin Dementia Expressive aphasia at baseline -Baseline is oriented to person and place only -Lives at home with , walker prescribed on dc on 08/17 -Continue donepezil Reorient frequently to minimize delirium IBS Chronic constipation Monitor DVT Px: Heparin SQ CODE STATUS: Full code Disposition Acute rehab as able Admission and Anticipated Discharge Date Admission Date: August 19, 2024 Subjective Patient is seen and examined at bedside Patient is confused and agitated this morning Had poor sleep overnight Discussed with patient's family at bedside No diarrhea today Poor historian secondary to confusion Denies any chest pain, dyspnea, nausea, vomiting, abdominal pain Review of Systems Review of Systems: All systems reviewed & are unremarkable except as noted in Subjective Physical Exam Physical Exam: Physical Exam: Vitals signs as noted above General Appearance:Moderately built and nourished, no apparent distress Head: normocephalic, Atraumatic Eyes: normal inspection, EOMI Neck: supple, Trachea midline Respiratory/Chest: Decreased breath sounds, CTA, No accessory muscle use Cardiovascular: S1, S2, No murmur Abdomen/GI:Soft, Non tender, Bowel sounds present Extremities/Musculoskeletal:normal inspection, Trace edema Neurologic/Psych:AAOX1, grossly no focal neurological deficits Skin: normal color, warm Results & Data Results & Data Vital Signs (Past 12 Hours) Vital Signs Temp Pulse Pulse Resp BP BP Pulse Ox 08/22/24 14:36 78 08/22/24 11:22 36.3 C L 76 18 167/79 H 96 08/22/24 07:59 36.7 C 79 16 161/74 H 94 08/22/24 07:23 79 08/22/24 03:25 36.7 C 86 20 151/84 H 94 O2 Del Method 08/22/24 14:36 08/22/24 11:22 Room Air 08/22/24 07:59 Room Air 08/22/24 07:23 08/22/24 03:25 Room Air Laboratory Results Short CBC 08/22/24 Range/Units 07:13 WBC 7.68 (4.8-10.8) K/ul Hgb 12.6 (12.0-16.0) g/dl Hct 37.9 (37.0-47.0) % Plt Count 229 (130-400) K/uL BMP 08/22/24 07:13 Sodium 143 Potassium 3.5 Chloride 109 H Carbon Dioxide 28 BUN 7 Creatinine 0.62 Glucose 135 H Calcium 9.4
[2024-08-22] MEDS: MELATONIN 3 MG TAB PO SCH (21:03)
[2024-08-23 07:30] LABS: Calcium 9.4 mg/dl (8.6-10.3); Magnesium 1.8 mg/dl (1.7-2.4); Potassium 3.5 mmol/L (3.5-5.1)
[2024-08-23 07:35] LABS: BUN Creatinine Ratio 14.1 (10-20); Creatinine Clr Calc Pharmacy 68.8 ml/min
[2024-08-23] MEDS: MICONAZOLE NITRATE POWDER 85 GM EXT PRN (11:02)
--- NOTE | 2024-08-23 16:42 | Hospitalist Progress Note ---
Date of Service August 23, 2024 Assessment & Plan (1) CAP (community acquired pneumonia): (2) Acute metabolic encephalopathy: (3) Acute UTI: (4) Generalized weakness: (5) UTI (urinary tract infection): Plan Patient is an 79yr F with PMH of DM II, expressive aphasia, mild cognitive impairment, tobacco use, periodic limb movement disorder, IBS and other medical problems listed below who presents via EMS with confusion and was found to have acute metabolic encephalopathy 2/2 UTI and possible CAP. Sepsis Right lower lobe pneumonia Acute metabolic encephalopathy secondary to above E.coli UTI Generalized weakness --CT Head:No acute intracranial findings. No change in appearance of the brain. --CT ABD:No acute process identified. --Chest CTA:No pulmonary emboli identified. Mild right lower lobe alveolar opacities suggestive of an infectious process. Mildly enlarged right hilar lymph nodes. These are likely benign. A chest CT in 3 months is recommended to ensure resolution. Mild cardiomegaly. Moderate to extensive coronary artery calcification. -- BioFire negative --Normal procalcitonin -- Blood cultures: negative to date -- Continue IV Zosyn, doxycycline -- Received IV fluids -- Saturating well on room air -- Aspiration precautions, pulmonary hygiene Plan for video swallow study as able Cultures remain negative Titrate down antibiotics as able Diarrhea Stool PCR, stool for C. 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 Asymptomatic carotid stenosis HLD - Continue aspirin, statin Dementia Expressive aphasia at baseline -Baseline is oriented to person and place only -Lives at home with , walker prescribed on dc on 08/17 -Continue donepezil Reorient frequently to minimize delirium IBS Chronic constipation Monitor DVT Px: Heparin SQ CODE STATUS: Full code Disposition Acute rehab as able Admission and Anticipated Discharge Date Admission Date: August 19, 2024 Subjective Patient is seen and examined at bedside Patient very drowsy today Unable to obtain video swallow study Discussed with patient's family at bedside Slept well overnight Denies any chest pain, dyspnea, nausea, vomiting, abdominal pain Review of Systems Review of Systems: Other Physical Exam Physical Exam: Physical Exam: Vitals signs as noted above General Appearance:Moderately built and nourished, no apparent distress Head: normocephalic, Atraumatic Eyes: normal inspection, EOMI Neck: supple, Trachea midline Respiratory/Chest: Decreased breath sounds, CTA, No accessory muscle use Cardiovascular: S1, S2, No murmur Abdomen/GI:Soft, Non tender, Bowel sounds present Extremities/Musculoskeletal:normal inspection, Trace edema Neurologic/Psych:AAOX1, grossly no focal neurological deficits Skin: normal color, warm Results & Data Results & Data Vital Signs (Past 12 Hours) Vital Signs Temp Pulse Pulse Resp BP BP Pulse Ox 08/23/24 14:54 36.8 C 70 16 166/75 H 92 08/23/24 14:00 81 08/23/24 10:42 36.6 C 75 20 132/77 94 08/23/24 07:24 08/23/24 07:04 37.0 C 68 20 126/70 92 08/23/24 06:54 82 08/23/24 04:50 37.3 C 76 20 159/72 H 93 O2 Del Method 08/23/24 14:54 Room Air 08/23/24 14:00 08/23/24 10:42 Room Air 08/23/24 07:24 Room Air 08/23/24 07:04 Room Air 08/23/24 06:54 08/23/24 04:50 Room Air Laboratory Results BMP 08/23/24 06:33 Sodium 141 Potassium 3.5 Chloride 108 H Carbon Dioxide 25 BUN 9 Creatinine 0.64 Glucose 130 H Calcium 9.4
[2024-08-24 07:12] LABS: Hematocrit (blood only) 39.9 % (37.0-47.0); Hemoglobin 13.4 g/dl (12.0-16.0); Mean Corpuscular Hemoglobin 30.7 pg (25.0-34.0); Mean Corpuscular Hgb Conc 33.6 g/dL (32.0-36.0); Mean Corpuscular Volume 91.5 fL (80.0-100.0); Mean Platelet Volume 9.4 fL (9.4-12.4); Platelet Count 259 K/uL (130-400); RDW Coefficient of Variation 12.5 % (11.5-14.5); RDW Standard Deviation 41.9 fL (36.4-46.3); Red Blood Count 4.36 M/uL (4.20-5.40); White Blood Count 7.63 K/ul (4.8-10.8)
[2024-08-24 07:27] LABS: BUN Creatinine Ratio 17.3 (10-20); Calcium 9.4 mg/dl (8.6-10.3); Creatinine Clr Calc Pharmacy 58.7 ml/min; Magnesium 1.9 mg/dl (1.7-2.4); Potassium 3.4 mmol/L (3.5-5.1)
[2024-08-24] MEDS: POTASSIUM CHLORIDE 20 MEQ/15 ML UDC PO ONE (09:40)
--- NOTE | 2024-08-24 14:53 | Hospitalist Progress Note ---
Date of Service August 24, 2024 Assessment & Plan (1) CAP (community acquired pneumonia): (2) Acute metabolic encephalopathy: (3) Acute UTI: (4) Generalized weakness: (5) UTI (urinary tract infection): Plan Patient is an 79yr F with PMH of DM II, expressive aphasia, mild cognitive impairment, tobacco use, periodic limb movement disorder, IBS and other medical problems listed below who presents via EMS with confusion and was found to have acute metabolic encephalopathy 2/2 UTI and possible CAP. Sepsis Right lower lobe pneumonia Acute metabolic encephalopathy secondary to above E.coli UTI Generalized weakness --CT Head:No acute intracranial findings. No change in appearance of the brain. --CT ABD:No acute process identified. --Chest CTA:No pulmonary emboli identified. Mild right lower lobe alveolar opacities suggestive of an infectious process. Mildly enlarged right hilar lymph nodes. These are likely benign. A chest CT in 3 months is recommended to ensure resolution. Mild cardiomegaly. Moderate to extensive coronary artery calcification. -- BioFire negative --Normal procalcitonin -- Blood cultures: negative to date -- Continue IV Zosyn, doxycycline -- Received IV fluids -- Saturating well on room air -- Aspiration precautions, pulmonary hygiene Plan for video swallow study as able Encourage increased oral intake Will complete IV antibiotic course tomorrow Diarrhea Stool PCR, stool for C. 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 Asymptomatic carotid stenosis HLD - Continue aspirin, statin Dementia Expressive aphasia at baseline -Baseline is oriented to person and place only -Lives at home with , walker prescribed on dc on 08/17 -Continue donepezil Reorient frequently to minimize delirium IBS Chronic constipation Monitor DVT Px: Heparin SQ CODE STATUS: Full code Disposition Acute rehab as able Admission and Anticipated Discharge Date Admission Date: August 19, 2024 Subjective Patient is seen and examined at bedside More alert, awake today Poor oral intake Offers no specific complaints Denies any chest pain, dyspnea, nausea, vomiting, abdominal pain Oriented to person and place today Review of Systems Review of Systems: All systems reviewed & are unremarkable except as noted in Subjective Physical Exam Physical Exam: Physical Exam: Vitals signs as noted above General Appearance:Moderately built and nourished, no apparent distress Head: normocephalic, Atraumatic Eyes: normal inspection, EOMI Neck: supple, Trachea midline Respiratory/Chest: Decreased breath sounds, CTA, No accessory muscle use Cardiovascular: S1, S2, No murmur Abdomen/GI:Soft, Non tender, Bowel sounds present Extremities/Musculoskeletal:normal inspection, Trace edema Neurologic/Psych:AAOX2, grossly no focal neurological deficits Skin: normal color, warm Results & Data Results & Data Vital Signs (Past 12 Hours) Vital Signs Temp Pulse Pulse Resp BP BP Pulse Ox 08/24/24 14:25 76 08/24/24 11:56 36.8 C 80 18 152/77 H 94 08/24/24 08:18 36.7 C 80 18 148/75 H 94 08/24/24 07:13 78 08/24/24 03:10 36.7 C 85 18 154/70 H 93 O2 Del Method 08/24/24 14:25 08/24/24 11:56 Room Air 08/24/24 08:18 Room Air 08/24/24 07:13 08/24/24 03:10 Room Air Laboratory Results Short CBC 08/24/24 Range/Units 06:39 WBC 7.63 (4.8-10.8) K/ul Hgb 13.4 (12.0-16.0) g/dl Hct 39.9 (37.0-47.0) % Plt Count 259 (130-400) K/uL BMP 08/24/24 06:39 Sodium 142 Potassium 3.4 L Chloride 105 Carbon Dioxide 30 BUN 13 Creatinine 0.75 Glucose 125 H Calcium 9.4
[2024-08-25 06:44] LABS: BUN Creatinine Ratio 26.6 (10-20); Calcium 9.6 mg/dl (8.6-10.3); Creatinine Clr Calc Pharmacy 68.8 ml/min; Potassium 3.5 mmol/L (3.5-5.1)
--- NOTE | 2024-08-25 14:50 | Hospitalist Progress Note ---
Date of Service August 25, 2024 Assessment & Plan (1) CAP (community acquired pneumonia): (2) Acute metabolic encephalopathy: (3) Acute UTI: (4) Generalized weakness: (5) UTI (urinary tract infection): Plan Patient is an 79yr F with PMH of DM II, expressive aphasia, mild cognitive impairment, tobacco use, periodic limb movement disorder, IBS and other medical problems listed below who presents via EMS with confusion and was found to have acute metabolic encephalopathy 2/2 UTI and possible CAP. Sepsis Right lower lobe pneumonia Acute metabolic encephalopathy secondary to above E.coli UTI Generalized weakness --CT Head:No acute intracranial findings. No change in appearance of the brain. --CT ABD:No acute process identified. --Chest CTA:No pulmonary emboli identified. Mild right lower lobe alveolar opacities suggestive of an infectious process. Mildly enlarged right hilar lymph nodes. These are likely benign. A chest CT in 3 months is recommended to ensure resolution. Mild cardiomegaly. Moderate to extensive coronary artery calcification. -- BioFire negative --Normal procalcitonin -- Blood cultures: negative to date -- Will complete 7-day course of IV Zosyn, doxycycline today -- Received IV fluids -- Saturating well on room air -- Aspiration precautions, pulmonary hygiene Plan for video swallow study per speech therapy Encourage increased oral intake PT OT prior to discharge Diarrhea Stool PCR, stool for C. 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 Asymptomatic carotid stenosis HLD - Continue aspirin, statin Dementia Expressive aphasia at baseline -Baseline is oriented to person and place only -Lives at home with , walker prescribed on dc on 08/17 -Continue donepezil Reorient frequently to minimize delirium IBS Chronic constipation Monitor DVT Px: Heparin SQ CODE STATUS: Full code Disposition PT OT prior to discharge Admission and Anticipated Discharge Date Admission Date: August 19, 2024 Subjective Patient is seen and examined at bedside States feeling well today No new complaints Discussed with patient's family at bedside Denies any chest pain, dyspnea, nausea, vomiting, abdominal pain Review of Systems Review of Systems: All systems reviewed & are unremarkable except as noted in Subjective Physical Exam Physical Exam: Physical Exam: Vitals signs as noted above General Appearance:Moderately built and nourished, no apparent distress Head: normocephalic, Atraumatic Eyes: normal inspection, EOMI Neck: supple, Trachea midline Respiratory/Chest: Decreased breath sounds, CTA, No accessory muscle use Cardiovascular: S1, S2, No murmur Abdomen/GI:Soft, Non tender, Bowel sounds present Extremities/Musculoskeletal:normal inspection, Trace edema Neurologic/Psych:AAOX2, grossly no focal neurological deficits Skin: normal color, warm Results & Data Results & Data Vital Signs (Past 12 Hours) Vital Signs Temp Pulse Pulse Resp BP Pulse Ox O2 Del Method 08/25/24 13:53 80 08/25/24 12:30 36.6 C 74 20 152/76 H 93 Room Air 08/25/24 09:49 Room Air 08/25/24 07:45 36.4 C L 80 16 143/68 H 92 Room Air 08/25/24 06:33 83 08/25/24 04:10 36.5 C 86 20 142/80 H 92 Room Air Laboratory Results [facility] 08/25/24 05:42 Sodium 142 Potassium 3.5 Chloride 106 Carbon Dioxide 27 BUN 17 Creatinine 0.64 Glucose 125 H Calcium 9.6
[2024-08-26 08:30] LABS: Calcium 9.8 mg/dl (8.6-10.3); Potassium 3.5 mmol/L (3.5-5.1)
[2024-08-26 08:36] LABS: BUN Creatinine Ratio 30.2 (10-20); Creatinine Clr Calc Pharmacy 69.9 ml/min
--- NOTE | 2024-08-26 14:32 | Fluoroscopy Report ---
FL video swallow CLINICAL HISTORY: r/o aspiration. TECHNIQUE: Video fluoroscopic evaluation of swallowing was performed in the AP and lateral projection s by the speech pathology staff. The patient is fed nectar-thick and thin liquid barium, a barium coa jaymie wafer, and barium pudding. FLUOROSCOPY TIME: 1 minute 50 seconds. COMPARISON: None FINDINGS: No aspiration seen with any barium consistency. IMPRESSION: No aspiration seen. ACT 112: Negative or not required by law. Electronically signed by: Bay Castle M.D. 08/26/2024 2:31 PM
--- NOTE | 2024-08-26 17:55 | Hospitalist Progress Note ---
Date of Service August 26, 2024 Assessment & Plan (1) CAP (community acquired pneumonia): (2) Acute metabolic encephalopathy: (3) Acute UTI: (4) Generalized weakness: (5) UTI (urinary tract infection): Plan Patient is an 79yr F with PMH of DM II, expressive aphasia, mild cognitive impairment, tobacco use, periodic limb movement disorder, IBS and other medical problems listed below who presents via EMS with confusion and was found to have acute metabolic encephalopathy 2/2 UTI and possible CAP. Sepsis Right lower lobe pneumonia Acute metabolic encephalopathy secondary to above E.coli UTI Generalized weakness --CT Head:No acute intracranial findings. No change in appearance of the brain. --CT ABD:No acute process identified. --Chest CTA:No pulmonary emboli identified. Mild right lower lobe alveolar opacities suggestive of an infectious process. Mildly enlarged right hilar lymph nodes. These are likely benign. A chest CT in 3 months is recommended to ensure resolution. Mild cardiomegaly. Moderate to extensive coronary artery calcification. -- BioFire negative --Normal procalcitonin --Video Swallow:No aspiration seen. -- Blood cultures: negative to date --Complete 7-day course of IV Zosyn, doxycycline -- Received IV fluids -- Saturating well on room air -- Aspiration precautions, pulmonary hygiene Encourage increased oral intake PT OT prior to discharge--pending Stable for discharge Likely discharge tomorrow Diarrhea Stool PCR, stool for C. 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 Asymptomatic carotid stenosis HLD - Continue aspirin, statin Dementia Expressive aphasia at baseline -Baseline is oriented to person and place only -Lives at home with , walker prescribed on dc on 08/17 -Continue donepezil Reorient frequently to minimize delirium IBS Chronic constipation Monitor DVT Px: Heparin SQ CODE STATUS: Full code Disposition PT OT prior to discharge Admission and Anticipated Discharge Date Admission Date: August 19, 2024 Subjective Patient is seen and examined at bedside Doing well Had video swallow study this morning No new complaints Discussed with patient's family at bedside today Minimal cough intermittently Denies any chest pain, dyspnea, nausea, vomiting, abdominal pain Review of Systems Review of Systems: All systems reviewed & are unremarkable except as noted in Subjective Physical Exam Physical Exam: Physical Exam: Vitals signs as noted above General Appearance:Moderately built and nourished, no apparent distress Head: normocephalic, Atraumatic Eyes: normal inspection, EOMI Neck: supple, Trachea midline Respiratory/Chest: Decreased breath sounds, CTA, No accessory muscle use Cardiovascular: S1, S2, No murmur Abdomen/GI:Soft, Non tender, Bowel sounds present Extremities/Musculoskeletal:normal inspection, Trace edema Neurologic/Psych:AAOX2, grossly no focal neurological deficits Skin: normal color, warm Results & Data Results & Data Vital Signs (Past 12 Hours) Vital Signs Temp Pulse Pulse Resp BP Pulse Ox O2 Del Method 08/26/24 16:32 36.8 C 78 16 122/82 91 Room Air 08/26/24 13:59 83 08/26/24 12:30 36.8 C 80 16 129/67 93 Room Air 08/26/24 08:10 Room Air 08/26/24 07:47 36.7 C 80 20 150/75 H 93 Room Air 08/26/24 07:14 68 Laboratory Results [facility] 08/26/24 06:49 Sodium 144 Potassium 3.5 Chloride 110 H Carbon Dioxide 24 BUN 19 Creatinine 0.63 Glucose 103 H Calcium 9.8
--- NOTE | 2024-08-27 10:34 | XRay Report ---
XR chest 1V portable CLINICAL HISTORY: aspiration COMPARISON STUDY: 08/19/2024 FINDINGS: Heart size and pulmonary vasculature are normal. No effusion, consolidation, or pneumothora x. IMPRESSION: No pneumonia seen. ACT 112: Negative or not required by law. Electronically signed by: [place] Castle M.D. 08/27/2024 10:33 AM
[2024-08-27] MEDS: ALBUT/IPRATROP 3MG/0.5MG NEB 3 ML VIAL NEB STA (10:36)
[2024-08-27 10:39] LABS: Base Excess VBG -1.2 mEq/L; HCO3 VBG 25 mmol/L; Oxygen Saturation VBG 95.2 %; PCO2 VBG 45 mmHg (38-50); PO2 VBG 69 mmHg; pH VBG 7.35 (7.36-7.41)
[2024-08-27 10:50] LABS: Hematocrit (blood only) 44.7 % (37.0-47.0); Hemoglobin 14.7 g/dl (12.0-16.0); Mean Corpuscular Hemoglobin 30.2 pg (25.0-34.0); Mean Corpuscular Hgb Conc 32.9 g/dL (32.0-36.0); Mean Platelet Volume 9.8 fL (9.4-12.4); Platelet Count 376 K/uL (130-400); RDW Coefficient of Variation 12.9 % (11.5-14.5); RDW Standard Deviation 42.6 fL (36.4-46.3); Red Blood Count 4.86 M/uL (4.20-5.40); White Blood Count 14.82 K/ul (4.8-10.8)
[2024-08-27 11:05] LABS: Albumin Globulin Ratio 1.2 (0.9-2); Albumin Level 4.2 gm/dl (3.4-5.0); BUN Creatinine Ratio 30.9 (10-20); Bilirubin,Total 0.6 mg/dl (0.2-1.0); Calcium 10.1 mg/dl (8.6-10.3); Creatinine Clr Calc Pharmacy 69.5 ml/min; Globulin 3.4 gm/dl (2.5-4.0); Potassium 3.9 mmol/L (3.5-5.1); Total Protein 7.6 gm/dl (6.0-8.3)
[2024-08-27] MEDS: SODIUM CHLORIDE 0.9% 500 ML IV ONE (11:14)
[2024-08-27] MEDS: AMPICILLIN/SULBACTAM SOD 3,000 MG/100 ML BAG IV SCH (11:29)
[2024-08-27] MEDS: SODIUM CHLORIDE 0.9% 1,000 ML IV SCH (12:21)
[2024-08-27] MEDS ORDERED: ALBUTEROL 0.083% NEBU SOLN 3 ML VIAL NEB PRN (13:21)
--- NOTE | 2024-08-27 15:59 | Hospitalist Progress Note ---
Date of Service August 27, 2024 Assessment & Plan (1) CAP (community acquired pneumonia): (2) Acute metabolic encephalopathy: (3) Acute UTI: (4) Generalized weakness: (5) UTI (urinary tract infection): Plan Patient is an 79yr F with PMH of DM II, expressive aphasia, mild cognitive impairment, tobacco use, periodic limb movement disorder, IBS and other medical problems listed below who presents via EMS with confusion and was found to have acute metabolic encephalopathy 2/2 UTI and possible CAP. Sepsis Right lower lobe pneumonia Acute metabolic encephalopathy secondary to above E.coli UTI Generalized weakness --CT Head:No acute intracranial findings. No change in appearance of the brain. --CT ABD:No acute process identified. --Chest CTA:No pulmonary emboli identified. Mild right lower lobe alveolar opacities suggestive of an infectious process. Mildly enlarged right hilar lymph nodes. These are likely benign. A chest CT in 3 months is recommended to ensure resolution. Mild cardiomegaly. Moderate to extensive coronary artery calcification. -- BioFire negative --Normal procalcitonin --Video Swallow:No aspiration seen. -- Blood cultures: negative to date --Completed 7-day course of IV Zosyn, doxycycline -- Received IV fluids -- Saturating well on room air -- Aspiration precautions, pulmonary hygiene PT OT recommends acute rehab Plan to discharge to rehab facility once medically stable Aspiration Code purple on 08/27/2024 --CXR:Heart size and pulmonary vasculature are normal. No effusion, consolidation, or pneumothorax. -- Lactic acidosis improved with IV fluid Empirically started on Unasyn Continue IV fluids Strict n.p.o. for now Speech to reevaluate Aspiration precautions Diarrhea Stool PCR, stool for C. 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 Asymptomatic carotid stenosis HLD - Continue aspirin, statin Dementia Expressive aphasia at baseline -Baseline is oriented to person and place only -Lives at home with , walker prescribed on dc on 08/17 -Continue donepezil Reorient frequently to minimize delirium IBS Chronic constipation Monitor DVT Px: Heparin SQ CODE STATUS: Full code Disposition Rehab as able Admission and Anticipated Discharge Date Admission Date: August 19, 2024 Subjective Patient is seen and examined at bedside Patient had code purple this morning after she had coughing episode while taking morning pills Patient continued to have cough with drooling resulting in possible aspiration Updated patient's family over the phone Requested speech reevaluation Transiently tachycardic during the episode Denies any chest pain, dyspnea, abdominal pain Review of Systems Review of Systems: All systems reviewed & are unremarkable except as noted in Subjective Physical Exam Physical Exam: Physical Exam: Vitals signs as noted above General Appearance:Moderately built and nourished, no apparent distress Head: normocephalic, Atraumatic Eyes: normal inspection, EOMI Neck: supple, Trachea midline Respiratory/Chest: Decreased breath sounds, CTA, No accessory muscle use Cardiovascular: S1, S2, No murmur Abdomen/GI:Soft, Non tender, Bowel sounds present Extremities/Musculoskeletal:normal inspection, Trace edema Neurologic/Psych:AAOX2, grossly no focal neurological deficits Skin: normal color, warm Results & Data Results & Data Vital Signs (Past 12 Hours) Vital Signs Temp Pulse Pulse Pulse Resp BP BP 08/27/24 15:38 36.7 C 80 18 125/77 08/27/24 13:01 79 08/27/24 11:25 36.4 C L 79 18 119/76 08/27/24 10:40 95 H 95 H 120/75 08/27/24 10:34 94 H 22 08/27/24 10:25 36.5 C 102 H 28 H 134/79 08/27/24 10:17 08/27/24 07:44 36.5 C 86 20 143/74 H 08/27/24 06:45 87 Pulse Ox O2 Del Method O2 Flow Rate 08/27/24 15:38 96 Nasal Cannula 08/27/24 13:01 08/27/24 11:25 96 Room Air 08/27/24 10:40 94 Nasal Cannula 3 08/27/24 10:34 93 Nasal Cannula 4 08/27/24 10:25 97 Nasal Cannula 3 08/27/24 10:17 Nasal Cannula 3 08/27/24 07:44 93 Room Air 08/27/24 06:45 Laboratory Results Short CBC 08/27/24 Range/Units 10:26 WBC 14.82 H (4.8-10.8) K/ul Hgb 14.7 (12.0-16.0) g/dl Hct 44.7 (37.0-47.0) % Plt Count 376 (130-400) K/uL BMP 08/27/24 10:26 Sodium 144 Potassium 3.9 Chloride 110 H Carbon Dioxide 25 BUN 21 Creatinine 0.68 Glucose 146 H Calcium 10.1 Liver Function 08/27/24 Range/Units 10:26 Total Bilirubin 0.6 (0.2-1.0) mg/dl AST 49 H (13-39) U/L ALT 51 (7-52) U/L Alkaline Phosphatase 64 (34-104) U/L Albumin 4.2 (3.4-5.0) gm/dl
--- NOTE | 2024-08-27 16:07 | Electrocardiogram Report ---
Test Reason : Blood Pressure : */* mmHG Vent. Rate : 92 BPM Atrial Rate : 92 BPM P-R Int : 158 ms QRS Dur : 80 ms QT Int : 388 ms P-R-T Axes : 68 65 88 degrees QTcB Int : 479 ms Normal sinus rhythm Normal ECG When compared with ECG of 19-Aug-2024 12:50, QT has lengthened Confirmed by Solitario Frederick ([id number] on 08/27/2024 4:06:57 PM Referred By: REFERRED SELF Confirmed By: Solitario Frederick
[2024-08-28 07:20] LABS: BUN Creatinine Ratio 24.1 (10-20); Calcium 8.6 mg/dl (8.6-10.3); Creatinine Clr Calc Pharmacy 81.9 ml/min; Potassium 3.7 mmol/L (3.5-5.1)
[2024-08-28] MEDS: ASPIRIN 300 MG SUPP PR SCH (08:00)
--- NOTE | 2024-08-28 15:55 | Hospitalist Progress Note ---
Date of Service August 28, 2024 Assessment & Plan (1) CAP (community acquired pneumonia): (2) Acute metabolic encephalopathy: (3) Acute UTI: (4) Generalized weakness: (5) UTI (urinary tract infection): Plan Patient is an 79yr F with PMH of DM II, expressive aphasia, mild cognitive impairment, tobacco use, periodic limb movement disorder, IBS and other medical problems listed below who presents via EMS with confusion and was found to have acute metabolic encephalopathy 2/2 UTI and possible CAP. Sepsis Right lower lobe pneumonia Acute metabolic encephalopathy secondary to above E.coli UTI Generalized weakness --CT Head:No acute intracranial findings. No change in appearance of the brain. --CT ABD:No acute process identified. --Chest CTA:No pulmonary emboli identified. Mild right lower lobe alveolar opacities suggestive of an infectious process. Mildly enlarged right hilar lymph nodes. These are likely benign. A chest CT in 3 months is recommended to ensure resolution. Mild cardiomegaly. Moderate to extensive coronary artery calcification. -- BioFire negative --Normal procalcitonin --Video Swallow:No aspiration seen. -- Blood cultures: negative to date --Completed 7-day course of IV Zosyn, doxycycline -- Received IV fluids -- Saturating well on room air -- Aspiration precautions, pulmonary hygiene PT OT recommends acute rehab Plan to discharge to rehab facility once medically stable Aspiration Code purple on 08/27/2024 --CXR:Heart size and pulmonary vasculature are normal. No effusion, consolidation, or pneumothorax. -- Lactic acidosis improved with IV fluid Empirically started on Unasyn Continue IV fluids Strict n.p.o. for now Speech to reevaluate Aspiration precautions Patient was reevaluated by speech therapy today - 08/27 and was started on easy to chew diet Continue aspiration precautions Acute hypoxia 08/28/2024 after working w/ OT and had a BM Initially from RA to 6L after re-eval down to 2L CXR, ECG, cbc, bmp, trop obtained transferred to PCU Troponin elevtaed, will repeat and will obtain echo Diarrhea Stool PCR, stool for C. 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 Asymptomatic carotid stenosis HLD - Continue aspirin, statin Dementia Expressive aphasia at baseline -Baseline is oriented to person and place only -Lives at home with , walker prescribed on dc on 08/17 -Continue donepezil Reorient frequently to minimize delirium IBS Chronic constipation Monitor DVT Px: Heparin SQ CODE STATUS: Full code Disposition Rehab as able Admission and Anticipated Discharge Date Admission Date: August 19, 2024 Subjective Patient seen in follow up Patient had code purple yesterday morning after she had coughing episode while taking morning pills Patient continued to have cough with drooling resulting in possible aspiration Requested speech reevaluation Transiently tachycardic during the episode Today, was w/ OT - had a BM - prior to that was on RA per RN, after BM - tachypneic, requiring 6L of O2 stat ecg, CXR obtained, cbc, bmp, trop. Pt transferred to PCU cxr unremarkable, and on re-check pt down to 2 L Discussed w/ RN at PCU - pt on 2L but then desats to 70-80s.. Trop elevated at 100, will repeat and will obtain echo. Pt denies any chest pain. Cont. to closely monitor on tele Review of Systems Review of Systems: All systems reviewed & are unremarkable except as noted in Subjective Physical Exam Physical Exam: General Appearance:Moderately built and nourished, no apparent distress Head: normocephalic, Atraumatic Eyes: normal inspection, EOMI Neck: supple Respiratory/Chest: Decreased breath sounds, No accessory muscle use Cardiovascular: S1, S2, No murmur Abdomen/GI:Soft, Non tender, Bowel sounds present Extremities/Musculoskeletal:normal inspection, Trace edema Neurologic/Psych:AAOX2, grossly no focal neurological deficits Skin: normal color, warm Results & Data Results & Data Vital Signs (Past 12 Hours) Vital Signs Temp Pulse Pulse Pulse Resp BP BP 08/28/24 15:30 08/28/24 15:10 36.8 C 97 H 36 H 128/76 08/28/24 13:00 73 08/28/24 11:51 36.9 C 74 18 137/77 08/28/24 09:51 36.7 C 71 16 129/72 08/28/24 06:45 78 Pulse Ox O2 Del Method O2 Flow Rate 08/28/24 15:30 91 Nasal Cannula 2 08/28/24 15:10 72 L Room Air 08/28/24 13:00 08/28/24 11:51 94 Room Air 08/28/24 09:51 92 Room Air 08/28/24 06:45 Laboratory Results 08/28/24 08/28/24 Range/Units 15:02 06:20 Sodium 147 H (136-145) mmol/L Potassium 3.7 (3.5-5.1) mmol/L Chloride 115 H (98-107) mmol/L Carbon Dioxide 26 (21-32) mmol/L Anion Gap 6 (3-11) BUN 14 (6-23) mg/dl Creatinine 0.58 L (0.6-1.2) mg/dl Est Cr Clr Drug Dosing 81.9 ml/min eGFR 90.86 BUN/Creatinine Ratio 24.1 H (10-20) Glucose 101 H (70-99(Fasting)) mg/dl POC Glucose 152 H (70-99) mg/dl Calcium 8.6 (8.6-10.3) mg/dl Medications Administered Current Inpatient Medications Acetaminophen (Acetaminophen 325 Mg Tab) 650 mg PO Q4H PRN PRN Reason: Fever or headache Stop: 09/18/24 16:52 Last Admin: 08/20/24 13:15 Dose: 650 mg Albuterol (Albuterol 0.083% Nebu Soln 3 Ml Vial) 2.5 mg NEB Q6H PRN; Protocol PRN Reason: Shortness Of Breath Or Wheezing Stop: 09/26/24 13:20 Aspirin (Aspirin 81 Mg Ectab) 81 mg PO DAILY [facility] Stop: 09/19/24 08:59 Last Admin: 08/27/24 10:56 Dose: Not Given Aspirin (Aspirin 300 Mg Supp) 300 mg WA DAILY JU[facility] Stop: 09/27/24 08:59 Last Admin: 08/28/24 08:00 Dose: 300 mg Atorvastatin Calcium (Atorvastatin 40 Mg Tab) 40 mg PO DAILY [facility] Stop: 09/19/24 08:59 Last Admin: 08/28/24 08:00 Dose: 40 mg Donepezil HCl (Donepezil Hcl 10 Mg Tab) 10 mg PO DAILY [facility] Stop: 09/19/24 08:59 Last Admin: 08/28/24 08:00 Dose: 10 mg Fexofenadine HCl (Fexofenadine Hcl 180 Mg Tab) 180 mg PO DAILY [facility] Stop: 09/19/24 08:59 Last Admin: 08/28/24 08:00 Dose: 180 mg Fluticasone Propionate (Fluticasone Propionate Na Spr 16 Gm Btl) 2 sprays NA HS [facility] Stop: 09/19/24 20:59 Last Admin: 08/27/24 20:16 Dose: 2 sprays Gabapentin (Gabapentin 300 Mg Cap) 300 mg PO TID [facility]UHI Stop: 09/18/24 16:52 Last Admin: 08/27/24 12:46 Dose: Not Given Guaifenesin (Guaifenesin 600 Mg Tabcr) 600 mg PO BID PRN PRN Reason: cough Stop: 09/18/24 16:52 Last Admin: 08/20/24 08:00 Dose: 600 mg Heparin Sodium (Porcine) (Heparin Sod 5,000 Unit/0.5 Ml Vial) 5,000 units SQ Q12 [facility] Stop: 09/19/24 20:59 Last Admin: 08/28/24 08:00 Dose: 5,000 units Ampicillin Sodium/Sulbactam Sodium (Unasyn) 3,000 mg in 100 mls @ 200 mls/hr IV Q6H [facility] Stop: 09/03/24 10:59 Last Infusion: 08/28/24 11:07 Dose: Infused Loperamide HCl (Loperamide Hcl 2 Mg Cap) 2 mg PO Q4H PRN PRN Reason: Diarrhea Stop: 09/20/24 08:52 Last Admin: 08/21/24 09:26 Dose: 2 mg Melatonin (Melatonin 3 Mg Tab) 3 mg PO HS [facility] Stop: 09/21/24 20:59 Last Admin: 08/27/24 20:16 Dose: 3 mg Miconazole Nitrate (Miconazole Nitrate Powder 85 Gm) 1 appln EXT PRN PRN PRN Reason: Affected Skin Folds Stop: 09/21/24 05:12 Last Admin: 08/26/24 20:05 Dose: 1 appln Multivitamins (Multivitamin Tab) 1 tab PO DAILY [facility] Stop: 09/19/24 08:59 Last Admin: 08/28/24 08:00 Dose: 1 tab Olanzapine (Olanzapine 10 Mg/2.1 Ml Sdv) 2.5 mg IM Q4H PRN PRN Reason: Agitation Stop: 09/20/24 21:47 Last Admin: 08/22/24 15:10 Dose: 2.5 mg Ondansetron HCl (Ondansetron Inj 2 Mg/Ml 2 Ml Vial) 4 mg IV Q4H PRN PRN Reason: Nausea And Vomiting Stop: 09/18/24 16:52 Vitamin B Complex (Vitamin B Complex Tab) 1 tab PO DAILY [facility] Stop: 09/19/24 08:59 Last Admin: 08/28/24 08:00 Dose: 1 tab
--- NOTE | 2024-08-28 16:43 | XRay Report ---
EXAM: Radiograph of the Chest 1 View INDICATION: Acute hypoxia TECHNIQUE: Frontal view of the chest. COMPARISON: 06/07/2016 FINDINGS: Lungs and pleural spaces: No consolidation or pulmonary edema. No pleural effusion or pneumothorax. Heart: Prominent cardiac shadow accentuated by technique. Mediastinum: Normal contour. Bones/joints: No fracture, erosion or dislocation. Soft tissues: No abnormality noted. No radiopaque foreign body noted. Vasculature: Stable ectatic calcified aorta. Upper abdomen: No abnormality noted. IMPRESSION: No acute cardiopulmonary disease. ACT 112: Negative or not required by law. Electronically signed by Coco Mariee 08-28-2024 4:42 PM
[2024-08-28 16:50] LABS: Hematocrit (blood only) 40.6 % (37.0-47.0); Hemoglobin 13.5 g/dl (12.0-16.0); Mean Corpuscular Hemoglobin 30.3 pg (25.0-34.0); Mean Corpuscular Hgb Conc 33.3 g/dL (32.0-36.0); Mean Corpuscular Volume 91.2 fL (80.0-100.0); Mean Platelet Volume 9.8 fL (9.4-12.4); Platelet Count 271 K/uL (130-400); RDW Coefficient of Variation 13.1 % (11.5-14.5); RDW Standard Deviation 42.5 fL (36.4-46.3); Red Blood Count 4.45 M/uL (4.20-5.40)
[2024-08-28 17:07] LABS: BUN Creatinine Ratio 23.3 (10-20); Calcium 9.6 mg/dl (8.6-10.3); Creatinine Clr Calc Pharmacy 79.2 ml/min; Phosphorus 2.2 mg/dl (2.5-4.9); Potassium 3.6 mmol/L (3.5-5.1)
[2024-08-28 17:17] LABS: Troponin I High Sensitivity 101.3 pg/ml (0-14)
[2024-08-28] MEDS ORDERED: POTASSIUM PHOS 3 MMOL/1 ML INFUSION IV STA (17:30)
[2024-08-28] MEDS: POTASSIUM PHOSPHATE 9 MMOL in SODIUM CHLORIDE 0.9% 250 ML IV ONE (17:49)
[2024-08-29] MEDS: HEPARIN 25000 UNIT/500 ML D5W 25,000 UNITS/500 ML BAG IV SCH ×2 (01:38→18:36)
[2024-08-29 01:57] LABS: Basophils # (auto) 0.05 K/uL (0.00-0.20); Basophils % (auto) 0.4 %; Eosinophils # (auto) 0.07 K/uL (0.00-0.50); Eosinophils % (auto) 0.5 %; Hematocrit (blood only) 39.6 % (37.0-47.0); Hemoglobin 13.2 g/dl (12.0-16.0); Immature Granulocytes # (auto) 0.08 K/uL (0.01-0.20); Immature Granulocytes % (auto) 0.6 %; Lymphocytes # (auto) 2.61 K/uL (1.20-3.40); Lymphocytes % (auto) 18.6 %; Mean Corpuscular Hemoglobin 30.2 pg (25.0-34.0); Mean Corpuscular Hgb Conc 33.3 g/dL (32.0-36.0); Mean Corpuscular Volume 90.6 fL (80.0-100.0); Mean Platelet Volume 10.3 fL (9.4-12.4); Monocytes % (auto) 5.7 %; Neutrophils # (auto) 10.45 K/uL (1.40-6.50); Neutrophils % (auto) 74.2 %; Platelet Count 279 K/uL (130-400); RDW Coefficient of Variation 12.9 % (11.5-14.5); RDW Standard Deviation 42.5 fL (36.4-46.3); Red Blood Count 4.37 M/uL (4.20-5.40); White Blood Count 14.06 K/ul (4.8-10.8)
[2024-08-29 03:20] LABS: Partial Thromboplastin Time 28 Seconds (21-31)
[2024-08-29] MEDS: Heparin IV Adult Wt-Based Low-Dose *NO* INITIAL Bolus Protocol IV STA (05:52)
--- NOTE | 2024-08-29 07:30 | Hospitalist Progress Note ---
Date of Service August 29, 2024 Assessment & Plan (1) CAP (community acquired pneumonia): (2) Acute metabolic encephalopathy: (3) Acute UTI: (4) Generalized weakness: (5) UTI (urinary tract infection): Plan Patient is an 79yr F with PMH of DM II, expressive aphasia, mild cognitive impairment, tobacco use, periodic limb movement disorder, IBS and other medical problems listed below who presents via EMS with confusion and was found to have acute metabolic encephalopathy 2/2 UTI and possible CAP. Sepsis Right lower lobe pneumonia Acute metabolic encephalopathy secondary to above E.coli UTI Generalized weakness --CT Head:No acute intracranial findings. No change in appearance of the brain. --CT ABD:No acute process identified. --Chest CTA:No pulmonary emboli identified. Mild right lower lobe alveolar opacities suggestive of an infectious process. Mildly enlarged right hilar lymph nodes. These are likely benign. A chest CT in 3 months is recommended to ensure resolution. Mild cardiomegaly. Moderate to extensive coronary artery calcification. -- BioFire negative --Normal procalcitonin --Video Swallow:No aspiration seen. -- Blood cultures: negative to date --Completed 7-day course of IV Zosyn, doxycycline -- Received IV fluids -- Saturating well on room air -- Aspiration precautions, pulmonary hygiene PT OT recommends acute rehab Plan to discharge to rehab facility once medically stable Aspiration Code purple on 08/27/2024 --CXR:Heart size and pulmonary vasculature are normal. No effusion, consolidation, or pneumothorax. -- Lactic acidosis improved with IV fluid Empirically started on Unasyn Continue IV fluids Strict n.p.o. for now Speech to reevaluate Aspiration precautions Patient was reevaluated by speech therapy on- 08/27 and was started on easy to chew diet Continue aspiration precautions Acute hypoxia 08/28/2024 after working w/ OT and had a BM Initially from RA to 6L after re-eval down to 2L CXR, ECG, cbc, bmp, trop obtained transferred to PCU Troponin elevated, will repeat and will obtain echo Elevated troponin - pt started on IV heparin overnight Also had episode of VT Cardiology consulted - probable NSTEMI, demand ischemic event in setting of hypoxia Echo revealed hyperdynamic LVEF > 70%, no wall motion abnormalities, with moderate to severely enlarged RV, evidence of at least moderate elevation in pulmonary pressures question acute versus chronic Discussed w/ cardiology - pt had CTA chest on 08/[address], we may repeat the study Dopplers of LEs obtained - negative for DVT Diarrhea Stool PCR, stool for C. 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 Asymptomatic carotid stenosis HLD - Continue aspirin, statin Dementia Expressive aphasia at baseline -Baseline is oriented to person and place only -Lives at home with , walker prescribed on dc on 08/17 -Continue donepezil Reorient frequently to minimize delirium IBS Chronic constipation Monitor DVT Px: Heparin SQ CODE STATUS: Full code Disposition Rehab as able Admission and Anticipated Discharge Date Admission Date: August 19, 2024 Subjective Patient seen in follow up 08/27 Patient had code purple after she had coughing episode while taking morning pills Patient continued to have cough with drooling resulting in possible aspiration Requested speech reevaluation Transiently tachycardic during the episode 08/28 was w/ OT - had a BM - prior to that was on RA per RN, after BM - tachypneic, requiring 6L of O2 stat ecg, CXR obtained, cbc, bmp, trop. Pt transferred to PCU cxr unremarkable, and on re-check pt down to 2 L Discussed w/ RN at PCU - pt on 2L but then desats to 70-80s.. Trop elevated at 100, echo ordered. Pt denies any chest pain. Cont. to closely monitor on tele. Overnight pt started on IV heparin as troponin elevated Echo obtained and discussed w/ cardiology. RV enlargement and elev. pulm. pressure, CTA on 08/19 negative for PE. Currently pt is laying in bed in NAD. Pt's present at the bedside. Denies chest pain, shortness of breath. Says she feels ok. Has some cough. Review of Systems Review of Systems: All systems reviewed & are unremarkable except as noted in Subjective Physical Exam Physical Exam: General Appearance:Moderately built and nourished, no apparent distress Head: normocephalic, Atraumatic Eyes: normal inspection, EOMI Neck: supple Respiratory/Chest: Decreased breath sounds, No accessory muscle use Cardiovascular: S1, S2, No murmur Abdomen/GI:Soft, Non tender, Bowel sounds present Extremities/Musculoskeletal:normal inspection, Trace edema Neurologic/Psych:AAOX2, grossly no focal neurological deficits Skin: normal color, warm Results & Data Results & Data Vital Signs (Past 12 Hours) Vital Signs Temp Pulse Pulse Pulse Resp BP BP 08/29/24 07:27 86 18 125/70 08/29/24 02:35 36.7 C 97 H 18 139/88 08/28/24 23:48 08/28/24 22:58 36.6 C 98 H 18 145/82 H 08/28/24 21:54 98 H 08/28/24 19:32 36.6 C 101 H 18 143/73 H 08/28/24 19:30 Pulse Ox O2 Del Method O2 Flow Rate 08/29/24 07:27 93 Nasal Cannula 2 08/29/24 02:35 95 Nasal Cannula 08/28/24 23:48 Nasal Cannula 2 08/28/24 22:58 99 Nasal Cannula 08/28/24 21:54 08/28/24 19:32 94 Nasal Cannula 08/28/24 19:30 Nasal Cannula 2 Laboratory Results 08/29/24 08/28/24 08/28/24 Range/Units 01:22 23:39 16:37 WBC 14.06 H 14.90 H (4.8-10.8) K/ul RBC 4.37 4.45 (4.20-5.40) M/uL Hgb 13.2 13.5 (12.0-16.0) g/dl Hct 39.6 40.6 (37.0-47.0) % MCV 90.6 91.2 (80.0-100.0) fL MCH 30.2 30.3 (25.0-34.0) pg MCHC 33.3 33.3 (32.0-36.0) g/dL RDW Std Deviation 42.5 42.5 (36.4-46.3) fL RDW Coeff of Sherif 12.9 13.1 (11.5-14.5) % Plt Count 279 271 (130-400) K/uL MPV 10.3 9.8 (9.4-12.4) fL Immature Gran % (Auto) 0.6 % Neut % (Auto) 74.2 % Lymph % (Auto) 18.6 % [place] % (Auto) 5.7 % Eos % (Auto) 0.5 % Baso % (Auto) 0.4 % Neut # (Auto) 10.45 H (1.40-6.50) K/uL Lymph # (Auto) 2.61 (1.20-3.40) K/uL [place] # (Auto) 0.80 H (0.11-0.59) K/uL Eos # (Auto) 0.07 (0.00-0.50) K/uL Baso # (Auto) 0.05 (0.00-0.20) K/uL Immature Gran # (Auto) 0.08 (0.01-0.20) K/uL PT 11.0 (9.0-12.0) Seconds INR 1.0 (0.9-1.1) APTT 28 (21-31) Seconds PTT Ratio 1.0 Sodium 147 H (136-145) mmol/L Potassium 3.6 (3.5-5.1) mmol/L Chloride 113 H (98-107) mmol/L Carbon Dioxide 27 (21-32) mmol/L Anion Gap 7 (3-11) BUN 14 (6-23) mg/dl Creatinine 0.60 (0.6-1.2) mg/dl Est Cr Clr Drug Dosing 79.2 ml/min eGFR 90.12 BUN/Creatinine Ratio 23.3 H (10-20) Glucose 133 H (70-99(Fasting)) mg/dl POC Glucose (70-99) mg/dl Calcium 9.6 (8.6-10.3) mg/dl Phosphorus 2.2 L (2.5-4.9) mg/dl Magnesium 2.0 (1.7-2.4) mg/dl Troponin I High Sens 462.2 H* D 101.3 H* (0-14) pg/ml B-Natriuretic Peptide 69 (0-100) pg/ml 08/28/24 08/28/24 Range/Units 16:17 15:02 WBC (4.8-10.8) K/ul RBC (4.20-5.40) M/uL Hgb (12.0-16.0) g/dl Hct (37.0-47.0) % MCV (80.0-100.0) fL MCH (25.0-34.0) pg MCHC (32.0-36.0) g/dL RDW Std Deviation (36.4-46.3) fL RDW Coeff of Sherif (11.5-14.5) % Plt Count (130-400) K/uL MPV (9.4-12.4) fL Immature Gran % (Auto) % Neut % (Auto) % Lymph % (Auto) % [place] % (Auto) % Eos % (Auto) % Baso % (Auto) % Neut # (Auto) (1.40-6.50) K/uL Lymph # (Auto) (1.20-3.40) K/uL [place] # (Auto) (0.11-0.59) K/uL Eos # (Auto) (0.00-0.50) K/uL Baso # (Auto) (0.00-0.20) K/uL Immature Gran # (Auto) (0.01-0.20) K/uL PT (9.0-12.0) Seconds INR (0.9-1.1) APTT (21-31) Seconds PTT Ratio Sodium (136-145) mmol/L Potassium (3.5-5.1) mmol/L Chloride (98-107) mmol/L Carbon Dioxide (21-32) mmol/L Anion Gap (3-11) BUN (6-23) mg/dl Creatinine (0.6-1.2) mg/dl Est Cr Clr Drug Dosing ml/min eGFR BUN/Creatinine Ratio (10-20) Glucose (70-99(Fasting)) mg/dl POC Glucose 137 H 152 H (70-99) mg/dl Calcium (8.6-10.3) mg/dl Phosphorus (2.5-4.9) mg/dl Magnesium (1.7-2.4) mg/dl Troponin I High Sens (0-14) pg/ml B-Natriuretic Peptide (0-100) pg/ml Medications Administered Current Inpatient Medications Acetaminophen (Acetaminophen 325 Mg Tab) 650 mg PO Q4H PRN PRN Reason: Fever or headache Stop: 09/18/24 16:52 Last Admin: 08/20/24 13:15 Dose: 650 mg Albuterol (Albuterol 0.083% Nebu Soln 3 Ml Vial) 2.5 mg NEB Q6H PRN; Protocol PRN Reason: Shortness Of Breath Or Wheezing Stop: 09/26/24 13:20 Aspirin (Aspirin 81 Mg Ectab) 81 mg PO DAILY [facility] Stop: 09/19/24 08:59 Last Admin: 08/29/24 07:18 Dose: Not Given Atorvastatin Calcium (Atorvastatin 40 Mg Tab) 40 mg PO DAILY [facility] Stop: 09/19/24 08:59 Last Admin: 08/28/24 08:00 Dose: 40 mg Donepezil HCl (Donepezil Hcl 10 Mg Tab) 10 mg PO DAILY [facility] Stop: 09/19/24 08:59 Last Admin: 08/28/24 08:00 Dose: 10 mg Fexofenadine HCl (Fexofenadine Hcl 180 Mg Tab) 180 mg PO DAILY [facility] Stop: 09/19/24 08:59 Last Admin: 08/28/24 08:00 Dose: 180 mg Fluticasone Propionate (Fluticasone Propionate Na Spr 16 Gm Btl) 2 sprays NA HS [facility] Stop: 09/19/24 20:59 Last Admin: 08/28/24 20:32 Dose: 2 sprays Gabapentin (Gabapentin 300 Mg Cap) 300 mg PO TID [facility] Stop: 09/18/24 16:52 Last Admin: 08/27/24 12:46 Dose: Not Given Guaifenesin (Guaifenesin 600 Mg Tabcr) 600 mg PO BID PRN PRN Reason: cough Stop: 09/18/24 16:52 Last Admin: 08/20/24 08:00 Dose: 600 mg Ampicillin Sodium/Sulbactam Sodium (Unasyn) 3,000 mg in 100 mls @ 200 mls/hr IV Q6H [facility] Stop: 09/03/24 10:59 Last Infusion: 08/29/24 06:25 Dose: Infused Heparin Sodium/Dextrose (Heparin 10445 Unit/500 Ml D5w) 25,000 units in 500 mls @ 16 mls/hr IV .Q24H [facility]; Protocol Stop: 09/28/24 00:59 Last Titration: 08/29/24 07:04 Dose: 800 units/hr, 16 mls/hr Loperamide HCl (Loperamide Hcl 2 Mg Cap) 2 mg PO Q4H PRN PRN Reason: Diarrhea Stop: 09/20/24 08:52 Last Admin: 08/21/24 09:26 Dose: 2 mg Melatonin (Melatonin 3 Mg Tab) 3 mg PO HS [facility] Stop: 09/21/24 20:59 Last Admin: 08/28/24 20:32 Dose: 3 mg Miconazole Nitrate (Miconazole Nitrate Powder 85 Gm) 1 appln EXT PRN PRN PRN Reason: Affected Skin Folds Stop: 09/21/24 05:12 Last Admin: 08/26/24 20:05 Dose: 1 appln Multivitamins (Multivitamin Tab) 1 tab PO DAILY [facility] Stop: 09/19/24 08:59 Last Admin: 08/28/24 08:00 Dose: 1 tab Olanzapine (Olanzapine 10 Mg/2.1 Ml Sdv) 2.5 mg IM Q4H PRN PRN Reason: Agitation Stop: 09/20/24 21:47 Last Admin: 08/22/24 15:10 Dose: 2.5 mg Ondansetron HCl (Ondansetron Inj 2 Mg/Ml 2 Ml Vial) 4 mg IV Q4H PRN PRN Reason: Nausea And Vomiting Stop: 09/18/24 16:52 Vitamin B Complex (Vitamin B Complex Tab) 1 tab PO DAILY [facility] Stop: 09/19/24 08:59 Last Admin: 08/28/24 08:00 Dose: 1 tab
[2024-08-29 07:43] LABS: Hematocrit (blood only) 38.1 % (37.0-47.0); Hemoglobin 12.7 g/dl (12.0-16.0); Mean Corpuscular Hemoglobin 30.5 pg (25.0-34.0); Mean Corpuscular Hgb Conc 33.3 g/dL (32.0-36.0); Mean Corpuscular Volume 91.6 fL (80.0-100.0); Mean Platelet Volume 10.1 fL (9.4-12.4); Platelet Count 270 K/uL (130-400); RDW Standard Deviation 42.5 fL (36.4-46.3); Red Blood Count 4.16 M/uL (4.20-5.40); White Blood Count 11.94 K/ul (4.8-10.8)
[2024-08-29 08:06] LABS: ANTI-Xa, UFH(UnfractionatedHep 0.61 IU/ml (0.3-0.7)
[2024-08-29 08:07] LABS: BUN Creatinine Ratio 18.5 (10-20); Calcium 9.1 mg/dl (8.6-10.3); Phosphorus 2.6 mg/dl (2.5-4.9); Potassium 3.4 mmol/L (3.5-5.1)
--- NOTE | 2024-08-29 08:29 | Cardiology Consultation ---
Date of Consultation August 29, 2024 Assessment & Plan (1) NSTEMI (non-ST elevated myocardial infarction): (2) Elevated troponin: (3) CAP (community acquired pneumonia): (4) Aspiration into airway: (5) Right ventricular dilation: (6) Hypokalemia: (7) Non-sustained ventricular tachycardia: Plan Patient admitted approx 10 days ago with AMS and diagnosed with sepsis secondary to CAP. concerns for aspiration during admission and on 08/27 patient had a choking episode while trying to take her pills with probable aspiration. Code Purple called. Post event, patient was more hypoxic and slightly tachycardic. EKG demonstrated NSR without acute ischemic changes. HS troponin minimally elevated at 101, peaking at 462 late yesterday, and improving to 300 this morning. No chest pain reported during this time. Started on IV heparin for probable NSTEMI, demand ischemic event in setting of hypoxia. Continue IV heparin for 24-48 hours. Monitor hbg. Echo revealed hyperdynamic LVEF > 70%, no wall motion abnormalities, with moderate to severely enlarged RV. Continue ASA 81 mg daily, and atorvastatin. She had 8 beat run on non sustained VT this morning. Start metoprolol succinate 25 mg daily Supplement potassium - low at 3.4 at time of arrhythmia. Currently patient has no symptoms to suggest acute coronary syndrome. Ongoing medical management recommended for type II event, NSTEMI. Given her hypoxia, prolonged hospitalizations, and RV enlargement - PE work up also recommended. Case discussed with Dr. Collazo I spent a total of 60 minutes on the date of service in preparation, delivery, and documentation of the care provided to this patient, excluding any time spent in the performance of separately billed services. Laly Solis PA-C Department of Cardiology, [facility] This chart was completed in part utilizing Speech Voice Recognition Software. Grammatical errors, random word insertions, pronoun errors, and incomplete sentences are an occasional consequence of this system due to software limitations, ambient noise, and hardware issues. Any formal questions or concerns about the content, text, or information contained within the body of this dictation should be directly addressed to the provider for clarification. History of Present Illness Reason for Consultation: elevated troponin Requesting Physician: [facility] Hospitalist Attending Physician: Dr. Collazo History of Present Illness Patient is a 79 year old female who had been admitted to [facility] approx 10 days ago with acute metabolic encephalopathy and sepsis secondary to CAP and UTI. On 08/27 marcia Titus was called after patient choked on her morning pills and likely aspirated. She became hypoxic and tachycardic. Over the next 24 hours patient remained hypoxic. Chest xray was without acute process. EKG demonstrated NSR without acute ischemic changes. No chest pain reported. Troponin was drawn and found to be elevated at 101-462 and trending down to 300 this morning. Hospitalist started patient on IV heparin when troponin was elevated at 462 around midnight. No chest pain reported. EKG remained without ischemic changes. Cardiology was consulted due to elevated troponin. Echo ordered and completed this morning demonstrating moderate concentric LVH, no regional wall motion abnormalities, hyperdynamic LVEF > 70%, RV is moderately to severely dilated with mild RV systolic dysfunction. RVSP is moderately elevated at 40-50 mmHg She had 8 beat run of non sustained VT this morning. no symptoms. At time of consult, patient resting in bed. No reported chest pain. She denies history of cardiovascular problems. She notes ongoing cough and intermittent SOB. No palpitations. No edema. Still requiring supplemental O2. History includes: 1. Dementia at baseline with expressive aphasia 2. DM 3. Tobacco abuse 4. History of mild carotid vascular disease 5. Dyslipidemia 6. 2.5 cm abdominal aortic aneurysm noted on CT scan Allergies Allergy/AdvReac Type Severity Reaction Status Date / Time house dust mite Allergy Unknown Unknown Verified 08/20/24 05:38 No Known Drug Allergies Allergy Unknown NKDA Verified 06/13/16 09:23 pollen extracts Allergy Unknown HAYFEVER Verified 06/13/16 09:23 Home Medications Medication Instructions Recorded Confirmed Type aspirin 81 mg capsule 81 mg PO DAILY 08/15/24 08/19/24 History atorvastatin 40 mg tablet 40 mg PO DAILY 08/15/24 08/19/24 History donepezil 10 mg tablet 10 mg PO DAILY 08/15/24 08/19/24 History duloxetine 30 mg capsule,delayed 30 mg PO BID 08/15/24 08/19/24 History release fexofenadine 180 mg tablet 180 mg PO DAILY 08/15/24 08/19/24 History fluticasone propionate 50 2 spray intranasal HS 08/15/24 08/19/24 History mcg/actuation nasal spray,suspension gabapentin 300 mg capsule 300 mg PO TID 08/15/24 08/19/24 History meclizine 25 mg tablet 25 mg PO TID PRN Dizziness 08/15/24 08/19/24 History multivitamin 1 tab PO DAILY 08/15/24 08/19/24 History vitamin B complex 1 tab PO DAILY 08/15/24 08/19/24 History cefuroxime axetil 500 mg tablet 500 mg PO BID 5 days #10 tabs 08/17/24 08/19/24 Rx doxycycline hyclate 100 mg tablet 100 mg PO BID #13 tabs 08/17/24 08/19/24 Rx guaifenesin 600 mg tablet, 600 mg PO BID PRN cough #14 tabs 08/17/24 08/19/24 Rx extended release 12 hr (Mucinex) Patient History Medical History Tobacco use disorder Periodic limb movement disorder (PLMD) MCI (mild cognitive impairment) with memory loss Expressive aphasia IBS (irritable bowel syndrome) Dyslipidemia DM (diabetes mellitus), type 2 Lumbar stenosis Surgical History Hx of tonsillectomy Hx of appendectomy H/O: hysterectomy S/P lumbar spinal fusion Family History Other Alzheimer disease Cancer Social History Smoking Status: Current every day smoker Tobacco Type: Cigarettes Cigarettes Per Day: 5; Second Hand Exposure: No; Do You Dip or Chew Tobacco: No; Hx Alcohol Use: No Hx Substance Use: No Preferred Language: Senegalese Communication Ability: Effective Membership Solicitor Required: No Beliefs That Will Affect Care: None Current Living Situation: Spouse Current Living Situation Comment: home with Feels Safe at Home: Yes Safety Concerns: Feels Safe At This Time Assistive Devices: Cane Review of Systems Review of Systems: All systems reviewed & are unremarkable except as noted in HPI & below Physical Exam Constitutional: WD/WN, vitals as above no acute distress Neck: trachea midline, no thyromegaly normal visual inspection Respiratory: + cough; no labored breathing Auscult ation: + diminished lung sounds and + rhonchi Cardiovascular: Rate/Rhythm: regular rate and regular rhythm Heart Sounds: normal S1 and normal S2; no murmur Vessels: no JVD Extremities: no edema Gastrointestinal (Abdomen): normal bowel sounds, soft, nontender, no hepatosplenomegaly Neurologic: PERRL, EOMI, accommodation nl, no face palsy, no dysarthria Psychiatric: Orientation: alert and oriented x 3 Results & Data Vital Signs (Past 12 Hours) Vital Signs Temp Pulse Pulse Pulse Resp BP BP 08/29/24 07:27 86 18 125/70 08/29/24 02:35 36.7 C 97 H 18 139/88 08/28/24 23:48 08/28/24 22:58 36.6 C 98 H 18 145/82 H 08/28/24 21:54 98 H Pulse Ox O2 Del Method O2 Flow Rate 08/29/24 07:27 93 Nasal Cannula 2 08/29/24 02:35 95 Nasal Cannula 08/28/24 23:48 Nasal Cannula 2 08/28/24 22:58 99 Nasal Cannula 08/28/24 21:54 Laboratory Results Cardiac Enzymes 08/28/24 08/28/24 08/29/24 Range/Units 16:37 23:39 07:12 Troponin I High Sens 101.3 H* 462.2 H* D 300.0 H* D (0-14) pg/ml B-Natriuretic Peptide 69 (0-100) pg/ml Coagulation 08/28/24 08/29/24 Range/Units 16:37 01:22 PT 11.0 (9.0-12.0) Seconds APTT 28 (21-31) Seconds B-Natriuretic Peptide 69 (0-100) pg/ml CBC 08/28/24 08/29/24 08/29/24 Range/Units 16:37 01:22 07:12 WBC 14.90 H 14.06 H 11.94 H (4.8-10.8) K/ul RBC 4.45 4.37 4.16 L (4.20-5.40) M/uL Hgb 13.5 13.2 12.7 (12.0-16.0) g/dl Hct 40.6 39.6 38.1 (37.0-47.0) % Plt Count 271 279 270 (130-400) K/uL Neut # (Auto) 10.45 H (1.40-6.50) K/uL Lymph # (Auto) 2.61 (1.20-3.40) K/uL [place] # (Auto) 0.80 H (0.11-0.59) K/uL Eos # (Auto) 0.07 (0.00-0.50) K/uL Baso # (Auto) 0.05 (0.00-0.20) K/uL Comprehensive Metabolic Panel 08/28/24 08/29/24 Range/Units 16:37 07:12 Sodium 147 H 145 (136-145) mmol/L Potassium 3.6 3.4 L (3.5-5.1) mmol/L Chloride 113 H 110 H (98-107) mmol/L Carbon Dioxide 27 28 (21-32) mmol/L BUN 14 10 (6-23) mg/dl Creatinine 0.60 0.54 L (0.6-1.2) mg/dl Glucose 133 H 122 H (70-99(Fasting)) mg/dl Calcium 9.6 9.1 (8.6-10.3) mg/dl Intake and Output 08/28/24 08/29/24 08/29/24 22:59 06:59 14:59 Intake Total 453 / 873 320 / 873 86.933 / 86.933 Output Total 250 / 600 250 / 600 Balance 203 / 273 70 / 273 86.933 / 86.933 Intake: IV 353 / 653 200 / 653 86.933 / 86.933 Ampicillin/Sulbactam Sod 3,000 100 / 400 200 / 400 mg In 100 ml @ 200 mls/hr IV Q6H JUHI Rx#:[id number] Heparin 36902 Unit/500 ml D5w 86.933 / 86.933 25,000 units In 500 ml @ 800 UNITS/HR 16 mls/hr IV .Q24H JUHI Rx#:[id number] Potassium Phosphate 9 mmol In 253 / 253 Sodium Chloride 0.9% 250 ml @ 88 mls/hr IV ONE ONE Rx#: [id number] Oral 100 / 220 120 / 220 Output: Urine Amount (Catheter) 250 / 600 250 / 600 External 250 / 600 250 / 600 Diagnostic Findings Telemetry reviewed: NSR and Sinus tachycardia with HR 90-105 bmp One run of non sustained VT lasting 8 beats at 6:38 AM EKG reviewed from 08/29/24 at 5:08 AM: NSR No acute ischemic changes No change from prior EKG reviewed from 08/29/24 at 12:42 AM Sinus tachycardia. No acute ischemic changes No change from previous Echo reviewed from this morning: Moderate concentric LVH No wall motion abnormalities LVEF hyperdynamic > 70% moderate/severely enlarged RV with elevated pulm pressures Chest X-Ray 08/28/24 15:21 EXAM: Radiograph of the Chest 1 View INDICATION: Acute hypoxia TECHNIQUE: Frontal view of the chest. COMPARISON: 06/07/2016 FINDINGS: Lungs and pleural spaces: No consolidation or pulmonary edema. No pleural effusion or pneumothorax. Heart: Prominent cardiac shadow accentuated by technique. Mediastinum: Normal contour. Bones/joints: No fracture, erosion or dislocation. Soft tissues: No abnormality noted. No radiopaque foreign body noted. Vasculature: Stable ectatic calcified aorta. Upper abdomen: No abnormality noted. IMPRESSION: No acute cardiopulmonary disease. Medications Administered Current Inpatient Medications Acetaminophen (Acetaminophen 325 Mg Tab) 650 mg PO Q4H PRN PRN Reason: Fever or headache Stop: 09/18/24 16:52 Last Admin: 08/20/24 13:15 Dose: 650 mg Albuterol (Albuterol 0.083% Nebu Soln 3 Ml Vial) 2.5 mg NEB Q6H PRN; Protocol PRN Reason: Shortness Of Breath Or Wheezing Stop: 09/26/24 13:20 Aspirin (Aspirin 81 Mg Ectab) 81 mg PO DAILY JUHI Stop: 09/19/24 08:59 Last Admin: 08/29/24 07:18 Dose: Not Given Atorvastatin Calcium (Atorvastatin 40 Mg Tab) 40 mg PO DAILY JUHI Stop: 09/19/24 08:59 Last Admin: 08/28/24 08:00 Dose: 40 mg Donepezil HCl (Donepezil Hcl 10 Mg Tab) 10 mg PO DAILY JUHI Stop: 09/19/24 08:59 Last Admin: 08/28/24 08:00 Dose: 10 mg Fexofenadine HCl (Fexofenadine Hcl 180 Mg Tab) 180 mg PO DAILY JUHI Stop: 09/19/24 08:59 Last Admin: 08/28/24 08:00 Dose: 180 mg Fluticasone Propionate (Fluticasone Propionate Na Spr 16 Gm Btl) 2 sprays NA HS JUHI Stop: 09/19/24 20:59 Last Admin: 08/28/24 20:32 Dose: 2 sprays Gabapentin (Gabapentin 300 Mg Cap) 300 mg PO TID [facility] Stop: 09/18/24 16:52 Last Admin: 08/27/24 12:46 Dose: Not Given Guaifenesin (Guaifenesin 600 Mg Tabcr) 600 mg PO BID PRN PRN Reason: cough Stop: 09/18/24 16:52 Last Admin: 08/20/24 08:00 Dose: 600 mg Ampicillin Sodium/Sulbactam Sodium (Unasyn) 3,000 mg in 100 mls @ 200 mls/hr IV Q6H [facility] Stop: 09/03/24 10:59 Last Infusion: 08/29/24 06:25 Dose: Infused Heparin Sodium/Dextrose (Heparin 95655 Unit/500 Ml D5w) 25,000 units in 500 mls @ 16 mls/hr IV .Q24H [facility]; Protocol Stop: 09/28/24 00:59 Last Titration: 08/29/24 07:04 Dose: 800 units/hr, 16 mls/hr Loperamide HCl (Loperamide Hcl 2 Mg Cap) 2 mg PO Q4H PRN PRN Reason: Diarrhea Stop: 09/20/24 08:52 Last Admin: 08/21/24 09:26 Dose: 2 mg Melatonin (Melatonin 3 Mg Tab) 3 mg PO HS [facility] Stop: 09/21/24 20:59 Last Admin: 08/28/24 20:32 Dose: 3 mg Miconazole Nitrate (Miconazole Nitrate Powder 85 Gm) 1 appln EXT PRN PRN PRN Reason: Affected Skin Folds Stop: 09/21/24 05:12 Last Admin: 08/26/24 20:05 Dose: 1 appln Multivitamins (Multivitamin Tab) 1 tab PO DAILY [facility] Stop: 09/19/24 08:59 Last Admin: 08/28/24 08:00 Dose: 1 tab Olanzapine (Olanzapine 10 Mg/2.1 Ml Sdv) 2.5 mg IM Q4H PRN PRN Reason: Agitation Stop: 09/20/24 21:47 Last Admin: 08/22/24 15:10 Dose: 2.5 mg Ondansetron HCl (Ondansetron Inj 2 Mg/Ml 2 Ml Vial) 4 mg IV Q4H PRN PRN Reason: Nausea And Vomiting Stop: 09/18/24 16:52 Vitamin B Complex (Vitamin B Complex Tab) 1 tab PO DAILY JUHI Stop: 09/19/24 08:59 Last Admin: 08/28/24 08:00 Dose: 1 tab (3) CAP (community acquired pneumonia) Laterality: right Lung location: lower lobe of lung Qualified Code(s): J18.9 - Pneumonia, unspecified organism (4) Aspiration into airway Encounter type: initial encounter Qualified Code(s): T17.908A - Unspecified foreign body in respiratory tract, part unspecified causing other injury, initial encounter
[2024-08-29] MEDS: POTASSIUM CHLORIDE CRTAB 20 MEQ TABCR PO ONE (08:55)
[2024-08-29] MEDS: METOPROLOL SUCC 25MG EXT REL TAB PO SCH (12:02)
--- NOTE | 2024-08-29 13:13 | Communication Note ---
Date of Service: August 29, 2024 Patient was seen and personally examined. Full assessment and plan as outlined by advanced provider in consultation report. Care and management personally discussed and endorsed. Full recommendations as outlined. Echocardiogram demonstrates normal to hyperdynamic LV systolic function without wall motion abnormality there is right ventricular enlargement and evidence of at least moderate elevation in pulmonary pressures question acute versus chronic. Recommendations as above
--- NOTE | 2024-08-29 13:41 | Ultrasound Report ---
BILATERAL LOWER EXTREMITY VENOUS DOPPLER HISTORY: r/o DVT COMPARISON STUDY: None FINDINGS: No evidence of DVT seen in bilateral lower extremities. IMPRESSION: No DVT seen. ACT 112: Negative or not required by law. Electronically signed by: [place] M.D. 08/29/2024 1:40 PM
[2024-08-29] MEDS: OPTIRAY 320 125ml IV ONE (16:54)
--- NOTE | 2024-08-29 17:35 | CT Scan Report ---
EXAM: CT Angiography Chest With Intravenous Contrast INDICATION: PE TECHNIQUE: Axial computed tomographic angiography images of the chest with intravenous contrast. Sagittal and coronal reformatted images were created and reviewed. This CT exam was performed using one or more of the following dose reduction techniques: automated exposure control, adjustment of the mA and/or kV according to patient size, and/or use of iterative reconstruction technique. MIP reconstructed images were created and reviewed. CONTRAST: 118ml of Optiray 320 was administered intravenously. COMPARISON: No relevant prior studies available. FINDINGS: Pulmonary arteries: Acute pulmonary embolus lodged at the bifurcation of the left main pulmonary artery with propagation to segmental vessels to the left upper and lower lobes. There is a smaller clot at the bifurcation of the right main pulmonary artery. There is a prominent clot in the pulmonary arterial branch to the right upper lobe. No saddle embolus. Aorta: Atherosclerotic calcification of the aorta and branches. No aneurysm. Lungs and pleural spaces: There is a 4 mm nodule along the minor fissure series 4 image 60. 5 mm long oval noncalcified subpleural right lower lobe pulmonary nodule present. No consolidation. No significant effusion. No pneumothorax. Heart: Mild asymmetric right chamber dilatation. Coronary calcification noted. No pericardial effusion. Bones/joints: No acute or atypical chronic changes. Soft tissues: No abnormality noted. Lymph nodes: No abnormality noted. No enlarged lymph nodes. IMPRESSION: 1. Bilateral pulmonary emboli as above with evidence of right heart strain. 2. 4 mm right fissural and 5 mm right subpleural lower lobe pulmonary nodules. Fleischner Society Guidelines for low-risk patients recommend, follow-up chest CT at 3-6 months. If unchanged consider an additional follow-up CT at 18-24 months. For high-risk patients (smoking history or other known risk factors) initial follow-up chest CT at 3-6 months and if unchanged, 18-24 months. ACT 112: Negative or not required by law. Electronically signed by Coco Mariee 08-29-2024 5:35 PM
[2024-08-29] MEDS: Heparin IV Adult Wt-Based Standard *NO* INITIAL Bolus Protocol IV SCH (18:27)
[2024-08-29] MEDS: Heparin IV Adult Wt-Based Standard *NO* INITIAL Bolus Protocol IV STA (18:39)
[2024-08-30 07:50] LABS: Hematocrit (blood only) 39.8 % (37.0-47.0); Hemoglobin 13.1 g/dl (12.0-16.0); Mean Corpuscular Hemoglobin 30.4 pg (25.0-34.0); Mean Corpuscular Hgb Conc 32.9 g/dL (32.0-36.0); Mean Corpuscular Volume 92.3 fL (80.0-100.0); Mean Platelet Volume 10.3 fL (9.4-12.4); Platelet Count 256 K/uL (130-400); RDW Coefficient of Variation 13.1 % (11.5-14.5); RDW Standard Deviation 43.7 fL (36.4-46.3); Red Blood Count 4.31 M/uL (4.20-5.40); White Blood Count 10.35 K/ul (4.8-10.8)
[2024-08-30 08:15] LABS: ANTI-Xa, UFH(UnfractionatedHep 0.62 IU/ml (0.3-0.7)
[2024-08-30 08:17] LABS: BUN Creatinine Ratio 14.1 (10-20); Calcium 9.1 mg/dl (8.6-10.3); Creatinine Clr Calc Pharmacy 74.6 ml/min; Magnesium 2.1 mg/dl (1.7-2.4); Phosphorus 3.5 mg/dl (2.5-4.9)
--- NOTE | 2024-08-30 09:10 | Hospitalist Progress Note ---
Date of Service August 30, 2024 Assessment & Plan (1) CAP (community acquired pneumonia): (2) Acute metabolic encephalopathy: (3) Acute UTI: (4) Generalized weakness: (5) UTI (urinary tract infection): Plan Patient is an 79yr F with PMH of DM II, expressive aphasia, mild cognitive impairment, tobacco use, periodic limb movement disorder, IBS and other medical problems listed below who presents via EMS with confusion and was found to have acute metabolic encephalopathy 2/2 UTI and possible CAP. Sepsis Right lower lobe pneumonia Acute metabolic encephalopathy secondary to above E.coli UTI Generalized weakness Acute PE --CT Head:No acute intracranial findings. No change in appearance of the brain. --CT ABD:No acute process identified. --Chest CTA:No pulmonary emboli identified. Mild right lower lobe alveolar opacities suggestive of an infectious process. Mildly enlarged right hilar lymph nodes. These are likely benign. A chest CT in 3 months is recommended to ensure resolution. Mild cardiomegaly. Moderate to extensive coronary artery calcification. -- BioFire negative --Normal procalcitonin --Video Swallow:No aspiration seen. -- Blood cultures: negative to date --Completed 7-day course of IV Zosyn, doxycycline -- Received IV fluids -- Saturating well on room air -- Aspiration precautions, pulmonary hygiene PT OT recommends acute rehab Plan to discharge to rehab facility once medically stable Acute PE repeat CT PE on 08/29 - 1. Bilateral pulmonary emboli as above with evidence of right heart strain. 2. 4 mm right fissural and 5 mm right subpleural lower lobe pulmonary nodules. Aspiration Code purple on 08/27/2024 --CXR:Heart size and pulmonary vasculature are normal. No effusion, consolidation, or pneumothorax. -- Lactic acidosis improved with IV fluid Empirically started on Unasyn Continue IV fluids Speech to reevaluate Aspiration precautions Patient was reevaluated by speech therapy on- 08/27 and was started on easy to chew diet Continue aspiration precautions Acute hypoxia secondary to acute PE 08/28/2024 after working w/ OT and had a BM Initially from RA to 6L after re-eval down to 2L CXR, ECG, cbc, bmp, trop obtained transferred to PCU Troponin elevated, will repeat and will obtain echo Elevated troponin - pt started on IV heparin overnight Also had episode of VT Cardiology consulted - Echo revealed hyperdynamic LVEF > 70%, no wall motion abnormalities, with moderate to severely enlarged RV, evidence of at least moderate elevation in pulmonary pressures question acute versus chronic Discussed w/ cardiology - pt had CTA chest on 08/[address], we may repeat the study-> repeat CT PE posit. for PE -> elevated troponin 2/2 to PE, not nstemi Dopplers of LEs obtained - negative for DVT Diarrhea Stool PCR, stool for C. difficile negative Diarrhea likely due to antibiotics Imodium as needed IV fluids as needed Resolved Monitor for recurrence DM II - Stable, diet controlled - A1c 6.6 in Jul 2024 Consider adding insulin if needed Tobacco use disorder - Smoking 0.5 ppd [employer] smoking cessation Asymptomatic carotid stenosis HLD - Continue aspirin, statin Dementia Expressive aphasia at baseline -Baseline is oriented to person and place only -Lives at home with , walker prescribed on dc on 08/17 -Continue donepezil Reorient frequently to minimize delirium IBS Chronic constipation Monitor DVT Px: Heparin SQ CODE STATUS: Full code Disposition Rehab as able Admission and Anticipated Discharge Date Admission Date: August 19, 2024 Subjective Patient seen in follow up CT PE posit. for PE, pt on IV heparin Currently lying in bed in NAD, but drowsy Pt's reports she was up earlier when family was visiting Pt denies chest pain, shortness of breath. denies abd. pain, n/v Review of Systems Review of Systems: All systems reviewed & are unremarkable except as noted in Subjective Physical Exam Physical Exam: General Appearance:Moderately built and nourished, no apparent distress, drowsy, on suppl. O2 Head: normocephalic, Atraumatic Eyes: normal inspection, EOMI Neck: supple Respiratory/Chest: Decreased breath sounds, No accessory muscle use, on suppl. O2 Cardiovascular: S1, S2, No murmur Abdomen/GI:Soft, Non tender, Bowel sounds present Extremities/Musculoskeletal:normal inspection, Trace edema Neurologic/Psych: drowsy, but able to answer appropriately, moves extremities Skin: normal color, warm Results & Data Results & Data Vital Signs (Past 12 Hours) Vital Signs Temp Pulse Pulse Resp BP BP Pulse Ox 08/30/24 08:00 08/30/24 08:00 36.5 C 71 15 127/76 98 08/30/24 02:41 36.6 C 89 18 174/79 H 99 08/29/24 23:17 36.4 C L 78 18 147/76 H 95 O2 Del Method O2 Flow Rate 08/30/24 08:00 Nasal Cannula 3 08/30/24 08:00 Nasal Cannula 08/30/24 02:41 Nasal Cannula 3 08/29/24 23:17 Nasal Cannula 3 Laboratory Results 08/30/24 Range/Units 07:18 WBC 10.35 (4.8-10.8) K/ul RBC 4.31 (4.20-5.40) M/uL Hgb 13.1 (12.0-16.0) g/dl Hct 39.8 (37.0-47.0) % MCV 92.3 (80.0-100.0) fL MCH 30.4 (25.0-34.0) pg MCHC 32.9 (32.0-36.0) g/dL RDW Std Deviation 43.7 (36.4-46.3) fL RDW Coeff of Sherif 13.1 (11.5-14.5) % Plt Count 256 (130-400) K/uL MPV 10.3 (9.4-12.4) fL Heparin Anti-Xa, Unfract 0.62 (0.3-0.7) IU/ml Sodium 143 (136-145) mmol/L Potassium 4.0 (3.5-5.1) mmol/L Chloride 108 H (98-107) mmol/L Carbon Dioxide 32 (21-32) mmol/L Anion Gap 3 (3-11) BUN 9 (6-23) mg/dl Creatinine 0.64 (0.6-1.2) mg/dl Est Cr Clr Drug Dosing 74.6 ml/min eGFR 88.73 BUN/Creatinine Ratio 14.1 (10-20) Glucose 116 H (70-99(Fasting)) mg/dl Calcium 9.1 (8.6-10.3) mg/dl Phosphorus 3.5 (2.5-4.9) mg/dl Magnesium 2.1 (1.7-2.4) mg/dl Medications Administered Current Inpatient Medications Acetaminophen (Acetaminophen 325 Mg Tab) 650 mg PO Q4H PRN PRN Reason: Fever or headache Stop: 09/18/24 16:52 Last Admin: 08/20/24 13:15 Dose: 650 mg Albuterol (Albuterol 0.083% Nebu Soln 3 Ml Vial) 2.5 mg NEB Q6H PRN; Protocol PRN Reason: Shortness Of Breath Or Wheezing Stop: 09/26/24 13:20 Aspirin (Aspirin 81 Mg Ectab) 81 mg PO DAILY [facility] Stop: 09/19/24 08:59 Last Admin: 08/30/24 08:55 Dose: 81 mg Atorvastatin Calcium (Atorvastatin 40 Mg Tab) 40 mg PO DAILY [facility] Stop: 09/19/24 08:59 Last Admin: 08/30/24 08:55 Dose: 40 mg Donepezil HCl (Donepezil Hcl 10 Mg Tab) 10 mg PO DAILY [facility] Stop: 09/19/24 08:59 Last Admin: 08/30/24 08:55 Dose: 10 mg Fexofenadine HCl (Fexofenadine Hcl 180 Mg Tab) 180 mg PO DAILY [facility] Stop: 09/19/24 08:59 Last Admin: 08/30/24 08:55 Dose: 180 mg Fluticasone Propionate (Fluticasone Propionate Na Spr 16 Gm Btl) 2 sprays NA HS [facility] Stop: 09/19/24 20:59 Last Admin: 08/29/24 21:06 Dose: 2 sprays Gabapentin (Gabapentin 300 Mg Cap) 300 mg PO TID [facility] Stop: 09/18/24 16:52 Last Admin: 08/27/24 12:46 Dose: Not Given Guaifenesin (Guaifenesin 600 Mg Tabcr) 600 mg PO BID PRN PRN Reason: cough Stop: 09/18/24 16:52 Last Admin: 08/20/24 08:00 Dose: 600 mg Ampicillin Sodium/Sulbactam Sodium (Unasyn) 3,000 mg in 100 mls @ 200 mls/hr IV Q6H [facility] Stop: 09/03/24 10:59 Last Infusion: 08/30/24 07:11 Dose: Infused Heparin Sodium/Dextrose (Heparin 41786 Unit/500 Ml D5w) 25,000 units in 500 mls @ 16 mls/hr IV .Q24H [facility]; Protocol Stop: 09/28/24 18:29 Last Admin: 08/30/24 05:59 Dose: 800 units/hr, 16 mls/hr Loperamide HCl (Loperamide Hcl 2 Mg Cap) 2 mg PO Q4H PRN PRN Reason: Diarrhea Stop: 09/20/24 08:52 Last Admin: 08/21/24 09:26 Dose: 2 mg Melatonin (Melatonin 3 Mg Tab) 3 mg PO HS [facility] Stop: 09/21/24 20:59 Last Admin: 08/29/24 21:06 Dose: 3 mg Metoprolol Succinate (Metoprolol Succ 25mg Ext Rel Tab) 25 mg PO QAM [facility] Stop: 09/28/24 11:44 Last Admin: 08/30/24 08:54 Dose: 25 mg Miconazole Nitrate (Miconazole Nitrate Powder 85 Gm) 1 appln EXT PRN PRN PRN Reason: Affected Skin Folds Stop: 09/21/24 05:12 Last Admin: 08/29/24 08:51 Dose: 1 appln Multivitamins (Multivitamin Tab) 1 tab PO DAILY [facility] Stop: 09/19/24 08:59 Last Admin: 08/30/24 08:55 Dose: 1 tab Olanzapine (Olanzapine 10 Mg/2.1 Ml Sdv) 2.5 mg IM Q4H PRN PRN Reason: Agitation Stop: 09/20/24 21:47 Last Admin: 08/22/24 15:10 Dose: 2.5 mg Ondansetron HCl (Ondansetron Inj 2 Mg/Ml 2 Ml Vial) 4 mg IV Q4H PRN PRN Reason: Nausea And Vomiting Stop: 09/18/24 16:52 Vitamin B Complex (Vitamin B Complex Tab) 1 tab PO DAILY [facility] Stop: 09/19/24 08:59 Last Admin: 08/30/24 08:55 Dose: 1 tab (1) CAP (community acquired pneumonia) Laterality: right Lung location: lower lobe of lung Qualified Code(s): J18.9 - Pneumonia, unspecified organism
--- NOTE | 2024-08-30 12:04 | Cardiology Progress Note ---
Date of Service August 30, 2024 Assessment & Plan (1) Pulmonary emboli: (2) Elevated troponin: (3) CAP (community acquired pneumonia): (4) Aspiration into airway: (5) Right ventricular dilation: (6) Hypokalemia: (7) Non-sustained ventricular tachycardia: Plan Patient diagnosed with acute b/l pulmonary emboli yesterday after positive chest CTA secondary to hypoxia, tachycardia and prolonged hospital stay. Elevated troponin due to acute PE, not NSTEMI. Echocardiogram revealed hyperdynamic LVEF > 70%, no wall motion abnormalities, with moderate to severely enlarged RV. Continue IV heparin per hospitalist and transition to oral anticoagulation when able. Continue metoprolol for non sustained VT. No recurrent arrhythmias on telemetry No further cardiac testing warranted at this time. will sign off. Case discussed with Dr. Zay Esteves spent a total of 30 minutes on the date of service in preparation, delivery, and documentation of the care provided to this patient, excluding any time spent in the performance of separately billed services. Laly Solis PA-C Department of Cardiology, [facility] This chart was completed in part utilizing Speech Voice Recognition Software. Grammatical errors, random word insertions, pronoun errors, and incomplete sen tences are an occasional consequence of this system due to software limitations, ambient noise, and hardware issues. Any formal questions or concerns about the content, text, or information contained within the body of this dictation should be directly addressed to the provider for clarification. Admission and Anticipated Discharge Date Admission Date: August 19, 2024 Supervising Physician Co-Signing Physician Notes Patient seen and personally examined. Full assessment and plan as above by advanced provider. Care and management personally endorsed. Impression: Acute pulmonary emboli with elevated troponin secondary to right ventricular strain. No evidence of of non-STEMI, myocardial dysfunction Subjective Patient sleeping in bed. Awakens to voice but continuously falls asleep. She reports feeling "better". Denies chest pain. No SOB at rest. Yesterday patient was diagnosed with acute b/l pulmonary emboli. Review of Systems Review of Systems: All systems reviewed & are unremarkable except as noted in HPI & below Physical Exam Constitutional: WD/WN, vitals as above no acute distress Neck: trachea midline, no thyromegaly normal visual inspection Respiratory: + cough; no labored breathing Auscult ation: + diminished lung sounds and + rhonchi Cardiovascular: Rate/Rhythm: regular rate and regular rhythm Heart Sounds: normal S1 and normal S2; no murmur Vessels: no JVD Extremities: no edema Gastrointestinal (Abdomen): normal bowel sounds, soft, nontender, no hepatosplenomegaly Neurologic: PERRL, EOMI, accommodation nl, no face palsy, no dysarthria Psychiatric: Orientation: alert and oriented x 3 Results & Data Vital Signs (Past 12 Hours) Vital Signs Temp Pulse Pulse Resp BP BP Pulse Ox 08/30/24 10:03 67 16 146/53 H 96 08/30/24 08:00 08/30/24 08:00 36.5 C 71 15 127/76 98 08/30/24 02:41 36.6 C 89 18 174/79 H 99 O2 Del Method O2 Flow Rate 08/30/24 10:03 Nasal Cannula 2 08/30/24 08:00 Nasal Cannula 3 08/30/24 08:00 Nasal Cannula 08/30/24 02:41 Nasal Cannula 3 Laboratory Results CBC 08/30/24 Range/Units 07:18 WBC 10.35 (4.8-10.8) K/ul RBC 4.31 (4.20-5.40) M/uL Hgb 13.1 (12.0-16.0) g/dl Hct 39.8 (37.0-47.0) % Plt Count 256 (130-400) K/uL Comprehensive Metabolic Panel 08/30/24 Range/Units 07:18 Sodium 143 (136-145) mmol/L Potassium 4.0 (3.5-5.1) mmol/L Chloride 108 H (98-107) mmol/L Carbon Dioxide 32 (21-32) mmol/L BUN 9 (6-23) mg/dl Creatinine 0.64 (0.6-1.2) mg/dl Glucose 116 H (70-99(Fasting)) mg/dl Calcium 9.1 (8.6-10.3) mg/dl Intake and Output 08/29/24 08/30/24 08/30/24 22:59 06:59 14:59 Intake Total 100 / 569.066 282.133 / 569.066 100 / 100 Output Total 400 / 901 250 / 901 Balance -300 / -331.934 32.133 / -331.934 100 / 100 Intake: IV 100 / 569.066 282.133 / 569.066 100 / 100 Ampicillin/Sulbactam Sod 3,000 100 / 300 100 / 300 100 / 100 mg In 100 ml @ 200 mls/hr IV Q6H [facility] Rx#:[id number] Heparin 13552 Unit/500 ml D5w 0 / 269.066 182.133 / 269.066 25,000 units In 500 ml @ 800 UNITS/HR 16 mls/hr IV .Q24H [facility] Rx#:[id number] Output: Urine Amount (Catheter) 400 / 900 250 / 900 Alejandra/Indwelling 400 / 900 250 / 900 Other: Weight 85 kg 85.8 kg Weight Measurement Method [facility] Diagnostic Findings Telemetry reviewed: NSR. No arrhythmias Venous Doppler Study 08/29/24 11:07 BILATERAL LOWER EXTREMITY VENOUS DOPPLER HISTORY: r/o DVT COMPARISON STUDY: None FINDINGS: No evidence of DVT seen in bilateral lower extremities. IMPRESSION: No DVT seen. Chest CTA 08/29/24 15:32 IMPRESSION: 1. Bilateral pulmonary emboli as above with evidence of right heart strain. 2. 4 mm right fissural and 5 mm right subpleural lower lobe pulmonary nodules. Fleischner Society Guidelines for low-risk patients recommend, follow-up chest CT at 3-6 months. If unchanged consider an additional follow-up CT at 18-24 months. For high-risk patients (smoking history or other known risk factors) initial follow-up chest CT at 3-6 months and if unchanged, 18-24 months. ACT 112: Negative or not required by law. Electronically signed by Coco Mariee 08-29-2024 5:35 PM Medications Administered Current Inpatient Medications Acetaminophen (Acetaminophen 325 Mg Tab) 650 mg PO Q4H PRN PRN Reason: Fever or headache Stop: 09/18/24 16:52 Last Admin: 08/20/24 13:15 Dose: 650 mg Albuterol (Albuterol 0.083% Nebu Soln 3 Ml Vial) 2.5 mg NEB Q6H PRN; Protocol PRN Reason: Shortness Of Breath Or Wheezing Stop: 09/26/24 13:20 Aspirin (Aspirin 81 Mg Ectab) 81 mg PO DAILY [facility] Stop: 09/19/24 08:59 Last Admin: 08/30/24 08:55 Dose: 81 mg Atorvastatin Calcium (Atorvastatin 40 Mg Tab) 40 mg PO DAILY [facility] Stop: 09/19/24 08:59 Last Admin: 08/30/24 08:55 Dose: 40 mg Donepezil HCl (Donepezil Hcl 10 Mg Tab) 10 mg PO DAILY [facility] Stop: 09/19/24 08:59 Last Admin: 08/30/24 08:55 Dose: 10 mg Fexofenadine HCl (Fexofenadine Hcl 180 Mg Tab) 180 mg PO DAILY [facility] Stop: 09/19/24 08:59 Last Admin: 08/30/24 08:55 Dose: 180 mg Fluticasone Propionate (Fluticasone Propionate Na Spr 16 Gm Btl) 2 sprays NA HS [facility] Stop: 09/19/24 20:59 Last Admin: 08/29/24 21:06 Dose: 2 sprays Gabapentin (Gabapentin 300 Mg Cap) 300 mg PO TID [facility] Stop: 09/18/24 16:52 Last Admin: 08/27/24 12:46 Dose: Not Given Guaifenesin (Guaifenesin 600 Mg Tabcr) 600 mg PO BID PRN PRN Reason: cough Stop: 09/18/24 16:52 Last Admin: 08/20/24 08:00 Dose: 600 mg Ampicillin Sodium/Sulbactam Sodium (Unasyn) 3,000 mg in 100 mls @ 200 mls/hr IV Q6H [facility] Stop: 09/03/24 10:59 Last Admin: 08/30/24 11:46 Dose: 200 mls/hr Heparin Sodium/Dextrose (Heparin 09104 Unit/500 Ml D5w) 25,000 units in 500 mls @ 16 mls/hr IV .Q24H [facility]; Protocol Stop: 09/28/24 18:29 Last Admin: 08/30/24 05:59 Dose: 800 units/hr, 16 mls/hr Loperamide HCl (Loperamide Hcl 2 Mg Cap) 2 mg PO Q4H PRN PRN Reason: Diarrhea Stop: 09/20/24 08:52 Last Admin: 08/21/24 09:26 Dose: 2 mg Melatonin (Melatonin 3 Mg Tab) 3 mg PO HS [facility] Stop: 09/21/24 20:59 Last Admin: 08/29/24 21:06 Dose: 3 mg Metoprolol Succinate (Metoprolol Succ 25mg Ext Rel Tab) 25 mg PO QAM [facility] Stop: 09/28/24 11:44 Last Admin: 08/30/24 08:54 Dose: 25 mg Miconazole Nitrate (Miconazole Nitrate Powder 85 Gm) 1 appln EXT PRN PRN PRN Reason: Affected Skin Folds Stop: 09/21/24 05:12 Last Admin: 08/29/24 08:51 Dose: 1 appln Multivitamins (Multivitamin Tab) 1 tab PO DAILY [facility] Stop: 09/19/24 08:59 Last Admin: 08/30/24 08:55 Dose: 1 tab Olanzapine (Olanzapine 10 Mg/2.1 Ml Sdv) 2.5 mg IM Q4H PRN PRN Reason: Agitation Stop: 09/20/24 21:47 Last Admin: 08/22/24 15:10 Dose: 2.5 mg Ondansetron HCl (Ondansetron Inj 2 Mg/Ml 2 Ml Vial) 4 mg IV Q4H PRN PRN Reason: Nausea And Vomiting Stop: 09/18/24 16:52 Vitamin B Complex (Vitamin B Complex Tab) 1 tab PO DAILY [facility] Stop: 09/19/24 08:59 Last Admin: 08/30/24 08:55 Dose: 1 tab (1) Pulmonary emboli Pulmonary embolism type: multiple subsegmental (without acute cor pulmonale) Qualified Code(s): I26.94 - Multiple subsegmental thrombotic pulmonary emboli without acute cor pulmonale (3) CAP (community acquired pneumonia) Laterality: right Lung location: lower lobe of lung Qualified Code(s): J18.9 - Pneumonia, unspecified organism (4) Aspiration into airway Encounter type: initial encounter Qualified Code(s): T17.908A - Unspecified foreign body in respiratory tract, part unspecified causing other injury, initial encounter
--- NOTE | 2024-08-30 22:31 | Electrocardiogram Report ---
Test Reason : Blood Pressure : */* mmHG Vent. Rate : 94 BPM Atrial Rate : 94 BPM P-R Int : 182 ms QRS Dur : 86 ms QT Int : 374 ms P-R-T Axes : 62 78 79 degrees QTcB Int : 467 ms Normal sinus rhythm Normal ECG When compared with ECG of 28-Aug-2024 15:23, No significant change was found Confirmed by Reginald Thomas ([id number]) on 08/30/2024 10:31:28 PM Referred By: REFERRED SELF Confirmed By: Reginald Thomas
--- NOTE | 2024-08-30 22:31 | Electrocardiogram Report ---
Test Reason : Blood Pressure : */* mmHG Vent. Rate : 94 BPM Atrial Rate : 94 BPM P-R Int : 188 ms QRS Dur : 90 ms QT Int : 378 ms P-R-T Axes : 68 85 91 degrees QTcB Int : 472 ms Normal sinus rhythm Low voltage QRS Nonspecific ST abnormality Abnormal ECG When compared with ECG of 27-Aug-2024 10:42, No significant change was found Confirmed by Reginald Thomas ([id number]) on 08/30/2024 10:31:12 PM Referred By: REFERRED SELF Confirmed By: Reginald Thomas
--- NOTE | 2024-08-30 22:32 | Electrocardiogram Report ---
Test Reason : Blood Pressure : */* mmHG Vent. Rate : 93 BPM Atrial Rate : 93 BPM P-R Int : 176 ms QRS Dur : 82 ms QT Int : 356 ms P-R-T Axes : 67 66 76 degrees QTcB Int : 442 ms Normal sinus rhythm Low voltage QRS Borderline ECG When compared with ECG of 29-Aug-2024 00:42, No significant change was found Confirmed by Reginald Thomas ([id number]) on 08/30/2024 10:32:13 PM Referred By: REFERRED SELF Confirmed By: Reginald Thomas
--- NOTE | 2024-08-30 22:32 | Electrocardiogram Report ---
Test Reason : Blood Pressure : */* mmHG Vent. Rate : 102 BPM Atrial Rate : 102 BPM P-R Int : 182 ms QRS Dur : 84 ms QT Int : 362 ms P-R-T Axes : 69 75 76 degrees QTcB Int : 471 ms Sinus tachycardia Low voltage QRS Borderline ECG When compared with ECG of 28-Aug-2024 18:07, No significant change was found Confirmed by Reginald Thomas ([id number]) on 08/30/2024 10:31:58 PM Referred By: REFERRED SELF Confirmed By: Reginald Thomas
[2024-08-31 07:14] LABS: Hematocrit (blood only) 37.6 % (37.0-47.0); Hemoglobin 12.3 g/dl (12.0-16.0); Mean Corpuscular Hemoglobin 30.1 pg (25.0-34.0); Mean Corpuscular Hgb Conc 32.7 g/dL (32.0-36.0); Mean Corpuscular Volume 92.2 fL (80.0-100.0); Mean Platelet Volume 10.7 fL (9.4-12.4); Platelet Count 261 K/uL (130-400); RDW Coefficient of Variation 12.8 % (11.5-14.5); RDW Standard Deviation 42.6 fL (36.4-46.3); Red Blood Count 4.08 M/uL (4.20-5.40); White Blood Count 8.75 K/ul (4.8-10.8)
--- NOTE | 2024-08-31 07:18 | Hospitalist Progress Note ---
Date of Service August 31, 2024 Assessment & Plan (1) CAP (community acquired pneumonia): (2) Acute metabolic encephalopathy: (3) Acute UTI: (4) Generalized weakness: (5) UTI (urinary tract infection): Plan Patient is an 79yr F with PMH of DM II, expressive aphasia, mild cognitive impairment, tobacco use, periodic limb movement disorder, IBS and other medical problems listed below who presents via EMS with confusion and was found to have acute metabolic encephalopathy 2/2 UTI and possible CAP. Sepsis Right lower lobe pneumonia Acute metabolic encephalopathy secondary to above E.coli UTI Generalized weakness Acute PE --CT Head:No acute intracranial findings. No change in appearance of the brain. --CT ABD:No acute process identified. --Chest CTA (08/19):No pulmonary emboli identified. Mild right lower lobe alveolar opacities suggestive of an infectious process. Mildly enlarged right hilar lymph nodes. These are likely benign. A chest CT in 3 months is recommended to ensure resolution. Mild cardiomegaly. Moderate to extensive coronary artery calcification. -- BioFire negative --Normal procalcitonin --Video Swallow:No aspiration seen. -- Blood cultures: negative to date --Completed 7-day course of IV Zosyn, doxycycline -- Received IV fluids -- Saturating well on room air -- Aspiration precautions, pulmonary hygiene PT OT recommends acute rehab Plan to discharge to rehab facility once medically stable Acute PE repeat CT PE on 08/29 - 1. Bilateral pulmonary emboli as above with evidence of right heart strain. 2. 4 mm right fissural and 5 mm right subpleural lower lobe pulmonary nodules. Aspiration Code purple on 08/27/2024 --CXR:Heart size and pulmonary vasculature are normal. No effusion, consolidation, or pneumothorax. -- Lactic acidosis improved with IV fluid Empirically started on Unasyn -> will switch to augmentin now Continue IV fluids Speech to reevaluate Aspiration precautions Patient was reevaluated by speech therapy on- 08/27 and was started on easy to chew diet Continue aspiration precautions Acute hypoxia secondary to acute PE 08/28/2024 after working w/ OT and had a BM Initially from RA to 6L after re-eval down to 2L CXR, ECG, cbc, bmp, trop obtained transferred to PCU echo obtained, as trop. elevated CT PE obtained - now posit. for acute PE Also had episode of [place] Cardiology consulted - -> elevated troponin 2/2 to PE, not nstemi Dopplers of LEs obtained - negative for DVT Diarrhea Stool PCR, stool for C. 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 for PE, pt on IV heparin Currently sitting up in bed in NAD, much more awake today than yesterday Pt denies chest pain, shortness of breath. denies abd. pain, n/v poor oral intake, says she has no taste Encouraged flutter valve, and IS - pt follows instructions but w/ difficulty - discussed w/ nurse to pls assist the pt w/ those Review of Systems Review of Systems: All systems reviewed & are unremarkable except as noted in Subjective Physical Exam Physical Exam: General Appearance:Moderately built and nourished, no apparent distress, drowsy, on suppl. O2 Head: normocephalic, Atraumatic Eyes: normal inspection, EOMI Neck: supple Respiratory/Chest: Decreased breath sounds, No accessory muscle use, on suppl. O2 Cardiovascular: S1, S2, No murmur Abdomen/GI:Soft, Non tender, Bowel sounds present Extremities/Musculoskeletal:normal inspection, Trace edema Neurologic/Psych: awake, alert, able to answer simple questions appropriately, moves extremities Skin: normal color, warm Results & Data Results & Data Vital Signs (Past 12 Hours) Vital Signs Temp Pulse Pulse Resp BP Pulse Ox O2 Del Method 08/31/24 02:40 36.5 C 68 18 158/78 H 96 Nasal Cannula 08/30/24 22:34 36.4 C L 72 18 152/69 H 97 Nasal Cannula 08/30/24 21:00 78 08/30/24 20:00 Nasal Cannula 08/30/24 19:24 36.6 C 62 18 132/73 96 Nasal Cannula O2 Flow Rate 08/31/24 02:40 2 08/30/24 22:34 3 08/30/24 21:00 08/30/24 20:00 3 08/30/24 19:24 3 Laboratory Results 08/31/24 Range/Units 06:31 WBC 8.75 (4.8-10.8) K/ul RBC 4.08 L (4.20-5.40) M/uL Hgb 12.3 (12.0-16.0) g/dl Hct 37.6 (37.0-47.0) % MCV 92.2 (80.0-100.0) fL MCH 30.1 (25.0-34.0) pg MCHC 32.7 (32.0-36.0) g/dL RDW Std Deviation 42.6 (36.4-46.3) fL RDW Coeff of Sheirf 12.8 (11.5-14.5) % Plt Count 261 (130-400) K/uL MPV 10.7 (9.4-12.4) fL Heparin Anti-Xa, Unfract 0.43 (0.3-0.7) IU/ml Sodium 144 (136-145) mmol/L Potassium 3.7 (3.5-5.1) mmol/L Chloride 106 (98-107) mmol/L Carbon Dioxide 31 (21-32) mmol/L Anion Gap 7 (3-11) BUN 10 (6-23) mg/dl Creatinine 0.62 (0.6-1.2) mg/dl Est Cr Clr Drug Dosing 77.4 ml/min eGFR 89.41 BUN/Creatinine Ratio 16.1 (10-20) Glucose 113 H (70-99(Fasting)) mg/dl Calcium 9.1 (8.6-10.3) mg/dl Phosphorus 3.1 (2.5-4.9) mg/dl Magnesium 2.0 (1.7-2.4) mg/dl Medications Administered Current Inpatient Medications Acetaminophen (Acetaminophen 325 Mg Tab) 650 mg PO Q4H PRN PRN Reason: Fever or headache Stop: 09/18/24 16:52 Last Admin: 08/20/24 13:15 Dose: 650 mg Albuterol (Albuterol 0.083% Nebu Soln 3 Ml Vial) 2.5 mg NEB Q6H PRN; Protocol PRN Reason: Shortness Of Breath Or Wheezing Stop: 09/26/24 13:20 Aspirin (Aspirin 81 Mg Ectab) 81 mg PO DAILY [facility] Stop: 09/19/24 08:59 Last Admin: 08/30/24 08:55 Dose: 81 mg Atorvastatin Calcium (Atorvastatin 40 Mg Tab) 40 mg PO DAILY [facility] Stop: 09/19/24 08:59 Last Admin: 08/30/24 08:55 Dose: 40 mg Donepezil HCl (Donepezil Hcl 10 Mg Tab) 10 mg PO DAILY [facility] Stop: 09/19/24 08:59 Last Admin: 08/30/24 08:55 Dose: 10 mg Fexofenadine HCl (Fexofenadine Hcl 180 Mg Tab) 180 mg PO DAILY [facility] Stop: 09/19/24 08:59 Last Admin: 08/30/24 08:55 Dose: 180 mg Fluticasone Propionate (Fluticasone Propionate Na Spr 16 Gm Btl) 2 sprays NA HS [facility] Stop: 09/19/24 20:59 Last Admin: 08/30/24 21:53 Dose: Not Given Gabapentin (Gabapentin 300 Mg Cap) 300 mg PO TID [facility] Stop: 09/18/24 16:52 Last Admin: 08/27/24 12:46 Dose: Not Given Guaifenesin (Guaifenesin 600 Mg Tabcr) 600 mg PO BID PRN PRN Reason: cough Stop: 09/18/24 16:52 Last Admin: 08/20/24 08:00 Dose: 600 mg Ampicillin Sodium/Sulbactam Sodium (Unasyn) 3,000 mg in 100 mls @ 200 mls/hr IV Q6H [facility] Stop: 09/03/24 10:59 Last Infusion: 08/31/24 06:38 Dose: Infused Heparin Sodium/Dextrose (Heparin 68821 Unit/500 Ml D5w) 25,000 units in 500 mls @ 16 mls/hr IV .Q24H [facility]; Protocol Stop: 09/28/24 18:29 Last Admin: 08/30/24 05:59 Dose: 800 units/hr, 16 mls/hr Loperamide HCl (Loperamide Hcl 2 Mg Cap) 2 mg PO Q4H PRN PRN Reason: Diarrhea Stop: 09/20/24 08:52 Last Admin: 08/21/24 09:26 Dose: 2 mg Melatonin (Melatonin 3 Mg Tab) 3 mg PO HS [facility] Stop: 09/21/24 20:59 Last Admin: 08/29/24 21:06 Dose: 3 mg Metoprolol Succinate (Metoprolol Succ 25mg Ext Rel Tab) 25 mg PO QAM [facility] Stop: 09/28/24 11:44 Last Admin: 08/30/24 08:54 Dose: 25 mg Miconazole Nitrate (Miconazole Nitrate Powder 85 Gm) 1 appln EXT PRN PRN PRN Reason: Affected Skin Folds Stop: 09/21/24 05:12 Last Admin: 08/29/24 08:51 Dose: 1 appln Multivitamins (Multivitamin Tab) 1 tab PO DAILY [facility] Stop: 09/19/24 08:59 Last Admin: 08/30/24 08:55 Dose: 1 tab Olanzapine (Olanzapine 10 Mg/2.1 Ml Sdv) 2.5 mg IM Q4H PRN PRN Reason: Agitation Stop: 09/20/24 21:47 Last Admin: 08/22/24 15:10 Dose: 2.5 mg Ondansetron HCl (Ondansetron Inj 2 Mg/Ml 2 Ml Vial) 4 mg IV Q4H PRN PRN Reason: Nausea And Vomiting Stop: 09/18/24 16:52 Vitamin B Complex (Vitamin B Complex Tab) 1 tab PO DAILY [facility] Stop: 09/19/24 08:59 Last Admin: 08/30/24 08:55 Dose: 1 tab (1) CAP (community acquired pneumonia) Laterality: right Lung location: lower lobe of lung Qualified Code(s): J18.9 - Pneumonia, unspecified organism
[2024-08-31 07:39] LABS: BUN Creatinine Ratio 16.1 (10-20); Calcium 9.1 mg/dl (8.6-10.3); Creatinine Clr Calc Pharmacy 77.4 ml/min; Phosphorus 3.1 mg/dl (2.5-4.9); Potassium 3.7 mmol/L (3.5-5.1)
[2024-08-31 07:41] LABS: ANTI-Xa, UFH(UnfractionatedHep 0.43 IU/ml (0.3-0.7)
[2024-08-31] MEDS: THIAMINE HCL 200 MG in SODIUM CHLORIDE 0.9% 50 ML IV SCH (13:16)
[2024-08-31] MEDS: AMOXICILLIN/CLAVULANATE 875 MG TAB PO SCH (16:34)
[2024-09-01 07:23] LABS: Hematocrit (blood only) 40.2 % (37.0-47.0); Mean Corpuscular Hemoglobin 29.9 pg (25.0-34.0); Mean Corpuscular Hgb Conc 32.3 g/dL (32.0-36.0); Mean Corpuscular Volume 92.4 fL (80.0-100.0); Mean Platelet Volume 10.8 fL (9.4-12.4); Platelet Count 271 K/uL (130-400); RDW Coefficient of Variation 13.1 % (11.5-14.5); RDW Standard Deviation 43.3 fL (36.4-46.3); Red Blood Count 4.35 M/uL (4.20-5.40); White Blood Count 8.23 K/ul (4.8-10.8)
[2024-09-01 07:36] LABS: BUN Creatinine Ratio 17.7 (10-20); Calcium 9.3 mg/dl (8.6-10.3); Creatinine Clr Calc Pharmacy 77.4 ml/min; Phosphorus 2.9 mg/dl (2.5-4.9); Potassium 3.9 mmol/L (3.5-5.1)
[2024-09-01 07:43] LABS: ANTI-Xa, UFH(UnfractionatedHep 0.33 IU/ml (0.3-0.7)
--- NOTE | 2024-09-01 08:09 | Hospitalist Progress Note ---
Date of Service September 01, 2024 Assessment & Plan (1) CAP (community acquired pneumonia): (2) Acute metabolic encephalopathy: (3) Acute UTI: (4) Generalized weakness: (5) UTI (urinary tract infection): Plan Patient is an 79yr F with PMH of DM II, expressive aphasia, mild cognitive impairment, tobacco use, periodic limb movement disorder, IBS and other medical problems listed below who presents via EMS with confusion and was found to have acute metabolic encephalopathy 2/2 UTI and possible CAP. Sepsis Right lower lobe pneumonia Acute metabolic encephalopathy secondary to above E.coli UTI Generalized weakness Acute PE --CT Head:No acute intracranial findings. No change in appearance of the brain. --CT ABD:No acute process identified. --Chest CTA (08/19):No pulmonary emboli identified. Mild right lower lobe alveolar opacities suggestive of an infectious process. Mildly enlarged right hilar lymph nodes. These are likely benign. A chest CT in 3 months is recommended to ensure resolution. Mild cardiomegaly. Moderate to extensive coronary artery calcification. -- BioFire negative --Normal procalcitonin --Video Swallow:No aspiration seen. -- Blood cultures: negative to date --Completed 7-day course of IV Zosyn, doxycycline -- Received IV fluids -- Saturating well on room air -- Aspiration precautions, pulmonary hygiene PT OT recommends acute rehab Plan to discharge to rehab facility once medically stable Acute PE repeat CT PE on 08/29 - 1. Bilateral pulmonary emboli as above with evidence of right heart strain. 2. 4 mm right fissural and 5 mm right subpleural lower lobe pulmonary nodules. Continue IV heparin - plan to DC likely on Eliquis Aspiration Code purple on 08/27/2024 --CXR:Heart size and pulmonary vasculature are normal. No effusion, consolidation, or pneumothorax. -- Lactic acidosis improved with IV fluid Empirically started on Unasyn -> will switch to augmentin now Continue IV fluids Speech to reevaluate Aspiration precautions Patient was reevaluated by speech therapy on- 08/27 and was started on easy to chew diet Continue aspiration precautions Acute hypoxia secondary to acute PE 08/28/2024 after working w/ OT and had a BM Initially from RA to 6L after re-eval down to 2L CXR, ECG, cbc, bmp, trop obtained transferred to PCU echo obtained, as trop. elevated CT PE obtained - now posit. for acute PE Also had episode of [place] Cardiology consulted - -> elevated troponin 2/2 to PE, not nstemi Dopplers of LEs obtained - negative for DVT Diarrhea Stool PCR, stool for C. 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 for PE, pt on IV heparin Currently sitting up in bed in NAD, much more awake and alert today, eating lunch with niece at the bedside. Per niece, mental status is at baseline Pt denies chest pain, shortness of breath. denies abd. pain, n/v Yesterday poor oral intake, said she had no taste Encouraged flutter valve, and IS - pt follows instructions but w/ difficulty - discussed w/ nurse to pls assist the pt w/ those Review of Systems Review of Systems: All systems reviewed & are unremarkable except as noted in Subjective Physical Exam Physical Exam: General Appearance:Moderately built and nourished, in NAD, on suppl. O2 Head: normocephalic, Atraumatic Eyes: normal inspection, EOMI Neck: supple Respiratory/Chest: Decreased breath sounds, No accessory muscle use, on suppl. O2 Cardiovascular: S1, S2, No murmur Abdomen/GI:Soft, Non tender, Bowel sounds present Extremities/Musculoskeletal:normal inspection, Trace edema Neurologic/Psych: awake, alert, able to answer simple questions appropriately, moves extremities Skin: normal color, warm Results & Data Results & Data Vital Signs (Past 12 Hours) Vital Signs Temp Pulse Pulse Resp BP BP Pulse Ox 09/01/24 07:56 09/01/24 07:27 36.7 C 67 20 126/94 98 09/01/24 02:19 36.4 C L 66 18 133/64 96 09/01/24 00:24 69 08/31/24 22:40 36.7 C 71 18 155/78 H 94 08/31/24 20:46 O2 Del Method O2 Flow Rate 09/01/24 07:56 Nasal Cannula 2 09/01/24 07:27 Nasal Cannula 09/01/24 02:19 Nasal Cannula 3 09/01/24 00:24 08/31/24 22:40 Nasal Cannula 2 08/31/24 20:46 Nasal Cannula 3 Laboratory Results 09/01/24 Range/Units 06:37 WBC 8.23 (4.8-10.8) K/ul RBC 4.35 (4.20-5.40) M/uL Hgb 13.0 (12.0-16.0) g/dl Hct 40.2 (37.0-47.0) % MCV 92.4 (80.0-100.0) fL MCH 29.9 (25.0-34.0) pg MCHC 32.3 (32.0-36.0) g/dL RDW Std Deviation 43.3 (36.4-46.3) fL RDW Coeff of Sherif 13.1 (11.5-14.5) % Plt Count 271 (130-400) K/uL MPV 10.8 (9.4-12.4) fL Heparin Anti-Xa, Unfract 0.33 (0.3-0.7) IU/ml Sodium 144 (136-145) mmol/L Potassium 3.9 (3.5-5.1) mmol/L Chloride 107 (98-107) mmol/L Carbon Dioxide 32 (21-32) mmol/L Anion Gap 5 (3-11) BUN 11 (6-23) mg/dl Creatinine 0.62 (0.6-1.2) mg/dl Est Cr Clr Drug Dosing 77.4 ml/min eGFR 89.41 BUN/Creatinine Ratio 17.7 (10-20) Glucose 118 H (70-99(Fasting)) mg/dl Calcium 9.3 (8.6-10.3) mg/dl Phosphorus 2.9 (2.5-4.9) mg/dl Magnesium 2.0 (1.7-2.4) mg/dl Medications Administered Current Inpatient Medications Acetaminophen (Acetaminophen 325 Mg Tab) 650 mg PO Q4H PRN PRN Reason: Fever or headache Stop: 09/18/24 16:52 Last Admin: 08/20/24 13:15 Dose: 650 mg Albuterol (Albuterol 0.083% Nebu Soln 3 Ml Vial) 2.5 mg NEB Q6H PRN; Protocol PRN Reason: Shortness Of Breath Or Wheezing Stop: 09/26/24 13:20 Amoxicillin/Clavulanate Potassium (Amoxicillin/Clavulanate 875 Mg Tab) 1 tab PO BIDM [facility]; Protocol Stop: 09/07/24 16:59 Last Admin: 09/01/24 08:02 Dose: 1 tab Aspirin (Aspirin 81 Mg Ectab) 81 mg PO DAILY [facility] Stop: 09/19/24 08:59 Last Admin: 09/01/24 08:02 Dose: 81 mg Atorvastatin Calcium (Atorvastatin 40 Mg Tab) 40 mg PO DAILY [facility] Stop: 09/19/24 08:59 Last Admin: 09/01/24 08:02 Dose: 40 mg Donepezil HCl (Donepezil Hcl 10 Mg Tab) 10 mg PO DAILY [facility] Stop: 09/19/24 08:59 Last Admin: 09/01/24 08:02 Dose: 10 mg Fexofenadine HCl (Fexofenadine Hcl 180 Mg Tab) 180 mg PO DAILY [facility] Stop: 09/19/24 08:59 Last Admin: 08/30/24 08:55 Dose: 180 mg Fluticasone Propionate (Fluticasone Propionate Na Spr 16 Gm Btl) 2 sprays NA HS [facility] Stop: 09/19/24 20:59 Last Admin: 08/31/24 21:16 Dose: 2 sprays Gabapentin (Gabapentin 300 Mg Cap) 300 mg PO TID [facility] Stop: 09/18/24 16:52 Last Admin: 08/27/24 12:46 Dose: Not Given Guaifenesin (Guaifenesin 600 Mg Tabcr) 600 mg PO BID PRN PRN Reason: cough Stop: 09/18/24 16:52 Last Admin: 08/20/24 08:00 Dose: 600 mg Heparin Sodium/Dextrose (Heparin 90436 Unit/500 Ml D5w) 25,000 units in 500 mls @ 16 mls/hr IV .Q24H [facility]; Protocol Stop: 09/28/24 18:29 Last Admin: 08/31/24 12:07 Dose: 800 units/hr, 16 mls/hr Thiamine HCl 200 mg/ Sodium (Chloride) 52 mls @ 210 mls/hr IV QAM [facility] Stop: 09/30/24 12:59 Last Admin: 09/01/24 08:03 Dose: 210 mls/hr Loperamide HCl (Loperamide Hcl 2 Mg Cap) 2 mg PO Q4H PRN PRN Reason: Diarrhea Stop: 09/20/24 08:52 Last Admin: 08/21/24 09:26 Dose: 2 mg Melatonin (Melatonin 3 Mg Tab) 3 mg PO HS [facility] Stop: 09/21/24 20:59 Last Admin: 08/29/24 21:06 Dose: 3 mg Metoprolol Succinate (Metoprolol Succ 25mg Ext Rel Tab) 25 mg PO QAM [facility] Stop: 09/28/24 11:44 Last Admin: 09/01/24 08:02 Dose: 25 mg Miconazole Nitrate (Miconazole Nitrate Powder 85 Gm) 1 appln EXT PRN PRN PRN Reason: Affected Skin Folds Stop: 09/21/24 05:12 Last Admin: 08/29/24 08:51 Dose: 1 appln Multivitamins (Multivitamin Tab) 1 tab PO DAILY [facility] Stop: 09/19/24 08:59 Last Admin: 09/01/24 08:02 Dose: 1 tab Olanzapine (Olanzapine 10 Mg/2.1 Ml Sdv) 2.5 mg IM Q4H PRN PRN Reason: Agitation Stop: 09/20/24 21:47 Last Admin: 08/22/24 15:10 Dose: 2.5 mg Ondansetron HCl (Ondansetron Inj 2 Mg/Ml 2 Ml Vial) 4 mg IV Q4H PRN PRN Reason: Nausea And Vomiting Stop: 09/18/24 16:52 Vitamin B Complex (Vitamin B Complex Tab) 1 tab PO DAILY [facility] Stop: 09/19/24 08:59 Last Admin: 09/01/24 08:02 Dose: 1 tab (1) CAP (community acquired pneumonia) Laterality: right Lung location: lower lobe of lung Qualified Code(s): J18.9 - Pneumonia, unspecified organism
[2024-09-02 08:17] LABS: Hematocrit (blood only) 39.3 % (37.0-47.0); Hemoglobin 12.9 g/dl (12.0-16.0); Mean Corpuscular Hemoglobin 30.3 pg (25.0-34.0); Mean Corpuscular Hgb Conc 32.8 g/dL (32.0-36.0); Mean Corpuscular Volume 92.3 fL (80.0-100.0); Mean Platelet Volume 10.4 fL (9.4-12.4); Platelet Count 267 K/uL (130-400); RDW Coefficient of Variation 13.1 % (11.5-14.5); RDW Standard Deviation 43.2 fL (36.4-46.3); Red Blood Count 4.26 M/uL (4.20-5.40); White Blood Count 11.73 K/ul (4.8-10.8)
--- NOTE | 2024-09-02 08:30 | Hospitalist Progress Note ---
Date of Service September 02, 2024 Assessment & Plan (1) CAP (community acquired pneumonia): (2) Acute metabolic encephalopathy: (3) Acute UTI: (4) Generalized weakness: (5) UTI (urinary tract infection): Plan Patient is an 79yr F with PMH of DM II, expressive aphasia, mild cognitive impairment, tobacco use, periodic limb movement disorder, IBS and other medical problems listed below who presents via EMS with confusion and was found to have acute metabolic encephalopathy 2/2 UTI and possible CAP. Sepsis Right lower lobe pneumonia Acute metabolic encephalopathy secondary to above E.coli UTI Generalized weakness Acute PE --CT Head:No acute intracranial findings. No change in appearance of the brain. --CT ABD:No acute process identified. --Chest CTA (08/19):No pulmonary emboli identified. Mild right lower lobe alveolar opacities suggestive of an infectious process. Mildly enlarged right hilar lymph nodes. These are likely benign. A chest CT in 3 months is recommended to ensure resolution. Mild cardiomegaly. Moderate to extensive coronary artery calcification. -- BioFire negative --Normal procalcitonin --Video Swallow:No aspiration seen. -- Blood cultures: negative to date --Completed 7-day course of IV Zosyn, doxycycline -- Received IV fluids -- Saturating well on room air -- Aspiration precautions, pulmonary hygiene PT OT recommends acute rehab Plan to discharge to rehab facility once medically stable Acute PE repeat CT PE on 08/29 - 1. Bilateral pulmonary emboli as above with evidence of right heart strain. 2. 4 mm right fissural and 5 mm right subpleural lower lobe pulmonary nodules. Continued IV heparin - > switch to Eliquis today (09/02/2024) Aspiration Code purple on 08/27/2024 --CXR:Heart size and pulmonary vasculature are normal. No effusion, consolidation, or pneumothorax. -- Lactic acidosis improved with IV fluid Empirically started on Unasyn -> switched to augmentin but now having trouble w/ po intake, confused Continue IV fluids Speech to reevaluate Aspiration precautions Patient was reevaluated by speech therapy on- 08/27 and was started on easy to chew diet Continue aspiration precautions Acute hypoxia secondary to acute PE 08/28/2024 after working w/ OT and had a BM Initially from RA to 6L after re-eval down to 2L CXR, ECG, cbc, bmp, trop obtained transferred to PCU echo obtained, as trop. elevated CT PE obtained - now posit. for acute PE Also had episode of [place] Cardiology consulted - -> elevated troponin 2/2 to PE, not nstemi Dopplers of LEs obtained - negative for DVT Diarrhea Stool PCR, stool for C. difficile negative Diarrhea likely due to antibiotics Imodium as needed IV fluids as needed Resolved Monitor for recurrence DM II - Stable, diet controlled - A1c 6.6 in Jul 2024 Consider adding insulin if needed Tobacco use disorder - Smoking 0.5 ppd [employer] smoking cessation Asymptomatic carotid stenosis HLD - Continue aspirin, statin Dementia Expressive aphasia at baseline -Baseline is oriented to person and place only -Lives at home with , walker prescribed on dc on 08/17 -Continue donepezil Reorient frequently to minimize delirium IBS Chronic constipation Monitor DVT Px: elequis CODE STATUS: Full code Disposition Rehab as able Admission and Anticipated Discharge Date Admission Date: August 19, 2024 Subjective Patient seen in follow up CT PE posit. for PE, pt on IV heparin -> switch to eliquis today Currently sitting up in chair in NAD (morning), but more off and confused today compared to yesterday Pt denies chest pain, shortness of breath. denies abd. pain, n/v Discussed w/ family at the bedside in the afternoon. Review of Systems Review of Systems: All systems reviewed & are unremarkable except as noted in Subjective Physical Exam Physical Exam: General Appearance:Moderately built and nourished, in NAD, on RA Head: normocephalic, Atraumatic Eyes: normal inspection, EOMI Neck: supple Respiratory/Chest: Decreased breath sounds, No accessory muscle use Cardiovascular: S1, S2, No murmur Abdomen/GI:Soft, Non tender, Bowel sounds present Extremities/Musculoskeletal:normal inspection, Trace edema Neurologic/Psych: awake, alert, able to answer simple questions appropriately, moves extremities Skin: normal color, warm Results & Data Results & Data Vital Signs (Past 12 Hours) Vital Signs Temp Pulse Pulse Pulse Resp BP BP 09/02/24 07:41 36.8 C 79 20 158/99 H 09/02/24 07:39 09/02/24 04:00 134/72 09/02/24 03:09 36.3 C L 83 20 188/78 H 09/02/24 00:58 36.7 C 79 16 147/82 H 09/01/24 21:00 75 Pulse Ox O2 Del Method 09/02/24 07:41 92 Room Air 09/02/24 07:39 Room Air 09/02/24 04:00 09/02/24 03:09 92 Room Air 09/02/24 00:58 95 Room Air 09/01/24 21:00 Laboratory Results 09/02/24 Range/Units 07:47 WBC 11.73 H (4.8-10.8) K/ul RBC 4.26 (4.20-5.40) M/uL Hgb 12.9 (12.0-16.0) g/dl Hct 39.3 (37.0-47.0) % MCV 92.3 (80.0-100.0) fL MCH 30.3 (25.0-34.0) pg MCHC 32.8 (32.0-36.0) g/dL RDW Std Deviation 43.2 (36.4-46.3) fL RDW Coeff of Sherif 13.1 (11.5-14.5) % Plt Count 267 (130-400) K/uL MPV 10.4 (9.4-12.4) fL Heparin Anti-Xa, Unfract 0.34 (0.3-0.7) IU/ml Sodium 141 (136-145) mmol/L Potassium 3.7 (3.5-5.1) mmol/L Chloride 103 (98-107) mmol/L Carbon Dioxide 30 (21-32) mmol/L Anion Gap 8 (3-11) BUN 10 (6-23) mg/dl Creatinine 0.64 (0.6-1.2) mg/dl Est Cr Clr Drug Dosing 74.5 ml/min eGFR 88.73 BUN/Creatinine Ratio 15.6 (10-20) Glucose 134 H (70-99(Fasting)) mg/dl Calcium 10.0 (8.6-10.3) mg/dl Phosphorus 2.2 L (2.5-4.9) mg/dl Magnesium 1.9 (1.7-2.4) mg/dl Medications Administered Current Inpatient Medications Acetaminophen (Acetaminophen 325 Mg Tab) 650 mg PO Q4H PRN PRN Reason: Fever or headache Stop: 09/18/24 16:52 Last Admin: 08/20/24 13:15 Dose: 650 mg Albuterol (Albuterol 0.083% Nebu Soln 3 Ml Vial) 2.5 mg NEB Q6H PRN; Protocol PRN Reason: Shortness Of Breath Or Wheezing Stop: 09/26/24 13:20 Amoxicillin/Clavulanate Potassium (Amoxicillin/Clavulanate 875 Mg Tab) 1 tab PO BIDM [facility]; Protocol Stop: 09/07/24 16:59 Last Admin: 09/01/24 16:11 Dose: 1 tab Apixaban (Apixaban 5 Mg Tablet) 10 mg PO BID [facility] Stop: 09/08/24 21:01 Aspirin (Aspirin 81 Mg Ectab) 81 mg PO DAILY [facility] Stop: 09/19/24 08:59 Last Admin: 09/01/24 08:02 Dose: 81 mg Atorvastatin Calcium (Atorvastatin 40 Mg Tab) 40 mg PO DAILY [facility] Stop: 09/19/24 08:59 Last Admin: 09/01/24 08:02 Dose: 40 mg Donepezil HCl (Donepezil Hcl 10 Mg Tab) 10 mg PO DAILY [facility] Stop: 09/19/24 08:59 Last Admin: 09/01/24 08:02 Dose: 10 mg Fexofenadine HCl (Fexofenadine Hcl 180 Mg Tab) 180 mg PO DAILY [facility] Stop: 09/19/24 08:59 Last Admin: 08/30/24 08:55 Dose: 180 mg Fluticasone Propionate (Fluticasone Propionate Na Spr 16 Gm Btl) 2 sprays NA HS [facility] Stop: 09/19/24 20:59 Last Admin: 09/02/24 06:58 Dose: Not Given Gabapentin (Gabapentin 300 Mg Cap) 300 mg PO TID [facility] Stop: 09/18/24 16:52 Last Admin: 08/27/24 12:46 Dose: Not Given Guaifenesin (Guaifenesin 600 Mg Tabcr) 600 mg PO BID PRN PRN Reason: cough Stop: 09/18/24 16:52 Last Admin: 08/20/24 08:00 Dose: 600 mg Thiamine HCl 200 mg/ Sodium (Chloride) 52 mls @ 210 mls/hr IV QAM [facility] Stop: 09/30/24 12:59 Last Infusion: 09/01/24 08:43 Dose: Infused Loperamide HCl (Loperamide Hcl 2 Mg Cap) 2 mg PO Q4H PRN PRN Reason: Diarrhea Stop: 09/20/24 08:52 Last Admin: 08/21/24 09:26 Dose: 2 mg Melatonin (Melatonin 3 Mg Tab) 3 mg PO HS [facility] Stop: 09/21/24 20:59 Last Admin: 08/29/24 21:06 Dose: 3 mg Metoprolol Succinate (Metoprolol Succ 25mg Ext Rel Tab) 25 mg PO QAM [facility] Stop: 09/28/24 11:44 Last Admin: 09/01/24 08:02 Dose: 25 mg Miconazole Nitrate (Miconazole Nitrate Powder 85 Gm) 1 appln EXT PRN PRN PRN Reason: Affected Skin Folds Stop: 09/21/24 05:12 Last Admin: 08/29/24 08:51 Dose: 1 appln Multivitamins (Multivitamin Tab) 1 tab PO DAILY [facility] Stop: 09/19/24 08:59 Last Admin: 09/01/24 08:02 Dose: 1 tab Olanzapine (Olanzapine 10 Mg/2.1 Ml Sdv) 2.5 mg IM Q4H PRN PRN Reason: Agitation Stop: 09/20/24 21:47 Last Admin: 08/22/24 15:10 Dose: 2.5 mg Ondansetron HCl (Ondansetron Inj 2 Mg/Ml 2 Ml Vial) 4 mg IV Q4H PRN PRN Reason: Nausea And Vomiting Stop: 09/18/24 16:52 Vitamin B Complex (Vitamin B Complex Tab) 1 tab PO DAILY [facility] Stop: 09/19/24 08:59 Last Admin: 09/01/24 08:02 Dose: 1 tab (1) CAP (community acquired pneumonia) Laterality: right Lung location: lower lobe of lung Qualified Code(s): J18.9 - Pneumonia, unspecified organism
[2024-09-02 08:42] LABS: BUN Creatinine Ratio 15.6 (10-20); Creatinine Clr Calc Pharmacy 74.5 ml/min; Magnesium 1.9 mg/dl (1.7-2.4); Phosphorus 2.2 mg/dl (2.5-4.9); Potassium 3.7 mmol/L (3.5-5.1)
[2024-09-02 08:45] LABS: ANTI-Xa, UFH(UnfractionatedHep 0.34 IU/ml (0.3-0.7)
[2024-09-02] MEDS: APIXABAN 5 MG TABLET PO SCH (09:02)
[2024-09-02] MEDS: 4.5GM X1 IV STA (19:26)
[2024-09-02] MEDS: PIPERACILLIN/TAZOBACTAM 4.5 GM/100 ML BAG IV SCH (23:27)
--- NOTE | 2024-09-03 07:27 | Hospitalist Progress Note ---
Date of Service September 03, 2024 Assessment & Plan (1) CAP (community acquired pneumonia): (2) Acute metabolic encephalopathy: (3) Acute UTI: (4) Generalized weakness: (5) UTI (urinary tract infection): Plan Patient is an 79yr F with PMH of DM II, expressive aphasia, mild cognitive impairment, tobacco use, periodic limb movement disorder, IBS and other medical problems listed below who presents via EMS with confusion and was found to have acute metabolic encephalopathy 2/2 UTI and possible CAP. Sepsis Right lower lobe pneumonia Acute metabolic encephalopathy secondary to above E.coli UTI Generalized weakness Acute PE --CT Head:No acute intracranial findings. No change in appearance of the brain. --CT ABD:No acute process identified. --Chest CTA (08/19):No pulmonary emboli identified. Mild right lower lobe alveolar opacities suggestive of an infectious process. Mildly enlarged right hilar lymph nodes. These are likely benign. A chest CT in 3 months is recommended to ensure resolution. Mild cardiomegaly. Moderate to extensive coronary artery calcification. -- BioFire negative --Normal procalcitonin --Video Swallow:No aspiration seen. -- Blood cultures: negative to date --Completed 7-day course of IV Zosyn, doxycycline -- Received IV fluids -- Saturating well on room air -- Aspiration precautions, pulmonary hygiene PT OT recommends acute rehab Plan to discharge to rehab facility once medically stable 09/03/24 Metabolic encephalopathy Pt again with worsening mental status CT head negative will obtain UA, CXR, vit. B12 level -cont. iv thiamine - cont. to re-orient frequently to prevent delirium Acute PE repeat CT PE on 08/29 - 1. Bilateral pulmonary emboli as above with evidence of right heart strain. 2. 4 mm right fissural and 5 mm right subpleural lower lobe pulmonary nodules. Continued IV heparin - > switch to Eliquis today (09/02/2024) Unable to take PO today (09/03/24), so will give therap. lovenox instead. CT head checked this AM and negat. Aspiration Code purple on 08/27/2024 --CXR:Heart size and pulmonary vasculature are normal. No effusion, consolidation, or pneumothorax. -- Lactic acidosis improved with IV fluid Empirically started on Unasyn -> switched to augmentin but now having trouble w/ po intake, confused Continue IV fluids Speech to reevaluate Aspiration precautions Patient was reevaluated by speech therapy on- 08/27 and was started on easy to chew diet Continue aspiration precautions /3-3/4 Currently on zosyn as difficulty swallowing PO Acute hypoxia secondary to acute PE 08/28/2024 after working w/ OT and had a BM Initially from RA to 6L after re-eval down to 2L CXR, ECG, cbc, bmp, trop obtained transferred to PCU echo obtained, as trop. elevated CT PE obtained - now posit. for acute PE Also had episode of [place] Cardiology consulted - -> elevated troponin 08/04 to PE, not nstemi Dopplers of LEs obtained - negative for DVT Diarrhea Stool PCR, stool for C. difficile negative Diarrhea likely due to antibiotics Imodium as needed IV fluids as needed Resolved Monitor for recurrence DM II - Stable, diet controlled - A1c 6.6 in Jul 2024 Consider adding insulin if needed Tobacco use disorder - Smoking 0.5 ppd [employer] smoking cessation Asymptomatic carotid stenosis HLD - Continue aspirin, statin Dementia Expressive aphasia at baseline -Baseline is oriented to person and place only -Lives at home with , walker prescribed on dc on 08/17 -Continue donepezil Reorient frequently to minimize delirium IBS Chronic constipation Monitor DVT Px: elequis/ lovenox, as above CODE STATUS: Full code Disposition Rehab as able Admission and Anticipated Discharge Date Admission Date: August 19, 2024 Subjective Patient seen in follow up CT PE posit. for PE, pt on IV heparin -> switched to eliquis yesterday Pt denies chest pain, shortness of breath. denies abd. pain, n/v, +GALVEZ Pt is drowsy today, more than previous days. Per RN, can't take PO pills d/t lethargy. CT head obtained - negative. -> will switch eliquis to lovenox Re- assessed pt again around lunchtime - essentially unchanged. will re-check UA, CXR, vit. B12 level Discussed w/ niece at the bedside - she reports pt was sleepy like this when she had delirious episode in the hospital previously. Will cont. to closely monitor. Review of Systems Review of Systems: All systems reviewed & are unremarkable except as noted in Subjective Physical Exam Physical Exam: General Appearance:Moderately built and nourished, in NAD, on RA Head: normocephalic, Atraumatic Eyes: normal inspection, EOMI Neck: supple Respiratory/Chest: Decreased breath sounds, No accessory muscle use Cardiovascular: S1, S2, No murmur Abdomen/GI:Soft, Non tender, Bowel sounds present Extremities/Musculoskeletal:normal inspection, Trace edema Neurologic/Psych: awake, alert, able to answer simple questions appropriately, moves extremities Skin: normal color, warm Results & Data Results & Data Vital Signs (Past 12 Hours) Vital Signs Temp Pulse Pulse Resp BP Pulse Ox O2 Del Method 09/03/24 03:00 36.7 C 78 17 176/81 H 95 Room Air 09/02/24 22:50 36.7 C 82 16 141/81 H 93 Room Air 09/02/24 22:16 86 Laboratory Results 09/02/24 Range/Units 07:47 WBC 11.73 H (4.8-10.8) K/ul RBC 4.26 (4.20-5.40) M/uL Hgb 12.9 (12.0-16.0) g/dl Hct 39.3 (37.0-47.0) % MCV 92.3 (80.0-100.0) fL MCH 30.3 (25.0-34.0) pg MCHC 32.8 (32.0-36.0) g/dL RDW Std Deviation 43.2 (36.4-46.3) fL RDW Coeff of Sherif 13.1 (11.5-14.5) % Plt Count 267 (130-400) K/uL MPV 10.4 (9.4-12.4) fL Heparin Anti-Xa, Unfract 0.34 (0.3-0.7) IU/ml Sodium 141 (136-145) mmol/L Potassium 3.7 (3.5-5.1) mmol/L Chloride 103 (98-107) mmol/L Carbon Dioxide 30 (21-32) mmol/L Anion Gap 8 (3-11) BUN 10 (6-23) mg/dl Creatinine 0.64 (0.6-1.2) mg/dl Est Cr Clr Drug Dosing 74.5 ml/min eGFR 88.73 BUN/Creatinine Ratio 15.6 (10-20) Glucose 134 H (70-99(Fasting)) mg/dl Calcium 10.0 (8.6-10.3) mg/dl Phosphorus 2.2 L (2.5-4.9) mg/dl Magnesium 1.9 (1.7-2.4) mg/dl Medications Administered Current Inpatient Medications Acetaminophen (Acetaminophen 325 Mg Tab) 650 mg PO Q4H PRN PRN Reason: Fever or headache Stop: 09/18/24 16:52 Last Admin: 08/20/24 13:15 Dose: 650 mg Albuterol (Albuterol 0.083% Nebu Soln 3 Ml Vial) 2.5 mg NEB Q6H PRN; Protocol PRN Reason: Shortness Of Breath Or Wheezing Stop: 09/26/24 13:20 Amoxicillin/Clavulanate Potassium (Amoxicillin/Clavulanate 875 Mg Tab) 1 tab PO BIDM [facility]; Protocol Stop: 09/07/24 16:59 Last Admin: 09/02/24 18:23 Dose: Not Given Apixaban (Apixaban 5 Mg Tablet) 10 mg PO BID [facility] Stop: 09/08/24 21:01 Last Admin: 09/02/24 20:28 Dose: 10 mg Aspirin (Aspirin 81 Mg Ectab) 81 mg PO DAILY [facility] Stop: 09/19/24 08:59 Last Admin: 09/02/24 09:03 Dose: 81 mg Atorvastatin Calcium (Atorvastatin 40 Mg Tab) 40 mg PO DAILY [facility] Stop: 09/19/24 08:59 Last Admin: 09/02/24 09:04 Dose: 40 mg Donepezil HCl (Donepezil Hcl 10 Mg Tab) 10 mg PO DAILY [facility] Stop: 09/19/24 08:59 Last Admin: 09/02/24 09:04 Dose: 10 mg Fexofenadine HCl (Fexofenadine Hcl 180 Mg Tab) 180 mg PO DAILY [facility] Stop: 09/19/24 08:59 Last Admin: 08/30/24 08:55 Dose: 180 mg Fluticasone Propionate (Fluticasone Propionate Na Spr 16 Gm Btl) 2 sprays NA HS [facility] Stop: 09/19/24 20:59 Last Admin: 09/02/24 20:28 Dose: 2 sprays Gabapentin (Gabapentin 300 Mg Cap) 300 mg PO TID [facility] Stop: 09/18/24 16:52 Last Admin: 08/27/24 12:46 Dose: Not Given Guaifenesin (Guaifenesin 600 Mg Tabcr) 600 mg PO BID PRN PRN Reason: cough Stop: 09/18/24 16:52 Last Admin: 08/20/24 08:00 Dose: 600 mg Thiamine HCl 200 mg/ Sodium (Chloride) 52 mls @ 210 mls/hr IV QAM [facility] Stop: 09/30/24 12:59 Last Infusion: 09/02/24 09:21 Dose: Infused Piperacillin Sod/Tazobactam Sod (Zosyn) 4.5 gm in 100 mls @ 25 mls/hr IV Q8H [facility]; Protocol Stop: 09/10/24 00:00 Last Admin: 09/03/24 07:26 Dose: 25 mls/hr Loperamide HCl (Loperamide Hcl 2 Mg Cap) 2 mg PO Q4H PRN PRN Reason: Diarrhea Stop: 09/20/24 08:52 Last Admin: 08/21/24 09:26 Dose: 2 mg Melatonin (Melatonin 3 Mg Tab) 3 mg PO [facility] Stop: 09/21/24 20:59 Last Admin: 08/29/24 21:06 Dose: 3 mg Metoprolol Succinate (Metoprolol Succ 25mg Ext Rel Tab) [facility] Stop: 09/28/24 11:44 Last Admin: 09/02/24 09:04 Dose: 25 mg Miconazole Nitrate (Miconazole Nitrate Powder 85 Gm) 1 appln EXT PRN PRN PRN Reason: Affected Skin Folds Stop: 09/21/24 05:12 Last Admin: 08/29/24 08:51 Dose: 1 appln Multivitamins (Multivitamin Tab) 1 tab PO DAILY [facility] Stop: 09/19/24 08:59 Last Admin: 09/02/24 09:03 Dose: 1 tab Olanzapine (Olanzapine 10 Mg/2.1 Ml Sdv) 2.5 mg IM Q4H PRN PRN Reason: Agitation Stop: 09/20/24 21:47 Last Admin: 08/22/24 15:10 Dose: 2.5 mg Ondansetron HCl (Ondansetron Inj 2 Mg/Ml 2 Ml Vial) 4 mg IV Q4H PRN PRN Reason: Nausea And Vomiting Stop: 09/18/24 16:52 Vitamin B Complex (Vitamin B Complex Tab) 1 tab PO DAILY [facility] Stop: 09/19/24 08:59 Last Admin: 03/03/25 09:03 Dose: 1 tab (1) CAP (community acquired pneumonia) Laterality: right Lung location: lower lobe of lung Qualified Code(s): J18.9 - Pneumonia, unspecified organism
[2024-09-03 09:51] LABS: Hematocrit (blood only) 41.1 % (37.0-47.0); Hemoglobin 13.3 g/dl (12.0-16.0); Mean Corpuscular Hgb Conc 32.4 g/dL (32.0-36.0); Mean Corpuscular Volume 92.6 fL (80.0-100.0); Mean Platelet Volume 10.3 fL (9.4-12.4); Platelet Count 254 K/uL (130-400); RDW Coefficient of Variation 13.2 % (11.5-14.5); RDW Standard Deviation 43.8 fL (36.4-46.3); Red Blood Count 4.44 M/uL (4.20-5.40)
[2024-09-03 10:03] LABS: BUN Creatinine Ratio 11.4 (10-20); Calcium 10.2 mg/dl (8.6-10.3); Creatinine Clr Calc Pharmacy 68.1 ml/min; Magnesium 2.2 mg/dl (1.7-2.4); Potassium 4.1 mmol/L (3.5-5.1)
--- NOTE | 2024-09-03 10:10 | CT Scan Report ---
CT head/brain wo con CLINICAL HISTORY: 79 years-old Female with worsening mental status, GALVEZ, on AC. Acutely altered menta l status TECHNIQUE: Multiple axial CT images of the head were obtained without contrast. A dose lowering tech nique was utilized adhering to the principles of ALARA. CT DOSE: 766.29 mGy.cm COMPARISON: Head CT 08/19/2024 FINDINGS: No acute intracranial hemorrhage, midline shift, intracranial mass, hydrocephalus, territorial ischem ia or abnormal extra-axial collection. Involutional changes with chronic microvascular ischemic disea se redemonstrated. Cerebral vascular calcifications. The calvarium is intact. The paranasal sinuses, mastoid air cells, and middle ear cavities are clear . IMPRESSION: No acute intracranial abnormality. ACT 112: Negative or not required by law. The above report was generated using voice recognition software. It may contain grammatical, syntax o r spelling errors. Electronically signed by: Zelalem Long M.D. 09/03/2024 10:08 AM
[2024-09-03] MEDS: ENOXAPARIN 100 MG/1ML SYR SQ SCH (11:10)
[2024-09-03 12:47] LABS: Appearance Urine Turbid (Clear); Bacteria Urine Automated None Seen (None Seen); Bilirubin Urine Negative (Negative); Blood Urine Negative (Negative); Color Urine Yellow; Glucose Urine UA Negative (Negative); Ketones Urine Negative (Negative); Leukocyte Esterase Urine 1+ (Negative); Nitrite Urine Negative (Negative); Protein Urine 1+ (Negative); Specific Gravity Urine 1.025 (1.000-1.030); Starch Talc Urine Present (None Prsent); Urobilinogen Urine Negative (Negative)
--- NOTE | 2024-09-03 12:58 | XRay Report ---
XR chest 1V portable CLINICAL HISTORY: ams, follow up COMPARISON STUDY: 08/28/2024 FINDINGS: Heart size and pulmonary vasculature are normal. There is interval hazy opacity at the left base with obscuration of the left hemidiaphragm. No pneumothorax. IMPRESSION: Interval hazy opacity at the left lung base could represent atelectasis, pneumonia, or s mall pleural effusion. ACT 112: Negative or not required by law. Electronically signed by: [place] M.D. 09/03/2024 12:56 PM
[2024-09-03 13:09] LABS: RBC Urine Automated 0-2 /hpf (0-2)
[2024-09-03] MEDS ORDERED: Nursing to Pharmacy Communication SCH (20:45)
[2024-09-04 06:26] LABS: Hemoglobin 12.5 g/dl (12.0-16.0); Mean Corpuscular Hemoglobin 30.7 pg (25.0-34.0); Mean Corpuscular Hgb Conc 32.9 g/dL (32.0-36.0); Mean Corpuscular Volume 93.4 fL (80.0-100.0); Mean Platelet Volume 10.5 fL (9.4-12.4); Platelet Count 243 K/uL (130-400); RDW Coefficient of Variation 13.1 % (11.5-14.5); RDW Standard Deviation 44.4 fL (36.4-46.3); Red Blood Count 4.07 M/uL (4.20-5.40); White Blood Count 9.72 K/ul (4.8-10.8)
[2024-09-04 06:48] LABS: BUN Creatinine Ratio 16.7 (10-20); Calcium 9.8 mg/dl (8.6-10.3); Creatinine Clr Calc Pharmacy 60.9 ml/min; Magnesium 2.2 mg/dl (1.7-2.4); Phosphorus 3.5 mg/dl (2.5-4.9); Potassium 3.8 mmol/L (3.5-5.1)
--- NOTE | 2024-09-04 10:49 | Hospitalist Progress Note ---
Date of Service September 04, 2024 Assessment & Plan (1) CAP (community acquired pneumonia): (2) Acute metabolic encephalopathy: (3) Acute UTI: (4) Generalized weakness: (5) Pulmonary emboli: (6) Non-sustained ventricular tachycardia: (7) Right ventricular dilation: (8) Aspiration into airway: (9) Expressive aphasia: (10) DM (diabetes mellitus), type 2: (11) Delirium superimposed on dementia: Plan Patient seems significantly improved today. Awake and interactive. Reported yesterday much more sleepy. Reviewed diagnostic testing from yesterday, no acute issues that require intervention Will switch back to Eliquis today, taking pills adequately Okay [employer] Has had multiple days of antibiotics, cultures to date are negative. Will discontinue all antibiotics and observe off of antibiotics Continue working with therapies Case management pursuing rehab placement Maintain Alejandra catheter with reports of retention yesterday Admission and Anticipated Discharge Date Admission Date: August 19, 2024 Subjective Patient awake and interactive this morning. Eating her breakfast. Nurse reports no acute issues overnight. Physical Exam Physical Exam: Constitutional: Alert, nontoxic HEENT: Mucous membranes moist. Lungs: Decreased breath sounds, no wheezes CV: S1-S2, regular Abdomen: Soft, nontender, nondistended Extremities: No significant edema Neuro: No focal deficits, generalized weakness Psych: Cooperative, normal mood, abnormal memory Results & Data Results & Data Vital Signs (Past 12 Hours) Vital Signs Temp Pulse Resp BP Pulse Ox O2 Del Method O2 Flow Rate 09/04/24 08:24 36.8 C 69 18 107/65 91 Room Air 09/04/24 03:00 36.7 C 68 16 98/62 L 97 Nasal Cannula 2 09/03/24 23:00 36.7 C 72 16 109/73 97 Nasal Cannula 2 Diagnostic Findings Reviewed imaging, laboratory and diagnostic studies. Pertinent findings as below. CBC stable, within normal ranges BMP stable, within normal ranges Urinalysis negative for bacteria (1) CAP (community acquired pneumonia) Laterality: right Lung location: lower lobe of lung Qualified Code(s): J18.9 - Pneumonia, unspecified organism (5) Pulmonary emboli Pulmonary embolism type: multiple subsegmental (without acute cor pulmonale) Qualified Code(s): I26.94 - Multiple subsegmental thrombotic pulmonary emboli without acute cor pulmonale (8) Aspiration into airway Encounter type: initial encounter Qualified Code(s): T17.908A - Unspecified foreign body in respiratory tract, part unspecified causing other injury, initial encounter
[2024-09-04] MEDS ORDERED: bisacodyL 10 MG SUPP PR STA (12:08)
[2024-09-04] MEDS: bisacodyL 10 MG SUPP PR STA (15:40)
[2024-09-05] MEDS: THIAMINE HCL 100 MG TAB PO SCH (08:03)
--- NOTE | 2024-09-05 15:14 | Hospitalist Progress Note ---
Date of Service September 05, 2024 Assessment & Plan (1) CAP (community acquired pneumonia): (2) Acute metabolic encephalopathy: (3) Acute UTI: (4) Generalized weakness: (5) Pulmonary emboli: (6) Non-sustained ventricular tachycardia: (7) Right ventricular dilation: (8) Aspiration into airway: (9) Expressive aphasia: (10) DM (diabetes mellitus), type 2: (11) Delirium superimposed on dementia: Plan Patient appears to be at baseline. Continue therapies Continue current medical plan Case management pursuing rehab placement Niece at bedside updated Admission and Anticipated Discharge Date Admission Date: August 19, 2024 Subjective No acute events overnight. Patient feeling well. Excited that her niece is at bedside. Physical Exam Physical Exam: Constitutional: Alert HEENT: Mucous membranes moist. Lungs: decreased, no wheezes rales or rhonchi CV: S1-S2, regular Abdomen: Soft, nontender, nondistended Extremities: No significant edema Neuro: No focal deficits, generalized weakness, abnormal memory Psych: Cooperative, normal mood Results & Data Results & Data Vital Signs (Past 12 Hours) Vital Signs Temp Pulse Resp BP Pulse Ox O2 Del Method 09/05/24 07:54 36.7 C 76 18 144/74 H 94 Room Air 09/05/24 07:15 Room Air (1) CAP (community acquired pneumonia) Laterality: right Lung location: lower lobe of lung Qualified Code(s): J18.9 - Pneumonia, unspecified organism (5) Pulmonary emboli Pulmonary embolism type: multiple subsegmental (without acute cor pulmonale) Qualified Code(s): I26.94 - Multiple subsegmental thrombotic pulmonary emboli without acute cor pulmonale (8) Aspiration into airway Encounter type: initial encounter Qualified Code(s): T17.908A - Unspecified foreign body in respiratory tract, part unspecified causing other injury, initial encounter
[2024-09-06] MEDS: SODIUM CHLORIDE 0.9% 1,000 ML IV ONE (11:29)
--- NOTE | 2024-09-06 12:03 | Hospitalist Progress Note ---
Date of Service September 06, 2024 Assessment & Plan (1) CAP (community acquired pneumonia): (2) Acute metabolic encephalopathy: (3) Acute UTI: (4) Generalized weakness: (5) Pulmonary emboli: (6) Non-sustained ventricular tachycardia: (7) Right ventricular dilation: (8) Aspiration into airway: (9) Expressive aphasia: (10) DM (diabetes mellitus), type 2: (11) Delirium superimposed on dementia: Plan Patient is at her baseline, however suspect with her intermittent compliance to eat and drink she will get intermittently dehydrated as evidenced by concentrated urine. When she gets dehydrated she gets more confused. This will be an ongoing issue as her dementia advances. Give IV fluid bolus of saline, this may improve her desire to want to eat and drink Communication with case management continue to pursue placement options Reviewed medication list, already fairly simplified check labs in a.m. Phone conversation with the patient's Cheikh. He recognizes that the dementia is advancing. Explained to him that not eating, not drinking and becoming more irritable as the sun goes down are all things consistent with progressive dementia. We then discussed about CODE STATUS. He is definite that she would not want CPR or mechanical ventilation. Her CODE STATUS will be changed to DNR. He also is quite sure that she would not want a feeding tube and it would want to be kept comfortable as a primary goal of care as we go forward recognizing that her dementia will only continue to progress. Admission and Anticipated Discharge Date Admission Date: August 19, 2024 Subjective Awake and seems a bit more confused today. Nurse states that she refused to eat and refused to take medications. Per nurse reports that this happens at home as well. Physical Exam Physical Exam: Constitutional: Alert, nontoxic HEENT: Mucous membranes slightly dry Lungs: Clear to auscultation, decreased, no wheezes rales or rhonchi CV: S1-S2, regular Abdomen: Soft, nontender, nondistended Extremities: No significant edema Neuro: Chronic expressive aphasia, a bit more confused today Psych: Cooperative, normal mood Results & Data Results & Data Vital Signs (Past 12 Hours) Vital Signs Temp Pulse Resp BP Pulse Ox O2 Del Method 09/06/24 08:06 36.5 C 78 16 174/74 H 95 Room Air Diagnostic Findings Urine in Alejandra catheter bag extremely concentrated (1) CAP (community acquired pneumonia) Laterality: right Lung location: lower lobe of lung Qualified Code(s): J18.9 - Pneumonia, unspecified organism (5) Pulmonary emboli Pulmonary embolism type: multiple subsegmental (without acute cor pulmonale) Qualified Code(s): I26.94 - Multiple subsegmental thrombotic pulmonary emboli without acute cor pulmonale (8) Aspiration into airway Encounter type: initial encounter Qualified Code(s): T17.908A - Unspecified foreign body in respiratory tract, part unspecified causing other injury, initial encounter
[2024-09-07 07:04] LABS: BUN Creatinine Ratio 19.2 (10-20); Calcium 9.8 mg/dl (8.6-10.3); Creatinine Clr Calc Pharmacy 85.5 ml/min; Potassium 3.6 mmol/L (3.5-5.1)
--- NOTE | 2024-09-07 11:45 | Hospitalist Progress Note ---
Date of Service September 07, 2024 Assessment & Plan (1) CAP (community acquired pneumonia): (2) Acute metabolic encephalopathy: (3) Acute UTI: (4) Generalized weakness: (5) Pulmonary emboli: (6) Non-sustained ventricular tachycardia: (7) Right ventricular dilation: (8) Aspiration into airway: (9) Expressive aphasia: (10) DM (diabetes mellitus), type 2: (11) Delirium superimposed on dementia: Plan Suspect patient is at her baseline. Advancing dementia which is impacting her willingness to take medications and to eat at a regular basis. Continue to encourage her to eat and drink Activities as tolerated Continue to pursue placement Niece at bedside and updated Admission and Anticipated Discharge Date Admission Date: August 19, 2024 Subjective Nurse reports that patient did take her medications this morning. Her oral intake is largely acceptable and irregular. Niece is at bedside. Physical Exam Physical Exam: Constitutional: Asleep but able to be awakened. HEENT: Mucous membranes moist. Lungs: Clear to auscultation, decreased, no wheezes rales or rhonchi CV: S1-S2, regular Abdomen: Soft, nontender, nondistended Extremities: No significant edema Neuro: No focal deficits, generally weak Psych: Cooperative, normal mood, abnormal memory Results & Data Results & Data Vital Signs (Past 12 Hours) Vital Signs Temp Pulse Resp BP Pulse Ox O2 Del Method 09/07/24 07:58 Room Air 09/07/24 07:55 36.6 C 70 18 151/71 H 94 Room Air Diagnostic Findings Reviewed imaging, laboratory and diagnostic studies. Pertinent findings as below. BMP reviewed, (1) CAP (community acquired pneumonia) Laterality: right Lung location: lower lobe of lung Qualified Code(s): J18.9 - Pneumonia, unspecified organism (5) Pulmonary emboli Pulmonary embolism type: multiple subsegmental (without acute cor pulmonale) Qualified Code(s): I26.94 - Multiple subsegmental thrombotic pulmonary emboli without acute cor pulmonale (8) Aspiration into airway Encounter type: initial encounter Qualified Code(s): T17.908A - Unspecified foreign body in respiratory tract, part unspecified causing other injury, initial encounter
--- NOTE | 2024-09-08 10:25 | Hospitalist Progress Note ---
Date of Service September 08, 2024 Assessment & Plan (1) CAP (community acquired pneumonia): (2) Acute metabolic encephalopathy: (3) Acute UTI: (4) Generalized weakness: (5) Pulmonary emboli: (6) Non-sustained ventricular tachycardia: (7) Right ventricular dilation: (8) Aspiration into airway: (9) Expressive aphasia: (10) DM (diabetes mellitus), type 2: (11) Delirium superimposed on dementia: Plan Continue with current care Continue to encourage oral intake of food and liquids Continue to work with therapies Awaiting placement for rehabilitation. Admission and Anticipated Discharge Date Admission Date: August 19, 2024 Subjective No reported acute events overnight. Awake and eating breakfast this morning. Pleasant to converse with. Offers no complaints. Physical Exam Physical Exam: Constitutional: Alert, nontoxic HEENT: Mucous membranes slightly dry Lungs: Clear to auscultation, decreased, no wheezes rales or rhonchi CV: S1-S2, regular Abdomen: Soft, nontender, nondistended Extremities: No significant edema Neuro: No focal deficits, generally weak Psych: Cooperative, normal mood, abnormal memory Results & Data Results & Data Vital Signs (Past 12 Hours) Vital Signs Temp Pulse Resp BP Pulse Ox O2 Del Method 09/08/24 07:16 36.7 C 74 16 129/72 92 Room Air (1) CAP (community acquired pneumonia) Laterality: right Lung location: lower lobe of lung Qualified Code(s): J18.9 - Pneumonia, unspecified organism (5) Pulmonary emboli Pulmonary embolism type: multiple subsegmental (without acute cor pulmonale) Qualified Code(s): I26.94 - Multiple subsegmental thrombotic pulmonary emboli without acute cor pulmonale (8) Aspiration into airway Encounter type: initial encounter Qualified Code(s): T17.908A - Unspecified foreign body in respiratory tract, part unspecified causing other injury, initial encounter
--- NOTE | 2024-09-09 13:26 | Hospitalist Progress Note ---
Date of Service September 09, 2024 Assessment & Plan (1) CAP (community acquired pneumonia): (2) Acute metabolic encephalopathy: (3) Acute UTI: (4) Generalized weakness: (5) Pulmonary emboli: (6) Non-sustained ventricular tachycardia: (7) Right ventricular dilation: (8) Aspiration into airway: (9) Expressive aphasia: (10) DM (diabetes mellitus), type 2: (11) Delirium superimposed on dementia: Plan Patient appears to be at her baseline mental status. Case management continue to pursue placement Alejandra catheter with some evidence of hematuria, has had chronically dark urine. Suspect this is just some irritation from the Alejandra catheter. Alejandra catheter in place due to urinary retention. Hand irrigate Alejandra as needed Check labs in a.m. Admission and Anticipated Discharge Date Admission Date: August 19, 2024 Subjective Patient denies any significant complaints. Alejandra catheter now with what appears to be some blood clots. Physical Exam Physical Exam: Constitutional: Alert, nontoxic, no acute distress HEENT: Mucous membranes moist. Lungs: Clear to auscultation, decreased, no wheezes rales or rhonchi CV: S1-S2, regular Abdomen: Soft, nontender, nondistended Extremities: No significant edema Neuro: Chronic expressive aphasia, generalized weakness Psych: Cooperative, normal mood Results & Data Results & Data Vital Signs (Past 12 Hours) Vital Signs Temp Pulse Resp BP BP Pulse Ox O2 Del Method 09/09/24 13:16 129/75 09/09/24 07:37 36.7 C 78 16 116/68 95 Room Air 09/09/24 07:35 Room Air (1) CAP (community acquired pneumonia) Laterality: right Lung location: lower lobe of lung Qualified Code(s): J18.9 - Pneumonia, unspecified organism (5) Pulmonary emboli Pulmonary embolism type: multiple subsegmental (without acute cor pulmonale) Qualified Code(s): I26.94 - Multiple subsegmental thrombotic pulmonary emboli without acute cor pulmonale (8) Aspiration into airway Encounter type: initial encounter Qualified Code(s): T17.908A - Unspecified foreign body in respiratory tract, part unspecified causing other injury, initial encounter
[2024-09-09] MEDS: SODIUM CHLORIDE 0.9% 1,000 ML IV ONE (16:39)
[2024-09-10 07:35] LABS: Hematocrit (blood only) 39.1 % (37.0-47.0); Hemoglobin 12.9 g/dl (12.0-16.0); Mean Corpuscular Hemoglobin 30.4 pg (25.0-34.0); Mean Corpuscular Volume 92.2 fL (80.0-100.0); Mean Platelet Volume 9.9 fL (9.4-12.4); Platelet Count 296 K/uL (130-400); RDW Coefficient of Variation 13.5 % (11.5-14.5); RDW Standard Deviation 44.2 fL (36.4-46.3); Red Blood Count 4.24 M/uL (4.20-5.40); White Blood Count 7.64 K/ul (4.8-10.8)
[2024-09-10 07:55] LABS: BUN Creatinine Ratio 18.6 (10-20); Calcium 9.6 mg/dl (8.6-10.3); Creatinine Clr Calc Pharmacy 76.2 ml/min; Potassium 3.8 mmol/L (3.5-5.1)
--- NOTE | 2024-09-10 13:16 | Hospitalist Progress Note ---
Date of Service September 10, 2024 Assessment & Plan (1) CAP (community acquired pneumonia): (2) Acute metabolic encephalopathy: (3) Acute UTI: (4) Generalized weakness: (5) Pulmonary emboli: (6) Non-sustained ventricular tachycardia: (7) Right ventricular dilation: (8) Aspiration into airway: (9) Expressive aphasia: (10) DM (diabetes mellitus), type 2: (11) Delirium superimposed on dementia: (12) Appetite impaired: (13) Urine retention: Plan Patient is at her baseline mental status. Vitals and laboratory studies have been stable. Patient has had issues with urinary retention, will maintain Alejandra catheter. Urine has been extremely dark and concentrated. This is due to patient's poor oral intake of water. Laboratory studies are not indicative of any severe dehydration. She has received some boluses of IV saline over the last 7 days. Continuing to encourage her to drink water. Patient has completed all her treatments here in the hospital. Reviewed case management notes. Has been accepted to [facility]. Bed available tomorrow, awaiting insurance authorization. Would encourage ongoing conversations of goals of care after discharge. Phone conversation with the patient's today. He is aware that due to her poor oral intake she will get a little dehydrated when this happens she gets more sleepy, drowsy and confused. This will be an ongoing issue that they will continually have to encourage her to take adequate amounts of water. He is agreeable to transportation to get her to [facility] tomorrow. Admission and Anticipated Discharge Date Admission Date: August 19, 2024 Subjective Patient awake, ate breakfast. No acute complaints. Physical Exam Physical Exam: Constitutional: Alert HEENT: Mucous membranes moist. Lungs: Clear to auscultation, decreased, no wheezes rales or rhonchi CV: S1-S2, regular Abdomen: Soft, nontender, nondistended Extremities: No significant edema Neuro: No focal deficits, chronic expressive aphasia Psych: Cooperative, normal mood Results & Data Results & Data Vital Signs (Past 12 Hours) Vital Signs Temp Pulse Resp BP Pulse Ox O2 Del Method 09/10/24 08:10 36.4 C L 67 18 137/68 94 Room Air 09/10/24 07:20 Room Air Laboratory Results Reviewed imaging, laboratory and diagnostic studies. Pertinent findings as below. CBC within normal ranges BMP stable, creatinine 0.59 (1) CAP (community acquired pneumonia) Laterality: right Lung location: lower lobe of lung Qualified Code(s): J18.9 - Pneumonia, unspecified organism (5) Pulmonary emboli Pulmonary embolism type: multiple subsegmental (without acute cor pulmonale) Qualified Code(s): I26.94 - Multiple subsegmental thrombotic pulmonary emboli without acute cor pulmonale (8) Aspiration into airway Encounter type: initial encounter Qualified Code(s): T17.908A - Unspecified foreign body in respiratory tract, part unspecified causing other injury, initial encounter
[2024-09-10] MEDS: APIXABAN 5 MG TABLET PO SCH (16:13)
[2024-09-11 07:19] VITALS: RESP 16
--- NOTE | 2024-09-11 12:18 | Discharge Summary ---
Date of Service September 11, 2024 Admission HPI Per Admitting Provider This is an 79yo F with PMH of DM II, expressive aphasia, mild cognitive impairment, tobacco use, periodic limb movement disorder, IBS, dementia, chronic constipation, who was recently hospitalized here from 08/15- with suspected acute metabolic encephalopathy due to acute UTI as well as possible right lower lobe pneumonia. During hospital stay was treated with Rocephin and doxycycline for atypical coverage. She had a white count of 19K, at that time and prior to that hospital stay was independent and able to complete all ADLs. She lives at home with . She was discharged home on cefuroxime as well as 7 days total course of doxycycline. She was also given a walker due to PTs recommendations upon discharge. Today the patient presents due to acute onset confusion which started early this morning per family. They are not present at bedside during the time of my evaluation but this is reported by ER staff as well as nursing. States that she had been doing very well at home since discharge. Last evening she went out with friends to dinner. This morning was unable to answer basic questions, does not know where she is, cannot answer what year it is or what her birthday is. Patient denies any acute focal pain. Does not think she took any medication. In the ER patient is found to have low blood pressures at 90 over 50s, temp of 38.6, CXR reveals a right lower lobe opacity which appears slightly improved compared to previous imaging on 08/15/2024. Concern for pneumonia not fully treated at this time. Urinalysis showed E. coli which was pansensitive so antibiotic therapy should be improving this. She was given 2 g cefepime in the ER, will switch over to IV Levaquin now, already received 1 L in the ER. At the time my visit her BP is 85/61, MAP 63. Ordered additional 1 L NSS bolus. Admission Exam Per Admitting Provider General: awake, alert, no apparent distress, elderly white female, confused Head: Normocephalic, atraumatic ENT: PERRL, EOMI, no pharyngeal exudate, mucous membranes moist Chest: on 2 L via NC, coarse bronchial breath sounds, + atelectasis in RLL, diminished throughout. No wheeze or rhonchi., Cardiac: Sinus tachycardic with HR mid 90s, no murmur, no JVD, normal peripheral pulses, good capillary refill Abdominal: NABS x 4 quadrants, soft, nondistended, nontender to palpation, no rebound or guarding Extremities: Normal inspection, no peripheral edema or erythema, calfs nontender to palpation Psych: Normal mood and affect Neuro: AA, not oriented to time/place/or birthday. RUE nurse obgyn slightly weaker than the left, strength intact bilaterally and rated 5/5 in BLE, no motor deficits, speech is clear, no peripheral sensory deficits Principal Diagnosis Sepsis Right lower lobe pneumonia Acute metabolic encephalopathy E.coli urinary tract infection Pulmonary embolus Chronic expressive aphasia Alzheimer's dementia Impaired appetite Urinary retention Discharge Exam General Appearance:Moderately built and nourished, in NAD, on RA Head: normocephalic, Atraumatic Eyes: normal inspection, EOMI Neck: supple Respiratory/Chest: Decreased breath sounds, No accessory muscle use Cardiovascular: S1, S2, No murmur Abdomen/GI:Soft, Non tender, Bowel sounds present Extremities/Musculoskeletal:normal inspection, Trace edema Neurologic/Psych: awake, alert, able to answer simple questions appropriately, moves extremities Skin: normal color, warm Discharge Data Allergies Allergy/AdvReac Type Severity Reaction Status Date / Time house dust mite Allergy Unknown Unknown Verified 08/20/24 05:38 No Known Drug Allergies Allergy Unknown NKDA Verified 06/13/16 09:23 pollen extracts Allergy Unknown HAYFEVER Verified 06/13/16 09:23 Consultations 08/19/24 13:35 ED Decision to Admit Stat 08/29/24 08:00 Consult Cardiology Routine Ordered Studies 08/19/24 11:48 CT head/brain wo con Stat FINDINGS: No acute intracranial hemorrhage, midline shift or mass effect is present. White matter hypodensities are unchanged and favor small vessel disea se. The ventricular system is unremarkable. The basal cisterns are patent. No extra-axial collections are present. There are no findings to suggest acute dural sinus thrombosis or acute territorial infarct. No significant calvarial abnormalities are present. Visualized portions of the sinuses and mastoid air cells are clear. IMPRESSION: No acute intracranial findings. No change in appearance of the brain. 08/19/24 11:49 CT abd pelvis IV con only Stat FINDINGS: The patient is status post L4-5 laminectomy and fusion with pedicle screws and posterior metal rods. No malalignment identified. There is a saccular 2.5 cm infrarenal abdominal aortic aneurysm at the level of the L3 vertebral body. There is no evidence of extravasation or retroperitoneal extension. There is no periaortic adenopathy. The lung bases demonstrate a trace right pleural effusion and minor bibasilar discoid atelectasis. There is a hiatal hernia present. There is hepatic steatosis. There are small stones within the gallbladder with no evidence of biliary distention or inflammation. There are no pancreatic lesions identified. The adrenal glands and spleen are unremarkable. There is no obstructive uropathy. There are no renal calculi identified. In the pelvis, there is no evidence of diverticulitis. There is no free fluid in the cul-de-sac. The unopacified urinary bladder is negative. The appendix is not identified. IMPRESSION: No acute process identified. L4-5 laminectomy and fusion noted. 2.5 cm infrarenal saccular abdominal aortic aneurysm. Small hiatal hernia. Hepatic steatosis. Cholelithiasis. CT angio chest PE protocol Stat IMPRESSION: 1. No pulmonary emboli identified. 2. Mild right lower lobe alveolar opacities suggestive of an infectious process. 3. Mildly enlarged right hilar lymph nodes. These are likely benign. A chest CT in 3 months is recommended to ensure resolution. 4. Mild cardiomegaly. Moderate to extensive coronary artery calcification. 08/26/24 13:30 FL video swallow Routine 08/29/24 11:07 US venous doppler LE BI Urgent FINDINGS: No evidence of DVT seen in bilateral lower extremities. IMPRESSION: No DVT seen. 08/29/24 15:32 CT angio chest PE protocol Routine IMPRESSION: 1. Bilateral pulmonary emboli as above with evidence of right heart strain. 2. 4 mm right fissural and 5 mm right subpleural lower lobe pulmonary nodules. Fleischner Society Guidelines for low-risk patients recommend, follow-up chest CT at 3-6 months. If unchanged consider an additional follow-up CT at 18-24 months. For high-risk patients (smoking history or other known risk factors) initial follow-up chest CT at 3-6 months and if unchanged, 18-24 months. 09/03/24 08:55 CT head/brain wo con Urgent FINDINGS: No acute intracranial hemorrhage, midline shift, intracranial mass, hydrocephalus, territorial ischemia or abnormal extra-axial collection. Involutional changes with chronic microvascular ischemic disease redemonstrated. Cerebral vascular calcifications. The calvarium is intact. The paranasal sinuses, mastoid air cells, and middle ear cavities are clear. IMPRESSION: No acute intracranial abnormality. Hospital Course (1) CAP (community acquired pneumonia): (2) Acute metabolic encephalopathy: (3) Acute UTI: (4) Generalized weakness: (5) Pulmonary emboli: (6) Non-sustained ventricular tachycardia: (7) Right ventricular dilation: (8) Aspiration into airway: (9) Expressive aphasia: (10) DM (diabetes mellitus), type 2: (11) Delirium superimposed on dementia: (12) Appetite impaired: (13) Urine retention: Plan Patient is an 79yr F with PMH of DM II, expressive aphasia, mild cognitive i mpairment, tobacco use, periodic limb movement disorder, IBS and other medical problems listed below who presents via EMS with confusion and was found to have acute metabolic encephalopathy 2/2 UTI and possible CAP. Sepsis Right lower lobe pneumonia Acute metabolic encephalopathy secondary to above E.coli UTI Generalized weakness Acute PE --CT Head:No acute intracranial findings. No change in appearance of the brain. --CT ABD:No acute process identified. --Chest CTA (08/19):No pulmonary emboli identified. Mild right lower lobe alveolar opacities suggestive of an infectious process. Mildly enlarged right hilar lymph nodes. These are likely benign. A chest CT in 3 months is recommended to ensure resolution. Mild cardiomegaly. Moderate to extensive coronary artery calcification. -- BioFire negative --Normal procalcitonin --Video Swallow:No aspiration seen. -- Blood cultures: negative to date --Completed 7-day course of IV Zosyn, doxycycline -- Received IV fluids -- Saturating well on room air -- Aspiration precautions, pulmonary hygiene PT OT recommends acute rehab Plan to discharge to rehab facility once medically stable 09/03/24 Metabolic encephalopathy Pt again with worsening mental status CT head negative will obtain UA, CXR, vit. B12 level -cont. iv thiamine - cont. to re-orient frequently to prevent delirium 09/11/2024 Mental status back to baseline - and per niece at the bedside and per previous hospitalist - been at baseline for several days. Acute PE repeat CT PE on 08/29 - 1. Bilateral pulmonary emboli as above with evidence of right heart strain. 2. 4 mm right fissural and 5 mm right subpleural lower lobe pulmonary nodules. Continued IV heparin - > switch to Eliquis today (09/02/2024) Continue Eliquis 5 bid on discharge Aspiration Code purple on 08/27/2024 --CXR:Heart size and pulmonary vasculature are normal. No effusion, consolidation, or pneumothorax. -- Lactic acidosis improved with IV fluid Empirically started on Unasyn -> switched to augmentin but now having trouble w/ po intake, confused Continue IV fluids Speech to reevaluate Aspiration precautions Patient was reevaluated by speech therapy on- 08/27 and was started on easy to chew diet Continue aspiration precautions 09/02-09/03 Currently on zosyn as difficulty swallowing PO Pt finished abx therapy Acute hypoxia secondary to acute PE 08/28/2024 after working w/ OT and had a BM Initially from RA to 6L after re-eval down to 2L CXR, ECG, cbc, bmp, trop obtained transferred to PCU echo obtained, as trop. elevated CT PE obtained - now posit. for acute PE Also had episode of VT Cardiology consulted - -> elevated troponin 08/04 to PE, not nstemi Dopplers of LEs obtained - negative for DVT Pt is on RA Diarrhea Stool PCR, stool for C. 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 Urine has been extremely dark and concentrated. This is due to patient's poor oral intake of water. Laboratory studies are not indicative of any severe dehydration. She has received some boluses of IV saline over the last 7 days. Continuing to encourage her to drink water. Pulmonary nodules - noted on CT - follow as outpt Dispo: Jane Rollins. Would encourage ongoing conversations of goals of care after discharge. Total Time Total Time Spent Total Time Spent (In Minutes): 40 Discharge Plan Discharge Items Patient Disposition: Transfer Long Term Fac Reason For Visit: AMS Discharge Diagnosis: Sepsis Right lower lobe pneumonia Acute metabolic encephalopathy E.coli urinary tract infection Pulmonary embolus Chronic expressive aphasia Alzheimer's dementia Impaired appetite Urinary retention Activity: As commented below Activity Comment: As tolerated Exercise/Sports: Gradually increase as tolerated Non-emergency contact: Primary Care Provider Call non-emergency contact if: you have any medication questions, your symptoms worsen, your pain is concerning for you and you have a fever Follow-up/Referrals: Clayton Gómez, [Primary Care Provider] - Diet: Carb Consistent or DM2 and Other - See Diet Comment Diet Comment: Encourage water intake Addtl Attending Provider Instructions: Follow-up with your primary care physician within 1-2 weeks. Continue routine Alejandra catheter care. You were started on Eliquis (blood thinner) for your pulmonary embolism. Take it as prescribed - 5 mg twice a day. If you have any questions/ concerns regarding your medications, discuss them with your health care providers. Make sure to stay well hydrated. Recommend using incentive spirometer and flutter valve. Avoid eating if drowsy - to prevent aspiration. Pending Studies at Discharge: No Stand-Alone Forms: My [facility] Skilled Items Patient informed of condition?: Yes DNR: Yes Discharge Level of Care: Skilled Communicable Disease: No Discharge Prognosis: Stable Lines: None Urinary Catheter: Yes Medications and DC Order Prescriptions: New acetaminophen 325 mg Tablet 650 mg PO Q4H PRN (Reason: fever or pain) Qty: 100 0RF thiamine HCl (vitamin B1) 100 mg Tablet 100 mg PO QAM Qty: 30 0RF metoprolol succinate 25 mg Tablet Extended Release 24 Hr 25 mg PO QAM Qty: 30 0RF Eliquis 5 mg Tablet 5 mg PO BID Qty: 60 0RF Continued multivitamin Tablet 1 tab PO DAILY Qty: 100 0RF atorvastatin 40 mg tablet 40 mg PO DAILY Qty: 30 0RF vitamin B complex Tablet Extended Release 1 tab PO DAILY Qty: 100 0RF donepezil 10 mg tablet 10 mg PO DAILY Qty: 30 0RF fexofenadine 180 mg Tablet 180 mg PO DAILY Qty: 30 0RF gabapentin 300 mg capsule 300 mg PO TID Qty: 90 0RF fluticasone propionate 50 mcg/actuation [place],Suspension 2 spray INTRANASAL HS Qty: 1 0RF guaifenesin [Mucinex] 600 mg tablet extended release 12hr 600 mg PO BID PRN (Reason: cough) Qty: 30 0RF Rx Instructions: Take twice a day as needed for cough aspirin 81 mg Capsule 81 mg PO DAILY Qty: 100 0RF Discontinued meclizine 25 mg tablet 25 mg PO TID PRN (Reason: Dizziness) duloxetine 30 mg capsule,delayed release(DR/EC) 30 mg PO BID cefuroxime axetil 500 mg tablet 500 mg PO BID 5 Days Qty: 10 0RF Rx Instructions: Take twice a day until course complete doxycycline hyclate 100 mg tablet 100 mg PO BID Qty: 13 0RF Rx Instructions: Take twice a day until course complete Discharge Orders: Discharge Order (Routine); Ordered 09/11/24 Ordered By: Keven Abraham Admission Data Admit Date/Time: 08/19/24 13:48 Attending Provider: Keven Abraham Admit Provider: Marvin Garnett Primary Care Provider: Clayton Gómez Other Providers: Charlie Verduzco; Marvin Garnett; Meche Rollins; Wayne Singh [place]; [place],[facility], [place]; Tim Freire [facility]
[2024-09-11 14:44] VITALS: BP 111/69; PULSE 66; TEMP 98.2; O2SAT 94
== END 2024-09-11 16:25 | DRG 871 ==
LOC: ED 11:09 → 2N 13:48 → SUATTDRO 13:48 → 2N 16:10 → 2E 08-28 16:07 → 3N 09-04 13:28